=== PATIENT | female | born 1955 | race Caucasian/White ===

== ENCOUNTER 2025-02-27 10:22 | Emergency (ER) | payer MEDICARE, SELFPAY ==
[2025-02-27] VITALS (19 sets, daily range): BP systolic 144–192; BP diastolic 93–123; PULSE 108–124; RESP 14–23; TEMP 36.6–36.9; O2SAT 99–100
--- NOTE | ~2025-02-27 | XR_ITS ---
Examination: XR chest 1V portable Clinical History: ETT placement Comparison: ET tube Technique: Portable AP Findings: ET tube. Cardiomegaly. Left CP angle blunting. No acute bony abnormality. IMPRESSION: 1. ET tube in place. 2. Left basilar atelectasis and/or effusion. Reviewed, dictated and finalized at location R.
--- NOTE | ~2025-02-27 | CT_ITS ---
EXAMINATION: CTA brain carotid DATE: 02/27/2025 11:18 INDICATION: Left arm weakness. Seizure. TECHNIQUE: Computed tomographic angiography (CTA) of the head was performed without and with 100 mL Omnipaque-350 intravenous contrast. CTA of the neck was performed with intravenous contrast. Automated exposure control and iterative reconstruction technique were employed. The dose-length product was 1899.40 mGy- cm. Maximum intensity projection and volume rendered 3D-reconstructions were created by the technologist on a separate workstation. COMPARISON: Head CT 08/22/2014 FINDINGS: HEAD CTA: There are scattered areas of low attenuation in the cerebral white matter, which is within normal limits for the patient's age. There is an old infarct in the right frontal lobe. There is an old infarct in the right parietal lobe. There is no intracranial hemorrhage, acute infarction, or abnormal intracranial mass lesion. The ventricles are normal in size. The mastoid air cells are normal. There is mild mucosal thickening in the paranasal sinuses. The orbits are normal. Partially visualized are endotracheal and orogastric tubes. There is frontal scalp soft tissue swelling. Left vertebral artery is dominant. There is no significant stenosis of basilar artery or the posterior cerebral arteries. There is no significant stenosis of the intracranial internal carotid arteries or anterior or middle cerebral arteries. Anterior communicating artery is normal. The posterior communicating arteries are normal. There is no aneurysm. NECK CTA: The endotracheal tube tip is in expected position. There are no pathologically enlarged lymph nodes. There is no significant stenosis of the vertebral arteries. There is soft tissue attenuation around the right carotid artery, likely hematoma and changes of recent carotid endarterectomy. There is plaque in the proximal left internal carotid artery. There is 0% stenosis of the proximal right internal carotid artery relative to normal distal artery lumen diameter (NASCET criteria). There is 33% stenosis of the proximal left internal carotid artery relative to normal distal artery lumen diameter. There is severe cervical spondylosis. IMPRESSION: 1. 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 2. No aneurysm or significant intracranial arterial stenosis. 3. 0% stenosis of the proximal right internal carotid artery relative to normal distal artery lumen diameter (NASCET criteria). 4. 33% stenosis of the proximal left internal carotid artery relative to normal distal artery lumen diameter. Reviewed, dictated and finalized at location E.
--- NOTE | ~2025-02-27 | XR_ITS ---
Abdominal radiograph(s) INDICATION: NG tube COMPARISON: Abdominal radiograph 12/14/2023 TECHNIQUE: Portable AP abdomen FINDINGS/IMPRESSION: 1. NG tube tip at gastric antrum. 2. No acute abnormality identified. Reviewed, dictated and finalized at location R.
--- NOTE | 2025-02-27 10:22 | ECG_ITS ---
Test Date: 2025-02-27 10:27:58 Measurements Intervals [place] Rate: 119 P: 12 VT: 172 QRS: -26 QRSD: 100 T: -9 QT: 393 QTc: 554 Interpretive Statements SINUS OR ECTOPIC ATRIAL TACHYCARDIA WITH VENTRICULAR PREMATURE COMPLEXES POSSIBLE ANTERIOR MYOCARDIAL INFARCTION , PROBABLY OLD INFERIOR INFARCT, AGE INDETERMINATE BASELINE ARTIFACT- I, II, AVR ABNORMAL ECG No previous ECG available for comparison Electronically Signed On 02-27-2025 14:24:05 CDT by vEer Rodarte D.O.
[2025-02-27] MEDS: levETIRAcetam 1500MG/NACL100ML 1,500 MG/100 ML BAG 1200 MG IVPB ×3 (10:50→11:19)
[2025-02-27 10:54] LABS: Alveolar/Arterial O2 Gradient 264.7 mmHg; Fractional Inspired Oxygen 100 %; HCO3 ABG 17.3 mEq/l (22.0-26.0); Oxygen Content ABG 19.5 %vol (16.0-22.0); Oxygen Saturation ABG 99.8 % (95.0-100.0); PCO2 ABG 27.8 mmHg (35.0-45.0); PO2 ABG 420.5 mmHg (80.0-100.0); PO2 FiO2 Ratio Arterial Blood 4.20 %
[2025-02-27 10:55] LABS: Hematocrit 40.2 % (37.0-47.0); Hemoglobin 13.0 g/dL (12.0-15.0); Immature Granulocyte Percent A 1.1 % (0-0.5); Lymphocytes Absolute Auto 2.59 K/mm3 (0.9-3.2); Mean Corpuscular HGB Conc 32.3 g/dl (32-36); Mean Corpuscular Hemoglobin 28.0 pg (26-34); Mean Corpuscular Volume 86.6 fl (80-100); Nucleated Red Blood Cells Absolute Auto 0.000 K/mm3 (0.0-0.012); Nucleated Red Blood Cells Perc 0.0 % (0.0-0.2); Platelet Count Result 252 k/mm3 (150-375); Red Blood Count 4.64 M/mm3 (4.2-5.4); White Blood Count 11.1 K/mm3 (4.5-10.0)
[2025-02-27 10:56] LABS: Arterial Blood Gas Ventilator rate 20 /MIN; Modified Allen's Test Pass; Site Drawn RIGHT RADIAL
[2025-02-27 10:57] LABS: Arterial Blood Gas Tidal Volume 450 ml
[2025-02-27 11:04] LABS: Alanine Aminotransferase 29 U/L (6-35); Albumin Level 4.0 g/dL (3.5-5.1); Alkaline Phosphatase 122 U/L (38-126); Anion Gap 15 mmol/L (4-12); Aspartate Amino Transferase 40 U/L (14-36); Bilirubin,Total 0.4 mg/dL (0.2-1.3); Blood Urea Nitrogen 15 mg/dL (7-17); Calcium 9.1 mg/dL (8.4-10.2); Carbon Dioxide 17 mmol/L (22-30); Chloride 105 mmol/L (98-107); Estimated Glomerular Filt Rate > 60; Glucose 272 mg/dL (65-110); Magnesium 1.0 mg/dL (1.6-2.3); Potassium 3.4 mmol/L (3.4-5.0); Sodium 137 mmol/L (137-145); Total Protein 7.1 g/dL (6.3-8.2)
[2025-02-27 11:07] LABS: Add Urine Microscopic? YES; Appearance Urine Cloudy (Clear); Glucose Urine UA 2+ mg/dL (Negative); Leukocyte Esterase Ur Negative LEU/UL (Negative); Need Manual Microscopic Reviewed; Nitrate Urine Negative (Negative); Non Pathogenic Casts >20; Specific Grav Ur 1.025 (1.001-1.035)
[2025-02-27] MEDS: MIDAZOLAM HCL (*CRX) 2 MG/2 ML VIAL 4 MG IV PUSH (11:08)
[2025-02-27 11:09] LABS: INR 1.0; Prothrombin Time 13.2 Seconds (11.1-14.7)
[2025-02-27 11:10] LABS: Partial Thromboplastin Time 24.2 Seconds (22.3-36.8)
[2025-02-27 11:12] LABS: Cannabinoid Screen Urine Negative (Negative)
[2025-02-27] MEDS: MIDAZOLAM HCL (*CRX) 2 MG/2 ML VIAL 4 MG (11:20)
[2025-02-27] MEDS: MAGNESIUM SULF 2 GM/WATER 50ML 2 GM/50 ML BAG IVPB (11:21)
[2025-02-27] MEDS: MIDAZOLAM 100MG/NS 100ML(*CRX) 100 MG/100 ML BAG IV CONT (11:25)
--- OUTSIDE RECORDS SUMMARY | 2025-02-27 11:29 | XMS_ITS | Encounter Summary ---
Author Organization [facility] Address [address] [place] [address] Care Team Providers Care Cellar Worker Name Role Phone Aubrie Sellers MD Unavailable [phone] Clare Jeter MD Unavailable [phone] Prem Rojas DO Unavailable [phone] Dannielle Romo Unavailable Prem Chauhan MD Unavailable Yruidia Davidson MD Unavailable Channing Sam MD Unavailable [phone] Juan Pagan Unavailable [phone] Telma Monreal MD Unavailable [phone] Gricel Rodas MD Unavailable [phone] Racheal Bauer MD Unavailable [phone] Conor Bautista MD Primary Care Provider Reason for Visit * Reason Onset Date Comments Medical Question/Miscellaneous 02/26/2025 Encounter Details Date Type Department Care Team (Late st Contact Info) Description 02/26/2025 Telephone [facility] Family Medicine at [place] [address] [facility] [place] [id number] Conor Bautista MD [address] [place] [address] [address] [place] [address] Medical Question/Miscellaneous Social History Tobacco Use Types Packs/Day Years Used Date Smoking Tobacco: Never Passive Smoke Exposure: Never Smokeless Tobacco: Never Alcohol Use Standard Drinks/Week Comments Not Currently 0 (1 standard drink = 0.6 oz pur e alcohol) [facility] Utilities Answer Date Recorded In the past 12 months has e electric, gas, oil, or water company threatened to shut off services in your home? No 07/01/2024 Social Connection and Isolation Panel Answer Date Recorded In a typical week, how many times do you talk on the phone with family, friends, or neighbors? More than three times a week 07/01/2024 How often do you get togethe r with friends or relatives? More than three times a week 07/01/2024 How often do you attend chur ch or holiness services? Never 07/01/2024 Do you belong to any clubs o r organizations such as confucianist groups, unions, fraternal or athletic groups, or school groups? No 07/01/2024 How often do you attend meet ings of the clubs or organizations you belong to? Never 07/01/2024 Are you , , di vorced, , never , or living with a partner? 07/01/2024 Overall Financial Resource Strain (CARDIA) Answe r Date Recorded How hard is it for you to pa y for the very basics like food, housing, medical care, and heating? Not very hard 07/01/2024 PHQ-2 Answer Date Recorded PHQ-2 Total Score (If total score is 3 or more points, staff should administer the PHQ-9) 1 03/10/2024 Hunger Vital Sign Answer Date Recorded Within the past 12 months, y ou worried that your food would run out before you got the money to buy more. Never true 07/01/19 25 Within the past 12 months, t he food you bought just didn't last and you didn't have money to get more. Never true 07/01/2024 PRAPARE - Transportation Answer Date Re corded In the past 12 months, has l ack of transportation kept you from medical appointments or from getting medications? No 09/2024 In the past 12 months, has l ack of transportation kept you from meetings, work, or from getting things needed for daily living? No 07/01/2024 Housing Stability Vital Sign Answer Moris e Recorded In the last 12 months, was t here a time when you were not able to pay the mortgage or rent on time? No 07/01/2024 In the past 12 months, how m any times have you moved where you were living? 0 07/01/2024 At any time in the past 12 m [facility], were you homeless or living in a correction (including now)? No 07/01/2024 AUDIT-C Answer Date Recorded Q1: How often do you have a drink containing alcohol? Never 02/11/2025 Q2: How many drinks containi ng alcohol do you have on a typical day when you are drinking? Patient does not drink Q3: How often do you have si x or more drinks on one occasion? Never 02/11/2025 Personal Safety Answer Date Recorded Have you ever been in or are you currently in a harmful physical or emotional relationship or is someone making you feel afraid or unsafe? Denies 02/18/2025 Comments No Sex and Gender Information Value Date Recorded Sex Assigned at Female 07/31/2018 8:32 AM CLINICAL INSTRUCTOR Legal Sex Female 1:57 AM CLINICAL INSTRUCTOR Gender Identity Female 05/14/2024 7:04 PM CLINICAL INSTRUCTOR Sexual Orientation Straight 07/31/2018 8: 32 AM CLINICAL INSTRUCTOR documented as of this encounter Miscellaneous Notes * Telephone Encounter - Shaye Ireland RN - 02/26/2025 2:49 PM CDT Called and spoke with patient who states she is not happy with [facility] and thinks [facility] will take her next week but the HC nurse is actually coming out to her home this afternoon to helpchange her sensor. I did urge her to discuss at [facility] appt. * Telephone Encounter - Shaye Mott - 02/26/2025 10:57 AM CDT Medical Question/Miscellaneous Caller???s Concern: Patient wants a call back as she has complaints about her Home Health group. Patient said that they were supposed to be there 3 times and they have only came one time. Patient needs her sensor changed and she does not know how. AC sending high priority due to Patient's complaints. Does message need to be routed? Yes-Action Needed documented in this encounter Plan of Treatment Not on file documented as of this encounter Visit Diagnoses Not on filedocumented in this encounter Care Teams Cellar Worker Relationship Specialty Start Date End Date Conor Bautista MD [address] [facility] [id number] [place] [address] PCP - General Family Medicine 11/06/19 Aubire Sellers MD Referring Physician 06/09/18 Clare Jeter MD [address] [place] [address] Consulting Physician Cardiology 06/09/18 Prem Rojas DO [address] [place] [address] Consulting Physician Gastroenterology 06/09/18 Dannielle Romo PA [address] [place] [address] Physician Paint Sprayer Sandblaster Orthopedic Surgery 06/09/18 Prem Chauhan MD [address] [place] [address] Surgeon Orthopedic Surgery 06/09/18 Yuridia Davidson MD [address] [facility] [address] [place] [address] Surgeon Orthopedic Surgery 06/09/18 Channing Sma MD [address] [facility] [address] [place] [address] Surgeon Ophthalmology 06/09/18 Juan Pagan PA [address] [place] [address] Physician Paint Sprayer Sandblaster Physician Paint Sprayer Sandblaster 06/09/18 Telma Monreal MD [address] [place] [address] Referring Physician Dermatology 06/09/18 Gricel Rodas MD [address] [place] [address] Consulting Physician Rheumatology 06/09/18 Racheal Bauer MD [address] [facility] [id number] [place] [address] Referring Physician Obstetrics and Gynecology 06/09/18 documented as of this encounter
--- OUTSIDE RECORDS SUMMARY | 2025-02-27 11:29 | XMS_ITS ---
Author Organization [facility] Address [address] [place] [address] Care Team Providers Care Tip Scourer Name Role Phone Aubrie Sellers MD Unavailable [phone] Clare Jeter MD Unavailable Prem Rojas DO Unavailable [phone] Dannielle Romo Unavailable Prem Chauhan MD Unavailable [phone] Yuridia Davidson MD Unavailable [phone] Channing Sam MD Unavailable [phone] Juan Pagan Unavailable Telma Monreal MD Unavailable [phone] Gricel Rodas MD Unavailable Racheal Bauer MD Unavailable Conor Bautista MD Primary Care Provider [phone] Active Problems Problem Noted Date Diagnosed Date Stenosis of right carotid artery 02/18/2025 Assessment & Plan (02/19/2025 9:28 AM CDT): 02/18/2025: s/p OR for R CEA -continue ASA and Zetia (she has a hx of statin intolerance, having tried 3 separate statin agents with significant symptoms). -SBP goal 110-150 -dc brittany, OU -dc gutierrez, follow up void trial. Incontinent at baseline -ok for OOB -advance diet S/P CABG x 4 02/18/2025 Assessment & Plan (02/19/2025 9:27 AM CDT): CAD s/p 4v CABG (12/2020). -continue ASA and Zetia -resume Coreg and Imdur as able Chronic pain 02/18/2025 Assessment & Plan (02/19/2025 9:26 AM CDT): chronic pain (bilateral hand and BLE) -Home meds: Morphine MSIR 15mg BID and Lyrica 25mg TID -resume home regimen Statin myopathy 09/21/2024 Type 2 diabetes mellitus with hyperglycemia 06/27 Small bowel obstruction 06/30/2024 Ophthalmic migraine 02/27/2024 Malignant neoplasm of urinary bladder 09/06/2023 IPMN (intraductal papillary mucinous neoplasm) 1 Assessment & Plan (03/12/2023 12:50 PM CDT): 7 mm lesion. Incidental finding on MR enterography. The significance of the lesion was discussed with her. She was reassured. Will repeat MRI pancreas in 1 year. Medicare annual wellness visit, subsequent 03/07 Bladder tumor 02/20/2023 Assessment & Plan (02/19/2025 9:30 AM CDT): Follows with [facility]. 02/14/2023 TURBT HgTa 2-3 bladder masses 3 cm in total. C/b incontinence and hematuria at baseline -void trial this morning -cont OP follow up Gastroenteritis 03/09/2021 Assessment & Plan (08/23/2021 4:52 PM CDT): She is referred for evaluation because there was concern that she may have IBD. Apparently, multiple previous colonoscopies and small bowel series did not reveal evidence of Crohn's disease although she is quite concerned because of her family history and recurrent small-bowel obstruction. It appears that she has had recurrent admission to the hospital for small-bowel obstruction possibly due to scar tissue versus Crohn's disease. I will schedule her for colonoscopy with terminal ileum evaluation. Will obtain MR enteropathy especially if terminal ileum cannot be intubated. Meanwhile will check CRP and fecal calprotectin. Generalized anxiety disorder 03/06/2021 Primary osteoarthritis involving multiple joints 03/06/2021 Coronary artery disease of n ative artery of [place] heart with stable angina pectoris 12/29/2020 Assessment & Plan (09/21/2024 3:06 PM CDT): Multivessel disease status post bypass grafting. Catheterization in 08/15 showed patent ROSS to LAD and patent SVG to OM, occluded radial to OM1 and vein to the right. She is not having any significant angina at this time so continue with medical therapy -- continue aspirin, bb, imdur -- try leqvio Assessment & Plan (07/23/2023 11:53 AM PROVIDER RELATIONS MANAGER): Multivessel disease status post bypass grafting. Catheterization in 08/15 showed patent ROSS to LAD and patent SVG to OM, occluded radial to OM1 and vein to the right. She is not having any significant angina at this time so continue with medical therapy - continue aspirin, bb, imdur - seems crestor was stopped at some point in past 6 months but unable to determine why from chart review; pt unsure why and does not recall specific intolerance. Will resume at low dose and monitor for sfx (crestor 5) Assessment & Plan (07/18/2022 3:05 PM PROVIDER RELATIONS MANAGER): Multivessel disease status post bypass grafting. Catheterization in 08/15 showed patent ROSS to LAD and patent SVG to OM, occluded radial to OM1 and vein to the right. She is not having any significant angina at this time so continue with medical therapy - continue aspirin, Zetia, Crestor, bb, imdur Assessment & Plan (03/01/2022 9:30 PM CDT): Multivessel disease status post bypass grafting. Catheterization in 08/15 showed patent ROSS to LAD and patent SVG to OM, occluded radial to OM1 and vein to the right. Recent ED visit likely non cardiac and workup was reassuring. Only infrequent, stable anginal sx responsive to NTG. RCA distal branches ungrafted but vessel contains diffuse complex disease so, despite being a potential PCI target if clinically necessary, would only consider this if symptoms progressed - continue aspirin, Zetia, Crestor, bb, imdur Assessment & Plan (11/28/2021 2:47 PM CDT): Multivessel disease status post bypass grafting. Catheterization a couple months ago showed patent ROSS to LAD and patent SVG to OM, occluded radial to OM1 and vein to the right. She is having only infrequent chest pain that is possibly but not definitely angina and it seems appropriate to continue medical therapy at this time. If she ever does have increasing angina despite medical therapy we can certainly explore PCI to the right coronary. - continue aspirin, Zetia, Crestor, bb, imdur Assessment & Plan (08/23/2021 10:04 AM CDT): Recent very small non-STEMI in the setting of GI illness. Cardiac catheterization showed that the vein grafts to her right PDA and 2nd obtuse marginal have occluded, but both marginals are being filled from the radial artery graft to the 1st marginal. I reassured her that her condition can be treated medically. Will increase isosorbide from 30 mg daily to 60 mg daily, and add sublingual nitroglycerin, the usage of which I reviewed with her. At this point there is no role for coronary intervention or redo CABG, and she is very relieved about this. Continue aspirin 81 mg daily and metoprolol 50 mg b.i.d.. She should follow up with Dr. Gutiérrez, whom she knows from her cardiac catheterization, in three months. Assessment & Plan (05/04/2021 9:06 AM PROVIDER RELATIONS MANAGER): No symptoms of myocardial ischemia following multivessel coronary artery bypass grafting. Continue aspirin 81 mg daily and metoprolol 50 mg b.i.d.. Class 1 obesity due to exces s calories with serious comorbidity and body mass index (BMI) of 31.0 to 31.9 in adult 12/29/2020 Chronic gout of left foot 06/14/2020 History of CVA with residual deficit 11/30/2019 Assessment & Plan (02/19/2025 9:27 AM CDT): Hx of CVA (2008) with residual deficit (right sided weakness) -continue ASA and Zetia. Nephrolithiasis 10/28/2019 Glaucoma suspect of both eyes 07/29/2018 Assessment & Plan (07/29/2018 1:28 PM PROVIDER RELATIONS MANAGER): Glaucoma suspect based on CDR: borderline IOP, CCT normal, visual field changes OS, RNFL today: Combined form of age-related cataract, both eyes 09/21/2015 Assessment & Plan (07/29/2018 1:27 PM PROVIDER RELATIONS MANAGER): Mild cataract OU: ADLs stable; monitor. High risk medication use 09/15/2015 Nonalcoholic fatty liver disease 09/15/2015 Arthralgia of multiple joints 06/17/2015 Mucinous eccrine carcinoma of skin 06/08/2015 History of gout 04/04/2015 Obstructive sleep apnea syndrome 11/17/2014 Overview (09/06/2017): Description: not on CPAP Primary hypertension 07/06/2008 Assessment & Plan (02/18/2025 10:53 AM CDT): Home regimen: Coreg, losartan and Imdur -Resume home meds as able Assessment & Plan (09/21/2024 3:07 PM CDT): Reasonable control -- continue carvedilol 6.25, losartan 50 and Imdur 60 Assessment & Plan (07/23/2023 11:54 AM PROVIDER RELATIONS MANAGER): Reasonable control - continue carvedilol, losartan 50 and Imdur Assessment & Plan (07/18/2022 3:05 PM PROVIDER RELATIONS MANAGER): Adequate control - continue carvedilol, losartan 50 and Imdur Assessment & Plan (03/01/2022 9:31 PM CDT): Controlled today. Continue coreg 6.25, losartan 50, imdur. Reviewed importance of limiting salt intake Assessment & Plan (11/28/2021 2:48 PM CDT): Adequately controlled, continue current medicines. However she had some stomach upset that she attributes to metoprolol so we will try carvedilol 6.25 b.i.d. instead Assessment & Plan (08/23/2021 10:04 AM CDT): Blood pressure is well controlled on her current regimen which was not changed. Assessment & Plan (05/04/2021 9:07 AM PROVIDER RELATIONS MANAGER): Blood pressure is controlled on losartan 50 mg daily and metoprolol 50 mg b.i.d., both of which she should continue. Assessment & Plan (03/03/2021 10:42 PM CDT): Monitor Assessment & Plan (11/11/2020 3:11 PM CDT): Blood pressure is adequately controlled on current regimen. No change was made. Diabetes mellitus, type II, insulin dependent Overview (09/06/2017): Description: dx 1997 Assessment & Plan (02/19/2025 9:27 AM CDT): A1c 9.2% on 02/12/2025 Home regimen: Lantus 25u nightly, NovoLOG 5U TID with meals and Metformin 1000mg BID -hold home oral meds -start dose reduced basal/bolus regimen -carb consistent diet Assessment & Plan (03/03/2021 10:43 PM CDT): SS coverage Current Treatment and Therapy Plans No current plan information found. Past Treatment and Therapy Plans No past plan information found. Lifetime Dose Tracking * Chemical Lifetime Dose Automatic Entry Manual Entr y Fluoro Time 8.19 minutes 0.39 minutes 7.8 minutes Air kerma at the reference point (Ka,r) 1,205.67 mGy 2 .28 mGy 1,203.39 mGy DLP 1,147 mGycm 1,147 mGycm 0 mGycm DAP 95.017 Gy-cm2 0 Gy-cm2 95.017 Gy-cm2 Resolved Problems Problem Noted Date Diagnosed Date Resolved Date Carotid stenosis, right 02/11/2025 09/2 10/2024 Elevated sed rate 09/06/2023 07/14/2024 Hand paresthesia 09/06/2023 12/20/2023 Nausea and vomiting 03/12/2023 09/10/19 Assessment & Plan (03/12/2023 12:49 PM CDT): Mild to moderately severe. Does okay Zofran sublingually. Advised to continue same medication. Bladder tumor 12/31/2022 03/07/2023 Irritable bowel syndrome 12/04/2022 Assessment & Plan (03/12/2023 12:48 PM CDT): Intermittently symptomatic. Advised to continue bupropion. She was advised to continue fiber supplement and try probiotics. Assessment & Plan (12/05/2022 3:41 PM CDT): She complain of persistent abdominal pain radiating to the right lower quadrant. CT scan performed at outside facility suggestive of inflammation around the terminal ileum but her last colonoscopy performed by sd did not reveal any terminal ileum lesion. She was advised to continue fiber supplement and try probiotics. Abnormal finding on GI tract imaging 12/04/2022 12/20/2023 Assessment & Plan (12/05/2022 3:42 PM CDT): CT scan abdomen and pelvis revealed possible terminal ileum inflammation. She was previously scheduled for MR enterography but could not make the appointment because she was concerned about being claustrophobic. I reassured her that she can receive Ativan premedication in order to be able to tolerate the testing. RLQ abdominal pain 06/01/2022 Assessment & Plan (06/02/2022 11:49 AM PROVIDER RELATIONS MANAGER): She had presented to the emergency room with severe right lower quadrant abdominal pain. CT revealed possible terminal ileum inflammation. She was empirically treated with metronidazole and is feeling better. The CT scan images reviewed. Showed nonspecific haziness around the terminal ileum suggestive of terminal ileitis. Recent colonoscopy with terminal ileum intubation was reviewed. The terminal ileum was normal at that time. The patient was concerned about possible Crohn's disease in the past. I will obtain MR enterography to further assess the small bowel. The plan of care was discussed with patient and her . Bloating 04/06/2022 09/05/2022 Assessment & Plan (04/06/2022 5:08 PM PROVIDER RELATIONS MANAGER): Persistent. IBS but need to rule out small intestinal bacterial overgrowth. Counseled about diet especially avoidance of dairy products and some specific fresh green vegetables. Will obtain hydrogen breath test. Epigastric abdominal pain 07/26/2021 Assessment & Plan (04/06/2022 5:12 PM PROVIDER RELATIONS MANAGER): Persistent epigastric pain. EGD revealed small hiatal hernia and antral gastritis. Advised to continue pantoprazole 40 mg daily. Counseled about diet and lifestyle modification. Assessment & Plan (08/23/2021 4:44 PM CDT): Mild to moderately severe. Associated with tenderness. May be due to esophagitis, gastric ulcer, duodenal ulcer. Esophagogastroduodenoscopy is recommended and scheduled. The risks, benefits and alternative to an esophagogastroduodenoscopy were discussed with the patient and the patient verbalized understanding. The risks included perforation, bleeding, infection and anesthetic complications. Hypokalemia 03/06/2021 03/08/2021 SBO (small bowel obstruction) 03/03/2021 03/08/2021 Assessment & Plan (03/04/2021 5:34 AM CDT): Bowel rest, surgery consulted in ER, conservative management for now. No NGT for now. Will order SBFT in AM After admission, pt had episode of N, V and NGT placed. History of gout 06/14/2020 12/20/2023 Whole body pain 05/16/2020 09/05/2022 Small bowel obstruction 10/28/2019 04/06/2022 Assessment & Plan (08/23/2021 4:53 PM CDT): She has had recurrent episodes of small-bowel obstruction warranting hospital admission. She is concerned that she may have Crohn's disease although this has never been proven by x-ray or endoscopy/histopathology. Will obtain colonoscopy with terminal ileum evaluation. Patient is also likely to need an MR enterography. Shingles 10/28/2019 03/16/2024 History of diabetes mellitus 07/29/2018 06/09/2019 Assessment & Plan (07/29/2018 1:29 PM PROVIDER RELATIONS MANAGER): H/o DM: no evidence of diabetic retinopathy, and no macular edema. Discussed about importance of glycemic control, and ocular complications of uncontrolled diabetes. 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 WBC 12.4 Her white count was as high as 29,000 in February 2021. She tells me that she has never been worked up for the problem. May have leukemoid reaction. Will obtain CBC with differential. May need referral to Hematology Service if white count remains elevated. 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
--- OUTSIDE RECORDS SUMMARY | 2025-02-27 11:29 | XMS_ITS | Encounter Summary ---
Author Organization [facility] Address [address] [place] [address] Phone Care Team Providers Care Beam Racker Name Role Phone Rogelio Lee MD Primary Care Provider Aubrie Sellers MD Unavailable [phone] Clare Jeter MD Unavailable Prem Rojas DO Unavailable [phone] Dannielle Romo Unavailable Prem Chauhan MD Unavailable Yuridia Davidson MD Unavailable Channing Sam MD Unavailable Juan Pagan Unavailable Telma Monreal MD Unavailable [phone] Gricel Rodas MD Unavailable Racheal Bauer MD Unavailable [phone] Cruz Rice MD Primary Care Provider + Conor Bautista MD Primary Care Provider Maren Dawson MA Unavailable [phone] Encounter Details Date Type Department Care Team (Latest Contact Info) Description 09/30/2018 Orders Only [facility] Scanning, Provider Social History Tobacco Use Types Packs/Day Years Used Date Smoking Tobacco: Never Smokeless Tobacco: Never Alcohol Use Standard Drinks/Week Comments No 0 (1 standard drink = 0.6 oz pur e alcohol) Comments Unknown Sex and Gender Information Value Date Recorded Sex Assigned at Female 07/31/2018 8:32 AM BRUSH WORKER Legal Sex Female 1:57 AM BRUSH WORKER Gender Identity Female 05/14/2024 7:04 PM BRUSH WORKER Sexual Orientation Straight 07/31/2018 8: 32 AM BRUSH WORKER documented as of this encounter Plan of Treatment Not on file documented as of this encounter Procedures Procedure Name Priority Date/Time Associated Diagnosis Comments SCAN - LABS 09/30/2018 SCAN - RADIOLOGY/IMAGING 09/29/2018 documented in this encounter Results * SCAN - LABS (09/30/2018) us Provider Scanning Final Result * SCAN - RADIOLOGY/IMAGING (09/29/2018) Anatomical Region Laterality Modality Other us Provider Scanning Final Result documented in this encounter Visit Diagnoses Not on filedocumented in this encounter Additional Health Concerns Infection Onset Date Last Indicated Resolved Time COVID: Suspected 05/20/2022 05/20/2022 05/20/2022 7:27 PM BRUSH WORKER COVID: Suspected 06/30/2024 06/30/2024 06/30/2024 6:43 PM BRUSH WORKER documented as of this encounter Care Teams Beam Racker Relationship Specialty Start Date End Date Rogelio Lee MD PCP - General 08/24/16 10/27/19 Cruz Rice MD [address] [place] [address] [address] [address] PCP - General Internal Medicine 10/28/19 11/05/19 Conor Bautista MD [facility] [address] [address] PCP - General Family Medicine 11/06/19 Aubrie Sellers MD Referring Physician 06/09/18 Clare Jeter MD [address] [place], [place] [id number] Consulting Physician Cardiology 06/09/18 Prem Rojas DO [address] [place] [address] Consulting Physician Gastroenterology 06/09/18 Dannielle Romo PA [address] [place] [address] Physician Cigar Binder Orthopedic Surgery 06/09/18 Prem Chauhan MD [address] [place] [address] Surgeon Orthopedic Surgery 06/09/18 Yuridia Davidson MD [address] [place] [address] Surgeon Orthopedic Surgery 06/09/18 Channing Sam MD [address] [place] [address] Surgeon Ophthalmology 06/09/18 Juan Pagan PA [address] [place] [address] Physician Cigar Binder Physician Cigar Binder 06/09/18 Telma Monreal MD [address] [facility] [address] [place] [address] Referring Physician Dermatology 06/09/18 Gricel Rodas MD [address] [place] [address] [address] [place] [address] Consulting Physician Rheumatology 06/09/18 Racheal Bauer MD [address] [id number] [place] [address] Referring Physician Obstetrics and Gynecology 06/09/18 Maren Dawson, HAYLEY [address] [facility] [address] [place] [address] ACO Care Blood Bank Technologist 02/22/25 02/22/25 documented as of this encounter
--- OUTSIDE RECORDS SUMMARY | 2025-02-27 11:30 | XMS_ITS | Clinical Summary ---
Author Organization [facility] Address [address] [place] [address] Care Team Providers Care Bloom Conveyor Operator Name Role Phone Rogelio Lee MD Primary Care Provider Source Comments [facility],non-owned Affiliates and Associated Physician Practices is amultiple site organization consisting of ambulatory clinics and hospital sitesin [place], [place], [place] and [place]. This disclosure is being madepursuant to the Care Everywhere program and may not contain all information available regarding this patient. Last updated 18.[facility] Allergies Active Allergy Reactions Criticality Noted Date Comments Amoxicillin 04/04/2010 Cephalosporins Rash,Other Medium 04/30/2016 Clopidogrel Other Low 10/24/2012 Muscle spasms and sharp pain, Sharp pains in muscles, Muscle spasms and sharp pain, Sharp pains in muscles, Muscle spasms and sharp pain, Sharp pains in muscles Codeine 04/04/2010 Contrast-Iodinated Agents For Ct/Other 04/04/2010 Cymbalta Other Low 04/04/2015 Chest pain, Chest pain, Chest pain Demerol 04/04/2010 Hmg-Coa-R Inhibitors Other High 04/30/2016 mylgia, mylgia, mylgia Hydromorphone Skin Reactions,Rash High 04/19/2014 Lorazepam Other Low 04/30/2016 Sulfa Drugs 04/04/2010 Tramadol Skin Reactions Medium 04/19/2014 Medications * Be aware that medications may not be up to date on this document. Alwaysverify current medications with the patient. aspirin-dipyrid amole CR 12hr (AGGRENOX) 25-200 MG capsule Take 1 capsule by mouth BID. 180 capsule 3 05/08/2016 Active folic acid (FOLVITE) 1 MG tablet 04/30/2016 Active hydroxychloroqu ine (PLAQUENIL) 200 MG tablet Take by mouth. 04/30/2016 Active baclofen (LIORESAL) 10 MG tablet Take 10 mg by mouth BID. 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 Family History Medical History Relation Name Comments CAD (Coronary Artery Disease) Other Heart Disease Other Hypertension Other Relation Name Status Comments Other Social History Tobacco Use Types Packs/Day Years Used Date Smoking Tobacco: Never Smokeless Tobacco: Never Alcohol Use Standard Drinks/Week Comments No 0 (1 standard drink = 0.6 oz pur e alcohol) Comments Unknown Sex and Gender Information Value Date Recorded Sex Assigned at Not on file Legal Sex Female 5:23 PM PLYWOOD LAYUP LINE CORE LAYER Gender Identity Not on file Sexual Orientation Not on file Last Filed Vital Signs Vital Sign Reading Time Taken Comments Blood Pressure 115/67 04/30/2016 1:20 PM PLYWOOD LAYUP LINE CORE LAYER Pulse 79 04/30/2016 1:20 PM PLYWOOD LAYUP LINE CORE LAYER Temperature 36.9 C (98.4 F) 04/30/2016 1:20 PM PLYWOOD LAYUP LINE CORE LAYER Respiratory Rate 17 04/04/2015 12:18 PM PLYWOOD LAYUP LINE CORE LAYER Oxygen Saturation 96% 10/25/2012 8:44 AM CDT Inhaled Oxygen Concentration - - Weight 84.4 kg (186 lb) 04/30/2016 1:20 PM PLYWOOD LAYUP LINE CORE LAYER Height 165.1 cm (5' 5) 04/30/2016 1:20 PM PLYWOOD LAYUP LINE CORE LAYER Body Mass Index 30.95 04/30/2016 1:20 PM PLYWOOD LAYUP LINE CORE LAYER Plan of Treatment Health Maintenance Due Date Last Done Comments BONE DENSITY TESTING 1955 COLOGUARD (AGES 45-75) - COLON CA SCREENING 1954 CT COLONOGRAPHY - COLON CA SCREENING 1954 FIT - COLON CA SCREENING 1954 FLEX SIG - COLON CA SCREENING 1954 HEPATITIS C SCREENING 09/22/1972 DTAP/TDAP/TD VACCINES (1 - Tdap) 1973 PNEUMOCOCCAL VACCINE 50+ (1 of 1 - PCV) 2004 ZOSTER VACCINE (1 of 2) 2004 Respiratory Syncytial Virus (RSV) Vaccine Pt: or over 60 yrs (1 - Risk 60-74 years 1-dose series) 2014 LIPID TESTING 04/19/2019 04/19/2014, 10/24/2012 MAMMOGRAM 08/04/2023 08/03/2021 DEPRESSION SCREENING 05/27/2024 COVID-19 VACCINE ( season) 2025 INFLUENZA VACCINE (#1) 2025 0, 03/17/2018, 03/04/2017, Additional history exists COLON MONITORING 09/13/2031 09/12/2021 COLONOSCOPY - COLON CA SCREENING 09/13/2031 09/12/2021 Colorectal Cancer Screening 09/13/2031 HEPATITIS B VACCINE Aged Out No longe r eligible based on patient's age to complete this topic HIB VACCINE Aged Out No longer eligi ble based on patient's age to complete this topic HPV VACCINE Aged Out No longer eligi ble based on patient's age to complete this topic MENINGOCOCCAL (Group B) VACCINE SHARED DECISION-MAKING Aged Out No longer eligible based on patient's age to complete this topic MENINGOCOCCAL GROUPS A/C/Y/W VACCINE Aged Out No longer eligible based on patient's age to complete this topic Procedures Procedure Name Priority Date/Time Associated Diagnosis Comments LIPID PROFILE Routine 04/19/2014 1:34 PM PLYWOOD LAYUP LINE CORE LAYER from Last 3 Months or Most Recently Relevant to Health Maintenance Results * (ABNORMAL) LIPID PROFILE (04/19/2014 1:34 PM [employer]YWOOD LAYUP LINE CORE LAYER) Cholesterol Total 272(H) <200 mg/dL [facility] HDL 52 >40 mg/dL [facility] Comment: ATP III Classification of HDL Cholesterol: <40 mg/dL: Considered a major risk factor. >60 mg/dL: Considered a negative risk factor. LDL Calculated 146(H) <100 mg/dL [facility] Comment: ATP III Classification of LDL Cholesterol: <100 mg/dL: Optimal 100 - 129 mg/dL: Near Optimal/Above Optimal 130 - 159 mg/dL: Borderline High 160 - 189 mg/dL: High >190 mg/dL: Very High Triglycerides 369(H) <150 mg/dL [facility] Comment: ATP III Classification of Triglycerides: <150 mg/dL: Normal 150 - 199 mg/dL: Borderline High 200 - 400 mg/dL: High >500 mg/dL: Very High Blood specimen (specimen) BLOOD SPECIMEN / Unknown 04/19/2014 1:34 PM PLYWOOD LAYUP LINE CORE LAYER 04/19/2014 2:10 PM [employer]YWOOD LAYUP LINE CORE LAYER Jimbo Contreras MD LAB - CHEMISTRY ORDERABLES Fin al Result [address] [phone] from Last 3 Months or Most Recently Relevant to Health Maintenance Insurance MEDICARE [employer]ET[employer] Care Teams Bloom Conveyor Operator Relationship Specialty Start Date End Date Rogelio Lee MD PCP - General 04/04/15
--- OUTSIDE RECORDS SUMMARY | 2025-02-27 11:30 | XMS_ITS | Clinical Summary ---
Author Organization [facility] Address [address] [place] [address] Care Team Providers Care Foundry Worker Name Role Phone Unavailable Primary Care Provider Unavailabl e Allergies Active Allergy Reactions Criticality Noted Date Comments Amoxicillin Rash 02/11/2022 Cefazolin Rash 02/11/2022 Lorazepam Other/Unknown (See Comments) 02/11/2022 Pt states no tolerance Codeine Rash 02/11/2022 Prednisone & Diphenhydramine Shortness Of Breath 02/11/2022 Duloxetine Hcl Headache 02/11/2022 Meperidine Rash 02/11/2022 Hydromorphone Itching 02/11/2022 Dapagliflozin Other/Unknown (See Comments) 02/11/2022 Pt states severe bowel pain Iodinated Diagnostic Agents Anaphylaxis High 02/11/2022 Oxycodone Nausea And Vomiting 02/11/2022 Clopidogrel Other/Unknown (See Comments) 02/11/2022 Pt states sharp stabbing muscle spasms Sulfa Antibiotics Rash 02/11/2022 Tramadol Itching 02/11/2022 Wound Dressing Adhesive Other/Unknown (S ee Comments) 02/11/2022 Pt states tape, adhesive, and ekg pads rips skin off Medications carvedilol (COREG) 6.25 MG tablet Take by mouth 2 times daily (with meals) Active rosuvastatin (CRESTOR) 5 MG tablet Take 5 mg by mouth daily Active pantoprazole (PROTONIX) 40 MG packet Take 40 mg by mouth daily Active valACYclovir (VALTREX) 1000 mg tablet Take 1,000 mg by mouth 2 times daily Active buPROPion (WELLBUTRIN) 150 MG XL tablet Take 150 mg by mouth every morning Active glyBURIDE-metfor min (GLUCOVANCE) 5-500 MG per tablet Take 1 tablet by mouth daily (with breakfast) Active isosorbide mononitrate (IMDUR) 30 MG CR tablet Take 30 mg by mouth every morning Active nitroGLYCERIN (NITROSTAT) 0.[address] 0.4 mg under the tongue every 5 minutes as needed for Chest pain Active Active Problems Problem Noted Date Diagnosed Date Chest pain, unspecified type 02/11/2022 Social History Tobacco Use Types Packs/Day Years Used Date Smoking Tobacco: Never Smokeless Tobacco: Never Alcohol Use Standard Drinks/Week Comments Never 0 (1 standard drink = 0.6 oz pur e alcohol) Alcohol Use Answer Date Recorded Frequency of Alcohol Consumption Not on file 11/11/2023 Average Number of Drinks Not on file 024 Frequency of Binge Drinking Not on file 10/25 Alcohol Use Status Never 11/11/2023 Average alcohol consumption Not on file 10/25 Comments No Sex and Gender Information Value Date Recorded Sex Assigned at Not on file Legal Sex Female 11:01 AM CDT Gender Identity Not on file Sexual Orientation Not on file Last Filed Vital Signs Vital Sign Reading Time Taken Comments Blood Pressure 164/76 02/12/2022 11:49 AM CDT Pulse 72 02/12/2022 7:43 AM CDT Temperature 36.8 C (98.2 F) 02/12/2022 7:43 AM CDT Respiratory Rate 18 02/12/2022 7:43 AM CDT Oxygen Saturation 96% 02/12/2022 7:43 AM CDT Inhaled Oxygen Concentration - - Weight 80.3 kg (177 lb) 02/11/2022 3:41 PM CDT Height 162.6 cm (5' 4) 02/11/2022 3:41 PM CDT Body Mass Index 30.38 02/11/2022 3:41 PM CDT Plan of Treatment Health Maintenance Due Date Last Done Comments DIABETIC FOOT EXAM 1954 Diabetic Eye Exam 1954 Hepatitis C Screening ages 18 to 79 once 1955 URINARY MICROALBUMIN IN DIABETES 1954 DEPRESSION SCREENING 1966 BREAST CANCER SCREENING 1994 Colon Cancer Screening 09/28/1999 Zoster Vaccine (Recombinant Vaccine) (1 of 2) 2004 DEXA SCAN SCREENING 09/28/2019 Fall Risk Assessment 09/28/2019 YEARLY WELLNESS EXAM 06/09/2020 06/09/2019, 06/09/19 19 Diabetes follow-up every 6 months by HEMOGLOBIN A1C 08/11/2022 02/11/2022 LIPID TESTING 02/11/2023 02/11/2022 Influenza Vaccine 12/25/2024 04/26/2021, , 06/09/2019, Additional history exists COVID-19 Immunization ( - season) 2025 Pneumococcal Vaccine: 50 and over (3 of 3 - PCV20 or PCV21) 10/17/2025 10/17/2020, 05/27/2008 RSV Vaccines (1 - 1-dose 75+ series) 2029 ADULT TETANUS 04/28/2030 04/28/2020, 06/09/2019 HEPATITIS A VACCINES Aged Out No long er eligible based on patient's age to complete this topic HEPATITIS B VACCINES Aged Out No long er eligible based on patient's age to complete this topic HIB VACCINES Aged Out No longer eligi ble based on patient's age to complete this topic HPV VACCINES Aged Out No longer eligi ble based on patient's age to complete this topic IPV VACCINES Aged Out No longer eligi ble based on patient's age to complete this topic MENINGOCOCCAL VACCINE Aged Out No benjamín honorio eligible based on patient's age to complete this topic Meningococcal B Vaccine Aged Out No l onger eligible based on patient's age to complete this topic ROTAVIRUS VACCINES Aged Out No longer eligible based on patient's age to complete this topic Procedures Procedure Name Priority Date/Time Associated Diagnosis Comments LIPID PROFILE Routine 02/11/2022 11:51 AM CDT HEMOGLOBIN A1C Routine 02/11/2022 11:51 AM CDT from Last 3 Months or Most Recently Relevant to Health Maintenance Results * (ABNORMAL) HEMOGLOBIN A1C (02/11/2022 11:51 AM CDT) Hemoglobin A1C 7.6(H) 4.0 - 5.6 % [facility] Estimated Average Glucose 171(H) 68 - 114 MG/DL [facility] 02/11/2022 11:5 1 AM CDT 02/11/2022 11:55 AM CDT Lokesh Shanks DO CHEMISTRY ORDERABLES Final R esult Performing Organization Address City/[facility]/ZIP Co de Phone Number [facility] [address] [place] [address], [facility] [phone] * (ABNORMAL) LIPID PROFILE (02/11/2022 11:51 AM CDT) Cholesterol 178 <200 MG/DL [facility] Triglycerides 332(H) 0 - 149 MG/DL [facility] HDL 56 >40 MG/DL [facility] LDL Cholesterol 56 <130 MG/DL [facility] LDL/HDL Ratio 0.99 [facility] VLDL, Calc 66(H) 5 - 40 MG/DL [facility] LDL, High Risk RELATIVE RISK MALE FEMALE 1/2 AVERAGE 1.00 1.47 AVERAGE 3.55 3.22 2X AVERAGE 6.25 5.03 3X AVERAGE 7.99 6.14 AN AVERAGE RISK RATIO INFERS A 10% LIKELIHOOD OF SIGNIFICANT CAD BY AGE 60. OTHER RISK FACTORS SUCH GLUCOSE INTOLERANCE, SMOKING HISTORY, HYPERTENSION AND OBESITY WILL FURTHER MODIFY THE RELATIVE RISK RATIO. [facility] 02/11/2022 11:5 1 AM CDT 02/11/2022 11:55 AM CDT Lokesh Shanks DO CHEMISTRY ORDERABLES Final R esult Performing Organization Address City/[facility]/ZIP Co de Phone Number [facility] [address] [place] [address], [facility] [phone] from Last 3 Months or Most Recently Relevant to Health Maintenance Insurance MEDICARE GENERIC MEDICARE SUPP MEDICARE GENERIC MEDICARE SUPP MEDICARE GENERIC MEDICARE SUPP Advance Directives * Full Code (Latest Code Status on File) Date Activated Date Inactivated Comments 02/11/2022 4:01 PM 02/12/2022 5:46 PM
--- OUTSIDE RECORDS SUMMARY | 2025-02-27 11:30 | XMS_ITS | Encounter Summary ---
Author Organization [facility] Address [address] [place] [address] Care Team Providers Care Cover Mat Machine Operator Name Role Phone Aubrie Sellers MD Unavailable [phone] Clare Jeter MD Unavailable Prem Rojas DO Unavailable [phone] Dannielle Romo Unavailable Prem Chauhan MD Unavailable Yuridia Davidson MD Unavailable Channing Sma MD Unavailable Juan Pagan Unavailable [phone] Telma Monreal MD Unavailable [phone] Gricel Rodas MD Unavailable Racheal Bauer MD Unavailable [phone] Conor Bautista MD Primary Care Provider Maren Dawson MA Unavailable [phone] Reason for Visit * Reason Onset Date Comments Medical Question/Miscellaneous 02/19/2025 Encounter Details Date Type Department Care Team (Late st Contact Info) Description 02/19/[address] [facility] Family Medicine at [address] [place] [address] Conor Bautista MD [address] [place] [address] [address] [place] [address] Medical Question/Miscellaneous Social History Tobacco Use Types Packs/Day Years Used Date Smoking Tobacco: Never Passive Smoke Exposure: Never Smokeless Tobacco: Never Alcohol Use Standard Drinks/Week Comments Not Currently 0 (1 standard drink = 0.6 oz pur e alcohol) [facility] Utilities Answer Date Recorded In the [...] often do you attend chur ch or congregational services? Never 07/01/2024 Do you belong to any clubs o r organizations such as spiritism groups, unions, fraternal or athletic groups, or [...] any time in the past 12 m onths, were you homeless or living in a fpc (including now)? No 07/01/2024 AUDIT-C Answer Date [...] Sex Assigned at Female 07/31/2018 8:32 AM CONTACT ACID PLANT OPERATOR Legal Sex Female 1:57 AM CONTACT ACID PLANT OPERATOR Gender Identity Female 05/14/2024 7:04 PM CONTACT ACID PLANT OPERATOR Sexual Orientation Straight 07/31/2018 8: 32 AM CONTACT ACID PLANT OPERATOR documented as of this encounter Miscellaneous Notes * Telephone Encounter - Lesa Raphael RN - 02/19/2025 4:29 PM CDT Called and gave verbal orders. Will need EFRAÍN call and appointment scheduled * Telephone Encounter - Nilsa Rodas - 02/19/2025 4:14 PM CDT Medical Question/Miscellaneous Caller???s Concern: Sharifa with [facility] received referral from [facility] for [facility], OT and PT. Sharifa stated that the patient discharged from the hospital today. She would like to know if Dr Bautista will sign and follow orders. Verbal is okay. Sharifa relayed that PT and OT may be a bit delayed, but alf could possibly get out there possibly Saturday or Saturday. Pleaseadvise Does message need to be routed? Yes-Action Needed documented in this encounter Plan of Treatment Not on file documented as of this encounter Visit Diagnoses Not on filedocumented in this encounter Care Teams Cover Mat Machine Operator Relationship Specialty Start Date End Date Conor Bautista MD [address] [facility] [phone] [place] [address] PCP - General Family Medicine 11/06/19 Aubrie Sellers MD Referring Physician 06/09/18 Clare Jeter MD [address] [place] [address] Consulting Physician Cardiology 06/09/18 Prem Rojas DO [address] [place] [address] Consulting Physician Gastroenterology 06/09/18 Dannielle Romo PA [address] [place] [address] Physician Business Project Analyst Orthopedic Surgery 06/09/18 Prem Chauhan MD [address] [place] [address] Surgeon Orthopedic Surgery 06/09/18 Yuridia Davidson MD [address] [place] [address] Surgeon Orthopedic Surgery 06/09/18 Channing Sam MD [address] [place] [address] Surgeon Ophthalmology 06/09/18 Juan Pagan PA [address] [place] [address] Physician Business Project Analyst Physician Business Project Analyst 06/09/18 Telma Monreal MD [address] [place] [address] Referring Physician Dermatology 06/09/18 Gricel Rodas MD [address] [place] [address] [address] [place] [address] Consulting Physician Rheumatology 06/09/18 Racheal Bauer MD [address] [facility] [address] [phone] [place] [address] Referring Physician Obstetrics and Gynecology 06/09/18 Maren Dawson, HAYLEY [address] [facility] [address] [place] [address] ACO Care Metal Leaf Layer 02/22/25 02/22/25 documented as of this encounter
--- OUTSIDE RECORDS SUMMARY | 2025-02-27 11:30 | XMS_ITS | Clinical Summary ---
Author Organization [facility] Address [address], [address] [address] Phone Care Team Providers Care Greens Or Grounds Superintendent Name Role Phone Provider, Unknown Primary Care Provider Unavaila Telma Mayers MD Unavailable [phone] Rogelio Lee MD Unavailable [phone] Allergies Active Allergy Reactions Criticality Noted Date Comments Adhesive Tape Unknown,Other (see Comments) Medium pulls skin off, ekg pads, can have paper tape Amoxicillin Rash,Itching,Unkno wn Medium Lorazepam Other (see Comments) High 02/13/2016 Confusion, emotional Cefazolin Rash Medium 02/13/2016 Cephalosporins Rash,Unknown Medium Duloxetine Hcl Other (see Comments) High 02/07/2016 Headache and Chest Pain Meperidine Rash,Unknown Medium Hydromorphone Itching,Anxiety,Un known Medium Iodinated Contrast Media Anaphylaxis,Unk now n High Other Nausea,Vomiting,Un known Medium Codeine Derivatives (Causes rash also) Clopidogrel Bisulfate Unknown,Other (see Comments) Medium Muscle spasms and sharp pain Sulfa Antibiotics Rash,Unknown Medium Tramadol Hcl Itching,Unknown Medium Medications aspirin-dypyrid amole (AGGRENOX) 25-200 MG CAPSULE SR 12 HR 2 times daily. Active buPROPion SR (WELLBUTRIN SR) 150 MG TABLET SR 12 HR Take 300 mg by mouth every morning. Active Coenzyme Q10 (CO Q-10) 50 MG Capsule 2 times daily. Reported on 10/30/2016 Active losartan (COZAAR) 50 MG Tablet Take 50 mg by mouth every morning. Active Magnesium ([employer] MAGNESIUM) 250 MG Tablet 2 times daily. Active folic acid (FOLVITE) 1 MG Tablet every morning. Active glyBURIDE-metfo rmin (GLUCOVANCE) 5-500 MG Tablet 1 Tab 4 times daily. Active cholecalciferol (HM VITAMIN D) 1000 UNIT Tablet every morning. Active amLODIPine (NORVASC) 5 MG Tablet Take 5 mg by mouth every morning. Active pantoprazole (PROTONIX) 40 MG Tablet Delayed Response every morning. Active Probiotic Product ([employer]) Capsule Take 1 Tab by mouth 2 times daily. Active valACYclovir (VALTREX) 1 GM Tablet 3 times daily as needed. Active colchicine 0.6 MG Tablet Take 0.6 mg by mouth every morning. Active Mesalamine (PENTASA) 500 MG Capsule CR Take 1 Cap by mouth 4 times daily (before meals and nightly). 360 Cap 3 09/03/2019 Active Active Problems Problem Noted Date Diagnosed Date Nonalcoholic fatty liver disease 09/15/2015 Crohn's ileitis 09/15/2015 High risk medication use 09/15/2015 Dyslipidemia 09/15/2015 Idiopathic acute pancreatitis 09/15/2015 Nonalcoholic steatohepatitis Immunizations Immunization Administration Dates Next Due Influenza Vaccine greater than 3 yrs 07/17/2015 Family History Medical History Relation Name Comments Alcohol Abuse Brother Hypertension Brother Cancer Father L inner ear Dementia Father From parkinson Glaucoma Father Gout Father Heart Attack Father High Cholesterol Father Hypertension Father Kidney Disease Father Other-comment Father Left leg defor mation Parkinsonism Father Demetia Prostate Cancer Father Psoriasis Father Heart Disease Maternal Grandfather Stroke Maternal Grandfather Ovarian Cancer Maternal Grandmother Diabetes Mother Heart Attack Mother Heart Disease Mother High Cholesterol Mother Hypertension Mother Other-comment Mother AML Crohn's Disease Other 1 cousins Cancer Other 2 cousin Cancer Other 3 cousin bladder Heart Disease Paternal Grandfather Aneurysm Paternal Grandmother Relation Name Status Comments Brother Father Alive Maternal Grandfather Maternal Grandmother Mother Other 1 Other 2 cousin Alive Other 3 cousin Alive Paternal Grandfather Paternal Grandmother Social History Tobacco Use Types Packs/Day Years Used Date Smoking Tobacco: Never Smokeless Tobacco: Never Tobacco Cessation:Counseling Given: No Alcohol Use Standard Drinks/Week Comments Not Currently 0 (1 standard drink = 0.6 oz pur e alcohol) Rare Comments No Sex and Gender Information Value Date Recorded Sex Assigned at Not on file Legal Sex Female 8:06 PM CDT Gender Identity Not on file Sexual Orientation Not on file Last Filed Vital Signs Vital Sign Reading Time Taken Comments Blood Pressure 122/76 12/01/2019 3:08 PM CDT Pulse 87 12/01/2019 3:08 PM CDT Temperature 36.2 C (97.1 F) 12/01/2019 3:08 PM CDT Respiratory Rate 16 12/01/2019 3:08 PM CDT Oxygen Saturation 99% 12/01/2019 3:08 PM CDT Inhaled Oxygen Concentration - - Weight 79.8 kg (176 lb) 02/12/2020 1:00 PM CDT Height 162.6 cm (5' 4) 02/12/2020 1:00 PM CDT Body Mass Index 30.21 02/12/2020 1:00 PM CDT Plan of Treatment Health Maintenance Due Date Last Done Comments TdaP Immunization 1955 Cologuard 09/28/1999 Immunochemical Fecal Occult Blood 09/28/1999 Pneumococcal Immunization (5 0+ years) (1 of 1 - PCV) 2004 Medicare Initial AWV G0438 11/25/2011 Influenza Immunization (#1) 01/25/202502/25, 03/04/2017, 07/17/2015 SARS-COV-2 Immunization ( - season) 2025 Colonoscopy 02/12/2026 02/13/2016, 03/08/2014 Colorectal Cancer Screening 02/12/2026 Respiratory Syncytial Virus (RSV) Immunization (Adult) (1 - 1-dose 75+ series) 2029 DEXA Bone Density Discontinued 10/10/2015, 10/10/2015 Hepatitis C Virus (HCV) Screening Completed 10/10/2015 Zoster Immunization Completed 11/13/2017, 09/02/2017 Hepatitis B Immunization Aged Out No longer eligible based on patient's age to complete this topic Human Papillomavirus (HPV) Immunization Aged Out No longer eligible based on patient's age to complete this topic Meningococcal Immunization (ACWY) Aged Out No longer eligible based on patient's age to complete this topic Rotavirus Immunization Aged Out No lo nger eligible based on patient's age to complete this topic Procedures Procedure Name Priority Date/Time Associated Diagnosis Comments HEPATITIS PANEL ACUTE (AHP) Routine 10/10/2015 Nonalcoholic steatohepatitis Nonalcoholic fatty liver disease Crohn's ileitis, without complications (<HCC>) Dyslipidemia Idiopathic acute pancreatitis ALISHA BONE DENSITOMETRY AXIAL SKELETON Routine 10/10/2015 Nonalcoholic steatohepatitis Nonalcoholic fatty liver disease Crohn's ileitis, without complications High risk medication use Dyslipidemia Idiopathic acute pancreatitis HM COLONOSCOPY Routine 03/08/2014 from Last 3 Months or Most Recently Relevant to Health Maintenance Results * ALISHA BONE DENSITOMETRY AXIAL SKELETON (10/10/2015) Anatomical Region Laterality Modality BODY N/A Other us Prem Rojas DO IMG DEXA ORDERABLES Final Resul t * HEPATITIS PANEL ACUTE (AHP) (10/10/2015) Blood specimen (specimen) us Prem Rojas DO HEMATOLOGY ORDERABLES Final Res ult * HM COLONOSCOPY (03/08/2014) Jimbo Contreras MD PROCEDURE/MINOR SURGICAL ORDER SYLWIA Final Result from Last 3 Months or Most Recently Relevant to Health Maintenance Insurance [place] [address] Care Teams Greens Or Grounds Superintendent Relationship Specialty Start Date End Date Provider, Unknown UNKNOWN PCP - General 09/16/15 Telma Monreal MD [address] DIV IM DERMATOLOGY, [facility] [address] [place] [address] Dermatology 09/16/15 Rogelio Lee MD [facility] [address] [facility] [address] [place] [address] Internal Medicine 09/16/15
--- OUTSIDE RECORDS SUMMARY | 2025-02-27 11:30 | XMS_ITS | Clinical Summary ---
Author Organization [facility] Address [address] [place] [address] Care Team Providers Care Veneer Jointer Name Role Phone Conor Bautista MD Primary Care Provider [phone] Allergies Active Allergy Reactions Criticality Noted Date Comments Tape Atopic Dermatitis 01/16/2021 Amoxicillin Rash,Itching Low 01/16/2021 Cefazolin Rash Low 01/16/2021 Codeine Rash,Vomiting Low 01/16/2021 Iodine Shortness of Breath,Rash,Swelling High Duloxetine Hcl Headache,Chest pressure 01/17/20 Meperidine Rash Low 01/16/2021 Hydromorphone Itching 01/16/2021 Sulfa Antibiotics Rash Low 01/16/2021 Tramadol Itching 01/16/2021 Medications amLODIPine 5 MG tablet Take 5 mg by mouth daily. Active aspirin EC (ASPIRIN EC) 81 MG tablet Take 81 mg by mouth daily. Active vitamin D3, cholecalciferol, (CHOLECALCIFEROL) 1000 UNIT Tab tablet Take 1,000 Units by mouth daily. Active ezetimibe 10 MG tablet Take 10 mg by mouth daily. Active glyBURIDE-metFORMIN 5-500 MG tablet Take 1 tablet by mouth 2 (two) times a day. Active losartan 50 MG tablet Take 50 mg by mouth daily. Active metoprolol tartrate 50 MG tablet Take 50 mg by mouth 2 (two) times daily. Active ondansetron 4 MG disintegrating tablet Take 4 mg by mouth every 6 (six) hours as needed for Nausea. 08/16/202 1 Active oxyCODONE-acetamino phen 5-325 MG tablet Take 1-2 tablets by mouth every 6 (six) hours as needed for Pain. 1 Active pantoprazole EC 40 MG tablet Take 40 mg by mouth daily. 1 Active valACYclovir 1 g tablet Take 1,000 mg by mouth daily. 1 Active Family History Medical History Relation Comments Heart Disease Father Hyperlipidemia Father Hypertension Father Cancer Mother Diabetes Mother Heart Disease Mother Hyperlipidemia Mother Hypertension Mother Stroke Mother Relation Status Comments Father Mother Social History Tobacco Use Types Packs/Day Years Used Date Smoking Tobacco: Never Alcohol Use Standard Drinks/Week Comments Not Currently 0 (1 standard drink = 0.6 oz pur e alcohol) Comments Unknown Sex and Gender Information Value Date Recorded Sex Assigned at Not on file Legal Sex Female 5:04 PM CDT Gender Identity Not on file Sexual Orientation Not on file Last Filed Vital Signs Vital Sign Reading Time Taken Comments Blood Pressure 132/78 01/16/2021 12:30 PM CDT Pulse 89 01/16/2021 12:30 PM CDT Temperature 37.4 C (99.3 F) 01/16/2021 12:00 PM CDT Respiratory Rate 18 01/16/2021 12:30 PM CDT Oxygen Saturation 94% 01/16/2021 12:30 PM CDT Inhaled Oxygen Concentration - - Weight 80.3 kg (177 lb 0.5 oz) 01/16/2021 4:51 A M CDT Height 162.6 cm (5' 4) 01/16/2021 4:51 AM CDT Body Mass Index 30.39 01/16/2021 4:51 AM CDT Plan of Treatment Health Maintenance Due Date Last Done Comments Colorectal Cancer Screening Colonoscopy (10 Years) 1955 Mammogram Screening 1994 Annual Medicare Wellness Visit 09/28/2019 Dexa Scan (General) 09/28/2019 COVID-19 Vaccine ( - 2023-2 5 season) 2025 Pneumococcal Vaccine: 50+ Years (3 of 3 - PCV20 or PCV21) 10/17/2025 10/17/2020, 05/27/2008 RSV Immunization or 60+ Years (1 - 1-dose 75+ series) 2029 DTaP, Tdap and Td Vaccines ( 3 - Td or Tdap) 04/28/2030 04/28/2020, 06/09/2019 Zoster Vaccines Completed 11/13/2017, 09/02/2017, 05/27/2011 Hepatitis C Completed 11/14/2020, 11/14/2020 Meningococcal B Vaccine Aged Out No l onger eligible based on patient's age to complete this topic Meningococcal Vaccine Aged Out No benjamín honorio eligible based on patient's age to complete this topic RSV Immunizations Under 20 Months Aged Out No longer eligible b ased on patient's age to complete this topic Insurance [employer] MEDICARE [facility] [place] Orders INSURANCE [employer] Care Teams Veneer Jointer Relationship Specialty Start Date End Date Conor Bautista MD PCP - General FAMILY PRACTICE 01/16/21
--- OUTSIDE RECORDS SUMMARY | 2025-02-27 11:30 | XMS_ITS | Encounter Summary ---
Author Organization [facility] Address [address] [place] [address] Care Team Providers Care Storeroom Supervisor Name Role Phone Aubrie Sellers MD Unavailable [phone] Clare Jeter MD Unavailable Prem Rojas DO Unavailable [phone] Dannielle Romo Unavailable Prem Chauhan MD Unavailable Yuridia Davidson MD Unavailable Channing Sam MD Unavailable [phone] Juan Pagan Unavailable Telma Monreal MD Unavailable [phone] Gricel Rodas MD Unavailable [phone] Racheal Bauer MD Unavailable [phone] Conor Bautista MD Primary Care Provider Maren Dawson MA Unavailable [phone] Encounter Details Date Type Department Care Team (Late st Contact Info) Description 02/18/2025 Pre Admission Vascular Surgery Teagan Tyson MD [address] [place] [address] Stenosis of right carotid artery (Primary Dx) Social History Tobacco Use Types Packs/Day Years Used Date Smoking Tobacco: Never Passive Smoke Exposure: Never Smokeless Tobacco: Never Alcohol Use Standard Drinks/Week Comments Not Currently 0 (1 standard drink = 0.6 oz pur e alcohol) [facility] Utilities Answer Date Recorded In the past 12 months has e [employer], gas, oil, or water [employer] threatened to shut off services in your [...] week 07/01/2024 How often do you attend [facility] ch or restoration services? Never 07/01/2024 Do you belong to any clubs o r organizations such as sikhism groups, unions, fraternal or athletic groups, or [...] any time in the past 12 m [facility], were you homeless or living in a long-term (including now)? No 07/01/2024 AUDIT-C Answer Date [...] Sex Assigned at Female 07/31/2018 8:32 AM DIRECTOR OF CATERING SALES Legal Sex Female 1:57 AM DIRECTOR OF CATERING SALES Gender Identity Female 05/14/2024 7:04 PM DIRECTOR OF CATERING SALES Sexual Orientation Straight 07/31/2018 8: 32 AM DIRECTOR OF CATERING SALES documented as of this encounter Plan of Treatment Not on file documented as of this encounter Visit Diagnoses Diagnosis Stenosis of right carotid artery- Primary Occlusion and stenosis of carotid artery without mention of cerebral infarction documented in this encounter Orders Case Request Count Last Ordered Date First Orde red Date CASE REQUEST OPERATING ROOM 1 02/18/2025 documented in this encounter Care Teams Storeroom Supervisor Relationship Specialty Start Date End Date Conor Bautista MD [address] [facility] [address] [phone] [place] [address] PCP - General Family Medicine 11/06/19 Aubrie Sellers MD Referring Physician 06/09/18 Clare Jeter MD [address] [place] [address] Consulting Physician Cardiology 06/09/18 Prem Rojas DO [address] [place] [address] Consulting Physician Gastroenterology 06/09/18 Dannielle Romo PA [address] [place] [address] Physician Sanitizer Orthopedic Surgery 06/09/18 Prem Chauhan MD [address] [place] [address] Surgeon Orthopedic Surgery 06/09/18 Yuridia Davidson MD [address] [place] [address] Surgeon Orthopedic Surgery 06/09/18 Channing Sam MD [address] [place] [address] Surgeon Ophthalmology 06/09/18 Juan Pagan PA [address] [place] [address] Physician Sanitizer Physician Sanitizer 06/09/18 Telma Monreal MD [address] [place] [address] Referring Physician Dermatology 06/09/18 Gricel Rodas MD [address] [facility] [address] [place] [address] Consulting Physician Rheumatology 06/09/18 Racheal Bauer MD [address] [facility] [phone] [place] [address] Referring Physician Obstetrics and Gynecology 06/09/18 Maren Dawson MA [address] [facility] [address] [place] [address] ACO Care Intake Assessor 02/22/25 02/22/25 documented as of this encounter
--- OUTSIDE RECORDS SUMMARY | 2025-02-27 11:30 | XMS_ITS | Encounter Summary ---
Author Organization [facility] Address [address] [place] [address] Care Team Providers Care Cell Feed Department Supervisor Name Role Phone Aubrie Sellers MD Unavailable [phone] Clare Jeter MD Unavailable Prem Rojas DO Unavailable [phone] Dannielle Romo Unavailable Prem Chauhan MD Unavailable Yuridia Davidson MD Unavailable [phone] Channing Sam MD Unavailable [phone] Juan Pagan Unavailable Telma Monreal MD Unavailable [phone] Gricel Rodas MD Unavailable Racheal Bauer MD Unavailable [phone] Conor Bautista MD Primary Care Provider Maren Dawson MA Unavailable [phone] Encounter Details Date Type Department Care Team (Late st Contact Info) Description 02/15/2025 Results Follow-Up [facility] Family Medicine at [place] [id number] [facility] [address] [place] [address] Joyce Sneed PA [address] [place] [address] [address] [place] [address] Comprehensive metabolic panel, Hemoglobin A1c, eGFR Social History Tobacco Use Types Packs/Day Years Used Date Smoking Tobacco: Never Passive Smoke Exposure: Never Smokeless Tobacco: Never Alcohol Use Standard Drinks/Week Comments Not Currently 0 (1 standard drink = 0.6 oz pur e alcohol) [facility] Utilities Answer Date Recorded In the [...] often do you attend chur ch or sikhism services? Never 07/01/2024 Do you belong to any clubs o r organizations such as uatsdin groups, unions, fraternal or athletic groups, or [...] any time in the past 12 m [facility], were you homeless or living in a senior living (including now)? No 07/01/2024 AUDIT-C Answer Date [...] Sex Assigned at Female 07/31/2018 8:32 AM SPORTS SPECIALIST Legal Sex Female 1:57 AM SPORTS SPECIALIST Gender Identity Female 05/14/2024 7:04 PM SPORTS SPECIALIST Sexual Orientation Straight 07/31/2018 8: 32 AM SPORTS SPECIALIST documented as of this encounter Plan of Treatment Not on file documented as of this encounter Visit Diagnoses Not on filedocumented in this encounter Care Teams Cell Feed Department Supervisor Relationship Specialty Start Date End Date Conor Bautista MD [address] [phone] [place] [address] PCP - General Family Medicine 11/06/19 Aubrie Sellers MD Referring Physician 06/09/18 Clare Jeter MD [address] [place] [address] Consulting Physician Cardiology 06/09/18 Prem Rojas DO [address] [place] [address] Consulting Physician Gastroenterology 06/09/18 Dannielle Romo PA [address] [place] [address] Physician Aerial Survey Technician Orthopedic Surgery 06/09/18 Prem Chauhan MD [address] [place] [address] Surgeon Orthopedic Surgery 06/09/18 Yuridia Davidson MD [address] [place] [address] Surgeon Orthopedic Surgery 06/09/18 Channing Sam MD [address] [place] [address] Surgeon Ophthalmology 06/09/18 Juan Pagan PA [address] [place] [address] Physician Aerial Survey Technician Physician Aerial Survey Technician 06/09/18 Telma Monreal MD [address] [place] [address] Referring Physician Dermatology 06/09/18 Gricel Rodas MD [address] [facility] [address] [place] [address] Consulting Physician Rheumatology 06/09/18 Racheal Bauer MD [address] [facility] [phone] [place] [address] Referring Physician Obstetrics and Gynecology 06/09/18 Maren Dawson MA [address] [facility] [address] [place], [place] [id number] ACO Care Rail Operations Controller 02/22/25 02/22/25 documented as of this encounter
--- OUTSIDE RECORDS SUMMARY | 2025-02-27 11:30 | XMS_ITS | Clinical Summary ---
Author Organization [facility] Address [address] [place] [address] Care Team Providers Care Vegetable Thinner Name Role Phone Aubrie Sellers MD Unavailable [phone] Clare Jeter MD Unavailable Prem Rojas DO Unavailable [phone] Dannielle Romo Unavailable Prem Chauhan MD Unavailable Yuridia Davidson MD Unavailable [phone] Channing Sam MD Unavailable Raeann Pagan Unavailable [phone] Telma Monreal MD Unavailable [phone] Gricel Rodas MD Unavailable Racheal Bauer MD Unavailable Conor Bautista MD Primary Care Provider Allergies Active Allergy Reactions Criticality Noted Date Comments Adhesive Tape-Silicones Rash,Other (See comments) Medium Adhesive Tape, EKG and Heart Monitor electrodes Takes top layer of skin off Amoxicillin Itching,Rash Medium 01/16/2021 Exenatide Other (See comments) Low 01/02/2023 pancreatitis Cefazolin Swelling,Rash Medium 01/16/2021 Clopidogrel Muscle pain Medium Sharp stabbing pain and muscle spasms Codeine Rash,Vomiting Medium 01/16/2021 Duloxetine Headache,Chest tightness High Reaction: Headache, Chest Pain, Dapagliflozin Stomach upset Low 08/22/2021 Bloating, pain, couldn't hold urine Hydromorphone Rash,Itching Medium 01/16/2021 Iodinated Contrast Media Shortness of breath,Rash,Angioede ma High Iodine And Iodide Containing Products Rash Medium Lorazepam Mental status changes Low 02/13/2016 Meperidine Rash Medium Oxycodone Vomiting Low 05/20/2022 Evolocumab Other (See comments),Dizziness, Nausea & Vomiting Low 03/16/2024 Insomnia Plttwvn-Dyl-Mfz Reductase Inhibitors Rash Medium Sulfa (Sulfonamide Antibiotics) Rash Medium 01/16/2021 Tramadol Itching,Nausea only Low 01/16/2021 Medications aspirin 81 mg enteric coated tabletIndications :Cerebral Thromboembolism Prevention,preven tion of thrombosis,hx CABG Take 1 tablet (81 mg total) by mouth nightly Active magnesium gluconate 200 mg tabletIndications :hypomagnesemia Take 1.25 tablets (250 mg total) by mouth 2 (two) times a day Active naloxone (NARCAN) 4 mg/actuation spray,non-aerosol Administer 1 spray into affected nostril(s) as needed for opioid reversal or respiratory depression Call 911. Administer a single spray in one nostril. Repeat every 3 minutes as needed if no or minimal response. 1 each 023 Active Additional Information Patient taking differently:1 spray nasal As needed, opioid reversal, respiratory depression, Call 911. Administer a single spray in one nostril. Repeat every 3 minutes as needed if no or minimal response.,Indications: risk mitigation for opioid overdose, Informant: Self, Reported on 02/23/2025 nitroglycerin (NITROSTAT) 0.4 mg SL tablet DISSOLVE ONE TABLET UNDER THE TONGUE EVERY 5 MINUTES NEEDED FOR CHEST PAIN. DO NOT EXCEED A TOTAL OF 3 DOSES IN 15 MINUTES 50 tablet 1 024 Active Additional Information Patient taking differently: 0.4 mg sublingual Every 5 min PRN, chest pain, Indications: acute episode of anginal pain, Informant: Self, Reported on 02/23/2025 pen needle, diabetic 31 gauge x 5/16 needle Use to inject 1-4 times daily as directed. 300 each 4 025 Active lancets miscIndications:T ype 2 diabetes mellitus without complication, without long-term current use of insulin ([facility]) Use to check blood sugar 4 times daily 200 each 5 025 Active promethazine (PHENERGAN) 25 mg tabletIndications :Nausea Take 1 tablet (25 mg total) by mouth every 8 (eight) hours as needed for nausea or vomiting 30 tablet 025 Active Additional Information Patient taking differently:25 mg oral Every 8 hours PRN, nausea, vomiting,Indications: Nausea and Vomiting, Informant: Self, Reported on 02/23/2025 estradioL (ESTRACE) 0.01 % (0.1 mg/gram) vaginal creamIndications: Acute UTI (urinary tract infection) Insert 2 g into the vagina 2 (two) times a week Take 2 days weekly 42.5 g 3 025 Active Additional Information Patient taking differently:2 g vaginal 2 times weekly, Take 2 days weekly,Indications: Atrophy of Vulva, Informant: Self, Reported on 02/23/2025 blood glucose diagnostic (glucose blood) stripIndications: Type 2 diabetes mellitus without complication, without long-term current use of insulin ([facility]) Use one to Check blood sugar 3 times daily 200 each 025 2025 Active carvediloL (COREG) 6.25 mg tablet TAKE 1 TABLET BY MOUTH TWICE DAILY WITH MEALS 180 tablet 1 025 Active Additional Information Patient not taking.Informant: Self, Reported on 02/23/2025 isosorbide mononitrate ER (IMDUR) 60 mg 24 hr tablet Take 1 tablet by mouth once daily 90 tablet 1 025 Active Additional Information Patient not taking.Informant: Self, Reported on 02/23/2025 pregabalin (LYRICA) 25 mg capsule Take 1 capsule (25 mg total) by mouth 3 (three) times a day 90 capsule 3 025 Active Additional Information Patient taking differently:25 mg oral 3 times daily,Indications: Diabetic Peripheral Neuropathy, Informant: Self, Reported on 02/12/[address] (PROTONIX) 40 mg EC tablet Take 1 tablet by mouth once daily 100 tablet 025 Active Additional Information Patient taking differently:40 mg oralNightly, Indications: Treatment of Non-Bleeding Gastric Disorder, Reflux, Informant: Self, Reported on 02/23/2025 losartan (COZAAR) 50 mg tablet Take 1 tablet by mouth once daily 90 tablet 025 Active Additional Information Patient not taking.Informant: Self, Reported on 02/23/2025 ezetimibe (ZETIA) 10 mg tabletIndications :Elevated LDL cholesterol level Take 1 tablet by mouth once daily 90 tablet 025 Active biotin 1 mg capsuleIndication s:Hair, Skin, Nails Take 1 tablet by mouth nightly Active zinc gluconate 50 mg tabletIndications :Zinc Deficiency Take 1 tablet (50 mg total) by mouth nightly Active potassium gluconate 550 mg (90 mg) tabletIndications :hypokalemia prevention Take 1 tablet (550 mg total) by mouth nightly Active psyllium 0.52 gram capsuleIndication s:constipation,GI Health Take 1-3 capsules (0.52-1.56 g total) by mouth daily as needed for constipation (GI Health) W/Vitamin C, D, B12 Active UNABLE TO FINDIndications:s upplement Take 1 each by mouth 2 (two) times a day Med Name: Celery Seed:2000mg Active UNABLE TO FINDIndications:s upplement Take 1 each by mouth nightly Med Name: Dharmesht Whitmore Active metFORMIN XR (GLUCOPHAGE XR) 500 mg 24 hr tabletIndications :Type 2 diabetes mellitus with hyperglycemia, with long-term current use of insulin ([facility]),Type 2 diabetes mellitus without complication, without long-term current use of insulin ([facility]) Take 2 tablets (1,000 mg total) by mouth 2 (two) times a day with meals Can start out with 1 tablet once a day 180 tablet 3 025 Active blood-glucose sensor (FreeStyle Tye 3 Sensor) deviceIndications :Type 2 diabetes mellitus with hyperglycemia, with long-term current use of insulin ([facility]),Type 2 diabetes mellitus without complication, without long-term current use of insulin ([facility]) Change each sensor every 14 days. Will require 2 sensors per month. 5 each Active LANTUS 100 unit/mL (3 mL) pen for injectionIndicati ons:DM 2 Inject 25 Units under the skin nightly 15 mL Active glucagon (Gvoke HypoPen 2-Pack) 0.5 mg/0.1 mL auto-injectorIndi cations:Type 2 diabetes mellitus with hyperglycemia, with long-term current use of insulin ([facility]),Type 2 diabetes mellitus without complication, without long-term current use of insulin ([facility]) Inject 0.5 mg under the skin as needed (in case of emergency for hypoglycemia) For use in case of emergency for severe hypoglycemia 0.2 mL Active insulin aspart (NovoLOG) 100 unit/mL (3 mL) pen for injectionIndicati ons:Type 2 diabetes mellitus with hyperglycemia, with long-term current use of insulin ([facility]),Type 2 diabetes mellitus without complication, without long-term current use of insulin ([facility]) Inject 5 units with meals three times a day 15 mL Active morphine (MSIR) 15 mg tabletIndications :Pain Take 1 tablet (15 mg total) by mouth every 12 (twelve) hours as needed for pain 60 tablet Active dasiglucagon (Zegalogue Autoinjector) 0.6 mg/0.6 mL auto-injectorIndi cations:hypoglyce mio disorder As needed for hypoglyemia 0.6 mL 3 Active allopurinoL (ZYLOPRIM) 100 mg tabletIndications :prevention of acute gout attack Take 1 tablet (100 mg total) by mouth nightly 90 tablet 1 Active diphenhydrAMINE 25 mg capsule Take 1 tablet/capsule (25 mg total) by mouth every 6 (six) hours as needed for itching Active acetaminophen (TYLENOL) 325 mg tabletIndications :Fever,Pain Take 2 tablets (650 mg total) by mouth every 4 (four) hours as needed for pain Active POTASSIUM ORAL Take 1 tablet by mouth daily 2024 Discontinued( Alternate therapy) blood-glucose sensor deviceIndications :Type 2 diabetes mellitus without complication, without long-term current use of insulin ([facility]) Check BS TID 3 each 025 2024 Discontinued( Alternate therapy) blood-glucose meter,continuous miscIndications:T ype 2 diabetes mellitus without complication, without long-term current use of insulin ([facility]) Check BS TID 1 each 025 2024 Discontinued( Alternate therapy) glimepiride (AMARYL) 4 mg tabletIndications :type 2 diabetes mellitus Take 1 tablet (4 mg total) by mouth 2 (two) times a day 180 tablet 3 025 2024 Discontinued losartan (COZAAR) 50 mg tablet Take 1 tablet by mouth once daily 90 tablet 025 2024 Discontinued ezetimibe (ZETIA) 10 mg tabletIndications :Elevated LDL cholesterol level Take 1 tablet (10 mg total) by mouth daily 90 tablet 025 2024 Discontinued allopurinoL (ZYLOPRIM) 100 mg tablet Take 1 tablet by mouth once daily 90 tablet 025 2024 Discontinued( Reorder) LANTUS 100 unit/mL (3 mL) pen for injectionIndicati ons:Type 2 diabetes mellitus without complication, without long-term current use of insulin ([facility]) INJECT 25 UNITS SUBCUTANEOUSLY ONCE DAILY 12 mL 025 2024 Discontinued morphine (MSIR) 15 mg tabletIndications :Acute gout of left foot,Arthralgia of multiple joints Take 1 tablet (15 mg total) by mouth every 12 (twelve) hours as needed for pain 60 tablet 025 2024 Discontinued( Reorder) predniSONE (DELTASONE) 50 mg tablet Take 1 tab 19hrs, 13hrs, 7hrs & [address] Scan. 4 tablet 025 2024 Discontinued clopidogreL (PLAVIX) 75 mg tablet Take 1 tablet (75 mg total) by mouth daily 30 tablet 5 025 2024 Discontinued( Stop Taking at Discharge) predniSONE (DELTASONE) 50 mg tablet Take 1 tab (50 mg) on 02/17 at 6pm, take 2nd dose on 02/18 at 12am, take third dose on 02/18 at 6am, take last dose on 02/18 at 12pm 4 tablet 025 2024 Discontinued( Stop Taking at Discharge) nitrofurantoin monohydrate (MACROBID) 100 mg capsuleIndication s:Urinary Tract/Genitourina ry Infection Take 1 capsule (100 mg total) by mouth 2 (two) times a day for 7 days 14 capsule 025 2024 Hospital, Clinic, or Other Facility Administered Medication Ordered Dose Route Frequency Start Date End Date Status bacillus of calmette and geurin (BCG live) (JUDY) injection 50 mgIndications:Malignan t neoplasm of urinary bladder, unspecified site (HCC) 50 mg vesical Every 7 days 02/03/2025 02/23/2025 Ended Active Problems Problem Noted Date Diagnosed Date [...] Plan (02/19/2025 9:30 AM CDT): Follows with [facility] Urology. 02/14/2023 TURBT HgTa 2-3 bladder [...] artery disease of n ative artery of [place] heart with stable angina pectoris 12/29/2020 Assessment [...] leqvio Assessment & Plan (07/23/2023 11:53 AM COMPUTER GRAPHICS ILLUSTRATOR): Multivessel disease status post bypass grafting. Catheterization [...] 5) Assessment & Plan (07/18/2022 3:05 PM COMPUTER GRAPHICS ILLUSTRATOR): Multivessel disease status post bypass grafting. Catheterization [...] months. Assessment & Plan (05/04/2021 9:06 AM COMPUTER GRAPHICS ILLUSTRATOR): No symptoms of myocardial ischemia following multivessel [...] 07/29/2018 Assessment & Plan (07/29/2018 1:28 PM COMPUTER GRAPHICS ILLUSTRATOR): Glaucoma suspect based on CDR: borderline IOP, CCT normal, visual field changes OS, RNFL today: Combined form of age-related cataract, both eyes 09/21/2015 Assessment & Plan (07/29/2018 1:27 PM COMPUTER GRAPHICS ILLUSTRATOR): Mild cataract OU: ADLs stable; monitor. High [...] 59 Assessment & Plan (07/23/2023 11:54 AM COMPUTER GRAPHICS ILLUSTRATOR): Reasonable control - continue carvedilol, losartan 50 and Imdur Assessment & Plan (07/18/2022 3:05 PM COMPUTER GRAPHICS ILLUSTRATOR): Adequate control - continue carvedilol, losartan 50 [...] changed. Assessment & Plan (05/04/2021 9:07 AM COMPUTER GRAPHICS ILLUSTRATOR): Blood pressure is controlled on losartan 50 [...] Plan (03/03/2021 10:43 PM CDT): SS coverage Resolved Problems Problem Noted Date Diagnosed Date Resolved Date Carotid stenosis, right 02/11/2025 09/2 10/2024 Elevated sed rate 09/06/2023 07/14/2024 Hand paresthesia 09/06/2023 12/20/2023 Nausea and vomiting 03/12/2023 09/10/19 24 Assessment & Plan (03/12/2023 12:49 PM CDT): [...] ileum but her last colonoscopy performed by me did not reveal any terminal ileum lesion. [...] 06/01/2022 Assessment & Plan (06/02/2022 11:49 AM COMPUTER GRAPHICS ILLUSTRATOR): She had presented to the emergency room [...] 09/05/2022 Assessment & Plan (04/06/2022 5:08 PM COMPUTER GRAPHICS ILLUSTRATOR): Persistent. IBS but need to rule out small intestinal bacterial overgrowth. Counseled about diet especially avoidance of dairy products and some specific fresh green vegetables. Will obtain hydrogen breath test. Epigastric abdominal pain 07/26/2021 Assessment & Plan (04/06/2022 5:12 PM COMPUTER GRAPHICS ILLUSTRATOR): Persistent epigastric pain. 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 01/05/2011 11/30/2019 Encounters Date Type Department Care Team Description 02/26/2025 Telephone [facility] Family Medicine at [address] [place] [address] Conor Bautista MD Medical Question/Miscellane ous 02/23/2025 [facility] IP Outreach [address] [address] Maren aDwson MA 02/23/2025 Telephone [facility] Medicine at [address] [place] [address] Conor Bautista MD [facility] Questions 02/22/2025 [facility] IP Outreach [address] [address] Maren Dawson MA 02/19/[address] [facility] at [address] [place] [address] Conor Bautista MD Medical Question/Miscellane ous 02/19/2025 Orders Only [facility] Surgery [address] [place] [address] 8th [place] [address] [place] [address] Madina Smith MD Encounter for surgical aftercare following surgery on the circulatory system (Primary Dx) 02/18/2025 1:35 PM CDT Anesthesia Event [facility] Operating Room [address] [place] [address] Dayne Oscar MD Patel, Aashay Vinaykumar, MD 02/18/2025 1:35 PM CDT - 02/18/2025 6:20 PM CDT Surgery [facility] Operating Room [address] [place] [address] Madina Smith MD Endarterectomy - Carotid 02/18/2025 11:09 AM CDT - 02/19/2025 3:40 PM CDT Hospital Encounter [facility] [address] [place] [address] Madina Smith MD Carotid stenosis, right; Stenosis of right carotid artery Discharge Disposition: Discharge to home, home health skilled care 02/18/2025 Pre Admission Vascular Surgery Teagan Tyson MD Stenosis of right carotid artery (Primary Dx) 02/16/2025 Documentation [facility] Medicine Surgery [address] 1 [place] [address] Madina Smith MD 02/16/2025 Telephone [facility] Medicine Surgery [address] [facility] 8th [place] [address] [place] [address] Madina Smith MD 02/15/2025 Orders Only [facility] ([facility]) - [facility] Medicine Urology [address] [facility] 11th [place] [address] [place] [address] Virginia Montes MD 02/15/2025 Telephone [facility] Surgery [address] [place] [address] Cydney Quinn 02/15/2025 Results Follow-Up [facility] Family Medicine at [address] [place] [address] Joyce Sneed PA Comprehensive metabolic panel, Hemoglobin A1c, eGFR 02/15/2025 Telephone [facility] Endocrinology Metabolism and Lipid [address] [facility] 13th [place] [address] [place] [address] Estela Jones RMA Prior Auth (Gvoke Hypo Pen 2 Pack 0.5ml/0.1ml) 02/12/2025 2:00 PM CDT Office Visit [facility] Endocrinology Metabolism and Lipid [address] [facility] Medicine 13th [place] [address] [place] [address] Carmen Caraballo MD Type 2 diabetes mellitus with hyperglycemia, with long-term current use of insulin ([facility]) (Primary Dx); Type 2 diabetes mellitus without complication, without long-term current use of insulin ([facility]) 02/12/2025 1:35 PM CDT Lab [facility] ([facility]) [address] [place] [address] Elevated LDL cholesterol level; Type 2 diabetes mellitus with hyperglycemia, with long-term current use of insulin ([facility]) 02/12/2025 Telephone [facility] Endocrinology Metabolism and Lipid [address] [facility] 13th [place] [address] [place] [address] My Snyder, pediatric intensive physician Zegalogue vs. Gvoke 02/11/2025 11:59 PM CDT Anesthesia Event [facility] Electrophysiology Lab 1 [place] [address] Enedina Cuevas NP 02/11/2025 1:30 PM CDT Pre-Admission Testing [facility] for Preoperative Assessment and Planning [facility] ([facility]) [address] [place] [address] Preoperative testing (Primary Dx); Bilateral carotid artery stenosis 02/11/2025 Telephone [facility] Medicine Surgery [address] [facility] 8th [place] [address] [place] [address] Madina Smith MD 02/11/2025 Documentation [facility] Medicine Surgery [address] 1 [place] [address] Madina Smith MD 02/10/2025 10:49 AM CDT - 02/10/2025 11:59 PM CDT Hospital Encounter [facility] Radiology 1 [place] [address] Bilateral carotid artery stenosis Discharge Disposition: Discharge to home or self care 02/09/2025 Telephone [facility] Medicine Surgery [address] [facility] 8th [place] [address] [place] [address] Madina Smith MD 02/08/2025 3:15 PM CDT Ancillary Procedure [facility] Medicine Vascular Lab at the [facility] [address] [facility] 8th [place] [address] [place] [address] History of CVA (cerebrovascular accident) 02/08/2025 2:00 PM CDT Office Visit [facility] Medicine Surgery [address] [facility] 8th [place] [address] [place] [address] Madina Smith MD Leg pain, left (Primary Dx); Atherosclerosis of [place] arteries of extremities with intermittent claudication, bilateral legs 02/08/2025 Orders Only [facility] Medicine Surgery [address] [facility] 8th [place] [address] [place] [address] Madina Smith MD Bilateral carotid artery stenosis (Primary Dx) 02/08/2025 Orders Only [facility] Medicine Surgery [address] [facility] 8th [place] [address] [place] [address] Madina Smith MD History of CVA (cerebrovascular accident) (Primary Dx) 02/03/2025 2:30 PM CDT Office Visit [facility] - [facility] Medicine Urology [address] [facility] [address] [place] [address] Malignant neoplasm of urinary bladder, unspecified site (HCC) (Primary Dx) 01/11/2025 Telephone [facility] Gastroenterology at [address] [place] [address] Antonio Hawthorne MA 12/25/2024 Telephone [facility] Medicine Surgery [address] 1 [place] [address] Madina Smith MD 12/22/2024 Documentation [facility] Medicine Surgery [address] 1 [place] [address] Madina Smith MD 12/14/2024 Results Follow-Up [facility] Urology [address] [place] [address] 11th [place] [address] [place] [address] Virginia Montes MD Cytology 12/11/2024 Orders Only [facility] Urology [address] [place] [address] 11th [place] [address] [place] [address] Virginia Montes MD Malignant neoplasm of urinary bladder, unspecified site (HCC) (Primary Dx) 12/10/2024 3:43 PM CDT - 12/10/2024 11:59 PM CDT Hospital Encounter [facility] PATHOLOGY [address] [facility] 3rd [place] [address] Malignant neoplasm of urinary bladder, unspecified site (HCC) Discharge Disposition: Discharge to home or self care 12/10/2024 2:40 PM CDT Office Visit [facility] Urology [address] [place], [place] [address] [place] [address] Virginia Montes MD Malignant neoplasm of urinary bladder, unspecified site (HCC) (Primary Dx) from Last 3 Months Immunizations Immunization Administration Dates Next Due Influenza, Quad, Adjuvantate d, Intramuscular 04/28/2020 Influenza, Quadrivalent, Hig h Dose, Preservative Free, Intrr 04/26/2021 Influenza, Quadrivalent, Spl it, Pediatric, Preservative Free, Intramuscular 03/04/2017 Influenza, Quadrivalent, Spl it, Preservative Free, Intramuscular 04/28/2020,06/09/2019,03/17/2018,03/04,04/18/2015 Influenza, Trivalent, IM (MDV) 07/17/2015 Influenza, Trivalent, Split, Preservative Free, Intradermal 02/20/2016 Influenza, Unspecified 03/15/2024(Deferr ed: Patient Refused),03/07/2023(Deferred: Patient Refused),04/26/2021(Deferred: Patient Refused),03/17/2018 Pneumococcal Conjugate PCV 13 10/17/2020 Pneumococcal Polysaccharide PPV23 05/27/2008 Tdap 04/28/2020,06/09/2019 ZOSTER LIVE 05/27/2011 ZOSTER Recombinant 11/13/2017,09/02/2017 Surgical History Surgery Date Site/Laterality Comments APPENDECTOMY 05/27/1977 - 05/26/1978 SECTION 05/27/1989 - 05/26/1990 CHOLECYSTECTOMY 05/27/2007 - 05/26/2008 KIDNEY STONE SURGERY 05/27/1970 - 05/26/1971 Right RHINOPLASTY 05/27/1979 - 05/26/1980 TONSILLECTOMY 05/27/1959 - 05/26/1960 PATELLA REALIGNMENT 05/27/1994 - 05/26/1995 Right KNEE CARTILAGE SURGERY 05/27/1996 - 05/26/1997 Right x6 procedures CORONARY ARTERY BYPASS GRAFT 12/29/2020 CABG x 4 TOTAL ABDOMINAL HYSTERECTOMY W/ BILATERAL SALPINGOOPHORECTOMY 05/27/2001 - 05/26/2002 Bilateral total COLONOSCOPY 05/27/2016 - 05/26/2017 OTHER SURGICAL HISTORY 05/27/2014 - 05/26/2015 gland removed face-Dr. 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 HLD (hyperlipidemia) CVA (cerebral vascular accident) (HCC) hemiplegia Crohn's disease (HCC) Pancreatitis Kidney stone 2019 Covid-19 05/31/2020 Glaucoma Awareness under anesthesia remot e hx- appendix PONV (postoperative nausea and vomiting) controlled with medication YRN (generalized anxiety disorder) DJD (degenerative joint disease) CAD (coronary artery disease) CA BG MDD (major depressive disorder) HTN (hypertension) Metabolic dysfunction-associ ated steatohepatitis (MASH) DM (diabetes mellitus) DARLEEN (obstructive sleep apnea) Bladder cancer (HCC) Gout SBO (small bowel obstruction) (HCC) DM (diabetes mellitus) GERD (gastroesophageal reflux disease) Sweat gland carcinoma Herpes zoster Heart disease 12/30/2020 Family History Medical History Relation Name Comments Alcohol abuse Brother Huber Hypertension Brother Huber Alcohol abuse Father Josh D. Oberto Sr Arthritis Father Josh Winters Oberto Sr Cancer Father Josh Winters Oberto Sr Early Father Josh Winters Oberto Sr Heart attack Father Josh Winters Oberto Sr Heart disease Father Josh Winters Oberto Sr Hyperlipidemia Father Josh Winters Oberto Sr Hypertension Father Josh Winters Oberto Sr Melanoma Father Josh Winters Oberto Sr Obesity Father Josh Winters Oberto Sr Parkinsonism Father Josh Winters Oberto Sr Vision loss Father Josh Winters Oberto Sr Heart attack Father's Sister Tory Stroke Maternal Grandfather Zuhair Ovarian cancer Maternal Grandmother Acute myelogenous leukemia Mother Marylou I Anibal to Alcohol abuse Mother Marylou I Oberto Arthritis Mother Marylou I Oberto Cancer Mother Marylou I Oberto Diabetes Mother Marylou I Oberto Heart attack Mother Marylou I Oberto Heart disease Mother Marylou I Oberto Hyperlipidemia Mother Marylou I Oberto Hypertension Mother Marylou I Oberto Obesity Mother Marylou I Oberto Other Mother Marylou I Oberto Pacemaker; Stroke Mother Marylou I Oberto Hypertension Mother's Brother Bob Obesity Mother's Brother Bob Arrhythmia Paternal Grandmother Pacemak er; Anesthesia problems Neg Hx Breast cancer Neg Hx Relation Name Status Comments Brother Huber Winters Oberto Sr Alive Father's Sister Tory Maternal Grandfather Zuhair Maternal Grandmother Mother Marylou I Oberto Mother's Brother Bob Paternal Grandmother Alive Son Alive Social History Tobacco Use Types Packs/Day Years Used Date Smoking Tobacco: Never Passive Smoke Exposure: Never Smokeless Tobacco: Never Alcohol Use Standard Drinks/Week Comments Not Currently 0 (1 standard drink = 0.6 oz pur e alcohol) [facility] Utilities Answer Date Recorded In the past 12 months has [employer], oil, or water [employer] threatened to shut off services in your [...] week 07/01/2024 How often do you attend formerly [facility] or taoism services? Never 07/01/2024 Do you belong to any clubs o r organizations such as gnosticism groups, unions, fraternal or athletic groups, or [...] any time in the past 12 m [facility], were you homeless or living in a fci (including now)? No 07/01/2024 AUDIT-C Answer Date [...] Sex Assigned at Female 07/31/2018 8:32 AM COMPUTER GRAPHICS ILLUSTRATOR Legal Sex Female 1:57 AM COMPUTER GRAPHICS ILLUSTRATOR Gender Identity Female 05/14/2024 7:04 PM COMPUTER GRAPHICS ILLUSTRATOR Sexual Orientation Straight 07/31/2018 8: 32 AM COMPUTER GRAPHICS ILLUSTRATOR Obstetrics History Para Term AB IAB SAB Ectopic Multiple Livin g Live Births 1 1 1 Date Outcome GA Total Labor Labor/2nd/3rd Weight Sex Type Anes PTL Sarah A1 A5 Name Clin Term Last Filed Vital Signs Vital Sign Reading Time Taken Comments Blood Pressure 158/60 02/19/2025 1:00 PM CDT Pulse 60 02/19/2025 1:00 PM CDT Temperature 36.4 C (97.5 F) 02/19/2025 11:51 AM CDT Respiratory Rate 16 02/19/2025 11:51 AM CDT Oxygen Saturation 99% 02/19/2025 12:19 PM CDT Inhaled Oxygen Concentration - - Weight 82.1 kg (181 lb) 02/18/2025 1:02 PM CDT Height 162.6 cm (5' 4) 02/18/2025 1:02 PM CDT Body Mass Index 31.07 02/18/2025 1:02 PM CDT Plan of Treatment Health Maintenance Due Date Last Done Comments Foot Exam 03/07/2024 03/07/2023, 08/25, 04/26/2021 Colon Cancer Screening-Colonoscopy 09/12/2024 09/12/2021, 02/13/2016 Influenza Vaccine (#1) 2025 , 04/28/2020, 04/28/2020, Additional history exists Dilated Eye Exam 02/26/2025 02/27/2024, , 10/10/2022, Additional history exists Depression Screening 03/16/2025 03/16/2024, 03/07/2023, 09/19/2022, Additional history exists Well Visit 65+ 03/16/2025 03/16/2024, 02/24, 06/09/2019, Additional history exists Albumin Creatinine Ratio, Urine 05/05/2025 05/05/2024, 02/26/2022, 12/10/2016 Hemoglobin A1C 08/12/2025 02/12/2025, 01/25, 11/06/2024, Additional history exists Pneumococcal vaccine 65+ (3 of 3 - PCV20 or PCV21) 10/17/2025 10/17/2020, 05/27/2008 Breast Cancer Screening-Mammogram 11/02/2025 11/02/2024, 03/05/2023, 08/03/2021, Additional history exists Osteoporosis Screening-Bone Density Scan 11/10/2025 11/11/2023, 08/03/2021, 10/10/2015, Additional history exists Lipid Panel 02/18/2026 02/18/2025, 10/25, 05/05/2024, Additional history exists eGFR 02/18/2026 02/18/2025, 01/25, 02/11/2025, Additional history exists Fall Risk Assessment 02/19/2026 02/19/2025, 03/16/2024, 03/07/2023, Additional history exists DTaP/Tdap/Td Vaccine (3 - Td or Tdap) 04/28/2030 04/28/2020, 06/09/2019 Hepatitis B Screening Completed 10/10/2015 Hepatitis C Screening Completed 10/10/2015, 014 Zoster Vaccine Completed 11/13/2017, 04/01/2018, 05/27/2011 Colon Cancer Screening-CT Colonography Discontinued 09/12/2021, 02/13/2016 Colon Cancer Screening-DNA Stool Discontinued 09/13/19, 02/13/2016 Colon Cancer Screening-FIT Discontinued 09/12/2021, Colon Cancer Screening-Sigmoidoscopy Discontinued 09/12/2021, 02/13/2016 Medical Devices Implanted Type Area Patrol Conductor Device Identifier Shelf Expiration Date Model / Serial / Lot Jasper Patch Vascuguard 0.88cm [id number] - [id number] - [id number] Implanted:Qty: 1 on 02/18/2025 by Madina Smith MD at [facility] Right: Carotid Jasper [id number] 09/28/2026 [id number] / [id number] / [id number] Explanted Type Area Patrol Conductor Device Identifier Shelf Expiration Date Model / Serial / Lot Integra [employer] Julien Shunt Carotid Soft Conical Bulb Sundt [id number] Silicone [id number] - [id number] Explanted:Qty: 1 on 02/18/2025 by Madina Smith MD at [facility] Right: Carotid Integra [employer] Julien [id number] 10/24/2028 [id number] Procedures Procedure Name Priority Date/Time Associated Diagnosis Comments POCT GLUCOSE DEVICE Routine 02/19/2025 1 1:51 AM CDT POCT GLUCOSE DEVICE Routine 02/18/2025 6 :21 PM CDT LIPID PANEL Routine 02/18/2025 6:21 PM CDT EGFR Routine 02/18/2025 6:21 PM CDT DIFFERENTIAL AUTO Routine 02/18/2025 6:2 1 PM CDT CBC WITH AUTO DIFFERENTIAL Routine 02/18/2025 6:21 PM CDT BASIC METABOLIC PANEL Routine 02/18/2025 6:21 PM CDT VASCULAR SURGERY PROCEDURE Routine 02/18/2025 6:03 PM CDT Stenosis of right carotid artery POC BLOOD GAS AND CHEMISTRIES, ARTERIAL Routine 02/18/2025 5:14 PM CDT POCT ACTIVATED CLOTTING TIME, LOW RANGE Routine 02/18/2025 5:07 PM CDT POCT ACTIVATED CLOTTING TIME, LOW RANGE Routine 02/18/2025 4:36 PM CDT POC BLOOD GAS AND CHEMISTRIES, ARTERIAL Routine 02/18/2025 4:20 PM CDT SURGICAL PATHOLOGY Routine 02/18/2025 4: 15 PM CDT Stenosis of right carotid artery POCT ACTIVATED CLOTTING TIME, LOW RANGE Routine 02/18/2025 4:01 PM CDT POCT ACTIVATED CLOTTING TIME, LOW RANGE Routine 02/18/2025 3:27 PM CDT POC BLOOD GAS AND CHEMISTRIES, ARTERIAL Routine 02/18/2025 3:08 PM CDT POCT ACTIVATED CLOTTING TIME, LOW RANGE Routine 02/18/2025 2:57 PM CDT ANESTHESIA ARTERIAL LINE PLACEMENT Routine 02/18/2025 2:43 PM CDT PERIPHERAL LINE Routine 02/18/2025 2:36 PM CDT ANESTHESIA INTUBATION Routine 02/18/2025 2:35 PM CDT POCT GLUCOSE DEVICE Routine 02/18/2025 1 :29 PM CDT B CHECK SAMPLE STAT 02/18/2025 1:26 PM CDT POCT GLUCOSE [id number] Routine 02/12/2025 1: 26 PM CDT Type 2 diabetes mellitus with hyperglycemia, with long-term current use of insulin (HCC) EGFR Routine 02/12/2025 12:13 PM CDT Elevated LDL cholesterol level HEMOGLOBIN A1C Routine 02/12/2025 12:13 PM CDT Elevated LDL cholesterol level Type 2 diabetes mellitus with hyperglycemia, with long-term current use of insulin (HCC) COMPREHENSIVE METABOLIC PANEL Routine 02/12/2025 12:13 PM CDT Elevated LDL cholesterol level URINALYSIS, MICROSCOPIC ONLY Routine 02/11/2025 3:54 PM CDT Preoperative testing URINE CULTURE Routine 02/11/2025 3:54 PM CDT URINALYSIS AND REFLEX TO MICROSCOPIC AND CULTURE Routine 02/11/2025 3:54 PM CDT Preoperative testing EGFR Routine 02/11/2025 3:37 PM CDT Preoperative testing CPAP APTT ALGORITHM Routine 02/11/2025 3 :37 PM CDT Preoperative testing PROTIME-INR Routine 02/11/2025 3:37 PM CDT Preoperative testing Bilateral carotid artery stenosis TYPE AND SCREEN 14 DAY Routine 02/11/2025 3:37 PM CDT Preoperative testing CBC WITHOUT DIFFERENTIAL Routine 02/11/2025 3:37 PM CDT Preoperative testing COMPREHENSIVE METABOLIC PANEL Routine 02/11/2025 3:37 PM CDT Preoperative testing POCT HEMOGLOBIN A1C Routine 02/11/2025 2 :35 PM CDT ECG 12-LEAD Routine 02/11/2025 2:25 PM CDT Preoperative testing CTA HEAD NECK W WO CONTRAST Schedule Routine, Read Routine (OP Routine) 02/10/2025 11:25 AM CDT Bilateral carotid artery stenosis US CAROTIDS DUPLEX BILATERAL Schedule Routine, Read Routine (OP Routine) 02/08/2025 3:48 PM CDT History of CVA (cerebrovascular accident) CYTOLOGY Routine 12/10/2024 3:43 PM CDT Malignant neoplasm of urinary bladder, unspecified site (HCC) SCREENING MAMMOGRAM BILATERAL W GEO Schedule Routine, Read Routine (OP Routine) 11/02/2024 1:10 PM CDT Screening mammogram, encounter for ALBUMIN CREATININE RATIO, URINE Routine 05/05/2024 12:43 PM COMPUTER GRAPHICS ILLUSTRATOR Type 2 diabetes mellitus without complication, without long-term current use of insulin (HCC) DEXA AXIAL SKELETON BONE DENSITY 1 OR MORE SITES Schedule Routine, Read Routine (OP Routine) 11/11/2023 3:39 PM CDT Postmenopausal DIABETIC EYE EXAM Routine 10/10/2022 COLONOSCOPY 09/12/2021 12:02 PM CDT SERUM HEPATITIS PANEL Routine 10/10/2015 2:41 PM CDT from Last 3 Months or Most Recently Relevant to Health Maintenance Results * (ABNORMAL) POCT glucose (02/19/2025 11:51 AM CDT) Pathologist [facility] Glucose, POC 254(H) 70 - 199 mg/dL Comment:Glu2: RN/MD Notified Glucose comment 1 Glu2: RN/MD Notified RYAN LEVIN Blood 02/19/2025 11:5 1 AM CDT 02/19/2025 11:51 AM CDT us Madina Smith MD LAB POCT ORDERABLES - DEV ICE Final Result [facility] Department of [place] [address] * eGFR (02/18/2025 6:21 PM CDT) eGFR 63 >=60 mL/min/1. 73 m2 Comment: Interpretive Data Reference Interval Normal >/= 90 mL/min/1.73m2 Mildly decreased* 60 - 89 mL/min/1.73m2 Mildly to moderately decreased 45 - 59 mL/min/1.73m2 Moderately to severely decreased 30 - 44 mL/min/1.73m2 Severely decreased 15 - 29 mL/min/1.73m2 Kidney Failure < 15 mL/min/1.73m2 *Relative to young adult level Estimated glomerular filtration rate is determined by the 2020 CKD-EPI equation recommended by the National Kidney Foundation (A Unifying Approach to GFR Estimation: Recommendations of the NKF-ASK Task Force on Reassessing the Inclusion of Race in Diagnosing Kidney Disease, JASN 202). The CKD-EPI equation should not be used for patients with unstable renal function and has not been validated in children and those over 70. Current interpretive data was last reviewed 2021. Blood 02/18/2025 6:21 PM CDT 02/18/2025 6:34 PM CDT us Madina Smith MD LAB BLOOD ORDERABLES Kayleen miner Result [facility] Department of [place] [address] * (ABNORMAL) Differential, auto (02/18/2025 6:21 PM CDT) Neutrophil abs 19.57(H) 1.50 - 6.50 K/cumm Imm gran abs 0.44(H) 0.00 - 0.10 K/cumm [facility] Lymphocyte abs 2.26 0.80 - 3.30 K/cumm [facility] Monocyte abs 1.42(H) 0.20 - 0.80 K/cumm [facility] Eosinophil abs 0.00 0.00 - 0.50 K/cumm [facility] Basophil abs 0.04 0.00 - 0.10 K/cumm [facility] Neutrophil pct 82.4 % [facility] Comment: Interpretive Data Percent cell count reference ranges are not reported, since discordance with absolute values may lead to misinterpretation of CBC data. Current Interpretive Data was last revised on 2017. Imm gran pct 1.9 % [facility] Comment: Interpretive Data Percent cell count reference ranges are not reported, since discordance with absolute values may lead to misinterpretation of CBC data. Current Interpretive Data was last revised on 2017. Lymphocyte pct 9.5 % [facility] Comment: Interpretive Data Percent cell count reference ranges are not reported, since discordance with absolute values may lead to misinterpretation of CBC data. Current Interpretive Data was last revised on 2017. Monocyte pct 6.0 % [facility] Comment: Interpretive Data Percent cell count reference ranges are not reported, since discordance with absolute values may lead to misinterpretation of CBC data. Current Interpretive Data was last revised on 2017. Eosinophil pct 0.0 % [facility] Comment: Interpretive Data Percent cell count reference ranges are not reported, since discordance with absolute values may lead to misinterpretation of CBC data. Current Interpretive Data was last revised on 2017. Basophil pct 0.2 % [facility] Comment: Interpretive Data Percent cell count reference ranges are not reported, since discordance with absolute values may lead to misinterpretation of CBC data. Current Interpretive Data was last revised on 2017. Blood 02/18/2025 6:21 PM CDT 02/18/2025 6:34 PM CDT Madina Smith MD LAB BLOOD ORDERABLES Kayleen l Result Performing Organization Address City/[facility]/ZIP Co de Phone Number [facility] Department of Laboratories [place] [address] * POCT glucose (02/18/2025 6:21 PM CDT) Pathologist [facility] Glucose, POC 159 70 - 199 mg/dL Blood 02/18/2025 6:21 PM CDT 02/18/2025 6:21 PM CDT Madina Smith MD LAB POCT ORDERABLES - DEV ICE Final Result [facility] of [place] [address] * (ABNORMAL) CBC with auto differential (02/18/2025 6:21 PM CDT) Pathologist [facility] WBC 23.73(H) 3.80 - 9.90 K/cumm Hgb 13.4 11.9 - 15.5 g/dL [facility] Hct 38.9 35.6 - 45.5 % [facility] Plt 212 150 - 400 K/cumm [facility] MPV 10.5 9.1 - 12.3 fL [facility] RBC 4.71 3.90 - 5.20 M/cumm [facility] MCV 82.6 81.3 - 96.4 fL [facility] MCH 28.5 27.1 - 33.3 pg [facility] MCHC 34.4 32.3 - 35.7 g/dL [facility] RDW CV 13.3 11.1 - 14.9 % [facility] RDW SD 39.8 35.7 - 48.1 fL [facility] NRBC abs 0.00 0.00 - 0.01 K/cumm [facility] Blood 02/18/2025 6:21 PM CDT 02/18/2025 6:34 PM CDT Madina Smith MD LAB BLOOD ORDERABLES Kayleen miner Result [facility] Department of Laboratories [place] [address] * (ABNORMAL) Lipid panel (02/18/2025 6:21 PM CDT) Cholesterol 249(H) 30 - 199 mg/dL Comment: Interpretive Data Ages < or = 19 years Acceptable: <170 mg/dL Borderline high: 170-199 mg/dL High: >or= 200 mg/dL Ages > or = 20 years Desirable: <200 mg/dL Borderline high: 200-239 mg/dL High: >or= 240 mg/dL Literature References: 1. Expert Panel on Integrated Guidelines for Cardiovascular Health and Risk Reduction in Children and Adolescents. Pediatrics 2011;128:S213 2. NCEP Expert Panel. Circulation 2004;110:227 Current Interpretive Data was last revised on 2018. Triglycerides 131 <=149 mg/dL [facility] Comment: Interpretive Data Ages < or = 9 years Acceptable: <75 mg/dL Borderline high: 75-99 mg/dL High: >or= 100 mg/dL Ages 10 to 20 years Acceptable: <90 mg/dL Borderline high: 90-129 mg/dL High: >or= 130 mg/dL Ages > or = 20 years Desirable: <150 mg/dL Borderline high: 150-199 mg/dL High: 200-499 mg/dL Very high: >or= 499 mg/dL Literature References: 1. Expert Panel on Integrated Guidelines for Cardiovascular Health and Risk Reduction in Children and Adolescents. Pediatrics 2011;128:S213 2. NCEP Expert Panel. Circulation 2004;110:227 Current Interpretive Data was last revised on 2018. HDL 65 >=40 mg/dL [facility] Comment: Interpretive Data Ages < or = 19 years Acceptable: >45 mg/dL Borderline low: 40-45 mg/dL Low: <40 mg/dL Ages > or = 20 years Desirable: >or= 60 mg/dL Low: <40 mg/dL Literature References: 1. Expert Panel on Integrated Guidelines for Cardiovascular Health and Risk Reduction in Children and Adolescents. Pediatrics 2011;128:S213 2. NCEP Expert Panel. Circulation 2004;110:227 Current Interpretive Data was last revised on 2018. LDL, calculated 161(H) <=129 mg/dL [facility] Comment: Interpretive Data Ages < or = 19 years Acceptable: <110 mg/dL Borderline high: 110-129 mg/dL High: >or= 130 mg/dL Ages > or = 20 years Optimal: <100 mg/dL Near optimal: 100-129 mg/dL Borderline high: 130-159 mg/dL High: >160 mg/dL Calculated using the [place] LDL-C estimating equation. This equation was implemented on 2024. Prior to this date LDL-C was estimated using the Friedewald equation. Literature References: 1. Expert Panel on Integrated Guidelines for Cardiovascular Health and Risk Reduction in Children and Adolescents. Pediatrics 2011;128:S213 2. NCEP Expert Panel. Circulation 2004;110:227 3. [place] Breaux al. ANIBAL Cardiol. 2020 September 24;5(5):540-548. doi: 10.1001/jamacardio.2020.0013 Current Interpretive Data was last revised on 2024. Non-HDL Cholesterol 184 mg/dL [facility] Comment: Interpretive Data Ages < or = 19 years Acceptable: <120 mg/dL Borderline high: 120-144 mg/dL High: >145 mg/dL Ages > or = 20 years When triglycerides are >200 mg/dL, Non-HDL cholesterol is a secondary target of therapy with treatment goals that are 30 mg/dL greater than the LDL cholesterol target. Literature References: 1. Expert Panel on Integrated Guidelines for Cardiovascular Health and Risk Reduction in Children and Adolescents. Pediatrics 2011;128:S213 2. NCEP Expert Panel. Circulation 2004;110:227 Current Interpretive Data was last revised on 2018. Chol/HDL ratio 4 [facility] Blood 02/18/2025 6:21 PM CDT 02/18/2025 6:34 PM CDT Narrative [facility] - 02/19/2025 9:05 AM CDT REFLEX us Madina Smith MD LAB BLOOD ORDERABLES Kayleen l Result [facility] Department of Laboratories [place] [address] * Basic metabolic panel (02/18/2025 6:21 PM CDT) Sodium 141 135 - 145 mmol/L Potassium, pl 4.4 3.3 - 4.9 mmol/L [facility] Chloride 103 97 - 110 mmol/L [facility] CO2 24 22 - 32 mmol/L [facility] Anion gap 14 2 - 15 mmol/L [facility] BUN 21 6 - 25 mg/dL [facility] Creatinine 0.97 0.60 - 1.10 mg/dL [facility] Glucose 169 70 - 199 mg/dL [facility] Comment: Interpretive Data Fasting glucose >/= 126 mg/dl is diagnostic for diabetes. Fasting is defined as no caloric intake for at least 8 hours. Fasting glucose between 100 mg/dl to 125 mg/dl is diagnostic of prediabetes. In a patient with classic symptoms of hyperglycemia or hyperglycemic crisis, a random glucose >/= 200 mg/dl is diagnostic for diabetes. In the absence of unequivocal hyperglycemia, results should be confirmed by repeat testing. The classification and Diagnosis of Diabetes Diabetes Care 2021; 46: S19-S40. Current interpretive data was last revised 2022. Calcium 9.9 8.5 - 10.3 mg/dL [facility] Blood 02/18/2025 6:21 PM CDT 02/18/2025 6:34 PM CDT Madina Smith MD LAB BLOOD ORDERABLES Kayleen miner Result [facility] Department of Laboratories [place] [address] * ENDARTERECTOMY - CAROTID (02/18/2025 6:03 PM CDT) Anatomical Region Laterality Modality X-Ray Angiograph y Narrative 02/19/2025 5:41 AM CDT Please see OpNote for result. Madina Smith MD CV CARDIAC CATH PROCEDURE S Final Result * (ABNORMAL) POC Blood Gas and Chemistries, Arterial - (02/18/2025 5:14 PM CDT) pH, Art POC 7.36 7.35 - 7.45 pCO2, Art POC 38 35 - 45 mmHg [facility] pO2, Art POC 190(H) 83 - 108 mmHg [facility] Na, POC 141 135 - 145 mmol/L [facility] K POC 3.8 3.3 - 4.9 mmol/L [facility] Comment: Interpretive Data Not all point of care methods assess for hemolysis. Confirm with instrument and retest K+ if not consistent with clinical signs and symptoms. Current Interpretive Data was last revised on 2023. Cl, POC 109 97 - 110 mmol/L [facility] Ionized Ca, POC 5.05 4.50 - 5.10 mg/dL [facility] Glucose, POC 157 70 - 199 mg/dL [facility] Lactate POC 3.3(H) 0.7 - 2.0 mmol/L [facility] SO2 (gloria) arterial 100(H) 90 - 95 % [facility] Base excess, POC -3.6 mmol/L [facility] HCO3, Art POC 22 20 - 30 mmol/L [facility] Hct, POC 38.0 36.3 - 45.3 % [facility] Total Hb, POC 12.5 11.9 - 15.5 g/dL [facility] Blood 02/18/2025 5:14 PM CDT 02/18/2025 5:14 PM CDT Madina Smith MD LAB POCT ORDERABLES - DEV ICE Final Result Performing Organization Address [facility] Co de Phone Number [facility] [place] [address] * (ABNORMAL) POCT Activated clotting time, low range (02/18/2025 5:07 PM CDT) ACT 116(L) 123 - 168 sec POC Device Number [id number] [facility] Blood 02/18/2025 5:07 PM CDT 02/18/2025 5:07 PM CDT Madina Smith MD LAB POCT ORDERABLES - DEV ICE Final Result Performing Organization Address [facility] Co de Phone Number [facility] [place] [address] * (ABNORMAL) POCT Activated clotting time, low range (02/18/2025 4:36 PM CDT) ACT 276(H) 123 - 168 sec POC Device Number [id number] [facility] Blood 02/18/2025 4:36 PM CDT 02/18/2025 4:36 PM CDT Madina Smith MD LAB POCT ORDERABLES - DEV ICE Final Result Performing Organization Address City/[facility] Co de Phone Number [facility] [place] [address] * (ABNORMAL) POC Blood Gas and Chemistries, Arterial - (02/18/2025 4:20 PM CDT) pH, Art POC 7.34(L) 7.35 - 7.45 pCO2, Art POC 36 35 - [address] [facility] pO2, Art POC 171(H) 83 - [address] [facility] Na, POC 141 135 - 145 mmol/L [facility] K POC 3.2(L) 3.3 - 4.9 mmol/L [facility] Comment: Interpretive Data Not all point of care methods assess for hemolysis. Confirm with instrument and retest K+ if not consistent with clinical signs and symptoms. Current Interpretive Data was last revised on 2023. Cl, POC 110 97 - 110 mmol/L [facility] Ionized Ca, POC 5.32(H) 4.50 - 5.10 mg/dL [facility] Glucose, POC 170 70 - 199 mg/dL [facility] Lactate POC 2.8(H) 0.7 - 2.0 mmol/L [facility] SO2 (gloria) arterial 99(H) 90 - 95 % [facility] Base excess, POC -5.7 mmol/L [facility] HCO3, Art POC 20 20 - 30 mmol/L [facility] [facility] Hct, POC 39.0 36.3 - 45.3 % [facility] Total Hb, POC 12.9 11.9 - 15.5 g/dL [facility] Blood 02/18/2025 4:20 PM CDT 02/18/2025 4:20 PM CDT us Madina Smith MD LAB POCT ORDERABLES - DEV ICE Final Result [facility] Department of Laboratories [place] [address] * Surgical pathology (02/18/2025 4:15 PM CDT) Tissue (Artery, plaque Atherosclerotic) 02/18/2025 4:15 PM CDT Narrative PATHOLOGY [facility] - 02/24/2025 10:32 AM CDT EPIC results best viewed via link to PDF [facility] Stephanie Choudh[facility] [place] [address] Note to Patients: This report may contain a detailed description of human tissue sent by a health care provider to the laboratory for pathologic evaluation. The content of this report is essential for diagnosis and may provide important critical findings. This information may be unfamiliar to patients to review without a medical professional present. It is advised that the patient review this report in the presence of a health care provider who can answer questions and explain the details. SURGICAL PATHOLOGY REPORT FINAL Patient Name: GRICEL MELISSA Gender: F : 1955 (Age: 69) Address: [address] [place], [place] [id number] Hospital #: [id number] Taken:02/18/2025 Received:02/18/2025 Reported: 02/24/2025 Patient Type: [facility] Inpatient Service: Surgery Location: [place] [address] Physician(s): Henny Anderson M.D. Brittany Kay Harper, MD Diagnosis: A. Plaque, carotid, endarterectomy: - Calcified atherosclerotic plaque emab/02/24/2025 08:50 By this signature, I attest that the above diagnosis is based upon my personal examination of the slides(and/or other material indicated in the diagnosis). Reilly Thomas M.D. Report Electronically Reviewed and Signed Out By Reilly Thomas M.D. 02/24/2025 10:32:16 Jasmin Acosta M.D. History: The patient is a 69-year-old woman with stenosis of the right carotid artery. Operative procedure: endarterectomy-carotid. Specimen(s) Received: A: Carotid plaque Gross Description: Received in formalin, labeled with the patient s identifiers and carotid plaque is a opened portion of ayala-yellow tubular tissue (2.2 cm in length x 0.6 cm in diameter with a focally thickened area. Sectioning through the thickened area reveals ayala-yellow putative calcifications. Submitted entirely following acid 1 decalcification Labeled A1. Jar 0. slbjh/02/19/2025 14:58 PA(s): EDDIE Cole By this signature, I attest that the above diagnosis is based upon my personal examination of the slides(and/or other material). Addenda/Procedures The performance characteristics of some immunohistochemical stains, fluorescence in-situ hybridization tests and immunophenotyping by flow cytometry cited in this report (if any) were determined by the Surgical Pathology and Flow Cytometry Departments at [facility] as part of an ongoing quality lab assoc program and in compliance with federally mandated regulations drawn from the Clinical Laboratory Improvement Act of 1988 (CLIA '88). Some of these tests rely on the use of analyte specific reagents and are subject to specific labeling requirements by the US Food and Drug Administration. Such diagnostic tests may only be performed in a facility that is certified by the Department of Health and Human Services as a high complexity laboratory under CLIA '88. The FDA has determined that such clearance or approval is not necessary. This test is used for clinical purposes. It should not be regarded as investigational or for research. Nevertheless, federal rules concerning the medical use of analyte specific reagents require that the following disclaimer be attached to the report: This test was developed and its performance characteristics determined by the Surgical Pathology and Flow Cytometry Departments of [facility]. It has not been cleared or approved by the U. S. Food and Drug Administration. IMAGES AND SCANNED DOCUMENTS, IF INCLUDED, ONLY VIEWABLE IN PDF VERSION OF REPORT Madina Smith MD LAB PATHOLOGY ORDERABLES Final Result PATHOLOGY [facility] 3rd Floor [place], [place] [phone] * (ABNORMAL) POCT Activated clotting time, low range (02/18/2025 4:01 PM CDT) ACT 298(H) 123 - 168 sec POC Device Number [id number] [facility] Blood 02/18/2025 4:01 PM CDT 02/18/2025 4:01 PM CDT Madina Smith MD LAB POCT ORDERABLES - DEV ICE Final Result [facility] One [facility] Department of Laboratories [place] [address] * (ABNORMAL) POCT Activated clotting time, low range (02/18/2025 3:27 PM CDT) ACT 281(H) 123 - 168 sec POC Device Number [id number] [facility] Blood 02/18/2025 3:27 PM CDT 02/18/2025 3:27 PM CDT us Madina Smith MD LAB POCT ORDERABLES - DEV ICE Final Result [facility] Department of Laboratories [place] [address] * (ABNORMAL) POC Blood Gas and Chemistries, Arterial - (02/18/2025 3:08 PM CDT) [facility] pH, Art POC 7.35 7.35 - 7.45 pCO2, Art POC 38 35 - 45 mmHg [facility] pO2, Art POC 185(H) 83 - 108 mmHg [facility] Na, POC 135 135 - 145 mmol/L [facility] K POC 3.9 3.3 - 4.9 mmol/L [facility] Comment: Interpretive Data Not all point of care methods assess for hemolysis. Confirm with instrument and retest K+ if not consistent with clinical signs and symptoms. Current Interpretive Data was last revised on 2023. Cl, POC 104 97 - 110 mmol/L [facility] Ionized Ca, POC 4.39(L) 4.50 - 5.10 mg/dL [facility] Glucose, POC 245(H) 70 - 199 mg/dL [facility] Lactate POC 4.0(C) 0.7 - 2.0 mmol/L [facility] SO2 (gloria) arterial 100(H) 90 - 95 % [facility] Base excess, POC -4.2 mmol/L [facility] HCO3, Art POC 22 20 - 30 mmol/L [facility] Hct, POC 42.0 36.3 - 45.3 % [facility] Total Hb, POC 14.0 11.9 - 15.5 g/dL [facility] Blood 02/18/2025 3:08 PM CDT 02/18/2025 3:08 PM CDT Madina Smith MD LAB POCT ORDERABLES - DEV ICE Final Result Performing Organization Address [facility] de Phone Number [facility] [place] [address] * (ABNORMAL) POCT Activated clotting time, low range (02/18/2025 2:57 PM CDT) ACT 314(H) 123 - 168 sec POC Device Number [id number] [facility] Blood 02/18/2025 2:57 PM CDT 02/18/2025 2:57 PM CDT Madina Smith MD LAB POCT ORDERABLES - DEV ICE Final Result Performing Organization Address [facility] [place] [place] [address] * Arterial Line (02/18/2025 2:43 PM CDT) Narrative Wilfrid Hill MD - 02/18/2025 2:43 PM CDT Wilfrid Hill MD 02/18/2025 3:09 PM Arterial Line Patient location: OR End time: 02/18/2025 2:06 PM Indication: continuous blood pressure monitoring and blood sampling needed Ultrasound assisted: yes Staff: Supervising provider: Jj Stanley MD PhD Placed by: Resident: Wilfrid Hill MD Procedure prep: Prep solution: chlorhexadine/alcohol Prep: provider hat/mask, sterile gloves and sterile drape Arterial line: Catheter size: 20 gauge Catheter length: 10 cm Catheter type: wire-guided catheter Seldinger technique: yes Laterality: left Site: brachial artery Line secured: tape and Tegaderm Results: good waveform and good blood return Number of attempts: 2 Assessment: Events: patient tolerated procedure well with no complications Result [facility] Jj Stanley MD PhD ANESTHESIA ORDERABLES Edit ed Result - Final * Peripheral IV Catheter (02/18/2025 2:36 PM CDT) Wilfrid Doran MD - 02/18/2025 2:36 PM CDT Wilfrid Hill MD 02/18/2025 2:53 PM Peripheral IV Catheter Patient location: OR End time: 02/18/2025 2:20 PM Staff: Supervising provider: Jj Stanley MD PhD Preprocedure prep: Prep solution: chlorhexadine PPE: gloves and provider hat/mask PIV line: Laterality: left Site: antecubital Catheter size: 18 g Technique: ultrasound guided Procedure details: good blood return and occlusive dressing applied Number of attempts: 2 Assessment: Events: patient tolerated procedure well with no complications Result [facility] Jj Stanley MD PhD ANESTHESIA ORDERABLES Edit ed Result - Final * Airway (02/18/2025 2:35 PM CDT) Wilfrid Doran MD - 02/18/2025 2:35 PM CDT Wilfrid Hill MD 02/18/2025 2:35 PM Airway Patient location: OR Urgency: elective Date/time: 02/18/2025 1:49 PM Indications for airway management: airway protection and anesthesia Difficult airway: no Staff: Supervising provider: Jj Stanley MD PhD Placed by: Resident: Wilfrid Hill MD Emergent airway documentation: Risks and benefits discussed: yes Consent obtained: yes Consent given by: patient Airway prep: Preoxygenated: yes Patient position: sniffing Mask difficulty assessment: 0 - not attempted Spontaneous ventilation during airway: absent Sedation level during airway: GA Final airway details: Final airway type: endotracheal airway Tube type: ETT ETT size: 7.0 mm Cuffed: yes Technique used for successful ETT placement: video laryngoscopy Devices/Methods used in placement: stylet Insertion site: oral Blade type: Brody Video blade type: Greenberg Blade size: 3 Cormack-Lehane (direct): grade I - full view of glottis Initial cuff pressure: 30 cm H2O Cuff volume: 8 mL Cuff inflated with: air ETT to teeth: 21 cm Placement verified by: auscultation and CO2 detection Airway secured with: silk tape Number of attempts: 1 Planned trial extubation: yes us Jj Stanley MD PhD ANESTHESIA ORDERABLES Kayleen l Result * (ABNORMAL) POCT glucose (02/18/2025 1:29 PM CDT) Glucose, POC 249(H) 70 - 199 mg/dL Blood 02/18/2025 1:29 PM CDT 02/18/2025 1:29 PM CDT Madina Smith MD LAB POCT ORDERABLES - DEV ICE Final Result [facility] Department of Laboratories [place] [address] * Check Sample (02/18/2025 1:26 PM CDT) Pathologist [facility] ABO Rh AB Positive [facility] HCLL OTHER 02/18/2025 1:26 PM CDT 02/18/2025 1:40 PM CDT Madina Smith MD LAB BLOOD ORDERABLES Kayleen l Result Performing Organization Address [facility] Co de Phone Number [facility] Department of [place] [address] [facility] * POCT glucose (02/12/2025 1:26 PM CDT) Glucose Blood, POC 171 Normal Fasting 70 - 100, Random <200 mg/dL Blood 02/12/2025 1:26 PM CDT Carmen Caraballo MD POINT OF CARE TEST ORDERABLES F inal Result * (ABNORMAL) eGFR (02/12/2025 12:13 PM CDT) eGFR 55(L) >=60 mL/min/1. 73 m2 Comment: Interpretive Data Reference Interval Normal >/= 90 mL/min/1.73m2 Mildly decreased* 60 - 89 mL/min/1.73m2 Mildly to moderately decreased 45 - 59 mL/min/1.73m2 Moderately to severely decreased 30 - 44 mL/min/1.73m2 Severely decreased 15 - 29 mL/min/1.73m2 Kidney Failure < 15 mL/min/1.73m2 *Relative to young adult level Estimated glomerular filtration rate is determined by the 2020 CKD-EPI equation recommended by the National Kidney Foundation (A Unifying Approach to GFR Estimation: Recommendations of the NKF-ASK Task Force on Reassessing the Inclusion of Race in Diagnosing Kidney Disease, JASN 2020). The CKD-EPI equation should not be used for patients with unstable renal function and has not been validated in children and those over 70. Current interpretive data was last reviewed 2021. Blood 02/12/2025 12:1 3 PM CDT 02/12/2025 1:26 PM CDT us Conor Bautista MD LAB BLOOD ORDERABLES Final Re sult [facility] Department of Laboratories [place] [address] * (ABNORMAL) Hemoglobin A1c (02/12/2025 12:13 PM CDT) Hgb A1C 9.2(H) 4.0 - 5.6 % Estimated Average Glucose 217 mg/dL [facility] Comment: The ADA recommends reporting an estimated Average Glucose (eAG) with all Hemoglobin A1c results using the equation derived from a study of 507 normal and diabetic adults. Minority populations were underrepresented and children were not included. (Diabetes Care 2020; 43(S1): S66-S76). The eAG is not equivalent to a fasting glucose. Blood 02/12/2025 12:1 3 PM CDT 02/12/2025 1:17 PM CDT us Conor Bautista MD LAB BLOOD ORDERABLES Final Re sult Performing Organization Address [facility] Co de Phone Number [facility] Department of Laboratories [place] [address] * (ABNORMAL) Comprehensive metabolic panel (02/12/2025 12:13 PM CDT) Sodium 142 135 - 145 mmol/L Potassium, pl 3.9 3.3 - 4.9 mmol/L [facility] Chloride 104 97 - 110 mmol/L [facility] CO2 29 22 - 32 mmol/L [facility] Anion gap 9 2 - 15 mmol/L [facility] BUN 26(H) 6 - 25 mg/dL [facility] Creatinine 1.08 0.60 - 1.10 mg/dL [facility] Glucose 99 70 - 199 mg/dL [facility] Comment: Interpretive Data Fasting glucose >/= 126 mg/dl is diagnostic for diabetes. Fasting is defined as no caloric intake for at least 8 hours. Fasting glucose between 100 mg/dl to 125 mg/dl is diagnostic of prediabetes. In a patient with classic symptoms of hyperglycemia or hyperglycemic crisis, a random glucose >/= 200 mg/dl is diagnostic for diabetes. In the absence of unequivocal hyperglycemia, results should be confirmed by repeat testing. The classification and Diagnosis of Diabetes Diabetes Care 202; 46: S19-S40. Current interpretive data was last revised 2022. Calcium 9.8 8.5 - 10.3 mg/dL [facility] Bilirubin, total 0.4 0.1 - 1.2 mg/dL [facility] Protein, pl 7.2 6.5 - 8.5 g/dL [facility] Albumin 4.0 3.5 - 5.0 g/dL [facility] Alk phos 91 40 - 130 Units/L [facility] ALT 12 7 - 45 Units/L [facility] AST 24 10 - 45 Units/L [facility] Blood 02/12/2025 12:1 3 PM CDT 02/12/2025 1:17 PM CDT Conor Bautista MD LAB BLOOD ORDERABLES Final [facility] [place] [address] * (ABNORMAL) Urinalysis reflex to microscopic and culture Urine, clean voided (02/11/2025 3:54 PM CDT) Color, ur Straw Yellow Clarity, ur Clear Clear [facility] Specific gravity, ur 1.022 1.003 - 1.030 [facility] pH, urine 6.0 [facility] Comment: Interpretive Data U rine pH is affected by diet, medications, systemic acid-base disturbances, and renal tubular function. pH may affect urinary stone formation. For example, urine pH below 6.0 may help reduce the tendency for calcium phosphate stones and pH greater than 6.0 may reduce the tendency for uric acid stone formation. Source: [facility] Current Interpretive Data was last revised on 2017 Protein, ur ql Trace Negative [facility] Glucose, ur ql Trace(A) Negative [facility] Ketones, ur Negative Negative [facility] Bilirubin, ur Negative Negative [facility] Blood, ur Negative Negative [facility] Urobilinogen, ur <2.0 <2.0 mg/dL [facility] Nitrite, ur Negative Negative [facility] Leukocyte esterase, ur 1+(A) Negative [facility] UA reflex comment Reflex to microscopic UA will be performed. [facility] Urine, clean voided 02/11/2025 3:54 PM CDT 02/11/2025 4:27 PM CDT us Enedina Cuevas NP LAB MICROBIOLOGY - GENER AL ORDERABLES Final Result [facility] LEVIN [facility]od[facility] Department of Laboratories [place] [address] * (ABNORMAL) Urinalysis, microscopic only (02/11/2025 3:54 PM CDT) WBC, ur 11-20(A) 0 - 5 /HPF RBC, ur 0-2 0 - 2 /HPF [facility] Epithelial cells, squamous, ur 1-5 0 - 5 /HPF [facility] Epithelial cells, renal, ur 1-5(A) 0 - 0 /HPF [facility] Bacteria, ur 3+(A) [facility] Mucous, ur Present(A) [facility] Culture Reflex Comment Reflex to urine culture will be performed. [facility] Urine, clean voided 02/11/2025 3:54 PM CDT 02/11/2025 4:27 PM CDT Enedina Cuevas NP LAB URINE ORDERABLES Fin al Result Performing Organization Address City/[facility]/ZIP Co de Phone Number [facility] Department of Laboratories [place] [address] * (ABNORMAL) Urine culture Urine, clean voided (02/11/2025 3:54 PM CDT) Report Final Report: Greater than or equal to 100,000 colonies/mL of Klebsiella pneumoniae (.) Organism KLEBSIELLA PNEUMONIAE [facility] Urine, clean voided 02/11/2025 3:54 PM CDT 02/11/2025 8:20 PM CDT Narrative [facility] - 02/13/2025 3:05 PM CDT Urine culture reflexed based upon urinalysis results. Testing performed by [facility] Microbiology Laboratory ([phone]) Organism Antibiotic Method Susceptibility Klebsiella pneumoniae Ampicillin INTERPRETATION Resistant Klebsiella pneumoniae Cefazolin INTERPRETATION Susceptible Klebsiella pneumoniae Nitrofurantoin INTERPRETATION Susceptible Klebsiella pneumoniae Gentamicin INTERPRETATION Susceptible Klebsiella pneumoniae Trimethoprim with Sulfamethoxazole INTERPRETATION Susceptible Klebsiella pneumoniae Meropenem INTERPRETATION Susceptible Klebsiella pneumoniae Cefepime INTERPRETATION Susceptible Klebsiella pneumoniae Ciprofloxacin INTERPRETATION Susceptible Klebsiella pneumoniae Ceftazidime INTERPRETATION Susceptible Klebsiella pneumoniae Ceftriaxone INTERPRETATION Susceptible Klebsiella pneumoniae Piperacillin/Tazobactam INTERPRE TATION Susceptible Klebsiella pneumoniae Cephalexin INTERPRETATION Susceptible Klebsiella pneumoniae Cefuroxime-axetil INTERPRETATION Susceptible Klebsiella pneumoniae Cefdinir INTERPRETATION Susceptible Enedina Cuevas NP LAB MICROBIOLOGY - GENER AL ORDERABLES Final Result Performing Organization Address City/[facility]/ZIP Co de Phone Number [facility] Department of Laboratories [place] [address] * TYPE AND SCREEN 14 DAY (02/11/2025 3:37 PM CDT) ABO Rh AB Positive Gary, indirect Negative [facility] Blood 02/11/2025 3:37 PM CDT 02/11/2025 4:36 PM CDT Narrative [facility] - 02/11/2025 5:39 PM CDT Is this test being ordered in advance for a procedure?->Yes Expected date of procedure:->02/18/25 Has the patient been transfused in the past 3 months?->No Has the patient been in the past 3 months?->No Enedina Cuevas NP LAB BLOOD BANK TEST ORDE MIRTHA Final Result [facility] Department of [place] [address] * eGFR (02/11/2025 3:37 PM CDT) eGFR 69 >=60 mL/min/1. 73 m2 Comment: Interpretive Data Reference Interval Normal >/= 90 mL/min/1.73m2 Mildly decreased* 60 - 89 mL/min/1.73m2 Mildly to moderately decreased 45 - 59 mL/min/1.73m2 Moderately to severely decreased 30 - 44 mL/min/1.73m2 Severely decreased 15 - 29 mL/min/1.73m2 Kidney Failure < 15 mL/min/1.73m2 *Relative to young adult level Estimated glomerular filtration rate is determined by the 2020 CKD-EPI equation recommended by the National Kidney Foundation (A Unifying Approach to GFR Estimation: Recommendations of the NKF-ASK Task Force on Reassessing the Inclusion of Race in Diagnosing Kidney Disease, JASN 2020). The CKD-EPI equation should not be used for patients with unstable renal function and has not been validated in children and those over 70. Current interpretive data was last reviewed 2021. Blood 02/11/2025 3:37 PM CDT 02/11/2025 4:43 PM CDT Enedina Cuevas NP LAB BLOOD ORDERABLES Fin al Result Performing Organization Address [facility] de Phone Number [facility] [place] [address] * (ABNORMAL) CPAP aPTT algorithm (02/11/2025 3:37 PM CDT) aPTT 24(L) 26 - 38 sec Comment: Interpretive Data Heparin therapeutic range: 66.0 - 100.0 seconds. Range based on correlation with therapeutic heparin activity range of 0.3 - 0.7 Units/mL. Current interpretive data was last revised on 2023. Blood 02/11/2025 3:37 PM CDT 02/11/2025 3:37 PM CDT Enedina Cuevas NP LAB BLOOD ORDERABLES Fin al Result Performing Organization Address [facility] de Phone Number [facility] [place] [address] * Protime-INR (02/11/2025 3:37 PM CDT) PT 10.8 10.2 - 13.5 sec INR 0.95 0.90 - 1.20 [facility] Comment: Interpretive data Oral anticoagulant therapeutic ranges: Venous thromboembolism prophylaxis or treatment: 2.0-3.0 CARDIOLOGY Standard range: 2.0-3.0 High-intensity range: 2.5-3.5 Refer to indication-specific guidelines for appropriate target ranges for prosthetic heart valve replacement. Current interpretive data was last revised on 2019. Blood 02/11/2025 3:37 PM CDT 02/11/2025 3:37 PM CDT Enedina Cuevas NP LAB BLOOD ORDERABLES Fin al Result Performing Organization Address [facility]/ZIP Co de Phone Number [facility] Department of Laboratories [place] [address] * (ABNORMAL) CBC without differential (02/11/2025 3:37 PM CDT) [facility] WBC 21.35(H) 3.80 - 9.90 K/cumm Hgb 14.0 11.9 - 15.5 g/dL [facility] Hct 42.0 35.6 - 45.5 % [facility] Plt 226 150 - 400 K/cumm [facility] MPV 10.8 9.1 - 12.3 fL [facility] RBC 5.01 3.90 - 5.20 M/cumm [facility] MCV 83.8 81.3 - 96.4 fL [facility] MCH 27.9 27.1 - 33.3 pg [facility] MCHC 33.3 32.3 - 35.7 g/dL [facility] RDW CV 13.3 11.1 - 14.9 % [facility] RDW SD 40.3 35.7 - 48.1 fL [facility] NRBC abs 0.00 0.00 - 0.01 K/cumm [facility] Blood 02/11/2025 3:37 PM CDT 02/11/2025 4:43 PM CDT Enedina Cuevas NP LAB BLOOD ORDERABLES Fin al Result Performing Organization Address City/[facility]/ZIP Co de Phone Number [facility] Department of Laboratories [place] [address] * (ABNORMAL) Comprehensive metabolic panel (02/11/2025 3:37 PM CDT) [facility] Sodium 141 135 - 145 mmol/L Potassium, pl 3.5 3.3 - 4.9 mmol/L [facility] Chloride 102 97 - 110 mmol/L [facility] CO2 30 22 - 32 mmol/L [facility] Anion gap 9 2 - 15 mmol/L [facility] BUN 27(H) 6 - 25 mg/dL [facility] Creatinine 0.90 0.60 - 1.10 mg/dL [facility] Glucose 150 70 - 199 mg/dL [facility] Comment: Interpretive Data Fasting glucose >/= 126 mg/dl is diagnostic for diabetes. Fasting is defined as no caloric intake for at least 8 hours. Fasting glucose between 100 mg/dl to 125 mg/dl is diagnostic of prediabetes. In a patient with classic symptoms of hyperglycemia or hyperglycemic crisis, a random glucose >/= 200 mg/dl is diagnostic for diabetes. In the absence of unequivocal hyperglycemia, results should be confirmed by repeat testing. The classification and Diagnosis of Diabetes Diabetes Care 2021; 46: S19-S40. Current interpretive data was last revised 2022. Calcium 10.3 8.5 - 10.3 mg/dL [facility] Bilirubin, total 0.5 0.1 - 1.2 mg/dL [facility] Protein, pl 8.2 6.5 - 8.5 g/dL [facility] Albumin 4.5 3.5 - 5.0 g/dL [facility] Alk phos 102 40 - 130 Units/L [facility] ALT 11 7 - 45 Units/L [facility] AST 20 10 - 45 Units/L [facility] Blood 02/11/2025 3:37 PM CDT 02/11/2025 4:43 PM CDT Enedina Cuevas NP LAB BLOOD ORDERABLES Fin al Result [facility] Department of Laboratories [place] [address] * (ABNORMAL) POCT hemoglobin A1c (02/11/2025 2:35 PM CDT) Hgb A1C, POC 8.9(H) 4.0 - 5.6 % Est Average Gluc POC 209 mg/dL [facility] Comment: The ADA recommends reporting an estimated Average Glucose (eAG) with all Hemoglobin A1c results using the equation derived from a study of 507 normal and diabetic adults. Minority populations were underrepresented and children were not included. (Diabetes Care 31:0884-2106, 2008). The eAG is not equivalent to a fasting glucose. Blood 02/11/2025 2:35 PM CDT 02/11/2025 2:35 PM CDT us Madina Smith MD POINT OF CARE TEST ORDERA BLES Final Result Performing Organization Address [facility] Co de Phone Number RYAN [facility] Department of Laboratories [place] [address] * ECG 12 lead (02/11/2025 2:25 PM CDT) Pathologist [facility] Ventricular Rate EKG/Min 56 BPM [facility] Atrial Rate [address] [facility] IL-Interval (MSEC) 156 ms [facility] QRS-Interval (MSEC) [address] [facility] QT-Interval (MSEC) [address] [facility] QTc [address] [facility] P [place] [address] [facility] R [place] -[address] [facility] T [place] [address] [facility] Diagnosis Sinus bradycardia Minimal voltage criteria for LVH, may be normal variant ( R in aVL ) Inferior infarct , age undetermined Poor r wave progression associated with abnormal lead placement, obesity, pulmonary disease, anterior infarction. Abnormal ECG When compared with ECG of 29-OCT-2010 04:32, QS present in V3 which could represent lead placement Confirmed by STEVE ALBARRAN M.D ([id number]) on 02/12/2025 10:02:[address] [facility] 02/11/2025 2:25 PM CDT 02/12/2025 10:02 AM CDT us Enedina Cuevas BYPRODUCT ENGINEER ECG ORDERABLES Final Re sult Performing Organization Address [facility]/ZIP Co de Phone Number [facility] Perceptive Pixel [facility] * CTA Head Neck W WO Contrast (02/10/2025 11:25 AM CDT) Anatomical Region Laterality Modality Head and Neck N/A Computed Tomogra phy 02/10/2025 1:12 PM CDT Impressions 02/10/2025 3:08 PM CDT 1. No acute intracranial process. 2. Mixed atherosclerotic plaque of both carotid bifurcations with approximately 85% stenosis on the right and 60% stenosis on the left by NASCET criteria. 3. Multilevel degenerative changes of the cervical spine with severe neural foraminal stenosis at multiple levels and at least moderate spinal canal stenosis at C5-C6. Dictated by: Matthew Martinez MD The radiology attending physician has personally reviewed this study, and had reviewed and/or edited this written report and agrees with it. Electronically signed by: Delilah Mauro M.D. Narrative 02/10/2025 3:08 PM CDT EXAMINATION: 1. Computed tomography angiography (CTA) of the head without and with contrast 2. Computed tomography angiography (CTA) of the neck with contrast HISTORY: Carotid artery stenosis TECHNIQUE: CT of the head was performed with images acquired from skull base to vertex without intravenous contrast. Computed tomographic angiography was obtained from the aortic arch to the vertex following the uneventful administration of intravenous contrast. 3D images of the CTA were generated on a dedicated workstation/dining room server. 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 There is no acute intracranial hemorrhage. Ventricles are of normal size and morphology. No mass effect or midline shift is present. The read-white matter differentiation is normal. The visualized portions of the orbits are normal. The visualized portions of the mastoids are normal. The visualized portions of the paranasal sinuses are normal. Intracranial atherosclerosis. No No fractures are identified. NECK: Scattered subcentimeter lymph nodes are seen in the neck. None are pathologically enlarged. The muscles of the neck are normal. Fascial planes are preserved and the deep spaces of the neck are normal. The visualized airway is widely patent. The base of the skull and the temporal bones are normal. Limited views of the brain including the cerebellum and brainstem are normal. The visualized portions of the orbits are normal. Multilevel degenerative changes of the cervical spine with severe neural foraminal stenosis at multiple levels and moderate spinal canal stenosis at C5-C6. Limited examination of the superior thorax postsurgical changes of median sternotomy and coronary artery bypass grafting, mediastinal lymph node calcifications in keeping with old granulomatous disease. CTA: The visualized aortic arch appears normal with normal configuration of the great vessels. The innominate artery and both subclavian arteries are normal in course and caliber. There is mixed atherosclerotic plaque at the right carotid bifurcation with approximately 85% stenosis by NASCET criteria when assessed on bone kernel. There is mixed atherosclerotic plaque at the left carotid bifurcation with approximately 60% stenosis by NASCET criteria. The visualized course and caliber of the internal carotid arteries in the head are normal. No areas of high-grade atherosclerotic narrowing or filling defects are identified to: There is mild atherosclerosis of the cavernous carotid arteries without significant stenosis.. The [id number] is complete. The anterior and middle cerebral arteries are normal. The vertebral arteries are without dominant with mild atherosclerosis of the left V3 and V4 segments without significant narrowing. The basilar artery is normal. The posterior cerebral arteries are normal. There is no aneurysm or vascular malformation identified. Procedure Note VoDelilah MD - 02/10/2025 EXAMINATION: 1. Computed tomography angiography (CTA) of the head without and with contrast 2. Computed tomography angiography (CTA) of the neck with contrast HISTORY: Carotid artery stenosis TECHNIQUE: CT of the head was performed with images acquired from skull base to vertex without intravenous contrast. Computed tomographic angiography was obtained from the aortic arch to the vertex following the uneventful administration of intravenous contrast. 3D images of the CTA were generated on a dedicated workstation/dining room server. 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 There is no acute intracranial hemorrhage. Ventricles are of normal size and morphology. No mass effect or midline shift is present. The read-white matter differentiation is normal. The visualized portions of the orbits are normal. The visualized portions of the mastoids are normal. The visualized portions of the paranasal sinuses are normal. Intracranial atherosclerosis. No No fractures are identified. NECK: Scattered subcentimeter lymph nodes are seen in the neck. None are pathologically enlarged. The muscles of the neck are normal. Fascial planes are preserved and the deep spaces of the neck are normal. The visualized airway is widely patent. The base of the skull and the temporal bones are normal. Limited views of the brain including the cerebellum and brainstem are normal. The visualized portions of the orbits are normal. Multilevel degenerative changes of the cervical spine with severe neural foraminal stenosis at multiple levels and moderate spinal canal stenosis at C5-C6. Limited examination of the superior thorax postsurgical changes of median sternotomy and coronary artery bypass grafting, mediastinal lymph node calcifications in keeping with old granulomatous disease. CTA: The visualized aortic arch appears normal with normal configuration of the great vessels. The innominate artery and both subclavian arteries are normal in course and caliber. There is mixed atherosclerotic plaque at the right carotid bifurcation with approximately 85% stenosis by NASCET criteria when assessed on bone kernel. There is mixed atherosclerotic plaque at the left carotid bifurcation with approximately 60% stenosis by NASCET criteria. The visualized course and caliber of the internal carotid arteries in the head are normal. No areas of high-grade atherosclerotic narrowing or filling defects are identified to: There is mild atherosclerosis of the cavernous carotid arteries without significant stenosis.. The [id number] is complete. The anterior and middle cerebral arteries are normal. The vertebral arteries are without dominant with mild atherosclerosis of the left V3 and V4 segments without significant narrowing. The basilar artery is normal. The posterior cerebral arteries are normal. There is no aneurysm or vascular malformation identified. IMPRESSION: 1. No acute intracranial process. 2. Mixed atherosclerotic plaque of both carotid bifurcations with approximately 85% stenosis on the right and 60% stenosis on the left by NASCET criteria. 3. Multilevel degenerative changes of the cervical spine with severe neural foraminal stenosis at multiple levels and at least moderate spinal canal stenosis at C5-C6. Dictated by: Matthew Martinez MD The radiology attending physician has personally reviewed this study, and had reviewed and/or edited this written report and agrees with it. Electronically signed by: Delilah Mauro M.D. us Madina Smith MD IMG CT PROCEDURES Final R esult * US Carotids Duplex Bilateral (02/08/2025 3:48 PM CDT) Anatomical Region Laterality Modality Vascular Bilateral Ultrasound 02/08/2025 2:36 PM CDT Narrative 02/09/2025 9:41 AM CDT [facility] - Department of Vascular Surgery, Vascular Laboratory [address] [place] [address] Carotid Duplex Ultrasound Report Patient Name: GRICEL MELISSA : 1955 (69y 4m) Study Date: 02/08/2025 2:36:30 PM Sex: F Tech: Location: [facility] Provider: MADINA SMITH Quality: Adequate Order Provider: MADINA SMITH PROCEDURES: Carotid Report: Carotid duplex examination of the extracranial arteries was performed using 2D, color and spectral Doppler. INDICATIONS: Z86.73 Personal history of transient ischemic attack (TIA), and cerebral infarction without residual deficits. MEASUREMENTS: Right Value Units Left Value Units RT Prox CCA PSV 68 cm/sec LT Prox CCA PSV 125 cm/sec RT Prox CCA EDV 17 cm/sec LT Prox CCA EDV 18 cm/sec RT Distal CCA PSV 38 cm/sec LT Distal CCA PSV 87 cm/sec RT Distal CCA EDV 15 cm/sec LT Distal CCA EDV 20 cm/sec RT Prox ICA PSV 826 cm/sec LT Prox ICA PSV 71 cm/sec RT Prox ICA EDV 371 cm/sec LT Prox ICA EDV 26 cm/sec RT Mid ICA PSV 194 cm/sec LT Mid ICA PSV 97 cm/sec RT Mid ICA EDV 94 cm/sec LT Mid ICA EDV 27 cm/sec RT Distal ICA PSV 36 cm/sec LT Distal ICA PSV 83 cm/sec RT Distal ICA EDV 23 cm/sec LT Distal ICA EDV 29 cm/sec RT ECA Prx PSV 230 cm/sec LT ECA Prx PSV 129 cm/sec RT ICA/CCA 21.62 ratio LT ICA/CCA 1.12 ratio RT VERT PSV 76 cm/sec LT VERT PSV 75 cm/sec FINDINGS: Performing Vegetable Washer: JANIS JeterT. Rt Common Carotid Artery: The plaque in the right CCA appears to be heterogeneous and smooth. Atherosclerotic changes of the right common carotid artery with no hemodynamically significant Doppler findings. Rt Internal Carotid Artery: The plaque in the right internal carotid artery appears to be heterogeneous, calcified and irregular. Significant atherosclerotic changes of the right internal carotid artery with elevated peak systolic velocity and end diastolic velocity, as above. >70% stenosis. Rt External Carotid Artery: Patent right external carotid artery with evidence of atherosclerotic disease present. Rt Vertebral Artery: The right vertebral artery is patent with antegrade flow. Lt Common Carotid Artery: The plaque in the left CCA appears to be heterogeneous and irregular. Atherosclerotic changes of the left common carotid artery with no hemodynamically significant Doppler findings. Lt Internal Carotid Artery: The plaque in the left internal carotid artery appears to be heterogeneous and irregular. Atherosclerotic changes of the left internal carotid artery without hemodynamically significant Doppler findings. <50% stenosis. Lt External Carotid Artery: Patent left external carotid artery with evidence of atherosclerotic disease present. Lt Vertebral Artery: The left vertebral artery is patent with antegrade flow. Provider Notification: Results called on the above date to Madina Smith MD. Time called 15:00. CONCLUSIONS: 1. The right internal carotid artery disease is consistent with a more than 70% stenosis. 2. The left internal carotid artery disease is consistent with a less than 50% stenosis. 3. No evidence of hemodynamically significant stenosis in the common carotid artery bilaterally. 4. Normal, antegrade flow is noted in bilateral vertebral arteries. HISTORY: DM, CAD, HTN, HLD, cancer. PREVIOUS STUDIES: Previous carotid ultrasound on 12/30/20 R= 50-70; L= minimal disease, ant verts bilat - DISCLAIMER: The study images and the final report will be retained in the patient chart by the Vascular Laboratory for the legally required time period. This chart constitutes the legal record of any testing performed. ATTESTATION: I have reviewed and interpreted the pertinent images and measurements of this study. I attest to the conclusions in the final report that is provided above. Electronically Signed By: Jin Bruno MD [facility] [phone] 02/09/2025 8:36:02 AM CDT Procedure Note Jin Bruno MD - 02/09/2025 [facility] - Department of Vascular Surgery,Vascular Laboratory [address] [place] [address] Carotid Duplex Ultrasound Report Patient Name: GRICEL MELISSA : 1955 (69y 4m) Study Date: 02/08/2025 2:36:30 PM Sex: F Tech: Location: [facility] Provider: MADINA SMITH Quality: Adequate Order Provider: MADINA SMITH PROCEDURES: Carotid Report: Carotid duplex examination of the extracranial arterieswas performed using 2D, color and spectral Doppler. INDICATIONS: Z86.73 Personal history of transient ischemic attack (TIA), and cerebralinfarction without residual deficits. MEASUREMENTS: Right Value Units Left Value Units RT Prox CCA PSV 68 cm/sec LT Prox CCA PSV 125 cm/sec RT Prox CCA EDV 17 cm/sec LT Prox CCA EDV 18 cm/sec RT Distal CCA PSV 38 cm/sec LT Distal CCA PSV 87 cm/sec RT Distal CCA EDV 15 cm/sec LT Distal CCA EDV 20 cm/sec RT Prox ICA PSV 826 cm/sec LT Prox ICA PSV 71 cm/sec RT Prox ICA EDV 371 cm/sec LT Prox ICA EDV 26 cm/sec RT Mid ICA PSV 194 cm/sec LT Mid ICA PSV 97 cm/sec RT Mid ICA EDV 94 cm/sec LT Mid ICA EDV 27 cm/sec RT Distal ICA PSV 36 cm/sec LT Distal ICA PSV 83 cm/sec RT Distal ICA EDV 23 cm/sec LT Distal ICA EDV 29 cm/sec RT ECA Prx PSV 230 cm/sec LT ECA Prx PSV 129 cm/sec RT ICA/CCA 21.62 ratio LT ICA/CCA 1.12 ratio RT VERT PSV 76 cm/sec LT VERT PSV 75 cm/sec FINDINGS: Performing Vegetable Washer: Estrella Combs RVT. Rt Common Carotid Artery: The plaque in the right CCA appears to beheterogeneous and smooth. Atherosclerotic changes of the right common carotid artery with no hemodynamically significant Doppler findings. Rt Internal Carotid Artery: The plaque in the right internal carotidartery appears to be heterogeneous, calcified and irregular. Significant atheroscleroticchanges of the right internal carotid artery with elevated peak systolic velocity and enddiastolic velocity, as above. >70% stenosis. Rt External Carotid Artery: Patent right external carotid artery withevidence of atherosclerotic disease present. Rt Vertebral Artery: The right vertebral artery is patent with antegradeflow. Lt Common Carotid Artery: The plaque in the left CCA appears to beheterogeneous and irregular. Atherosclerotic changes of the left common carotid artery withno hemodynamically significant Doppler findings. Lt Internal Carotid Artery: The plaque in the left internal carotid arteryappears to be heterogeneous and irregular. Atherosclerotic changes of the left internalcarotid artery without hemodynamically significant Doppler findings. <50% stenosis. Lt External Carotid Artery: Patent left external carotid artery withevidence of atherosclerotic disease present. Lt Vertebral Artery: The left vertebral artery is patent with antegradeflow. Provider Notification: Results called on the above date to MD Laney. Time called 15:00. CONCLUSIONS: 1. The right internal carotid artery disease is consistent with a morethan 70% stenosis. 2. The left internal carotid artery disease is consistent with a less than50% stenosis. 3. No evidence of hemodynamically significant stenosis in the commoncarotid artery bilaterally. 4. Normal, antegrade flow is noted in bilateral vertebral arteries. HISTORY: DM, CAD, HTN, HLD, cancer. PREVIOUS STUDIES: Previous carotid ultrasound on 12/30/20 R= 50-70; L= minimal disease, antverts bilat - DISCLAIMER: The study images and the final report will be retained in the patientchart by the Vascular Laboratory for the legally required time period. This chartconstitutes the legal record of any testing performed. ATTESTATION: I have reviewed and interpreted the pertinent images and measurements ofthis study. I attest to the conclusions in the final report that is provided above. Electronically Signed By: Jin Bruno MD [facility] [phone] 02/09/2025 8:36:02 AM CDT us Madina Smith MD [facility] US PROCEDURES Final R esult * Cytology (12/10/2024 3:43 PM CDT) Fluid (Urine, Voided (Cytology)) 12/10/2024 3:43 PM CDT 12/10/2024 6:47 PM CDT Narrative PATHOLOGY [facility] - 12/14/2024 2:31 PM CDT EPIC results best viewed via link to PDF [facility] [place] [address] Note to Patients: This report may contain a detailed description of human tissue sent by a health care provider to the laboratory for pathologic evaluation. The content of this report is essential for diagnosis and may provide important critical findings. This information may be unfamiliar to patients to review without a medical professional present. It is advised that the patient review this report in the presence of a health care provider who can answer questions and explain the details. CYTOPATHOLOGY REPORT FINAL Patient Name: GRICEL MELISSA Gender: F : 1955 (Age: 69) Address: [address] [place] [id number] Hospital #: [id number] Taken:12/10/2024 Received:12/10/2024 Reported: 12/14/2024 Patient Type: [facility] SPECIMEN Service: [employer] Location: Physician(s): Virginia Montes M.D. FINAL DIAGNOSIS A. Urine, voided: - Negative for high-grade urothelial carcinoma lopez/12/14/2024 10:44 By this signature, I attest that the above diagnosis is based upon my personal examination of the slides(and/or other material indicated in the diagnosis). Александр Saavedra DO Report Electronically Reviewed and Signed Out By Александр Saavedra DO 12/14/2024 14:31:43 Laly Caraballo MS, CT (ASCP) Gross Description A. Urine, voided: 85 ml pink fluid in CytoRich Red vial - 1 Pap stained Cytospin. (vo) Clinical Diagnosis and History The patient is a 69 year old female with bladder cancer. REPORT IMAGES AND SCANNED DOCUMENTS, IF INCLUDED, ONLY VIEWABLE IN PDF VERSION OF REPORT The performance characteristics of some immunohistochemical stains, in-situ hybridization and fluorescence in-situ hybridization tests and immunophenotyping by flow cytometry cited in this report (if any) were determined by the Surgical Pathology and Flow Cytometry Departments at [facility] as part of an ongoing quality lab assoc program and in compliance with federally mandated regulations drawn from the Clinical Laboratory Improvement Act of 1988 (CLIA '88). Some of these tests rely on the use of analyte specific reagents and are subject to specific labeling requirements by the US Food and Drug Administration. Such diagnostic tests may only be performed in a facility that is certified by the Department of Health and Human Services as a high complexity laboratory under CLIA '88. The FDA has determined that such clearance or approval is not necessary. This test is used for clinical purposes. It should not be regarded as investigational or for research. Nevertheless, federal rules concerning the medical use of analyte specific reagents require that the following disclaimer be attached to the report: This test was developed and its performance characteristics determined by the Surgical Pathology and Flow Cytometry Departments of [facility]. It has not been cleared or approved by the U. S. Food and Drug Administration. Virginia Montes MD LAB CYTOLOGY ORDERABLES Final Re sult PATHOLOGY [facility] 3rd Floor [place], [place] [phone] * Screening Mammogram Bilateral W Geo (11/02/2024 1:10 PM CDT) Anatomical Region Laterality Modality Breast Bilateral Mammography Impressions 11/02/2024 5:08 PM CDT Bilateral No evidence of malignancy in either breast. OVERALL BI-RADS FINAL ASSESSMENT: 1 - Negative RECOMMENDATION: Recommend bilateral annual screening mammography. Narrative 11/02/2024 5:08 PM CDT EXAMINATION: Screening Mammogram Bilateral W Geo: 11/02/2024 COMPARISON: Relevant prior studies available at the time of interpretation were reviewed. TECHNIQUE: Mammography was performed with 2D and digital breast tomosynthesis (DBT) images. CAD was utilized. BREAST PARENCHYMAL COMPOSITION: There are scattered areas of fibroglandular density. FINDINGS: Bilateral There is no suspicious mass, calcification, or architectural distortion in either breast. Self Screening Mammogram IMG MAMMO PROCEDURES Fi nal Result * Albumin Creatinine Ratio, Urine (05/05/2024 12:43 PM COMPUTER GRAPHICS ILLUSTRATOR) Albumin Ur 122.5 mg/L Comment: Interpretive Data No reference range established. Current interpretive data was last revised 2018. Creatinine Ur 453.1 mg/dL [facility] Comment: Interpretive Data No reference range established. Current interpretive data was last revised 2018. Albumin Creatinine Ratio, Ur 27 1 - 29 mg/g [facility] Urine 05/05/2024 12:4 3 PM COMPUTER GRAPHICS ILLUSTRATOR 05/06/2024 9:19 AM COMPUTER GRAPHICS ILLUSTRATOR Conor Bautista MD LAB URINE ORDERABLES Final Re sult Performing Organization Address City/[facility]/ZIP Co de Phone Number [facility] [address] [address] Department of Laboratories [place] [address] * Dexa Axial Skeleton Bone Density 1 or 2 Site (11/11/2023 3:39 PM CDT) Anatomical Region Laterality Modality Body N/A Mammography 11/11/2023 9:46 PM CDT Narrative 11/11/2023 9:47 PM CDT EXAM DESCRIPTION: DEXA AXIAL SKELETON BONE DENSITY 1 OR MORE SITES REASON FOR STUDY: 68 y/o year old F with given history of: 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 LEFT HIP: Total BMD is 0.927 g/cm2 T-score is -0.1 This is decreased in comparison to prior exam which is statistically significant. Femoral neck BMD is 0.782 g/cm2 T-score is -0.6 FRAX: FRAX not reported due to T-scores of hip, femoral neck and/or spine being at or above -1.0 (Normal). IMPRESSION: Normal bone mass. REFERENCE: Bone mineral density: T-Score: Normal (T-score above or = -1.0) Low bone mass (T-score between -1.0 and -2.5) replaces the previously used term osteopenia Osteoporosis (T-score = or below -2.5) Z-Score: Within the expected range for age (Z-score above -2.0) Below the expected range for age (Z-score is -2.0 or below) Please see below follow up recommendations. Medical evaluation for secondary causes of low bone mineral density may be appropriate. FRAX is a World Health Organization validated fracture risk assessment tool that calculates a person's 10 year probability of a major osteoporosis related fracture and hip fracture. According to the National Osteoporosis Foundation guidelines, postmenopausal women and men age 50 or older with low bone mass and a 10 year probability of a major osteoporosis related fracture = or greater than 20% or a 10 year probability of a hip fracture = or greater than 3% should be considered for pharmacological treatment for the prevention of osteoporosis. For further information, including treatment recommendations, please refer to the 2019 ISCD Official Positions (http://www.iscd.org) and the NOF's Clinician's Guide to Prevention and Treatment of Osteoporosis (http://www.nof.org/professionals/clinical-guidelines) THIS IS AN ELECTRONICALLY VERIFIED FINAL REPORT 11/11/2023 9:47 PM - Electronically signed by Lars Maria M.D. MF: DORA Report ID: [id number] Reading Location: [place] [address] Procedure Note Lars Maria MD - 11/11/2023 EXAM DESCRIPTION: DEXA AXIAL SKELETON BONE DENSITY 1 OR MORE SITES REASON FOR STUDY: 68 y/o year old F with given history of:osteoporosis screen Patrol Conductor/Model: InteKrin A (S/N [id number]) CLINICAL INFORMATION: Current height: 64 inches Maximum height: 65 inches Weight: 173 pounds Risk factors: Postmenopausal, parental hip fracture, cancer COMPARISON: 08/03/2021 FINDINGS: AP LUMBAR SPINE L1-L4: Total BMD is 1.067 g/cm2 T-score is 0.2 This is decrease in comparison to prior exam which is not statistically significant. LEFT HIP: Total BMD is 0.927 g/cm2 T-score is -0.1 This is decreased in comparison to prior exam which is statistically significant. Femoral neck BMD is 0.782 g/cm2 T-score is -0.6 FRAX: FRAX not reported due to T-scores of hip, femoral neck and/or spine beingat or above -1.0 (Normal). IMPRESSION: Normal bone mass. REFERENCE: Bone mineral density: T-Score: Normal (T-score above or = -1.0) Low bone mass (T-score between -1.0 and -2.5) replaces thepreviously used term osteopenia Osteoporosis (T-score = or below -2.5) Z-Score: Within the expected range for age (Z-score above -2.0) Below the expected range for age (Z-score is -2.0 or below) Please see below follow up recommendations. [facility] causes of low bone mineral density may be appropriate. FRAX is a World Health Organization validated fracture risk assessmenttool that calculates a person's 10 year probability of a major osteoporosisrelated fracture and hip fracture. According to the National OsteoporosisFoundation guidelines, postmenopausal women and men age 50 or older with low bonemass and a 10 year probability of a major osteoporosis related fracture = or greater than 20% or a 10 year probability of a hip fracture = or greaterthan 3% should be considered for pharmacological treatment for the preventionof osteoporosis. For further information, including treatment recommendations, please referto the 2019 ISCD Official Positions (http://www.iscd.org) and the NOF's Clinician's Guide to Prevention and Treatment of Osteoporosis (http://www.nof.org/professionals/clinical-guidelines) THIS IS AN ELECTRONICALLY VERIFIED FINAL REPORT 11/11/2023 9:47 PM - Electronically signed by Lars Maria M.D. MF: DORA Report ID: [id number] Reading Location: [place] [address] Conor Bautista MD IMG DXA PROCEDURES Final Resu lt * Diabetic Eye Exam (10/10/2022) 10/10/2022 Historical Provider HEALTH MAINTENANCE Final Result * COLONOSCOPY (09/12/2021 12:02 PM CDT) Anatomical Region Laterality Modality Other Narrative Procedure Note Chula Downs MD - 09/12/2021 12:02 PM CDT [facility] Endoscopy [facility] Patient Name: Gricel eMlissa Procedure Date: 09/12/2021 12:02 PM Date of : 1955 Admit Type: Outpatient Age: 65 Gender: Female Note Status: Finalized Attending MD: hCula Downs M.D. Procedure Date: 09/12/2021 Procedure: Colonoscopy Indications: Abdominal pain, Suspected Crohn's disease Providers: Chula Downs M.D., Omar Ryan CRNA (Anesthesia Staff), Domingo Zelaya RN, Fannie Garza RN Referring MD: Conor Bautista M.D. Medicines: Monitored Anesthesia Care Complications: No immediate complications. Estimated Blood Loss: Estimated blood loss was minimal. Procedure: Pre-Anesthesia Assessment: - Prior to the procedure, a History and Physicalwas performed, and patient medications and allergieswere reviewed. The patient is competent. The risks and benefits of the procedure and the sedation optionsand risks were discussed with the patient. Allquestions were answered and informed consent was obtained. Patient identification and proposed procedure were verified by the physician, the nurse and the metal sprayer in the procedure room. Mental Status Examination: alert and oriented. AirwayExamination: normal oropharyngeal airway and neck mobility. Respiratory Examination: clear to auscultation. CV Examination: normal. Prophylactic Antibiotics: The patient does not require prophylactic antibiotics. Prior Anticoagulants: The patient has taken no anticoagulant or antiplatelet agents. ASA Grade Assessment: IV - A patient with severe systemic disease that is a constant threat to life. After reviewing the risks and benefits, the patient was deemed in satisfactory condition to undergo the procedure. The anesthesia plan was to use monitored anesthesia care (MAC). Immediately prior to administration of medications, the patient was re-assessed for adequacy to receive sedatives. The heart rate, respiratory rate, oxygen saturations, blood pressure, adequacy of pulmonary ventilation,and response to care were monitored throughout the procedure. The physical status of the patient was re-assessed after the procedure. - The risks and benefits of the procedure and the sedation options and risks were discussed with the patient. All questions were answered and informed consent was obtained. After I obtained informed consent, the scope was passed under direct vision. Throughout theprocedure, the patient's blood pressure, pulse, and oxygen saturations were monitored continuously. The scopewas passed under direct vision. The Colonoscope was introduced through the anus and advanced to the the terminal ileum. The colonoscopy was performedwithout difficulty. The patient tolerated the procedurewell. The quality of the bowel preparation was adequate.The bowel preparation used was bisacodyl tablets viasplit dose instruction. Findings: The terminal ileum appeared normal. Two sessile polyps were found in the ascending colon. The polyps were1 to 2 mm in size. These polyps were removed with a cold biopsyforceps. Resection and retrieval were complete. Estimated blood loss wasminimal. Normal mucosa was found in the entire colon. Biopsies for histologywere taken with a cold forceps from the descending colon for evaluation of microscopic colitis. Estimated blood loss was minimal. The retroflexed view of the distal rectum and anal verge was normaland showed no anal or rectal abnormalities. Impression: - The examined portion of the ileum was normal. - Two 1 to 2 mm polyps in the ascending colon,removed with a cold biopsy forceps. Resected andretrieved. - Normal mucosa in the entire examined colon.Biopsied. - The distal rectum and anal verge are normal on retroflexion view. - Ileocolonic Crohn's disease was not seen.Biopsied. Recommendation: - High fiber diet. - Continue present medications. - Repeat colonoscopy in 5-10 years for surveillance based on pathology results. Procedure Code(s): --- Professional --- 44346, Colonoscopy, flexible; with biopsy, singleor multiple Diagnosis Code(s): --- Professional --- D12.2, Benign neoplasm of ascending colon R10.9, Unspecified abdominal pain CPT copyright 2020 [employer]. All rights reserved. The codes documented in this report are preliminary and upon physician coder reviewmay be revised to meet current compliance requirements. Electronically signed by Chula Downs M.D. Chula Downs M.D. 09/12/2021 12:51:50 PM Number of Addenda: 0 Note Initiated On: 09/12/2021 12:02 PM us Chula Downs MD ENDOSCOPY PROCEDURES Fi nal Result * Serum Hepatitis panel (10/10/2015 2:41 PM CDT) HBV surface ag Negative NEG HISTO RICAL RESULTS HCV ab Negative NEG HISTORICAL RESULTS Comment: Interpretive Data If confirmation is required, call Laboratory Customer Service to request sample to be sent to [facility] for Hepatitis C Virus (HCV) RNA Detection and Quantitation by Real-Time Reverse Bisque Brusher-PCR (RT-PCR). Current interpretive data was last revised on 2011 HBV core ab, IgM Negative NEG HIS TORICAL RESULTS Comment: Interpretive Data If test is reported as Equivocal, new sample should be drawn for testing. Current interpretive data was last revised on 2008. HAV ab, IgM Negative NEG HISTORIC AL RESULTS Comment: Interpretive Data If test is reported as Equivocal, new sample should be drawn in two weeks for testing. Current interpretive data was last revised on 2008. Serum 10/10/2015 2:41 PM CDT us Rogelio Lee MD LAB BLOOD ORDERABLES F inal Result HISTORICAL RESULTS from Last 3 Months or Most Recently Relevant to Health Maintenance Insurance MEDICARE [facility] M[facility] AD[facility]TRA [facility] ADVANTRA [facility] H[facility]/POS [facility] PowerMessage INSURANCE [employer] MEDICARE 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 * Full Code (Latest Code Status on File) Date Activated Date Inactivated Comments 02/18/2025 7:51 PM 02/19/2025 7:59 PM * Full Code Date Activated Date Inactivated Comments 06/30/2024 10:04 PM 07/06/2024 8:12 PM * Full Code Date Activated Date Inactivated Comments 03/03/2021 10:46 PM 03/08/2021 8:10 PM * Full Code Date Activated Date Inactivated Comments 12/29/2020 1:57 PM 01/05/2021 9:32 PM Care Teams Vegetable Thinner Relationship Specialty Start Date End Date Conor Bautista MD [address] [phone] [place] [address] PCP - General Family Medicine 11/06/19 Aubrie Sellers MD Referring Physician 06/09/18 Clare Jeter MD [address] [place], [place] [id number] Consulting Physician Cardiology 06/09/18 Prem Rojas DO [address] [place], [place] [id number] Consulting Physician Gastroenterology 06/09/18 Dannielle Romo PA [address] [place], [place] [phone] Physician Train Starter Orthopedic Surgery 06/09/18 Prem Chauhan MD [address] [place] [address] Surgeon Orthopedic Surgery 06/09/18 Yuridia Davidson MD [address] [place], [place] [phone] Surgeon Orthopedic Surgery 06/09/18 Channing Sam MD [address] [place] [address] Surgeon Ophthalmology 06/09/18 Raeann Pagan PA [address] [facility] [address] [place] [address] Physician Train Starter Physician Train Starter 06/09/18 Telma Monreal MD [address] [facility] [address] [place] [address] Referring Physician Dermatology 06/09/18 Gricel Rodas MD [address] [facility] [address] [place] [address] Consulting Physician Rheumatology 06/09/18 Racheal Bauer MD [address] [facility] [phone] [place] [address] Referring Physician Obstetrics and Gynecology 06/09/18
--- NOTE | 2025-02-27 11:43 | PC.NURSE ---
Patient recently had carotid surgery performed and has a 13cm surgical incision on the right side of her cheek/neck. unsure of where and exact date of when surgery was performed.
--- NOTE | 2025-02-27 11:50 | ED_ITS ---
HPI - Altered Mental Status General Chief Complaint: Altered Mental Status Stated Complaint: seizure, unresponsive Time Seen by Provider: 02/27/25 10:25 Source: EMS Mode of arrival: EMS Limitations: altered mental status History of Present Illness HPI narrative: This is a 69F with a recent carotid surgery of unknown type thought to be done at [facility] in late January, brought in by EMS from with stroke like symptoms followed by seizures. EMS reports they were called 7 4 left arm weakness with concern for stroke. On arrival, they noted the patient had left-sided arm drift. During loading to the ambulance, the patient had 2 seizures. Both described as generalized tonic-clonic. The patient did not return to baseline mentation in between. She was given 10 of IM Versed, 200 mg of ketamine and was intubated. Review of Systems 2 Review of Systems: ROS unobtainable: Yes unobtainable due to endotracheal tube and unobtainable due to mental status PMFSH Past Medical History Medical History Medical history unknown Surgical History Surgical History Status post carotid surgery Exam 2 Narrative: GENERAL: Well-developed, well-nourished, intubated and sedated HEAD: Normocephalic, atraumatic. EYES: PERRLA and EOMI. 3 mm and reactive bilaterally NECK: Supple. There is a 20 cm surgical laceration of the right neck consistent with vascular surgery. There is no known noted ecchymosis pulsatile mass or expanding hematoma CHEST: Translated upper airway sounds with bagging. No respiratory distress. No wheezes rales or rhonchi HEART: Tachycardic with regular rhythm. No murmur heard. Normal peripheral pulses. ABDOMEN: Soft, nondistended, normal active bowel sounds. EXTREMITIES:No edema. SKIN: Warm, dry, no rash. NEURO: Sedated Course Course Emergency Course: 11:50 - CBC demonstrates elevated white blood cell count of 11.1 but is otherwise unremarkable. Chemistries demonstrate glucose 272, magnesium of 1 and AST of 40 but is otherwise unremarkable. Urinalysis demonstrates glucose, trace ketones and 3-5 RBCs but is otherwise not concerning for UTI. Drug screen positive for opiates and benzodiazepines (the latter may be due to Versed given). Alcohol level negative. CT angiogram of the head and neck negative for intracranial hemorrhage, arterial stenosis, aneurysm or mass. 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 Angiogram of the carotids showed 0% stenosis on the right and 33% stenosis on the left. Chest x- ray shows ET tube in appropriate position without other acute changes. KUB demonstrates NG tube in appropriate position. 12:15 - BP remained elevated to 180/120s despite Labetalol IV. Nicardipene drip started. I discussed the patient with [facility] DRY END OPERATOR Tamela who accepts the patient on behalf of Dr. Acosta. Vital Signs Vital signs: Vital Signs Pulse Rate 124 H 02/27/25 10:23 Respiratory Rate 23 H 02/27/25 10:23 Blood Pressure 144/98 H 02/27/25 10:23 Pulse Oximetry 100 02/27/25 10:23 Oxygen Delivery Mechanical Ventilation 02/27/25 10:23 Fraction of Inspired Oxygen 100 02/27/25 10:23 Temperature 98.3 F 02/27/25 11:42 Pulse Rate 111 H 02/27/25 12:20 Respiratory Rate 14 02/27/25 11:55 Blood Pressure 149/99 H 02/27/25 12:20 Pulse Oximetry 100 02/27/25 11:42 Oxygen Delivery Mechanical Ventilation 02/27/25 11:30 Fraction of Inspired Oxygen 50 02/27/25 11:30 MDM - Altered Mental Status MDM Narrative Medical decision making narrative: Plan: Sedation, antiepileptics, imaging, fingerstick glucose, labs, neurology consultation, reassess Differential Diagnosis Differential diagnosis: Likely altered mental status, hypoglycemia, hyponatremia and other (Intracranial hemorrhage, status epilepticus, intracranial mass, metabolic abnormality, drug/alcohol intoxication, stroke, reassess) Lab Data 02/27/25 10:39 02/27/25 10:42 Labs: Lab Results 02/27/25 02/27/25 02/27/25 Range/Units 10:30 10:39 10:42 WBC 11.1 H (4.5-10.0) K/mm3 RBC 4.64 (4.2-5.4) M/mm3 Hgb 13.0 (12.0-15.0) g/dL Hct 40.2 (37.0-47.0) % MCV 86.6 (80-100) fl MCH 28.0 (26-34) pg MCHC 32.3 (32-36) g/dl RDW 13.4 (11.5-14.5) % Plt Count 252 (150-375) k/mm3 MPV 10.3 (7.4-10.4) fl Immature Gran % (Auto) 1.1 H (0-0.5) % Neut % (Auto) 67.3 (45.5-73.1) % Lymph % (Auto) 23.4 (18.3-44.2) % [place] % (Auto) 6.2 (2.6-8.5) % Eos % (Auto) 1.4 (0-4.4) % Baso % (Auto) 0.6 (0.2-1.2) % Lymph # (Auto) 2.59 (0.9-3.2) K/mm3 [place] # (Auto) 0.7 H (0.1-0.6) K/mm3 Eos # (Auto) 0.2 (0-0.3) K/mm3 Baso # (Auto) 0.1 (0.0-0.1) K/mm3 Abs Immat Gran (auto) 0.12 H (0.00-0.031) K/mm3 Absolute Neuts (auto) 7.5 H (1.3-6.7) K/mm3 Absolute Nucleated RBC 0.000 (0.0-0.012) K/mm3 Nucleated RBC % 0.0 (0.0-0.2) % PT 13.2 (11.1-14.7) Seconds INR 1.0 APTT 24.2 (22.3-36.8) Seconds Minute Volume Vent Mode Tidal Volume ml PEEP cmH2O Peak Inspir Pressure Pressure Support Sodium 137 (137-145) mmol/L Potassium 3.4 (3.4-5.0) mmol/L Chloride 105 (98-107) mmol/L Carbon Dioxide 17 L (22-30) mmol/L Anion Gap 15 H (4-12) mmol/L BUN 15 (7-17) mg/dL Creatinine 0.86 (0.7-1.0) mg/dL Estim Creat Clear Calc Not Reportable Estimated GFR > 60 (59 - ) Glucose 272 H (65-110) mg/dL POC Capillary Glucose 269 H (65-105) mg/dl Calcium 9.1 (8.4-10.2) mg/dL Magnesium 1.0 L (1.6-2.3) mg/dL Total Bilirubin 0.4 (0.2-1.3) mg/dL AST 40 H (14-36) U/L ALT 29 (6-35) U/L Alkaline Phosphatase 122 (38-126) U/L Total Protein 7.1 (6.3-8.2) g/dL Albumin 4.0 (3.5-5.1) g/dL Urine Color Yellow (Yellow) Urine Appearance Cloudy H (Clear) Urine pH 5.5 (5.0-9.0) Ur Specific [place] 1.025 (1.001-1.035) Urine Protein 4+ H (Negative) mg/dL Urine Glucose (UA) 2+ H (Negative) mg/dL Urine Ketones Trace H (Negative) mg/dL Ur Blood (Man) 2+ H (Negative) Urine Nitrate Negative (Negative) Urine Bilirubin Negative (Negative) Urine Urobilinogen 0.2 (<2.0) mg/dL Add Ur Microanalysis Reviewed Leukocyte Esterase Rfl Negative (Negative) EILEEN/UL Urine RBC 3-5 H (0-2) /hpf Urine WBC 0-5 (0-3) /hpf Ur Squamous Epith Cells Few (Few) /hpf Urine Bacteria None seen /hpf Urine Casts >20 Hyaline Casts Present (None) /lpf Urine Opiates Screen Positive A (Negative) Urine Methadone Screen Negative (Negative) Ur Barbiturates Screen Negative (Negative) Ur Phencyclidine Scrn Negative (Negative) Ur Amphetamine Screen Negative (Negative) U Benzodiazepines Scrn Positive A (Negative) Urine Cocaine Screen Negative (Negative) U Cannabinoids Screen Negative (Negative) Ethyl Alcohol < 10 (<10) mg/dL 02/27/25 02/27/25 Range/Units 10:43 10:48 WBC (4.5-10.0) K/mm3 RBC (4.2-5.4) M/mm3 Hgb (12.0-15.0) g/dL Hct (37.0-47.0) % MCV (80-100) fl MCH (26-34) pg MCHC (32-36) g/dl RDW (11.5-14.5) % Plt Count (150-375) k/mm3 MPV (7.4-10.4) fl Immature Gran % (Auto) (0-0.5) % Neut % (Auto) (45.5-73.1) % Lymph % (Auto) (18.3-44.2) % [place] % (Auto) (2.6-8.5) % Eos % (Auto) (0-4.4) % Baso % (Auto) (0.2-1.2) % Lymph # (Auto) (0.9-3.2) K/mm3 [place] # (Auto) (0.1-0.6) K/mm3 Eos # (Auto) (0-0.3) K/mm3 Baso # (Auto) (0.0-0.1) K/mm3 Abs Immat Gran (auto) (0.00-0.031) K/mm3 Absolute Neuts (auto) (1.3-6.7) K/mm3 Absolute Nucleated RBC (0.0-0.012) K/mm3 Nucleated RBC % (0.0-0.2) % PT (11.1-14.7) Seconds INR APTT (22.3-36.8) Seconds Minute Volume Not Reportable Vent Mode Cmv Tidal Volume 450 ml PEEP 5 cmH2O Peak Inspir Pressure Not Reportable Pressure Support Not Reportable Sodium (137-145) mmol/L Potassium (3.4-5.0) mmol/L Chloride (98-107) mmol/L Carbon Dioxide (22-30) mmol/L Anion Gap (4-12) mmol/L BUN (7-17) mg/dL Creatinine (0.7-1.0) mg/dL Estim Creat Clear Calc Estimated GFR (59 - ) Glucose (65-110) mg/dL POC Capillary Glucose (65-105) mg/dl Calcium (8.4-10.2) mg/dL Magnesium Cancelled (1.6-2.3) mg/dL Total Bilirubin (0.2-1.3) mg/dL AST (14-36) U/L ALT (6-35) U/L Alkaline Phosphatase (38-126) U/L Total Protein (6.3-8.2) g/dL Albumin (3.5-5.1) g/dL Urine Color (Yellow) Urine Appearance (Clear) Urine pH (5.0-9.0) Ur Specific [place] (1.001-1.035) Urine Protein (Negative) mg/dL Urine Glucose (UA) (Negative) mg/dL Urine Ketones (Negative) mg/dL Ur Blood (Man) (Negative) Urine Nitrate (Negative) Urine Bilirubin (Negative) Urine Urobilinogen (<2.0) mg/dL Add Ur Microanalysis Leukocyte Esterase Rfl (Negative) EILEEN/UL Urine RBC (0-2) /hpf Urine WBC (0-3) /hpf Ur Squamous Epith Cells (Few) /hpf Urine Bacteria /hpf Urine Casts Hyaline Casts (None) /lpf Urine Opiates Screen (Negative) Urine Methadone Screen (Negative) Ur Barbiturates Screen (Negative) Ur Phencyclidine Scrn (Negative) Ur Amphetamine Screen (Negative) U Benzodiazepines Scrn (Negative) Urine Cocaine Screen (Negative) U Cannabinoids Screen (Negative) Ethyl Alcohol (<10) mg/dL ABG Data ABG results: 02/27/25 10:48 Puncture Site Right radial ABG pH 7.411 ABG pCO2 27.8 L ABG pO2 420.5 H ABG PO2/FiO2 Ratio 4.20 ABG HCO3 17.3 L ABG O2 Saturation 99.8 ABG O2 Content 19.5 ABG Base Excess -5.9 A-a Gradient 264.7 Oxyhemoglobin 99.3 Total Hemoglobin 13.2 O2 Delivery Device Ventilator O2 Liters/Min Not Reportable Vent Rate 20 FiO2 100 ECG Data EKG #1: Attestation: I personally reviewed and interpreted this ECG as follows: ECG completion date: 02/27/25 ECG completion time: 10:27 Prior ECG tracings: not available for review Interpretation: Sinus tachycardia with frequent PVCs, rate 119, left axis deviation, no ST segment elevations or T-wave inversions concerning for ischemia, normal intervals with QTC of 464. Critical Care Time Critical Care Time Critical Care Time: Yes Total Critical Care Time: 45 Discharge Plan Discharge Clinical Impression: Seizure, Left arm weakness, Hypomagnesemia Altered mental status Qualifiers: Altered mental status type: unspecified Qualified Code(s): R41.82 - Altered mental status, unspecified Hypertension Qualifiers: Hypertension type: unspecified Qualified Code(s): I10 - Essential (primary) hypertension Patient Disposition: Acute Care Hospital Condition: Critical Patient Language: Turkmen Follow-up/Referrals: UNKNOWN,DOCTOR [Primary Care Provider] Time of Disposition: 12:15
--- NOTE | 2025-02-27 12:37 | PC.NURSE ---
Spoke with Tiffanie from [facility] transfer center for triage update. She states patient will be getting a bed today. patient accepted to [facility] under Dr Acosta.
--- NOTE | 2025-02-27 13:08 | PC.NURSE ---
patient going to room [address]4815-0 in [place] [facility]. Report given to ELPIDIO Rashid. [facility] ETA for transport is [id number]
--- NOTE | 2025-02-27 13:12 | PC.NURSE ---
Attempted to call Patient's with no answer and no voicemail to leave a message
== END 2025-02-27 14:22 | disposition short-term general hospital (02) ==
PROVIDERS: Emergency Provider Preventive Medicine Aerospace Medicine
DX: R53.1 Weakness (principal); R56.9 Unspecified convulsions; E83.42 Hypomagnesemia; I10 Essential (primary) hypertension; R41.82 Altered mental status, unspecified; Z98.890 Other specified postprocedural states; I65.22 Occlusion and stenosis of left carotid artery; R94.31 Abnormal electrocardiogram [ECG] [EKG]; I49.3 Ventricular premature depolarization
CPT/HCPCS: 36415; 36600; 51702; 70496; 70498; 71045; 80053; 80307; 81001; 82077; 82805; 82948; 83735; 85018; 85025; 85610; 85730; 93005; 94002; 96365; 96366; 96367; 96368; 96375; 99285; J1953; J2250; J2404; J3475; Q9967

== ENCOUNTER 2025-04-23 14:13 | Outpatient (CLI) | payer MEDICARE, SELFPAY ==
--- OUTSIDE RECORDS SUMMARY | 2025-04-23 14:18 | XMS_ITS | Encounter Summary ---
Author Organization [facility] Address [address] [place] [address] Care Team Providers Care Metal Forger'S Assistant Name Role Phone Aubrie Sellers MD Unavailable [phone] Clare Jeter MD Unavailable [phone] Prem Rojas DO Unavailable [phone] Dannielle Romo Unavailable Prem Chauhan MD Unavailable Yuridia Davidson MD Unavailable Channing Sam MD Unavailable Juan Pagan Unavailable Telma Monreal MD Unavailable [phone] Gricel Rodas MD Unavailable Racheal Bauer MD Unavailable Conor Bautista MD Primary Care Provider [phone] Reason for Visit * Reason Onset Date Comments Medical Records Request 04/13/2025 Encounter Details Date Type Department Care Team (Deuce st Contact Info) Description 04/13/2025 Telephone [facility] Family Medicine at [address] [place] [address] Conor Bautista MD [address] [place] [address] [address] [place] [address] Medical Records Request Social History Tobacco Use Types Packs/Day Years Used Date Smoking Tobacco: Never Passive Smoke Exposure: Never Smokeless Tobacco: Never Alcohol Use Standard Drinks/Week Comments Not Currently 0 (1 standard drink = 0.6 oz pur e alcohol) Social Connection and Isolation Panel Answer Date Recorded In a typical week, how many times do you talk on the phone with family, friends, or neighbors? More than three times a week 07/01/2024 How often do you get togethe r with friends or relatives? More than three times a week 07/01/2024 How often do you attend chur ch or uatsdin services? Never 07/01/2024 Do you belong to any clubs o r organizations such as jainism groups, unions, fraternal or athletic groups, or [...] PHQ-2 Answer Date Recorded PHQ-2 Total Score 0 03/01/2025 PRAPARE - Transportation Answer Date Re corded [...] any time in the past 12 m [facility], were you homeless or living in a long term (including now)? No 07/01/2024 Social Connection and Isolation Panel Answer Date Recorded In a typical week, how many times do you talk on the phone with family, friends, or neighbors? More than three times a week 03/17/2025 How often do you get togethe r with friends or relatives? More than three times a week 03/17/2025 How often do you attend chur ch or uatsdin services? Never 03/17/2025 Do you belong to any clubs o r organizations such as jainism groups, unions, fraternal or athletic groups, or school groups? No 03/17/2025 How often do you attend meet ings of the clubs or organizations you belong to? Never 03/17/2025 Are you , , di vorced, , never , or living with a partner? 03/17/2025 AUDIT-C Answer Date Recorded Q1: How often do you have a drink containing alcohol? Never 04/12/2025 Q2: How many drinks containi ng alcohol do you have on a typical day when you are drinking? Patient does not drink Frequency of Binge Drinking Not on file 03/27 Overall Financial Resource Strain (CARDIA) Answe r Date Recorded How hard is it for you to pa y for the very basics like food, housing, medical care, and heating? Not hard at all 03/17/2025 Hunger Vital Sign Answer Date Recorded Within the past 12 months, y ou worried that your food would run out before you got the money to buy more. Never true 03/17/20 25 Within the past 12 months, t he food you bought just didn't last and you didn't have money to get more. Never true 03/17/2025 PRAPARE - Transportation Answer Date Re corded In the past 12 months, has l ack of transportation kept you from medical appointments or from getting medications? No 02/25 In the past 12 months, has l ack of transportation kept you from meetings, work, or from getting things needed for daily living? No 03/17/2025 Housing Stability Vital Sign Answer Moris e Recorded In the last 12 months, was t here a time when you were not able to pay the mortgage or rent on time? No 03/17/2025 In the past 12 months, how m any times have you moved where you were living? 0 03/17/2025 At any time in the past 12 m [facility], were you homeless or living in a long term (including now)? No 03/17/2025 [facility] Utilities Answer Date Recorded In the past 12 months has th e [employer], gas, oil, or water company threatened to shut off services in your home? No 03/17/2025 Personal Safety Answer Date Recorded Have you ever been in or are you currently in a harmful physical or emotional relationship or is someone making you feel afraid or unsafe? Patient unable to answer 03/14/2025 Comments No Sex and Gender Information Value Date Recorded Sex Assigned at Female 07/31/2018 8:32 AM POUNCER Legal Sex Female 1:57 AM POUNCER Gender Identity Female 05/14/2024 7:04 PM POUNCER Sexual Orientation Straight 07/31/2018 8: 32 AM POUNCER documented as of this encounter Miscellaneous Notes * Telephone Encounter - Karla Hart - 04/13/2025 10:43 AM CST Printed and fax 04/13/25 CER * Telephone Encounter - Nubia Sheets - 04/13/2025 10:34 AM CST Medical Records Request Request Type: Records Request Practice Will Complete What records are being requested: Office visit notes and summary from 04/12/2025. Who will the records be sent to (if being sent to another doctor, list the doctor's name and specialty)? Patient Date Needed: ROSARIO Delivery Method: Fax Fax number to use for return of records: [phone] (personal fax) Additional Comments/Concerns: Patient could not get summary and notes from [place]. Please fax overto her. Does the message need to be routed? Yes-Action Needed CER documented in this encounter Plan of Treatment Not on file documented as of this encounter Visit Diagnoses Not on filedocumented in this encounter Care Teams Metal Forger'S Assistant Relationship Specialty Start Date End Date Conor Bautista MD [address] [address] PCP - General Family Medicine 04/12/25 Aubrie Sellers MD Referring Physician 06/09/18 Clare Jeter MD [address] [place] [address] Consulting Physician Cardiology 06/09/18 Prem Rojas DO [address] [place], [place] [id number] Consulting Physician Gastroenterology 06/09/18 Dannielle Romo PA [address] [place] [address] Physician Buttonholer Orthopedic Surgery 06/09/18 Prem Chauhan MD [address] [place] [address] Surgeon Orthopedic Surgery 06/09/18 Yuridia Davidson MD [address] [place] [address] Surgeon Orthopedic Surgery 06/09/18 Channing Sam MD [address] [facility] [address] [place] [address] Surgeon Ophthalmology 06/09/18 Juan Pagan PA [address] [facility] [address] [place] [address] Physician Buttonholer Physician Buttonholer 06/09/18 Telma Monreal MD [address] [facility] [address] [place] [address] Referring Physician Dermatology 06/09/18 Gricel Rodas MD [address] [place] [address] [facility] [address] [place] [address] Consulting Physician Rheumatology 06/09/18 Racheal Bauer MD [address] [id number] [place] [address] Referring Physician Obstetrics and Gynecology 06/09/18 documented as of this encounter
--- OUTSIDE RECORDS SUMMARY | 2025-04-23 14:18 | XMS_ITS | Encounter Summary ---
Author Organization [facility] Address [address] [place] [address] Care Team Providers Care Gauge And Instrument Inspector Name Role Phone Aubrie Sellers MD Unavailable [phone] Clare Jeter MD Unavailable Prem Rojas DO Unavailable [phone] Dannielle Romo Unavailable Prem Chauhan MD Unavailable Yuridia Davidson MD Unavailable Channing Sam MD Unavailable [phone] Juan Pagan Unavailable Telma Monreal MD Unavailable [phone] Gricel Rodas MD Unavailable [phone] Racheal Bauer MD Unavailable [phone] Conor Bautista MD Primary Care Provider Encounter Details Date Type Department Care Team (Late st Contact Info) Description 04/13/2025 Results Follow-Up [facility] Family Medicine at [address] [place] [address] Conor Bautista MD [address] [place] [address] [address] [place] [address] Calprotectin, fecal Social History Tobacco Use Types Packs/Day Years [...] often do you attend chur ch or nondenominational services? Never 07/01/2024 Do you belong to any clubs o r organizations such as cheondoism groups, unions, fraternal or athletic groups, or [...] time in the past 12 m [facility], were you homeless or living in a [place] health care facility (including now)? No 07/01/2024 Social Connection and Isolation Panel Answer Date Recorded In a typical week, how many times do you talk on the phone with family, friends, or neighbors? More than three times a week 03/17/2025 How often do you get togethe r with friends or relatives? More than three times a week 03/17/2025 How often do you attend chur ch or nondenominational services? Never 03/17/2025 Do you belong to any clubs o r organizations such as cheondoism groups, unions, fraternal or athletic groups, or [...] time in the past 12 m [facility], were you homeless or living in a [place] health care facility (including now)? No 03/17/2025 [facility] Utilities Answer Date Recorded In the past 12 months has th e electric, gas, oil, or water company [...] Sex Assigned at Female 07/31/2018 8:32 AM VARNISHING UNIT OPERATOR Legal Sex Female 1:57 AM VARNISHING UNIT OPERATOR Gender Identity Female 05/14/2024 7:04 PM VARNISHING UNIT OPERATOR Sexual Orientation Straight 07/31/2018 8: 32 AM VARNISHING UNIT OPERATOR documented as of this encounter Plan of Treatment Not on file documented as of this encounter Visit Diagnoses Not on filedocumented in this encounter Care Teams Gauge And Instrument Inspector Relationship Specialty Start Date End Date Conor Bautista MD [address] [address] PCP - General Family Medicine 04/12/25 Aubrie Sellers MD Referring Physician 06/09/18 Clare Jeter MD [address] [facility] [address] [place] [address] Consulting Physician Cardiology 06/09/18 Prem Rojas DO [address] [place] [address] Consulting Physician Gastroenterology 06/09/18 Dannielle Romo PA [address] [place] [address] Physician Staff Midwife Orthopedic Surgery 06/09/18 Prem Chauhan MD [address] [place] [address] Surgeon Orthopedic Surgery 06/09/18 Yuridia Davidsno MD [address] [place] [address] Surgeon Orthopedic Surgery 06/09/18 Channing Sam MD [address] [place] [address] Surgeon Ophthalmology 06/09/18 Juan Pagan PA [address] [place] [address] Physician Staff Midwife Physician Staff Midwife 06/09/18 Telma Monreal MD [address] [place] [address] Referring Physician Dermatology 06/09/18 Gricel Rodas MD [address] [place] [address] [address] [place] [address] Consulting Physician Rheumatology 06/09/18 Racheal Bauer MD [address] [id number] [place] [address] Referring Physician Obstetrics and Gynecology 06/09/18 documented as of this encounter
--- OUTSIDE RECORDS SUMMARY | 2025-04-23 14:18 | XMS_ITS | Encounter Summary ---
Author Organization [facility] Address [address] [place] [address] Care Team Providers Care Nursing Director Name Role Phone Aubrie Sellers MD Unavailable [phone] Clare Jeter MD Unavailable [phone] Prem Rojas DO Unavailable [phone] Dannielle Romo Unavailable Prem Chauhan MD Unavailable Yuridia Davidson MD Unavailable Channing Sam MD Unavailable Juan Pagan Unavailable [phone] Telma Monreal MD Unavailable [phone] Gricel Rodas MD Unavailable Racheal Bauer MD Unavailable [phone] Conor Bautista MD Primary Care Provider [phone] Conor Bautista MD Primary Care Provider [phone] Encounter Details Date Type Department Care Team (Latest Contact Info) Description 04/08/2025 Results Follow-Up [facility] Family Medicine at [address] [place] [address] Conor Bautista MD [address] [place] [address] [address] [place] [address] Stool culture Stool Rectum, Cryptosporidium and Giardia antigen assay Stool Social History Tobacco Use Types Packs/Day Years [...] often do you attend chur ch or bahai services? Never 07/01/2024 Do you belong to any clubs o r organizations such as bahai groups, unions, fraternal or athletic groups, or [...] any time in the past 12 m [facility], were you homeless or living in a long-term (including now)? No 07/01/2024 Social Connection and Isolation Panel Answer Date Recorded In a typical week, how many times do you talk on the phone with family, friends, or neighbors? More than three times a week 03/17/2025 How often do you get togethe r with friends or relatives? More than three times a week 03/17/2025 How often do you attend chur ch or bahai services? Never 03/17/2025 Do you belong to any clubs o r organizations such as bahai groups, unions, fraternal or athletic groups, or [...] any time in the past 12 m [facility], were you homeless or living in a long-term (including now)? No 03/17/2025 [facility] Utilities Answer Date Recorded In the past [...] Sex Assigned at Female 07/31/2018 8:32 AM STAINED GLASS GLAZIER HELPER Legal Sex Female 1:57 AM STAINED GLASS GLAZIER HELPER Gender Identity Female 05/14/2024 7:04 PM STAINED GLASS GLAZIER HELPER Sexual Orientation Straight 07/31/2018 8: 32 AM STAINED GLASS GLAZIER HELPER documented as of this encounter Plan of Treatment Not on file documented as of this encounter Visit Diagnoses Not on filedocumented in this encounter Care Teams Nursing Director Relationship Specialty Start Date End Date Conor Bautista MD [address] [facility] [address] [id number] [place] [address] PCP - General Family Medicine 11/06/19 04/11/25 Conor Bautista MD [address] [facility] [place] [address] PCP - General Family Medicine 04/12/25 Aubrie Sellers MD Referring Physician 06/09/18 Clare Jeter MD [address] [place] [address] Consulting Physician Cardiology 06/09/18 Prem Rojas DO [address] [place] [address] Consulting Physician Gastroenterology 06/09/18 Dannielle Romo PA [address] [place] [address] Physician Oil And Gas Principal Orthopedic Surgery 06/09/18 Prem Chauhan MD [address] [place] [address] Surgeon Orthopedic Surgery 06/09/18 Yuridia Davidson MD [address] [place] [address] Surgeon Orthopedic Surgery 06/09/18 Channing Sam MD [address] [place] [address] Surgeon Ophthalmology 06/09/18 Juan Pagan PA [address] [place] [address] Physician Oil And Gas Principal Physician Oil And Gas Principal 06/09/18 Telma Monreal MD [address] [place] [address] Referring Physician Dermatology 06/09/18 Gricel Rodas MD [address] [facility] [address] [place] [address] Consulting Physician Rheumatology 06/09/18 Racheal Bauer MD [address] [facility] [id number] [place] [address] Referring Physician Obstetrics and Gynecology 06/09/18 documented as of this encounter
--- OUTSIDE RECORDS SUMMARY | 2025-04-23 14:18 | XMS_ITS ---
Author Organization [facility] Address [address] [place] [address] Care Team Providers Care Appeals Coordinator Name Role Phone Aubrie Sellers MD Unavailable Clare Jeter MD Unavailable Prem Rojas DO Unavailable [phone] Dannielle Romo Unavailable Prem Chauhan MD Unavailable [phone] Yuridia Davidson MD Unavailable [phone] Channing Sam MD Unavailable [phone] Juan Pagan Unavailable [phone] Telma Monreal MD Unavailable [phone] Gricel Rodas MD Unavailable Racheal Bauer MD Unavailable Conor Bautista MD Primary Care Provider Active Problems Problem Noted Date Diagnosed Date Elevated transaminase level 03/26/2025 Hyperlipidemia 03/26/2025 Assessment & Plan (03/26/2025 4:07 PM CDT): Continue Zetia 10 mg daily Constipation 03/23/2025 Seizure 02/27/2025 Assessment & Plan (04/06/2025 8:08 AM SHAKE PACKER): Currently stable. Continue Keppra 1000 mg p.o. b.i.d. Assessment & Plan (03/26/2025 4:09 PM CDT): Continue Keppra 1000 mg p.o. b.i.d. Stenosis of right carotid artery 02/18/2025 Assessment & Plan (02/19/2025 9:28 AM CDT): 02/18/2025: s/p OR for R CEA -continue ASA and Zetia (she has a hx of statin intolerance, having tried 3 separate statin agents with significant symptoms). -SBP goal 110-150 -GOLDIE sheriff -nidia gutierrez, follow up void trial. Incontinent at [...] Type 2 diabetes mellitus with hyperglycemia 06/27 Assessment & Plan (03/26/2025 4:08 PM CDT): Monitor point of care glucose, follow up labs ordered. Continue insulin glargine 25 units daily at bedtime and insulin aspart 5 units t.i.d. a.c.. Continue metformin 1000 mg p.o. b.i.d. Ophthalmic migraine 02/27/2024 Malignant neoplasm of urinary [...] Plan (02/19/2025 9:30 AM CDT): Follows with [facility]. 02/14/2023 TURBT HgTa 2-3 bladder masses 3 cm in total. C/b incontinence and hematuria at baseline -void trial this morning -cont OP follow up Hypertensive heart disease without heart failure 07/23/2021 Presence of aortocoronary bypass graft 2 Generalized anxiety disorder 03/06/2021 Primary osteoarthritis involving multiple joints 03/06/2021 Coronary artery disease of n ative artery of [place] heart with stable angina pectoris 12/29/2020 Assessment & Plan (03/26/2025 4:07 PM CDT): This is a chronic problem that is currently stable. Continue aspirin 81 mg daily, carvedilol 6.25 mg b.i.d., Zetia 10 mg daily, and follow up labs are ordered. Assessment & Plan (09/21/2024 3:06 PM CDT): [...] leqvio Assessment & Plan (07/23/2023 11:53 AM SHAKE PACKER): Multivessel disease status post bypass grafting. Catheterization [...] 5) Assessment & Plan (07/18/2022 3:05 PM SHAKE PACKER): Multivessel disease status post bypass grafting. Catheterization [...] months. Assessment & Plan (05/04/2021 9:06 AM SHAKE PACKER): No symptoms of myocardial ischemia following multivessel coronary artery bypass grafting. Continue aspirin 81 mg daily and metoprolol 50 mg b.i.d.. Chronic gout of left foot 06/14/2020 History of CVA (cerebrovascular accident) 2019 Assessment & Plan (04/06/2025 8:07 AM SHAKE PACKER): Currently stable, continue aspirin 81 mg daily, Zetia 10 mg daily, Assessment & Plan (03/26/2025 4:09 PM CDT): Continue restorative PT and OT. Assessment & Plan (02/19/2025 9:27 AM CDT): Hx of CVA (2008) with residual deficit (right sided weakness) -continue ASA and Zetia. Glaucoma suspect of both eyes 07/29/2018 Assessment & Plan (07/29/2018 1:28 PM SHAKE PACKER): Glaucoma suspect based on CDR: borderline IOP, CCT normal, visual field changes OS, RNFL today: Combined form of age-related cataract, both eyes 09/21/2015 Assessment & Plan (07/29/2018 1:27 PM SHAKE PACKER): Mild cataract OU: ADLs stable; monitor. High risk medication use 09/15/2015 Nonalcoholic fatty liver disease 09/15/2015 Assessment & Plan (03/26/2025 4:08 PM CDT): With a recent transaminitis. A follow up comprehensive metabolic profile is ordered for Saturday. 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 Assessment & Plan (05/04/2021 9:07 AM SHAKE PACKER): Blood pressure is controlled on losartan 50 mg daily and metoprolol 50 mg b.i.d., both of which she should continue. Assessment & Plan (03/03/2021 10:42 PM CDT): Monitor Assessment & Plan (11/11/2020 3:11 PM CDT): Blood pressure is adequately controlled on current regimen. No change was made. Current Treatment and Therapy Plans No current [...] Problem Noted Date Diagnosed Date Resolved Date CVA (cerebral vascular accident) 03/26/2025 04/02/2025 Pancreatitis 03/26/2025 04/02/2025 Altered mental status, unspe cified altered mental status type 03/15/2025 04/02/2025 Carotid stenosis, right 02/11/2025 09/10/2024 Small bowel obstruction 06/30/2024 11/0 11/2024 Elevated sed rate 09/06/2023 07/14/2024 Hand paresthesia [...] 06/01/2022 Assessment & Plan (06/02/2022 11:49 AM SHAKE PACKER): She had presented to the emergency room [...] 09/05/2022 Assessment & Plan (04/06/2022 5:08 PM SHAKE PACKER): Persistent. IBS but need to rule out small intestinal bacterial overgrowth. Counseled about diet especially avoidance of dairy products and some specific fresh green vegetables. Will obtain hydrogen breath test. Epigastric abdominal pain 07/26/2021 Assessment & Plan (04/06/2022 5:12 PM SHAKE PACKER): Persistent epigastric pain. EGD revealed small hiatal [...] included perforation, bleeding, infection and anesthetic complications. Gastroenteritis 03/09/2021 04/02/2025 Assessment & Plan (08/23/2021 4:52 PM CDT): [...] Meanwhile will check CRP and fecal calprotectin. Hypokalemia 03/06/2021 03/08/2021 SBO (small bowel obstruction) 03/03/2021 03/08/2021 Assessment & Plan (03/04/2021 5:34 AM CDT): Bowel rest, surgery consulted in ER, conservative management for now. No NGT for now. Will order SBFT in AM After admission, pt had episode of N, V and NGT placed. Class 1 obesity due to exces s calories with serious comorbidity and body mass index (BMI) of 31.0 to 31.9 in adult 12/29/2020 04/02/2025 History of gout 06/14/2020 12/20/2023 Whole body pain 05/16/2020 09/05/2022 Nephrolithiasis 10/28/2019 04/02/2025 Small bowel obstruction 10/28/201908/25 Assessment & Plan (08/23/2021 4:53 PM CDT): [...] 06/09/2019 Assessment & Plan (07/29/2018 1:29 PM SHAKE PACKER): H/o DM: no evidence of diabetic retinopathy, [...] 04/30/2016 12/11/2019 Idiopathic acute pancreatitis 09/15/2015 05/16/2020 History of gout 04/04/2015 04/02/2025 Autoimmune disease 01/17/2015 4 Crohn's disease without comp lication ([facility]) 11/17/2014 03/09/2021 Anxiety disorder 01/05/2011 06/14/2021 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
--- OUTSIDE RECORDS SUMMARY | 2025-04-23 14:18 | XMS_ITS | Encounter Summary ---
Author Organization [facility] Address [address] [place] [address] Phone Care Team Providers Care Motor Coach Chauffeur Name Role Phone Rogelio Lee MD Primary Care Provider Aubrie Sellers MD Unavailable [phone] Clare Jeter MD Unavailable [phone] Prem Rojas DO Unavailable [phone] Dannielle Romo Unavailable Prem Chauhan MD Unavailable Yuridia Davidson MD Unavailable Channing Sam MD Unavailable Juan Pagan Unavailable Telma Monreal MD Unavailable [phone] Gricel Rodas MD Unavailable [phone] Racheal Bauer MD Unavailable [phone] Cruz Rice MD Primary Care Provider + Conor Bautista MD Primary Care Provider [phone] Maren DawsonFritz HARDY Unavailable [phone] Jolene Ramsey HAYLEY Unavailable [phone] BraulioJolene english HAYLEY Unavailable [phone] Conor Bautista MD Primary Care Provider [phone] Encounter Details Date Type Department Care Team [...] Sex Assigned at Female 07/31/2018 8:32 AM COAGULATING OPERATOR Legal Sex Female 1:57 AM COAGULATING OPERATOR Gender Identity Female 05/14/2024 7:04 PM COAGULATING OPERATOR Sexual Orientation Straight 07/31/2018 8: 32 AM COAGULATING OPERATOR documented as of this encounter Plan [...] COVID: Suspected 05/20/2022 05/20/2022 05/20/2022 7:27 PM COAGULATING OPERATOR COVID: Suspected 06/30/2024 06/30/2024 06/30/2024 6:43 PM COAGULATING OPERATOR COVID: Suspected 03/14/2025 03/14/2025 03/15/2025 12:06 AM CDT LTAC Screening Comment:03/23/25- c. Auris and CP-FAN MAIL EDITOR screening swabs negative on 03/18/25/n.moll 03/15/2025 03/15/2025 03/23/2025 9:00 AM C DT documented as of this encounter Care Teams Motor Coach Chauffeur Relationship Specialty Start Date End Date Rogelio Lee MD PCP - General 08/24/16 10/27/19 Cruz Rice MD [address] [place] [address] DR Manny JASON [address] [place] [id number] PCP - General Internal Medicine 10/28/19 11/05/19 Conor Bautista MD [address] [place] [address] DR Manny JASON [address] [place] [id number] PCP - General Family Medicine 11/06/19 04/11/25 Conor Bautista MD [address] [place] [address] DR JASON [address] [place] [id number] PCP - General Family Medicine 04/12/25 Aubrie Sellers MD Referring Physician 06/09/18 Clare Jeter MD [address] [facility] [address] [place] [address] Consulting Physician Cardiology 06/09/18 Prem Rojas DO [address] [place] [address] Consulting Physician Gastroenterology 06/09/18 Dannielle Romo PA [address] [place] [address] Physician Jtac Orthopedic Surgery 06/09/18 Prem Chauhan MD [address] [place] [address] Surgeon Orthopedic Surgery 06/09/18 Yuridia Davidson MD [address] [place] [address] Surgeon Orthopedic Surgery 06/09/18 Channing Sam MD [address] [place] [address] Surgeon Ophthalmology 06/09/18 Juan Pagan PA [address] [place] [address] Physician Jtac Physician Jtac 06/09/18 Telma Monreal MD [address] [place] [address] Referring Physician Dermatology 06/09/18 Gricel Rodas MD [address] [place] [address] [address] [place] [address] Consulting Physician Rheumatology 06/09/18 Racheal Bauer MD [id number] [place] [address] Referring Physician Obstetrics and Gynecology 06/09/18 SamirMaren romero MA [address] [place] [address] ACO Care Vmware Systems Administrator 02/22/25 02/22/25 Jolene Ramsey MA [address] [facility] [address] [place] [address] ACO Care Vmware Systems Administrator 03/10/25 03/17/25 Jolene Ramsey MA [address] [facility] [address] [place] [address] ACO Care Vmware Systems Administrator 03/10/25 03/17/25 documented as of this encounter
--- OUTSIDE RECORDS SUMMARY | 2025-04-23 14:19 | XMS_ITS | Clinical Summary ---
Author Organization [facility] Address [address] [place] [address] Care Team Providers Care Business Office Assistant Name Role Phone Conor Bautista MD Primary Care Provider [phone] Allergies Active Allergy Reactions Criticality Noted Date [...] Dexa Scan (General) 09/28/2019 COVID-19 Vaccine ( season) 2025 Influenza Adult (#1) 2025 06/09/2019, 03/17/2018, 03/04/2017, Additional history exists Pneumococcal Vaccine: 50+ Years (3 of 3 - PCV20 or PCV21) 10/17/2025 10/17/2020, 05/27/2008 RSV Immunization or 60+ Years (1 - 1-dose 75+ series) 2029 DTaP, Tdap and Td Vaccines (3 - Td or Tdap) 04/28/2030 04/28/2020, 06/09/2019 Zoster Vaccines Completed 11/13/2017, 04/0 01/2018, 05/27/2011 Hepatitis C Completed 11/14/2020 Hepatitis A Vaccines Aged Out No long er eligible based on patient's age to complete this topic Meningococcal B Vaccine Aged Out No l onger eligible based on patient's age to complete this topic Meningococcal Vaccine Aged Out No benjamín honorio eligible based on patient's age to complete this topic RSV Immunizations Under 20 Months Aged Out No longer eligible based on patient's age to complete this topic Insurance AETNA MEDICARE [facility] [employer] Care Teams Business Office Assistant Relationship Specialty Start Date End Date Conor Bautista MD PCP - General FAMILY PRACTICE 01/16/21
--- OUTSIDE RECORDS SUMMARY | 2025-04-23 14:19 | XMS_ITS | Encounter Summary ---
Author Organization [facility] Address [address] [place] [address] Care Team Providers Care Office Assistant Receptionist Name Role Phone Aubrie Sellers MD Unavailable [phone] Clare Jeter MD Unavailable Prem Rojas DO Unavailable [phone] Dannielle Romo Unavailable Prem Chauhan MD Unavailable Yuridia Davidson MD Unavailable Channing Sam MD Unavailable Juan Pagan Unavailable Telma Monreal MD Unavailable [phone] Gricel Rodas MD Unavailable [phone] Racheal Bauer MD Unavailable [phone] Conor Bautista MD Primary Care Provider [phone] SamirMaren henry Maru HARDY Unavailable [phone] Jolene Ramsey HAYLEY Unavailable [phone] Jolene Ramsey HAYLEY Unavailable [phone] Conor Bautista MD Primary Care Provider [phone] Encounter Details Date Type Department Care Team (Late st Contact Info) Description 02/18/2025 Pre Admission Vascular Surgery Teagan Tyson MD [address] [place] [address] Stenosis of right carotid artery (Primary Dx) Social History Tobacco Use Types Packs/Day Years Used Date Smoking Tobacco: Never Passive Smoke Exposure: Never Smokeless Tobacco: Never Alcohol Use Standard Drinks/Week Comments Not Currently 0 (1 standard drink = 0.6 oz pur e alcohol) [facility] Utilities Answer Date Recorded In the past 12 months has [employer], gas, oil, or water [employer] threatened to shut off services in your [...] often do you attend chur ch or oriental orthodox services? Never 07/01/2024 Do you belong to any clubs o r organizations such as yazidi groups, unions, fraternal or athletic groups, or [...] time in the past 12 m [facility], were you homeless or living in a care home (including now)? No 07/01/2024 AUDIT-C Answer Date [...] Sex Assigned at Female 07/31/2018 8:32 AM HYDROGEOLOGY PROFESSOR Legal Sex Female 1:57 AM HYDROGEOLOGY PROFESSOR Gender Identity Female 05/14/2024 7:04 PM HYDROGEOLOGY PROFESSOR Sexual Orientation Straight 07/31/2018 8: 32 AM HYDROGEOLOGY PROFESSOR documented as of this encounter Functional Status * Question Answer Date of Assessment Author MAP (mmHg) 92 02/19/2025 1:00 PM CDT Jacinto stuart, Anaid Viramontes RN * [place] Question Answer Date of Assessment Author Have you ever felt the need to Cut down on your drinking? SEN 02/18/2025 10:00 PM CDT Ricardo Patton RN * Difference in Last Two Mao Scores Answer Date of Assessment Author -2 02/19/2025 8:00 AM CDT Anaid Whelan RN * Question Answer Date of Assessment Author BP Location Left arm 02/19/2025 12:19 PM CDT Lars Jackson, PT BP Method Automatic 02/19/2025 12:19 PM CDT Lars Jackson, PT * Quintana Fall Risk Question Answer Date of Assessment Author History of Falling 0 02/19/2025 8:00 AM VIVIANT Anaid Whelan RN Secondary Diagnosis 15 02/19/2025 8:00 AM Anaid Olguin RN Ambulatory Aids 0 02/19/2025 8:00 AM VIVIANT Anaid Cesar RN Intravenous Therapy/Heparin/Saline Lock 20 02/19/2025 8:00 AM VIVIANT Anaid Whelan RN Gait/Transferring 0 02/19/2025 8:00 AM VIVIANT Anaid Whelan RN Mental Status 0 02/19/2025 8:00 AM VIVIANT Anaid Garcia RN Quintana Fall Risk Score (Score >= 45 places fall precaution order) 35 02/19/2025 8:00 AM Anaid Mckeon RN Prior Fall Event (Autopopulated from EMR) None found 02/19/2025 8:00 AM VIVIANT Hayley Whelan RN * Mao Scale Question Answer Date of Assessment Author Sensory Perceptions 4 02/19/2025 8:00 AM Anaid Olguin RN Moisture 4 02/19/2025 8:00 AM Anaid Villar RN Activity 3 02/19/2025 8:00 AM CDT Anaid Grijalva RN Mobility 3 02/19/2025 8:00 AM Anaid Villar RN Nutrition 3 02/19/2025 8:00 AM Anaid Villar RN Friction and Shear 3 02/19/2025 8:00 AM Anaid Mckeon RN Mao Scale Score 20 02/19/2025 8:00 AM Anaid Mckeon RN * Question Answer Date of Assessment Author Arterial Line MAP (mmHg) 99 02/19/2025 6:00 AM Ricardo Humphries RN Arterial Line BP 146/69 02/19/2025 6:00 AM Ricardo Garza RN * Fall Risk Interventions Question Answer Date of Assessment Author All Low Fall Interventions Applied Yes 02/19/2025 8:00 AM Anaid Mckeon RN All Moderate Fall Interventions Applied Yes 02/19/2025 8:00 AM Claudia Mckeon RN All High Fall Risk Interventions Applied No 02/19/2025 8:00 AM Claudia Mckeon RN All High Risk Interventions EXCEPT: Chair alarm;Bed alarm 02/19/2025 8:00 AM Anaid Mckeon RN Additional Interventions Applied Over-bed table on non-exit side 02/19/2025 8:00 AM Anaid Mckeon RN Reason For Exception(s) pt does not atte mpt to get outo of bed without staff present 02/19/2025 8:00 AM Anaid Mckeon RN * B.M.A.T. - Bedside Mobility Assessment Tool for Nurses Question Answer Date of Assessment Author Is patient able to participate in the BMAT? Yes 02/19/2025 8:00 AM Anaid Mckeon RN Reason patient is unable to participate in BMAT Bed rest orders 02/18/2025 7:45 PM Ricardo Humphries RN BMAT Level Level 3 - Yellow 02/19/2025 8:00 AM Anaid Mckeon RN Level 3 Equipment Use assistive device such as cane/walker 02/19/2025 8:00 AM Anaid Mckeon RN * Question Answer Date of Assessment Author 1. Has the patient self-reported, presented with clinical signs of, or have a documented history of any of the following within the past 30 days? No 02/18/2025 11:00 PM Ricardo Humphries RN * Question Answer Date of Assessment Author Is the patient being treated today because it is known or suspected that they prepared, started, or tried to end their life? No 02/18/2025 11:00 PM Ricardo Humphries RN * Question Answer Date of Assessment Author 1. In the past month, have you wished you were or that you could go to sleep and not wake up? No 02/18/2025 11:00 PM Ricardo Humphries RN 2. In the past month, have you actually had any thoughts of killing yourself? No 02/18/2025 11:00 PM Ricardo Humphries RN 6. Have you ever done anything, started to do anything, or prepared to do anything to end your life? No 02/18/2025 11:00 PM Ricardo Humphries RN * Suicide Risk Level Answer Date of Assessment Author No risk level 02/18/2025 11:00 PM Madyson Humphries RN * Self-Injurious Risk Level Answer Date of Assessment Author No risk level 02/18/2025 11:00 PM Madyson Humphries RN * Pressure Injury Prevention Question Answer Date of Assessment Author Pressure Ulcer Prevention Interventions Keep skin clean and dry (Sensory Perception/Moisture); Use pillows/wedge for positioning (Activity/Mobility);U se draw sheet when pulling patient up in bed (Friction & Shear);Change pads/diapers as soon as soiling is noted (Moisture);Fasten diapers only when out of bed (Moisture) 02/19/2025 8:00 AM VIVIANT Anaid Whelan RN 2 Nurse Skin Assessment Destiny Guevara RN 02/18 7:45 PM VIVIANT Ricardo Patton RN * Transdermal Patch Assessment on Admission Answer Date of Assessment Author Not Present 02/18/2025 11:00 PM CDT Madyson Patton, ELPIDIO * Integumentary Question Answer Date of Assessment Author Skin Color Appropriate for ethnicity 02/18/2025 7:30 PM VIVIANT Louisa Ferreira RN Skin Condition/Temp Warm;Dry 02/18/2025 7 :30 PM CDT Louisa Ferreira RN Skin Integrity Surgical incision 02/19/2025 8:0 0 AM VIVIANT Anaid Whelan RN Skin Turgor Non-tenting 02/18/2025 7:30 PM CDT Louisa Ferreira RN Integumentary Additional Assessments Yes-Mao 02/19/2025 8:00 AM VIVIANT Anaid Whelan RN Integumentary (WDL) X 02/19/2025 8 :00 AM VIVIANT Anaid Whelan RN Skin Location See LDAs 02/19/2025 8:00 AM VIVIANT Anaid Whelan RN * Mao Scale Question Answer Date of Assessment Author Mao Scale Used Mao 02/18/2025 7:30 PM CDT Louisa Ferreira RN * Question Answer Date of Assessment Author BP Location Left arm 02/19/2025 12:19 PM CDT Lars Jackson, PT BP Method Automatic 02/19/2025 12:19 PM CDT Lars Jackson, PT * Question Answer Date of Assessment Author Percent Meal Eaten (%) 75 02/19/2025 8:00 AM Anaid Mckeon RN Feeding Level of Assistance Able to feed self 02/19/2025 8:00 AM Anaid Mckeon RN Appetite Fair 02/19/2025 8:00 AM Anaid Villar RN Percent Snack Eaten (%) 75 02/19/2025 8:00 A M Anaid Mckeon RN Diet Supplement Name/Percent Consumed % 0 02/19/2025 8:00 AM Jesus Mckeon RN * Fall Risk Interventions Question Answer Date of Assessment Author All Low Fall Interventions Applied Yes 02/19/2025 8:00 AM Anaid Mckeon RN All Moderate Fall Interventions Applied Yes 02/19/2025 8:00 AM Claudia Mckeon RN All High Fall Risk Interventions Applied No 02/19/2025 8:00 AM Claudia Mckeon RN All High Risk Interventions EXCEPT: Chair alarm;Bed alarm 02/19/2025 8:00 AM Anaid Mckeon RN Additional Interventions Applied Over-bed table on non-exit side 02/19/2025 8:00 AM Anaid Mckeon RN Reason For Exception(s) pt does not atte mpt to get outo of bed without staff present 02/19/2025 8:00 AM Anaid Mckeon RN * ADL Screening Question Answer Date of Assessment Author Patient's Vision Adequate to Safely Complete Daily Activities Yes 02/18/2025 11:00 PM Ricardo Humphries RN Patient's Judgement Adequate to Safely Complete Daily Activities Yes 02/18/2025 11:00 PM Ricardo Humphries RN Patient's Memory Adequate to Safely Complete Daily Activities Yes 02/18/2025 11:00 PM Ricardo Humphries RN Patient Able to Express Needs/Desires Yes 02/18/2025 11:00 PM Ricardo Humphries RN Dressing Independent 02/18/2025 11:00 PM Ricardo Humphries RN Grooming Independent 02/18/2025 11:00 PM Ricardo Humphries RN Feeding Independent 02/18/2025 11:00 PM Ricardo Humphries RN Bathing Independent 02/18/2025 11:00 PM Ricardo Humphries RN Toileting Independent 02/18/2025 11:00 PM Ricardo Humphries RN In/Out Bed Needs assistance 02/18/2025 11:0 0 PM Ricardo Humphries RN Walks in Home Needs assistance 02/18/2025 11:0 0 PM Ricardo Humphries RN Weakness of Legs Both 02/18/2025 11:0 0 PM Ricardo Humphries RN Weakness of Arms/Hands None 11:00 PM Ricardo Humphries RN Hearing - Right Ear Functional 02/18/2025 1 1:00 PM Ricardo Humphries RN Hearing - Left Ear Functional 02/18/2025 11 :00 PM Ricardo Humphries RN Dominant hand? Right 02/18/2025 11:00 PM Ricardo Humphries RN Decline in ADLs in last 2 weeks? No 02/18/2025 11:00 PM Ricardo Humphries RN * Therapy Consults Question Answer Date of Assessment Author PT Evaluation Needed 1 02/18/2025 11:00 PM Ricardo Humphries RN OT Evaluation Needed 1 02/18/2025 11:00 PM Ricardo Humphries RN WELDING MACHINE ASSEMBLER Evaluation Needed 2 02/18/2025 11:00 PM Ricardo Humphries RN * Assistive Devices Question Answer Date of Assessment Author Assistive Devices/DME Eyeglasses;Cane 02/18/2025 11:00 PM CDT Ricardo Patton, ELPIDIO * Hygiene Question Answer Date of Assessment Author Hygiene Level of Assistance Minimal assist 02/19/2025 1:49 PM CDT Hayley Gautam Toileting: Assistance with Bedside commode 02/19/2025 1:49 PM CDT Hayley Gautam Reason not bathed/showered Bath already completed at home or other setting 02/18/2025 7:45 PM VIVIANT Ricardo Patton, ELPIDIO Perineal Care Navel to Knees CHG 02/19/2025 1: 49 PM CDT Hayley Gautam Bath Bathed/showered with chlorhexidine (CHG) 02/19/2025 1:49 PM CDT Hayley Gautam documented as of this encounter Mental Status * Question Answer Entry Date Author Level of Consciousness Awake;Alert 02/19/2025 8:00 AM CDT Anaid Whelan RN Neuro (WDL) X 02/19/2025 8:00 AM CDT Anaid Grijalva RN * Question Answer Entry Date Author Orientation Oriented X4 (person, place, time, situation) 02/19/2025 11:47 AM CDT Lars Rucker, PT * Short Blessed Test Question Answer Entry Date Author What year is it now? 0 02/19/2025 9:42 AM CDT Veronique Sharp OT What month is it now? 0 02/19/2025 9:42 AM CDT Veronique Sharp OT Without looking at the clock, tell me what time it is 0 02/19/2025 9:42 AM CDT Veronique Sharp OT Count aloud backwards from 20-1 0 02/19/2025 9:42 AM CDT Veronique Sharp OT Say the months of the year backwards in reverse order 0 02/19/2025 9:42 AM CDT Veronique Sharp OT Repeat the name and address I asked you to remember 0 02/19/2025 9:42 AM CDT Veronique Sharp OT Repeat this name and address after me Ricardo Avila [address] [place] [address] 02/19/2025 9:42 AM CDT Veronique Sharp OT Short Blessed Total Score 0 02/19/2025 9:42 AM CDT Veronique Sharp OT Short Blessed Comments WNL 9:42 AM CDT Veronique Sharp OT documented in this encounter Plan of Treatment Not on file documented as of this encounter Visit Diagnoses Diagnosis Stenosis of right carotid artery- Primary Occlusion and stenosis of carotid artery without mention of cerebral infarction documented in this encounter Orders Case Request Count Last Ordered Date First Orde red Date CASE REQUEST OPERATING ROOM 1 02/18/2025 documented in this encounter Additional Health Concerns Infection Onset Date Last Indicated Resolved Time COVID: Suspected 03/14/2025 03/14/2025 03/15/2025 12:06 AM CDT [facility] Screening Comment:03/23/25- c. 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 screening swabs negative on 03/18/25/n.moll 03/15/2025 03/15/2025 03/23/2025 9:00 AM C DT documented as of this encounter Care Teams Office Assistant Receptionist Relationship Specialty Start Date End Date Conor Bautista MD [address] [facility] [phone] [place] [address] PCP - General Family Medicine 11/06/19 04/11/25 Conor Bautista MD [address] [address] PCP - General Family Medicine 04/12/25 Aubrie Sellers MD Referring Physician 06/09/18 Clare Jeter MD [address] [facility] [address] [place] [address] Consulting Physician Cardiology 06/09/18 Prem Rojas DO [address] [place] [address] Consulting Physician Gastroenterology 06/09/18 Dannielle Romo PA [address] [place] [address] Physician Detailer Furniture Orthopedic Surgery 06/09/18 Prem Chauhan MD [address] [place] [address] Surgeon Orthopedic Surgery 06/09/18 Yuridia Davidson MD [address] [place] [address] Surgeon Orthopedic Surgery 06/09/18 Channing Sam MD [address] [place] [address] Surgeon Ophthalmology 06/09/18 Juan Pagan PA [address] [place] [address] Physician Detailer Furniture Physician Detailer Furniture 06/09/18 Telma Monreal MD [address] [place] [address] Referring Physician Dermatology 06/09/18 Gricel Rodas MD [address] [place] [address] [address] [place] [address] Consulting Physician Rheumatology 06/09/18 Racheal Bauer MD [address] [facility] [id number] [place] [address] Referring Physician Obstetrics and Gynecology 06/09/18 Maren Dawson MA [address] [place] [address] ACO Care Beading Sawyer 02/22/25 02/22/25 Jolene Ramsey MA [address] [facility] [address] [place] [address] ACO Care Beading Sawyer 03/10/25 03/17/25 Jolene Ramsey MA [address] [facility] [address] [address] [place] [address] ACO Care Beading Sawyer 03/10/25 03/17/25 documented as of this encounter
--- OUTSIDE RECORDS SUMMARY | 2025-04-23 14:19 | XMS_ITS | Clinical Summary ---
Author Organization [facility] Address [address] [place] [id number] Care Team Providers Care Supervisor Sample Preparation Name Role Phone Unavailable Primary Care Provider [...] Hemoglobin A1C 7.6(H) 4.0 - 5.6 % [facility] Estimated Average Glucose 171(H) 68 - 114 MG/DL [facility] 02/11/2022 11:5 1 AM CDT 02/11/2022 11:55 AM CDT Lokesh Shanks DO CHEMISTRY ORDERABLES Final R esult Performing Organization Address City/[facility]/ZIP Co de Phone Number [facility] [address] [place] [address], [facility] [phone] * (ABNORMAL) LIPID PROFILE (02/11/2022 11:51 AM CDT) Cholesterol 178 <200 MG/DL [facility] Triglycerides 332(H) 0 - 149 MG/DL [facility] HDL 56 >40 MG/DL [facility] LDL Cholesterol 56 <130 MG/DL [facility] LDL/HDL Ratio 0.99 [facility] VLDL, Calc 66(H) 5 - 40 MG/DL [facility] LDL, High Risk RELATIVE RISK MALE FEMALE 1/2 AVERAGE 1.00 1.47 AVERAGE 3.55 3.22 2X AVERAGE 6.25 5.03 3X AVERAGE 7.99 6.14 AN AVERAGE RISK RATIO INFERS A 10% LIKELIHOOD OF SIGNIFICANT CAD BY AGE 60. OTHER RISK FACTORS SUCH GLUCOSE INTOLERANCE, SMOKING HISTORY, HYPERTENSION AND OBESITY WILL FURTHER MODIFY THE RELATIVE RISK RATIO. [facility] 02/11/2022 11:5 1 AM CDT 02/11/2022 11:55 AM CDT Lokesh Shanks DO CHEMISTRY ORDERABLES Final R esult Performing Organization Address City/[facility]/ZIP Co de Phone Number [facility] [address] [place] [address], [facility] [phone] from Last 3 Months or Most Recently Relevant to Health Maintenance Insurance MEDICARE GENERIC MEDICARE SUPP MEDICARE GENERIC MEDICARE SUPP MEDICARE GENERIC MEDICARE SUPP Advance Directives * Full Code (Latest Code Status on File) Date Activated Date Inactivated Comments 02/11/2022 4:01 PM 02/12/2022 5:46 PM
--- OUTSIDE RECORDS SUMMARY | 2025-04-23 14:19 | XMS_ITS | Clinical Summary ---
Author Organization [facility] Address [address] [place] [address] Care Team Providers Care Jump Iron Machine Presser Name Role Phone Aubrie Sellers MD Unavailable [phone] Clare Jeter MD Unavailable [phone] Prem Rojas DO Unavailable [phone] Dannielle Romo Unavailable Prem Chauhan MD Unavailable Yuridia Davidson MD Unavailable Channing Sam MD Unavailable Raeann Pagan Unavailable [phone] Telma Monreal MD Unavailable [phone] Gricel Rodas MD Unavailable Rachela Bauer MD Unavailable [phone] Conor Bautista MD Primary Care Provider Allergies [...] comments),Dizziness, Nausea & Vomiting Low 03/16/2024 Insomnia Usofint-Otv-Vmw Reductase Inhibitors Rash Medium Sulfa (Sulfonamide Antibiotics) Rash Medium 01/16/2021 Tramadol Itching,Nausea only Low 01/16/2021 Medications aspirin 81 mg enteric coated tabletIndications: Cerebral Thromboembolism Prevention,prevent ion of thrombosis,hx CABG Take 1 tablet (81 mg total) by mouth nightly Active magnesium gluconate 200 mg tabletIndications: hypomagnesemia Take 1.25 tablets (250 mg total) by mouth 2 (two) times a day Active naloxone (NARCAN) 4 mg/actuation spray,non-aerosol Administer 1 spray into affected nostril(s) as needed for opioid reversal or respiratory depression Call 911. Administer a single spray in one nostril. Repeat every 3 minutes as needed if no or minimal response. 1 each 023 Active nitroglycerin (NITROSTAT) 0.4 mg SL tablet DISSOLVE ONE TABLET UNDER THE TONGUE EVERY 5 MINUTES NEEDED FOR CHEST PAIN. DO NOT EXCEED A TOTAL OF 3 DOSES IN 15 MINUTES 50 tablet 1 024 Active pen needle, diabetic 31 gauge x 5/16 needle Use to inject 1-4 times daily as directed. 300 each 4 025 Active lancets miscIndications:Ty pe 2 diabetes mellitus without complication, without long-term current use of insulin ([facility]) Use to check blood sugar 4 times daily 200 each 5 025 Active promethazine (PHENERGAN) 25 mg tabletIndications: Nausea Take 1 tablet (25 mg total) by mouth every 8 (eight) hours as needed for nausea or vomiting 30 tablet Active blood glucose diagnostic (glucose blood) stripIndications:T ype 2 diabetes mellitus without complication, without long-term current use of insulin ([facility]) Use one to Check blood sugar 3 times daily 200 each 025 2025 Active losartan (COZAAR) 50 mg tablet Take 1 tablet by mouth once daily 90 tablet Active ezetimibe (ZETIA) 10 mg tabletIndications: Elevated LDL cholesterol level Take 1 tablet by mouth once daily 90 tablet 025 Active zinc gluconate 50 mg tabletIndications: Zinc Deficiency Take 1 tablet (50 mg total) by mouth nightly Active potassium gluconate 550 mg (90 mg) tabletIndications: hypokalemia prevention Take 1 tablet (550 mg total) by mouth nightly Active metFORMIN XR (GLUCOPHAGE XR) 500 mg 24 hr tabletIndications: Type 2 diabetes mellitus with hyperglycemia, with long-term current use of insulin ([facility]),Type 2 diabetes mellitus without complication, without long-term current use of insulin ([facility]) Take 2 tablets (1,000 mg total) by mouth 2 (two) times a day with meals Can start out with 1 tablet once a day 180 tablet 3 Active blood-glucose sensor (FreeStyle Tye 3 Sensor) deviceIndications: Type 2 diabetes mellitus with hyperglycemia, with long-term current use of insulin ([facility]),Type 2 diabetes mellitus without complication, without long-term current use of insulin ([facility]) Change each sensor every 14 days. Will require 2 sensors per month. 5 each Active LANTUS 100 unit/mL (3 mL) pen for injectionIndicatio ns:DM 2 Inject 25 Units under the skin nightly 15 mL Active allopurinoL (ZYLOPRIM) 100 mg tabletIndications: prevention of acute gout attack Take 1 tablet (100 mg total) by mouth nightly 90 tablet 1 Active diphenhydrAMINE 25 mg capsule Take 1 tablet/capsule (25 mg total) by mouth every 6 (six) hours as needed for itching Active acetaminophen (TYLENOL) 325 mg tabletIndications: Fever,Pain Take 2 tablets (650 mg total) by mouth every 4 (four) hours as needed for pain Active morphine (MSIR) 15 mg tabletIndications: Pain Take 1 tablet (15 mg total) by mouth every 12 (twelve) hours as needed for pain 60 tablet 2024 Active pregabalin (LYRICA) 25 mg capsule Take 1 capsule (25 mg total) by mouth 3 (three) times a day 90 capsule 2024 Active carvediloL (COREG) 6.25 mg tablet Take 1 tablet (6.25 mg total) by mouth 2 (two) times a day with meals 180 tablet Active levETIRAcetam (KEPPRA) 1,000 mg tablet Take 1 tablet (1,000 mg total) by mouth 2 (two) times a day 60 [address] (PROTONIX) 40 mg EC tablet Take 1 tablet by mouth once daily 100 tablet Active ALPRAZolam (XANAX) 1 mg tablet Take 1 hour prior to MRI 1 tablet Active estradioL (ESTRACE) 0.01 % (0.1 mg/gram) vaginal creamIndications:A cute UTI (urinary tract infection) Insert 2 g into the vagina 2 (two) times a week Take 2 days weekly 42.5 g 3 2024 Discontinued carvediloL (COREG) 6.25 mg tablet TAKE 1 TABLET BY MOUTH TWICE DAILY WITH MEALS 180 tablet 1 025 2024 Discontinued(R eorder) pantoprazole DR (PROTONIX) 40 mg EC tablet Take 1 tablet by mouth once daily 100 tablet 2024 Discontinued biotin 1 mg capsuleIndications :Hair, Skin, Nails Take 1 tablet by mouth nightly 2024 Discontinued(S top Taking at Discharge) psyllium 0.52 gram capsuleIndications :constipation,[facility] Take 1-3 capsules (0.52-1.56 g total) by mouth daily as needed for constipation ([facility]) W/Vitamin C, D, B12 2024 Discontinued UNABLE TO FINDIndications:alejandre pplement Take 1 each by mouth 2 (two) times a day Med Name: Celery Seed:2000mg 2024 Discontinued(S top Taking at Discharge) UNABLE TO FINDIndications:alejandre pplement Take 1 each by mouth nightly Med Name: Rhina Whitmore 2024 Discontinued(S top Taking at Discharge) glucagon (Gvoke HypoPen 2-Pack) 0.5 mg/0.1 mL auto-injectorIndic ations:Type 2 diabetes mellitus with hyperglycemia, with long-term current use of insulin ([facility]),Type 2 diabetes mellitus without complication, without long-term current use of insulin ([facility]) Inject 0.5 mg under the skin as needed (in case of emergency for hypoglycemia) For use in case of emergency for severe hypoglycemia 0.2 mL 2 2024 Discontinued(P atient Reported) insulin aspart (NovoLOG) 100 unit/mL (3 mL) pen for injectionIndicatio ns:Type 2 diabetes mellitus with hyperglycemia, with long-term current use of insulin ([facility]),Type 2 diabetes mellitus without complication, without long-term current use of insulin ([facility]) Inject 5 units with meals three times a day 15 mL 2024 Discontinued dasiglucagon (Zegalogue Autoinjector) 0.6 mg/0.6 mL auto-injectorIndic ations:hypoglycemi c disorder As needed for hypoglyemia 0.6 mL 3 025 2024 Discontinued isosorbide mononitrate ER (IMDUR) 60 mg 24 hr tablet Take 1 tablet (60 mg total) by mouth daily 90 tablet 1 2024 Discontinued(S top Taking at Discharge) pregabalin (LYRICA) 25 mg capsule Take 1 capsule (25 mg total) by mouth 3 (three) times a day 025 2024 Discontinued(R eorder) levETIRAcetam (KEPPRA) 1,000 mg tablet Take 1 tablet (1,000 mg total) by mouth 2 (two) times a day 60 tablet 11 025 2024 Discontinued(R eorder) ciprofloxacin (CIPRO) 500 mg tabletIndications: Skin/Soft Tissue Infection Take 1 tablet (500 mg total) by mouth 2 (two) times a day for 1 dose 1 tablet 2024 Discontinued(S top Taking at Discharge) miconazole 2 % powder Apply topically 2 (two) times a day 70 g 2024 Discontinued morphine (MSIR) 15 mg tabletIndications: Pain Take 1 tablet (15 mg total) by mouth every 12 (twelve) hours as needed for pain 10 tablet 2024 Discontinued(R eorder) Active Problems Problem Noted Date Diagnosed Date Elevated transaminase level 03/26/2025 Hyperlipidemia 03/26/2025 Assessment & Plan (03/26/2025 4:07 PM CDT): Continue Zetia 10 mg daily Constipation 03/23/2025 Seizure 02/27/2025 Assessment & Plan (04/06/2025 8:08 AM [employer] SCHOOL PSYCHOLOGIST): Currently stable. Continue Keppra 1000 mg p.o. [...] with significant symptoms). -SBP goal 110-150 -dc brittany OU -nidia gutierrez, follow up void trial. Incontinent [...] Plan (02/19/2025 9:30 AM CDT): Follows with [facility] Urology. 02/14/2023 TURBT HgTa 2-3 bladder masses 3 cm in total. 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 Catheterization [...] 5) Assessment & Plan (07/18/2022 3:05 PM PRELIMINARY SCHOOL PSYCHOLOGIST): Multivessel disease status post bypass grafting. Catheterization [...] months. Assessment & Plan (05/04/2021 9:06 AM PRELIMINARY SCHOOL PSYCHOLOGIST): No symptoms of myocardial ischemia following multivessel coronary artery bypass grafting. Continue aspirin 81 mg daily and metoprolol 50 mg b.i.d.. Chronic gout of left foot 06/14/2020 History of CVA (cerebrovascular accident) 2019 Assessment & Plan (04/06/2025 8:07 AM PRELIMINARY SCHOOL PSYCHOLOGIST): Currently stable, continue aspirin 81 mg daily, Zetia 10 mg daily, Assessment & Plan (03/26/2025 4:09 PM CDT): Continue restorative PT and OT. Assessment & Plan (02/19/2025 9:27 AM CDT): Hx of CVA (2008) with residual deficit (right sided weakness) -continue ASA and Zetia. Glaucoma suspect of both eyes 07/29/2018 Assessment & Plan (07/29/2018 1:28 PM PRE[employer]INARY SCHOOL PSYCHOLOGIST): Glaucoma suspect based on CDR: borderline IOP, CCT normal, visual field changes OS, RNFL today: Combined form of age-related cataract, both eyes 09/21/2015 Assessment & Plan (07/29/2018 1:27 PM PRELIMINARY SCHOOL PSYCHOLOGIST): Mild cataract OU: ADLs stable; monitor. High [...] 59 Assessment & Plan (07/23/2023 11:54 AM PRELIMINARY SCHOOL PSYCHOLOGIST): Reasonable control - continue carvedilol, losartan 50 and Imdur Assessment & Plan (07/18/2022 3:05 PM PRELIMINARY SCHOOL PSYCHOLOGIST): Adequate control - continue carvedilol, losartan 50 [...] changed. Assessment & Plan (05/04/2021 9:07 AM PRELIMINARY SCHOOL PSYCHOLOGIST): Blood pressure is controlled on losartan 50 mg daily and metoprolol 50 mg b.i.d., both of which she should continue. Assessment & Plan (03/03/2021 10:42 PM CDT): Monitor Assessment & Plan (11/11/2020 3:11 PM CDT): Blood pressure is adequately controlled on current regimen. No change was made. Resolved Problems Problem Noted Date Diagnosed Date Resolved Date CVA (cerebral vascular accident) 03/26/2025 04/02/2025 Pancreatitis 03/26/2025 04/02/2025 Altered mental status, unspe cified altered mental status type 03/15/2025 04/02/2025 Carotid stenosis, right 02/11/2025 09/2 10/2024 Small bowel obstruction 06/30/2024 11/0 11/2024 Elevated sed rate 09/06/2023 07/14/2024 Hand paresthesia 09/06/2023 12/20/2023 Nausea and vomiting 03/12/2023 09/10/19 24 Assessment & Plan (03/12/2023 12:49 PM CDT): Mild to moderately severe. Does krystyna Knapp sublingually. Advised to continue same medication. Bladder [...] 06/01/2022 Assessment & Plan (06/02/2022 11:49 AM PRE[employer]INARY SCHOOL PSYCHOLOGIST): She had presented to the emergency room [...] 09/05/2022 Assessment & Plan (04/06/2022 5:08 PM PRELIMINARY SCHOOL PSYCHOLOGIST): Persistent. IBS but need to rule out small intestinal bacterial overgrowth. Counseled about diet especially avoidance of dairy products and some specific fresh green vegetables. Will obtain hydrogen breath test. Epigastric abdominal pain 07/26/2021 Assessment & Plan (04/06/2022 5:12 PM PRELIMINARY SCHOOL PSYCHOLOGIST): Persistent epigastric pain. 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 01/05/2011 11/30/2019 Diabetes mellitus, type II, insulin dependent 07/06/19 09 04/02/2025 Overview (09/06/2017): Description: dx 1997 Assessment & Plan (02/19/2025 9:27 AM CDT): A1c 9.2% on 02/12/2025 Home regimen: Lantus 25u nightly, NovoLOG 5U TID with meals and Metformin 1000mg BID -hold home oral meds -start dose reduced basal/bolus regimen -carb consistent diet Assessment & Plan (03/03/2021 10:43 PM CDT): SS coverage Encounters Date Type Department Care Team Description 04/20/2025 3:30 PM [employer] SCHOOL PSYCHOLOGIST Office Visit [facility] Medicine Ophthalmology [address] [facility] 2[address], [address] [place] [address] Jaun Qureshi, JACQUELINE Glaucoma suspect of both eyes (Primary Dx); Type 2 diabetes mellitus with hyperglycemia, with long-term current use of insulin (HCC); Combined form of age-related cataract, both eyes 04/20/2025 3:00 PM [employer] SCHOOL PSYCHOLOGIST Imaging Exam [facility] Medicine Ophthalmology [address] [facility] [address], [address] [place] [address] Glaucoma suspect of both eyes 04/20/2025 Telephone [facility] Family Medicine at [address] [place] [address] Conor Bautista MD Medical Question/Miscellaneo us 04/19/2025 Orders Only [facility] Medicine Surgery [facility] [facility] 8th [place] [address] [place] [address] Madina Smith MD Stenosis of right carotid artery (Primary Dx); History of CVA (cerebrovascular accident) 04/19/2025 Orders Only [facility] Surgery [address] [facility] 8th [place] [address] [place] [address] Madina Smith MD Stenosis of right carotid artery (Primary Dx); History of CVA (cerebrovascular accident) 04/17/2025 Documentation [facility] Surgery [address] [facility] Floor 1 [place] [address] Madina Smith MD 04/16/2025 Telephone [facility] Family Medicine at [address] [place] [address] Conor Bautista MD Recommendation Request; Medical Question/Miscellaneo us 04/14/2025 Telephone [facility] Surgery [address] [facility] Floor 1 [place] [address] Madina Smith MD 04/14/2025 Telephone [facility] Medicine at [address] [place] [address] Conor Bautista MD Medical Question/Miscellaneo us 04/13/2025 Results Follow-Up [facility] Family Medicine at [address] [place] [address] Conor Bautista MD Calprotectin, fecal 04/13/2025 Telephone [facility] at [address] [place] [address] Conor Bautista MD Additional Services Or Orders 04/13/2025 Telephone [facility] at [address] [place] [address] Conor Bautista MD Medical Records Request 04/12/2025 1:30 PM [employer] SCHOOL PSYCHOLOGIST Office Visit [facility] Family Medicine at [address] [place] [address] Conor Bautista MD Acute CVA (cerebrovascular accident) (HCC) (Primary Dx); S/P carotid endarterectomy; History of UTI; Elevated LFTs; Liver lesion; Seizure (HCC); 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; Primary hypertension; Type 2 diabetes mellitus with hyperglycemia, with long-term current use of insulin (HCC); History of Klebsiella pneumonia; Physical debility; Bladder tumor 04/08/2025 11:46 AM PRE[employer]INARY SCHOOL PSYCHOLOGIST - 04/08/2025 11:59 PM PRELIMINARY SCHOOL PSYCHOLOGIST Hospital Encounter [facility] Lab [address] [place] [address] Diarrhea, unspecified type Discharge Disposition: Discharge to home or self care 04/08/2025 Results Follow-Up [facility] Medical [facility] Family Medicine at [address] [address] Conor Bautista MD Stool culture Stool Rectum, Cryptosporidium and Giardia antigen assay Stool 04/07/2025 9:50 AM PRE[employer]INARY SCHOOL PSYCHOLOGIST Lab [facility] Lab [address] [place] [address] Diarrhea, unspecified type 04/07/2025 Telephone [facility] Family Medicine at [address] [address] Conor Bautista MD Medical Records Request 04/07/2025 Telephone [facility] Family Medicine at [address] [address] Conor Bautista MD Medical Question/Miscellaneo us 04/05/2025 Telephone [facility] Family Medicine at [address] [address] Conor Bautista MD EFRAÍN Questions 04/02/2025 Telephone [facility] Post Acute Care [address] [facility] [address] [place] [address] Sydney Sanchez MA SNF Outreach 04/02/2025 NH/SNF Visit [facility] Medical [facility] Post Acute Care [facility] [address] [place] [address] Elisabeth Robertson NP History of CVA (cerebrovascular accident) (Primary Dx); Seizure (HCC); Type 2 diabetes mellitus with hyperglycemia, with long-term current use of insulin (HCC) 03/31/2025 NH/SNF Visit [facility] Post Acute Care [address] [address] Keyshawn Rodas MD History of CVA (cerebrovascular accident) (Primary Dx); Seizure (HCC) 03/29/2025 Telephone [facility] Family Medicine at [place] [address] [facility] [address] [place] [phone] Conor Bautista MD Medical Question/Miscellaneo us 03/29/2025 Orders Only [facility] [address] [place] [phone] Keyshawn Rodas MD 03/26/2025 Orders Only [facility] Surgery [address] [facility] 8th [place] [address] [place] [address] Madina Smith MD Encounter for surgical aftercare following surgery on the circulatory system (Primary Dx) 03/26/2025 NH/SNF Visit [facility] Medical [facility] Acute Care [address] [address] Keyshawn Rodas MD History of CVA with residual deficit (Primary Dx); Acute gout of left foot; Arthralgia of multiple joints; 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; Hyperlipidemia, unspecified hyperlipidemia type; S/P CABG x 4; Type 2 diabetes mellitus with hyperglycemia, with long-term current use of insulin (HCC); Nonalcoholic fatty liver disease; Generalized anxiety disorder; Seizure (HCC); Obstructive sleep apnea syndrome 03/18/2025 EFRAÍN IP Outreach [facility] Accountable Care Organization [address] [place] [address] Jolene Ramsey MA 03/14/2025 10:37 PM CDT - 03/25/2025 1:19 PM CDT Hospital Encounter [facility] 5 Med Surg [address] [place] [address] Josh Zamarripa Jr., MD Robertson, MD Alicia Gonzalez Nilupa Sewwandi, MD Pham, Kevin, DO Altered mental status, unspecified altered mental status type (Primary Dx); Cerebrovascular accident (CVA), unspecified mechanism (HCC); Urinary tract infection in female; History of seizures; Acute gout of left foot; Arthralgia of multiple joints; Liver nodule; Constipation, unspecified constipation type Discharge Disposition: Discharge to [facility] 03/14/2025 Orders Only [facility] [phone] Unknown, Notinfile 03/13/2025 Orders Only [facility] [phone] Unknown, Notinfile 03/12/2025 Telephone [facility] Family Medicine at [address] [place] [address] Conor Bautista MD EFRAÍN Questions 03/11/2025 Telephone [facility] Family Medicine at [address] [place] [address] Conor Bautista MD Medication Request 03/10/2025 EFRAÍN IP Outreach [facility] Accountable Care Organization [address] [place] [address] Jolene Ramsey MA 03/09/2025 Telephone [facility] Medicine at [address] [place] [address] Conor Bautista MD 03/04/2025 Telephone [facility] Medicine Surgery [address] [facility] 8th [place] [address] [place] [address] Madina Smith MD 02/27/2025 2:55 PM CDT - 03/09/2025 2:00 PM CDT Hospital Encounter [facility] [address] [place] [address] Lilliana Acosta MD Valtcheva, Manouela Vesselinova, MD PhD Samir Dockery MD PhD Diagnosis unknown (Primary Dx); Acute gout of left foot; Arthralgia of multiple joints; Seizure (HCC); History of CVA with residual deficit Discharge Disposition: Discharge to home, home health skilled care 02/26/2025 Telephone [facility] Medicine at [address] [place] [address] Conor Bautista MD Medical Question/Miscellaneo us 02/23/2025 EFRAÍN IP Outreach [address] [address] Maren Dawson MA 02/23/2025 Telephone [facility] at [address] [place] [address] Conor Bautista MD EFRAÍN Questions 02/22/2025 EFRAÍN IP Outreach [address] [address] Maren Dawson MA 02/19/2025 Telephone [facility] at [address] [place] [address] Conor Bautista MD Medical Question/Miscellaneo us 02/19/2025 Orders Only [facility] Medicine Surgery [address] [facility] 8th [place] [address] [place] [address] Madina Smith MD Encounter for surgical aftercare following surgery on the circulatory system (Primary Dx) 02/18/2025 1:35 PM CDT Anesthesia Event [facility] Operating Room [address] [place] [phone] Dayne Oscar MD Patel, Aashay Vinaykumar, MD 02/18/2025 1:35 PM CDT - 02/18/2025 6:20 PM CDT Surgery [facility] Operating Room [address] [place] [address] Madina Smith MD Endarterectomy - Carotid 02/18/2025 11:09 AM CDT - 02/19/2025 3:40 PM CDT Hospital Encounter [facility] [address] [place] [address] Madina Smith MD Carotid stenosis, right; Stenosis of right carotid artery Discharge Disposition: Discharge to home, home health skilled care 02/18/2025 Pre Admission Vascular Surgery Teagan Tyson MD Stenosis of right carotid artery (Primary Dx) 02/16/2025 [facility]ation [facility] [address] [facility] Floor [address] [place] [address] Madina Smith MD 02/16/2025 Telephone [facility] Medicine Surgery [address] [facility] 8th [place] [address] [place] [address] Madina Smith MD 02/15/2025 Orders Only [facility] - [facility] Medicine Urology [address] [facility] 11th [place] [address] [place] [address] Virginia Montes MD 02/15/2025 Telephone [facility] Medicine Surgery [address] [place] [address] Cydney Quinn 02/15/2025 Results Follow-Up [facility] Family Medicine at [address] [place] [address] Joyce Sneed PA Comprehensive metabolic panel, Hemoglobin A1c, eGFR 02/15/2025 Telephone [facility] Medicine Endocrinology Metabolism and Lipid [address] [facility] 13th [place] [address] [place] [address] Estela Jones RMA Prior Auth (Gvoke Hypo Pen 2 Pack 0.5ml/0.1ml) 02/12/2025 2:00 PM CDT Office Visit [facility] Medicine Endocrinology Metabolism and Lipid [address] [facility] 13th [place] [address] [place] [address] Carmen Caraballo MD Type 2 diabetes mellitus with hyperglycemia, with long-term current use of insulin ([facility]) (Primary Dx); Type 2 diabetes mellitus without complication, without long-term current use of insulin ([facility]) 02/12/2025 1:35 PM CDT Lab [facility] [facility] ([facility]) [address] [place] [address] Elevated LDL cholesterol level; Type 2 diabetes mellitus with hyperglycemia, with long-term current use of insulin ([facility]) 02/12/2025 Telephone [facility] Medicine Endocrinology Metabolism and Lipid [address] [facility] 13th [place] [address] [place] [address] My Snyder, clinical documentation developer [employer] 02/11/2025 11:59 PM CDT Anesthesia Event [facility] Electrophysiology Lab [address] [place] [address] Enedina Cuevas NP 02/11/2025 1:30 PM CDT Pre-Admission Testing [facility] for Preoperative Assessment and Planning [place] [facility] ([facility]) [address] [place] [id number] Preoperative testing (Primary Dx); Bilateral carotid artery stenosis 02/11/2025 Telephone [facility] Medicine Surgery [address] [facility] 8th [place] [address] [place] [address] Madina Smith MD 02/11/2025 Documentation [facility] Surgery [address] [facility] Floor 1 [place] [address] Madina Smith MD 02/10/2025 10:49 AM CDT - 02/10/2025 11:59 PM CDT Hospital Encounter [facility] Radiology 1 [place] [address] Bilateral carotid artery stenosis Discharge Disposition: Discharge to home or self care 02/09/2025 Telephone [facility] Medicine Surgery [facility] Medicine 8th [place] [address] [place] [address] Madina Smith MD 02/08/2025 3:15 PM CDT Ancillary Procedure [facility] Medicine Vascular Lab at the [address] 8th [place] [address] [place] [address] History of CVA (cerebrovascular accident) 02/08/2025 2:00 PM CDT Office Visit [facility] Medicine Surgery [address] [place] [address] 8th [place] [address] [place] [address] Madina Smith MD Leg pain, left (Primary Dx); Atherosclerosis of [place] arteries of extremities with intermittent claudication, bilateral legs 02/08/2025 Orders Only [facility] Surgery [address] [place] [address] [place] [address] [place] [address] Madina Smith MD Bilateral carotid artery stenosis (Primary Dx) 02/08/2025 Orders Only [facility] Surgery [address] [place] [address] 8th [place] [address] [place] [address] Madina Smith MD History of CVA (cerebrovascular accident) (Primary Dx) 02/03/2025 2:30 PM CDT Office Visit [facility] Medicine Urology [address] [facility] [address] Building [address] [place] [phone] Malignant neoplasm of urinary bladder, unspecified site [...] Split, Preservative Free, Intradermal 02/20/2016 Influenza, Unspecified 04/12/2025(Deferr ed: Patient Refused),03/15/2024(Deferred: Patient Refused),03/07/2023(Deferred: Patient Refused),04/26/2021(Deferred: Patient Refused),03/17/2018,03/04/2017 PPD TEST 03/27/2025 Pneumococcal Conjugate PCV 13 10/17/2020 Pneumococcal Polysaccharide [...] hemiplegia Crohn's disease (HCC) Pancreatitis Kidney stone 2020 Covid-19 05/31/2020 Glaucoma Awareness under anesthesia remot e hx- appendix PONV (postoperative nausea and vomiting) controlled with medication YRN (generalized anxiety disorder) DJD (degenerative joint disease) CAD (coronary artery disease) CA BG MDD (major depressive disorder) HTN (hypertension) Metabolic dysfunction-associ ated steatohepatitis (MASH) DARLEEN (obstructive sleep apnea) Bladder cancer (HCC) Gout SBO (small bowel obstruction) (HCC) GERD (gastroesophageal reflux disease) Sweat gland carcinoma Herpes zoster DM2 (diabetes mellitus, type 2) Carotid artery stenosis PAD (peripheral artery disease) Adenomatous colon polyp Family History Medical History Relation Name Comments Alcohol abuse Brother Huber Hypertension Brother Huber Alcohol abuse Father Josh Winters Oberto Sr Arthritis Father Josh Winters Oberto [...] week 07/01/2024 How often do you attend [facility] or amish services? Never 07/01/2024 Do you belong to any clubs o r organizations such as sabianist groups, unions, fraternal or athletic groups, or [...] any time in the past 12 m [facility], were you homeless or living in [...] often do you attend chur ch or amish services? Never 03/17/2025 Do you belong to any clubs o r organizations such as sabianist groups, unions, fraternal or athletic groups, or [...] any time in the past 12 m [facility], were you homeless or living in a long term (including now)? No 03/17/[address] [facility] Utilities Answer Date Recorded In the [...] Sex Assigned at Female 07/31/2018 8:32 AM [employer] Legal Sex Female 1:57 AM [employer] PS[employer]CHOLOGIST Gender Identity Female 05/14/2024 7:04 PM [employer] PSYCHOLOGIST Sexual Orientation Straight 07/31/2018 8: 32 AM [employer] PSYCHOLOGIST Obstetrics History Para Term AB IAB SAB Ectopic Multiple Livin g Live Births 1 1 1 Date Outcome GA Total Labor Labor/2nd/3rd Weight Sex Type Anes PTL Sarah A1 A5 Name Clin Term Last Filed Vital Signs Vital Sign Reading Time Taken Comments Blood Pressure 120/78 04/12/2025 1:25 PM [employer] PSYCHOLOGIST Pulse 72 04/12/2025 1:25 PM [employer] PSYCHOLOGIST Temperature 36.2 C (97.2 F) 04/12/2025 1:25 PM [employer] S[employer] PSYCHOLOGIST Respiratory Rate 18 04/12/2025 1:25 PM [employer] PSYCHOLOGIST Oxygen Saturation 97% 04/12/2025 1:25 PM [employer] PSYCHOLOGIST Inhaled Oxygen Concentration - - Weight 73 kg (161 lb) 03/25/2025 4:15 AM CDT Height 162.6 cm (5' 4) 04/12/2025 1:25 PM [employer] PSYCHOLOGIST Body Mass Index 27.64 03/15/2025 4:21 AM CDT Plan of Treatment Health Maintenance Due Date Last Done Comments Foot Exam 03/07/2024 03/07/2023, 08/25, 04/26/2021 Colon Cancer Screening-Colonoscopy 09/12/2024 09/12/2021, 02/13/2016 Influenza Vaccine (#1) 2025 , 04/28/2020, 04/28/2020, Additional history exists Well Visit 65+ 03/16/2025 [...] 11/10/2025 11/11/2023, 08/03/2021, 10/10/2015, Additional history exists Depression Screening 02/27/2026 02/27/2025, 03/16/2024, 03/07/2023, Additional history exists Lipid Panel 03/15/2026 03/15/2025, 01/26, 11/06/2024, Additional history exists Fall Risk Assessment 03/25/2026 03/25/2025, 03/16/2024, 03/07/2023, Additional history exists eGFR 03/29/2026 03/29/2025, 02/25, 03/23/2025, Additional history exists Dilated Eye Exam 04/20/2026 04/20/2025, 07/2023, 10/10/2022, Additional history exists DTaP/Tdap/Td Vaccine (3 - Td or Tdap) 04/28/2030 04/28/2020, 06/09/2019 Zoster Vaccine Completed 11/13/2017, 01/2018, 05/27/2011 Colon Cancer Screening-CT Colonography Discontinued 09/12/2021, 02/13/2016 Colon Cancer Screening-DNA Stool Discontinued 09/13/19, 02/13/2016 Colon Cancer Screening-FIT Discontinued 09/12/2021, Colon Cancer Screening-Sigmoidoscopy Discontinued 09/12/2021, 02/13/2016 Hepatitis B Screening Completed 03/18/2025 Hepatitis C Screening Completed 03/18/2025 , 10/10/2015, 07/21/2013 Medical Devices Implanted Type Area Public Records Officer Device Identifier Shelf Expiration Date Model / Serial / Lot [employer] Patch Vascuguard 0.88cm [id number] - [id number] - [id number] Implanted:Qty: 1 on 02/18/2025 by Madina Smith MD at [facility] Right: Carotid [employer] [id number] 09/28/2026 [id number] / [id number] / [id number] Explanted Type Area Public Records Officer Device Identifier Shelf Expiration Date Model / Serial / Lot Integra [employer] Julien Shunt Carotid Soft Conical Bulb Sundt [id number] Silicone [id number] - [id number] Explanted:Qty: 1 on 02/18/2025 by Madina Smith MD at [facility] Right: Carotid Integra [facility] [facility] [id number] 10/24/2028 [id number] Procedures Procedure Name Priority Date/Time Associated Diagnosis Comments HARRY VISUAL FIELD - OU - BOTH EYES Routine 04/20/2025 3:36 PM [employer] PSYCHOLOGIST Glaucoma suspect of both eyes OCT, OPTIC NERVE - OU - BOTH EYES Routine 04/20/2025 3:18 PM [employer] SCHOOL PSYCHOLOGIST Glaucoma suspect of both eyes CALPROTECTIN, FECAL Routine 04/08/2025 10:30 AM [employer] SCHOOL PSYCHOLOGIST Diarrhea, unspecified type CRYPTOSPORIDIUM AND GIARDIA ANTIGEN ASSAY Routine 04/07/2025 8:30 AM PRE[employer] SCHOOL PSYCHOLOGIST STOOL CULTURE Routine 04/07/2025 8:30 AM [employer] SCHOOL PSYCHOLOGIST Diarrhea, unspecified type OVA AND PARASITE EXAM GEN LAB Routine 04/07/2025 8:30 AM PRE[employer] SCHOOL PSYCHOLOGIST Diarrhea, unspecified type EGFR Routine 03/29/2025 3:51 AM PRE[employer] SCHOOL PSYCHOLOGIST COMPREHENSIVE METABOLIC PANEL Routine 03/29/2025 3:51 AM PRE[employer] SCHOOL PSYCHOLOGIST CBC WITHOUT DIFFERENTIAL Routine 03/29/2025 3:51 AM PRE[employer] SCHOOL PSYCHOLOGIST POCT GLUCOSE DEVICE Routine 03/25/2025 11:43 AM CDT POCT GLUCOSE DEVICE Routine 03/25/2025 4 :13 AM CDT POCT GLUCOSE DEVICE Routine 03/25/2025 12:33 AM CDT POCT GLUCOSE DEVICE Routine 03/24/2025 8 :11 PM CDT MRI ABDOMEN LIVER W WO CONTRAST IP Routine 03/24/2025 7:49 PM CDT POCT GLUCOSE DEVICE Routine 03/24/2025 5 :15 PM CDT POCT GLUCOSE DEVICE Routine 03/24/2025 10:50 AM CDT TN CRITICAL CARE ILL/INJURED PATIENT INIT 30-74 MIN Routine 03/24/2025 8:25 AM CDT EGFR Routine 03/24/2025 4:35 AM CDT CBC WITHOUT DIFFERENTIAL Routine 03/24/2025 4:35 AM CDT BASIC METABOLIC PANEL Routine 03/24/2025 4:35 AM CDT POCT GLUCOSE DEVICE Routine 03/23/2025 9 :27 PM CDT POCT GLUCOSE DEVICE Routine 03/23/2025 6 :53 PM CDT POCT GLUCOSE DEVICE Routine 03/23/2025 2 :51 PM CDT POCT GLUCOSE DEVICE Routine 03/23/2025 9 :25 AM CDT EGFR Routine 03/23/2025 6:40 AM CDT CBC WITHOUT DIFFERENTIAL Routine 03/23/2025 6:40 AM CDT BASIC METABOLIC PANEL Routine 03/23/2025 6:40 AM CDT POCT GLUCOSE DEVICE Routine 03/22/2025 7 :57 PM CDT POCT GLUCOSE DEVICE Routine 03/22/2025 5 :32 PM CDT POCT GLUCOSE DEVICE Routine 03/22/2025 12:21 PM CDT EGFR Routine 03/22/2025 10:48 AM CDT BASIC METABOLIC PANEL Routine 03/22/2025 10:48 AM CDT CBC WITHOUT DIFFERENTIAL Routine 03/22/2025 10:48 AM CDT POCT GLUCOSE DEVICE Routine 03/22/2025 8 :17 AM CDT POCT GLUCOSE DEVICE Routine 03/21/2025 8 :48 PM CDT POCT GLUCOSE DEVICE Routine 03/21/2025 5 :56 PM CDT POCT GLUCOSE DEVICE Routine 03/21/2025 11:47 AM CDT POCT GLUCOSE DEVICE Routine 03/21/2025 8 :17 AM CDT EGFR Routine 03/21/2025 4:42 AM CDT DIFFERENTIAL AUTO Routine 03/21/2025 4:4 2 AM CDT COMPREHENSIVE METABOLIC PANEL Routine 03/21/2025 4:42 AM CDT CBC WITH AUTO DIFFERENTIAL Routine 03/21/2025 4:42 AM CDT POCT GLUCOSE DEVICE Routine 03/20/2025 8 :46 PM CDT POCT GLUCOSE DEVICE Routine 03/20/2025 12:04 PM CDT POCT GLUCOSE DEVICE Routine 03/20/2025 4 :17 AM CDT POCT GLUCOSE DEVICE Routine 03/20/2025 12:24 AM CDT POCT GLUCOSE DEVICE Routine 03/19/2025 8 :51 PM CDT EGFR Routine 03/19/2025 5:39 AM CDT DIFFERENTIAL AUTO Routine 03/19/2025 5:3 9 AM CDT COMPREHENSIVE METABOLIC PANEL Routine 03/19/2025 5:39 AM CDT CBC WITH AUTO DIFFERENTIAL Routine 03/19/2025 5:39 AM CDT POCT GLUCOSE DEVICE Routine 03/19/2025 3 :31 AM CDT POCT GLUCOSE DEVICE Routine 03/18/2025 11:32 PM CDT POCT GLUCOSE DEVICE Routine 03/18/2025 9 :51 PM CDT POCT GLUCOSE DEVICE Routine 03/18/2025 5 :06 PM CDT INFECTION PREVENTION NAN AURIS PCR, SURVEILLANCE Routine 03/18/2025 1:53 PM CDT CP-CRE CULTURE, SURVEILLANCE Routine 03/18/2025 1:53 PM CDT POCT GLUCOSE DEVICE Routine 03/18/2025 12:12 PM CDT POCT GLUCOSE DEVICE Routine 03/18/2025 9 :19 AM CDT EGFR Routine 03/18/2025 8:16 AM CDT DIFFERENTIAL AUTO Routine 03/18/2025 8:1 6 AM CDT COMPREHENSIVE METABOLIC PANEL Routine 03/18/2025 8:16 AM CDT CBC WITH AUTO DIFFERENTIAL Routine 03/18/2025 8:16 AM CDT HEPATITIS PANEL, ACUTE Routine 8:16 AM CDT POCT GLUCOSE DEVICE Routine 03/18/2025 4 :34 AM CDT POCT GLUCOSE DEVICE Routine 03/18/2025 12:13 AM CDT POCT GLUCOSE DEVICE Routine 03/17/2025 8 :42 PM CDT POCT GLUCOSE DEVICE Routine 03/17/2025 8 :07 PM CDT POCT GLUCOSE DEVICE Routine 03/17/2025 5 :57 PM CDT ECG 12-LEAD Routine 03/17/2025 4:11 PM CDT POCT GLUCOSE DEVICE Routine 03/17/2025 12:59 PM CDT BLOOD CULTURE STAT 03/17/2025 11:33 AM CDT POCT GLUCOSE DEVICE Routine 03/17/2025 9 :43 AM CDT BLOOD CULTURE STAT 03/17/2025 8:31 AM CDT POCT GLUCOSE DEVICE Routine 03/17/2025 4 :36 AM CDT EGFR Routine 03/17/2025 4:20 AM CDT DIFFERENTIAL AUTO Routine 03/17/2025 4:2 0 AM CDT COMPREHENSIVE METABOLIC PANEL Routine 03/17/2025 4:20 AM CDT CBC WITH AUTO DIFFERENTIAL Routine 03/17/2025 4:20 AM CDT POCT GLUCOSE DEVICE Routine 03/17/2025 12:02 AM CDT POCT GLUCOSE DEVICE Routine 03/16/2025 8 :39 PM CDT POCT GLUCOSE DEVICE Routine 03/16/2025 5 :10 PM CDT POCT GLUCOSE DEVICE Routine 03/16/2025 12:00 PM CDT POCT GLUCOSE DEVICE Routine 03/16/2025 8 :11 AM CDT EGFR Routine 03/16/2025 4:33 AM CDT BLOOD SMEAR REVIEW Routine 03/16/2025 4: 33 AM CDT DIFFERENTIAL AUTO Routine 03/16/2025 4:3 3 AM CDT COMPREHENSIVE METABOLIC PANEL Routine 03/16/2025 4:33 AM CDT CBC WITH AUTO DIFFERENTIAL Routine 03/16/2025 4:33 AM CDT POCT GLUCOSE DEVICE Routine 03/16/2025 4 :13 AM CDT POCT GLUCOSE DEVICE Routine 03/16/2025 12:26 AM CDT POCT GLUCOSE DEVICE Routine 03/15/2025 8 :32 PM CDT POCT GLUCOSE DEVICE Routine 03/15/2025 5 :41 PM CDT MRI BRAIN WO CONTRAST IP Routine 03/15/2025 5:25 PM CDT US CAROTID DUPLEX UNILATERAL RIGHT IP Routine 03/15/2025 4:48 PM CDT TRANSTHORACIC ECHO (TTE) COMPLETE W DOPPLER/CF W CONTRAST Routine 03/15/2025 3:15 PM CDT POCT GLUCOSE DEVICE Routine 03/15/2025 12:06 PM CDT BLOOD CULTURE STAT 03/15/2025 10:48 AM CDT CRP (ACUTE PHASE) Routine 03/15/2025 9:3 2 AM CDT ERYTHROCYTE SEDIMENTATION RATE Routine 03/15/2025 9:32 AM CDT BLOOD CULTURE STAT 03/15/2025 9:32 AM CDT POCT GLUCOSE DEVICE Routine 03/15/2025 9 :[address] ABDOMEN PELVIS WO CONTRAST ED Urgent/IP Urgent 03/15/2025 9:[address] CHEST WO CONTRAST ED Urgent/IP Urgent 03/15/2025 9:08 AM CDT XR CHEST PA LATERAL 2 VIEWS IP Routine 03/15/2025 8:48 AM CDT EGFR Routine 03/15/2025 5:32 AM CDT THYROID FUNCTION CASCADE Routine 03/15/2025 5:32 AM CDT CBC WITHOUT DIFFERENTIAL Routine 03/15/2025 5:32 AM CDT LIPID PANEL Routine 03/15/2025 5:32 AM CDT BASIC METABOLIC PANEL Routine 03/15/2025 5:32 AM CDT TROPONIN T HIGH-SENSITIVITY 6-HOUR Timed 03/15/2025 5:32 AM CDT POCT GLUCOSE DEVICE Routine 03/15/2025 5 :23 AM CDT LEVETIRACETAM LEVEL STAT 03/15/2025 3 :09 AM CDT TROPONIN T HIGH-SENSITIVITY 4-HR Timed 03/15/2025 3:09 AM CDT URINALYSIS, MICROSCOPIC ONLY STAT 03/14/2025 11:46 PM CDT URINE CULTURE STAT 03/14/2025 11:46 PM CDT URINALYSIS AND REFLEX TO MICROSCOPIC AND CULTURE STAT 03/14/2025 11:46 PM CDT INFLUENZA A/B, RSV, AND COVID-19 PCR STAT 03/14/2025 11:21 PM CDT MANUAL DIFFERENTIAL STAT 03/14/2025 11:07 PM CDT EGFR STAT 03/14/2025 11:07 PM CDT SEPSIS LACTATE WITH REFLEX STAT 03/14/2025 11:07 PM CDT TROPONIN T HIGH-SENSITIVITY SERIES (BASELINE, 2HR, 4HR, 6HR) STAT 03/14/2025 11:07 PM CDT APTT STAT 03/14/2025 11:07 PM CDT PROTIME-INR STAT 03/14/2025 11:07 PM CDT COMPREHENSIVE METABOLIC PANEL STAT 03/14/2025 11:07 PM CDT CBC WITH AUTO DIFFERENTIAL STAT 03/14/2025 11:07 PM CDT BLOOD CULTURE STAT 03/14/2025 11:07 PM CDT BLOOD CULTURE STAT 03/14/2025 11:07 PM CDT ECG 12-LEAD STAT 03/14/2025 10:[address] STROKE PROTOCOL WO CONTRAST Critical/Life-T hreatening 03/14/2025 10:36 PM CDT POCT GLUCOSE DEVICE Routine 03/14/2025 10:32 PM CDT CBC WITHOUT DIFFERENTIAL Routine 03/14/2025 5:20 AM CDT HEPATIC FUNCTION PANEL Routine 5:20 AM CDT EGFR Routine 03/13/2025 4:45 AM CDT COMPREHENSIVE METABOLIC PANEL Routine 03/13/2025 4:45 AM CDT DIFFERENTIAL AUTO Routine 03/13/2025 4:4 5 AM CDT CBC WITH AUTO DIFFERENTIAL Routine 03/13/2025 4:45 AM CDT EGFR Timed 03/09/2025 6:00 AM CDT BASIC METABOLIC PANEL Timed 03/09/2025 6:00 AM CDT BLOOD SMEAR REVIEW Timed 03/09/2025 5: 37 AM CDT CBC WITHOUT DIFFERENTIAL Timed 03/09/2025 5:37 AM CDT POCT GLUCOSE DEVICE Routine 03/08/2025 10:42 PM CDT POCT GLUCOSE DEVICE Routine 03/08/2025 7 :50 PM CDT POCT GLUCOSE DEVICE Routine 03/08/2025 4 :38 PM CDT POCT GLUCOSE DEVICE Routine 03/08/2025 11:43 AM CDT POCT GLUCOSE DEVICE Routine 03/08/2025 8 :28 AM CDT CBC WITHOUT DIFFERENTIAL Timed 03/07/2025 8:36 PM CDT BASIC METABOLIC PANEL Routine 03/07/2025 8:30 PM CDT EGFR Routine 03/07/2025 8:30 PM CDT MAGNESIUM Routine 03/07/2025 8:30 PM CDT POCT GLUCOSE DEVICE Routine 03/07/2025 8 :29 PM CDT TROPONIN I HIGH-SENSITIVITY 2-HOUR Timed 03/07/2025 6:23 PM CDT POCT GLUCOSE DEVICE Routine 03/07/2025 4 :48 PM CDT EGFR Timed 03/07/2025 4:17 PM CDT TROPONIN I HIGH-SENSITIVITY SERIES (BASELINE, 2HR, 4HR, 6HR) STAT 03/07/2025 4:17 PM CDT CBC WITHOUT DIFFERENTIAL Timed 03/07/2025 4:17 PM CDT BASIC METABOLIC PANEL Timed 03/07/2025 4:17 PM CDT POCT GLUCOSE DEVICE Routine 03/07/2025 12:05 PM CDT POCT GLUCOSE DEVICE Routine 03/07/2025 7 :52 AM CDT EGFR Timed 03/06/2025 10:23 PM CDT CBC WITHOUT DIFFERENTIAL Timed 03/06/2025 10:23 PM CDT BASIC METABOLIC PANEL Timed 03/06/2025 10:23 PM CDT EGFR Timed 03/06/2025 10:12 PM CDT PHOSPHORUS Timed 03/06/2025 10:12 PM CDT MAGNESIUM Timed 03/06/2025 10:12 PM CDT COMPREHENSIVE METABOLIC PANEL Timed 03/06/2025 10:12 PM CDT POCT GLUCOSE DEVICE Routine 03/06/2025 7 :54 PM CDT POCT GLUCOSE DEVICE Routine 03/06/2025 3 :47 PM CDT POCT GLUCOSE DEVICE Routine 03/06/2025 11:35 AM CDT POCT GLUCOSE DEVICE Routine 03/06/2025 8 :20 AM CDT POCT GLUCOSE DEVICE Routine 03/06/2025 7 :50 AM CDT EGFR Routine 03/06/2025 6:01 AM CDT BASIC METABOLIC PANEL Routine 03/06/2025 6:01 AM CDT CBC WITHOUT DIFFERENTIAL Routine 03/06/2025 6:01 AM CDT POCT GLUCOSE DEVICE Routine 03/05/2025 7 :33 PM CDT POCT GLUCOSE DEVICE Routine 03/05/2025 4 :56 PM CDT POCT GLUCOSE DEVICE Routine 03/05/2025 11:49 AM CDT TROPONIN I HIGH-SENSITIVITY STAT 03/05/2025 7:48 AM CDT POCT GLUCOSE DEVICE Routine 03/05/2025 7 :47 AM CDT EGFR Routine 03/05/2025 4:42 AM CDT BASIC METABOLIC PANEL Routine 03/05/2025 4:42 AM CDT CBC WITHOUT DIFFERENTIAL Routine 03/05/2025 4:42 AM CDT POCT GLUCOSE DEVICE Routine 03/04/2025 7 :54 PM CDT POCT GLUCOSE DEVICE Routine 03/04/2025 4 :38 PM CDT ECG 12-LEAD Routine 03/04/2025 3:25 PM CDT TROPONIN I HIGH-SENSITIVITY STAT 03/04/2025 2:46 PM CDT POCT GLUCOSE DEVICE Routine 03/04/2025 10:55 AM CDT POCT GLUCOSE DEVICE Routine 03/04/2025 7 :21 AM CDT EGFR Routine 03/04/2025 6:43 AM CDT BASIC METABOLIC PANEL Routine 03/04/2025 6:43 AM CDT CBC WITHOUT DIFFERENTIAL Routine 03/04/2025 6:43 AM CDT XR ABDOMEN AP 1 VIEW ED Urgent/IP Urgent 03/04/2025 5:40 AM CDT POCT GLUCOSE DEVICE Routine 03/03/2025 8 :01 PM CDT POCT GLUCOSE DEVICE Routine 03/03/2025 4 :43 PM CDT POCT GLUCOSE DEVICE Routine 03/03/2025 11:12 AM CDT EGFR Routine 03/03/2025 7:52 AM CDT CBC WITHOUT DIFFERENTIAL Routine 03/03/2025 7:52 AM CDT BASIC METABOLIC PANEL Routine 03/03/2025 7:52 AM CDT POCT GLUCOSE DEVICE Routine 03/03/2025 7 :32 AM CDT POCT GLUCOSE DEVICE Routine 03/02/2025 8 :00 PM CDT POCT GLUCOSE DEVICE Routine 03/02/2025 4 :11 PM CDT POCT GLUCOSE DEVICE Routine 03/02/2025 11:45 AM CDT POCT GLUCOSE DEVICE Routine 03/02/2025 8 :28 AM CDT MRI BRAIN W WO CONTRAST ED Urgent/IP Urgent 03/01/2025 11:31 PM CDT POCT GLUCOSE DEVICE Routine 03/01/2025 8 :40 PM CDT EGFR Routine 03/01/2025 8:24 PM CDT BASIC METABOLIC PANEL Routine 03/01/2025 8:24 PM CDT CBC WITHOUT DIFFERENTIAL Routine 03/01/2025 8:24 PM CDT POCT GLUCOSE DEVICE Routine 03/01/2025 6 :48 PM CDT POCT GLUCOSE DEVICE Routine 03/01/2025 11:38 AM CDT POCT GLUCOSE DEVICE Routine 03/01/2025 7 :42 AM CDT ECG 12-LEAD STAT 03/01/2025 3:50 AM CDT POCT GLUCOSE DEVICE Routine 03/01/2025 3 :37 AM CDT EGFR Routine 02/28/2025 8:51 PM CDT BASIC METABOLIC PANEL Routine 02/28/2025 8:51 PM CDT CBC WITHOUT DIFFERENTIAL Routine 02/28/2025 8:51 PM CDT POCT GLUCOSE DEVICE Routine 02/28/2025 8 :35 PM CDT POCT GLUCOSE DEVICE Routine 02/28/2025 6 :12 PM CDT STOP CONTINUOUS EEG Routine 02/28/2025 4 :34 PM CDT POCT GLUCOSE DEVICE Routine 02/28/2025 11:57 AM CDT TROPONIN I HIGH-SENSITIVITY Timed 02/28/2025 9:22 AM CDT POCT GLUCOSE DEVICE Routine 02/28/2025 7 :56 AM CDT EXTUBATION Routine 02/28/2025 4:49 AM CDT POCT GLUCOSE DEVICE Routine 02/28/2025 3 :50 AM CDT TROPONIN I HIGH-SENSITIVITY Timed 02/28/2025 3:38 AM CDT POCT GLUCOSE DEVICE Routine 02/28/2025 12:04 AM CDT BLOOD GAS, ARTERIAL Routine 02/27/2025 10:00 PM CDT EGFR Timed 02/27/2025 9:35 PM CDT PHOSPHORUS Routine 02/27/2025 9:35 PM CDT MAGNESIUM Routine 02/27/2025 9:35 PM CDT TROPONIN I HIGH-SENSITIVITY 6-HOUR Timed 02/27/2025 9:35 PM CDT COMPREHENSIVE METABOLIC PANEL Timed 02/27/2025 9:35 PM CDT CBC WITHOUT DIFFERENTIAL Routine 02/27/2025 9:35 PM CDT XR CHEST 1 VIEW IP Routine 02/27/2025 8:28 PM CDT POCT GLUCOSE DEVICE Routine 02/27/2025 8 :[address] HEAD WO CONTRAST IP Routine 02/27/2025 8 :18 PM CDT TROPONIN I HIGH-SENSITIVITY 4-HOUR Timed 02/27/2025 7:23 PM CDT URINALYSIS, MICROSCOPIC ONLY STAT 02/27/2025 6:37 PM CDT URINALYSIS AND REFLEX TO MICROSCOPIC AND CULTURE STAT 02/27/2025 6:37 PM CDT CRITICAL RESULT CALLBACK CARDIO CHEM Timed 02/27/2025 5:33 PM CDT CRITICAL RESULT CALLBACK CARDIO CHEM Timed 02/27/2025 5:33 PM CDT CRITICAL RESULT CALLBACK CARDIO CHEM Timed 02/27/2025 5:33 PM CDT TROPONIN I HIGH-SENSITIVITY 2-HOUR Timed 02/27/2025 5:33 PM CDT CONTINUOUS VIDEO EEG Routine 02/27/2025 4:50 PM CDT XR ABDOMEN AP 1 VIEW ED Urgent/IP Urgent 02/27/2025 4:04 PM CDT XR CHEST 1 VIEW ED Urgent/IP Urgent 02/27/2025 4:[address] OUTSIDE CONSULT Routine 02/27/2025 3:47 PM CDT Diagnosis unknown ECG 12-LEAD STAT 02/27/2025 3:40 PM CDT EGFR STAT 02/27/2025 3:23 PM CDT BETA-HYDROXYBUTYRATE STAT 02/27/2025 3:23 PM CDT LACTATE STAT 02/27/2025 3:23 PM CDT CREATINE KINASE (CK), TOTAL STAT 02/27/2025 3:23 PM CDT TROPONIN I HIGH-SENSITIVITY SERIES (BASELINE, 2HR, 4HR, 6HR) STAT 02/27/2025 3:23 PM CDT BLOOD GAS, ARTERIAL STAT 02/27/2025 3 :23 PM CDT PROTIME-INR STAT 02/27/2025 3:23 PM CDT APTT STAT 02/27/2025 3:23 PM CDT TYPE AND SCREEN STAT 02/27/2025 3:23 PM CDT CBC WITHOUT DIFFERENTIAL STAT 02/27/2025 3:23 PM CDT PHOSPHORUS STAT 02/27/2025 3:23 PM CDT MAGNESIUM STAT 02/27/2025 3:23 PM CDT COMPREHENSIVE METABOLIC PANEL STAT 02/27/2025 3:23 PM CDT POCT GLUCOSE DEVICE Routine 02/27/2025 3 :15 PM CDT POCT GLUCOSE DEVICE Routine 02/19/2025 11:51 AM CDT POCT GLUCOSE DEVICE Routine 02/18/2025 [...] STAT 02/18/2025 1:26 PM CDT POCT GLUCOSE 92469 Routine 02/12/2025 1: 26 PM CDT Type [...] stenosis TYPE AND SCREEN 14 DAY Routine 3:37 PM CDT Preoperative testing CBC WITHOUT [...] PM CDT History of CVA (cerebrovascular accident) SCREENING MAMMOGRAM BILATERAL W GEO Schedule Routine, Read Routine (OP Routine) 11/02/2024 1:10 PM CDT Screening mammogram, encounter for ALBUMIN CREATININE RATIO, URINE Routine 05/05/2024 12:43 PM [employer] Type 2 diabetes mellitus without complication, without long-term current use of insulin (HCC) DEXA AXIAL SKELETON BONE DENSITY 1 OR MORE SITES Schedule Routine, Read Routine (OP Routine) 11/11/2023 3:39 PM CDT Postmenopausal DIABETIC EYE EXAM Routine 10/10/2022 COLONOSCOPY 09/12/2021 12:02 PM CDT from Last 3 Months or Most Recently Relevant to Health Maintenance Results * Harry Visual Field - OU - Both Eyes (04/20/2025 3:36 PM [employer]) Pattern Deviation OS 2.57 CONTINUUM Pattern Deviation OD 2.13 CONTINUUM Mean Deviation OS -2.16 CONTINUUM Mean Deviation OD -5.17 CONTINUUM Anatomical Region Laterality Modality Head Other Narrative 04/20/2025 3:36 PM [employer] Right Eye Fixation was good. Cooperation was good. Reliability was good. Progression has been stable. Foveal threshold was reduced. Findings include central scotoma. Mean Deviation was -5.17. Pattern Deviation was 2.13. Left Eye Fixation was good. Cooperation was good. Reliability was good. Progression has been stable. Foveal threshold was normal. Findings include enlarged blind spot. Mean Deviation was -2.16. Pattern Deviation was 2.57. us Jaun Qureshi OD OPHTH VISUAL FIELD Final Res ult * OCT, Optic Nerve - OU - Both Eyes (04/20/2025 3:18 PM PRELIMINARY SCHOOL PSYCHOLOGIST) RNFL OS 74 micrometers CONTINUUM RNFL OD 73 micrometers CONTINUUM Anatomical Region Laterality Modality [facility] e Tomography Narrative 04/20/2025 3:18 PM PRELIMINARY SCHOOL PSYCHOLOGIST Right Eye Reliability was good. Temporal progression was stable. Temporal thickness was normal. Superior progression was stable. Superior thickness was normal. Nasal progression was stable. Nasal thickness was normal. Inferior progression was stable. Inferior thickness was showing abnormal thinning. Average RNFL thickness 73 micrometers. Left Eye Reliability was good. Temporal progression was stable. Temporal thickness was normal. Superior progression was worsened. Superior thickness was normal. Nasal progression was stable. Nasal thickness was normal. Inferior progression was worsened. Inferior thickness was showing abnormal thinning. Average RNFL thickness 74 micrometers. Notes Both eyes (OU) mild thinning inf us Jaun Qureshi OD OPHTH TOMOGRAPHY Final Resul t * Calprotectin, fecal (04/08/2025 10:30 AM PRELIMINARY SCHOOL PSYCHOLOGIST) Pathologist [facility] Calprotectin, fecal <50.0 <50.0 (Normal) mcg/g [facility] Comment: Test Performed by: [facility] [address] [place] [address] Batch Weigher: Anthony Pires Ph.D.; CLIA# [id number] Testing performed by: [facility], [address] [place] [address]., [address] Stool 04/08/2025 10:3 0 AM PRELIMINARY SCHOOL PSYCHOLOGIST 04/08/2025 3:30 PM PRELIMINARY SCHOOL PSYCHOLOGIST us Conor Bautista MD LAB BODY FLUIDS AND STOOLS OR DERABLES Final Result JESUS MANUELNER [address] [facility] Department [place] [address] [facility] Lab * Ova and parasite exam Stool (04/07/2025 8:30 AM PRELIMINARY SCHOOL PSYCHOLOGIST) Pathologist [facility] Ova & Parasite exam See Footnote [facility] ref Lab Comment: SOURCE: STOOL, STLP OVA AND PARASITE, MICROSCOPY, F FINAL No parasites seen. Leukocytes present. Cryptosporidium, Cyclospora, and microsporidia are not readily detected by this method. Single negative specimen does not rule out parasitic infection. Test Performed by: [facility] [place], [facility] [address] [place] [address] Batch Weigher: Anthony Pires Ph.D.; CLIA# [id number] Stool 04/07/2025 8:30 AM PRELIMINARY SCHOOL PSYCHOLOGIST 04/07/2025 9:57 AM PRELIMINARY SCHOOL PSYCHOLOGIST Narrative RYAN - 04/13/2025 1:55 PM PRELIMINARY SCHOOL PSYCHOLOGIST Is the patient immunosuppressed?->Yes Has the patient had recent travel outside the [place]?->No received in lab; 04/08/2025 10:25:36 PRELIMINARY SCHOOL PSYCHOLOGIST [id number] received in lab; 04/09/2025 14:11:16 PRELIMINARY SCHOOL PSYCHOLOGIST [id number] Conor Bautista MD LAB MICROBIOLOGY - GENERAL OR DERABLES Final Result Performing Organization Address [facility] de Phone Number JESUS [place]IM[place] [id number] [facility] [place] [address] [facility] ref Lab * Cryptosporidium and Giardia antigen assay Stool (04/07/2025 8:30 AM PRELIMINARY SCHOOL PSYCHOLOGIST) Pathologist [facility] Giardia Ag Negative Negative Comment:Testing performed by : [facility], [address] [place] [address]., [id number] Cryptosporidium Ag Negative Negative RYAN Comment: Interpretive data: Testing performed by the [facility] using an immunoassay that detects Cryptosporidium and Giardia antigens in stool specimens. If comprehensive examination for ova and parasites is required, please request Ova and Parasite Examination. Testing performed by: [facility], [address] [place] [address]., [id number] Stool 04/07/2025 8:30 AM PRELIMINARY SCHOOL PSYCHOLOGIST 04/07/2025 4:44 PM PRELIMINARY SCHOOL PSYCHOLOGIST Conor Bautista MD LAB MICROBIOLOGY - GENERAL OR DERABLES Final Result Performing Organization Address [facility] de Phone Number [facility] [address] [facility] [place] [address] * Stool culture Stool Rectum (04/07/2025 8:30 AM PRELIMINARY SCHOOL PSYCHOLOGIST) Direct Specimen Exam Shiga Toxin Testing: Antigen detection assay for Shiga-toxin NEGATIVE for Shiga Toxin 1 and Shiga Toxin 2. Comment:Testing performed by : [facility], [address] [place] [address]., [id number] Report Final Report: No growth of enteric bacterial pathogens RYAN BOWLING Comment:Testing performed by : [facility], [address] [facility], [place]., [address] Stool (Rectum) 04/07/2025 8: 30 AM PRELIMINARY SCHOOL PSYCHOLOGIST 04/07/2025 2:03 PM PRELIMINARY SCHOOL PSYCHOLOGIST Narrative RYAN BOWLING - 04/11/2025 10:08 AM PRELIMINARY SCHOOL PSYCHOLOGIST Testing performed by [facility] Laboratory ([phone]). Routine stool cultures include procedures to detect Salmonella, Shigella, Edwardsiella, Aeromonas, Pleisiomonas, Campylobacter, Yersinia, E. coli O157, and Shiga-like toxins. Vibrio is cultured only upon special request. If Vibrio is suspected, please call the laboratory at [phone]. Interpretive data was last updated October 01, 2016. us Conor Bautista MD LAB MICROBIOLOGY - GENERAL OR DERABLES Final Result RYAN [address] Department [place] [address] * (ABNORMAL) eGFR (03/29/2025 3:51 AM PRELIMINARY SCHOOL PSYCHOLOGIST) eGFR 57(L) >=60 mL/min/1. 73 m2 RYAN BOWLING Comment: Interpretive Data Reference Interval Normal >/= [...] Current interpretive data was last reviewed 2021. [facility], [address] [place] [address]., [address] Blood 03/29/2025 3:51 AM PRELIMINARY SCHOOL PSYCHOLOGIST 03/29/2025 5:07 AM PRELIMINARY SCHOOL PSYCHOLOGIST us Keyshawn Rodas MD LAB BLOOD ORDERABLES Final R esult [facility] [address] [facility] Department [place] [address] * (ABNORMAL) CBC without differential (03/29/2025 3:51 AM PRELIMINARY SCHOOL PSYCHOLOGIST) WBC 10.68(H) 3.80 - 9.90 K/cumm CERNER Comment:[address], [address] Hgb 10.9(L) 11.9 - 15.5 g/dL CERNER MH Comment:[address], [address] Hct 34.4(L) 35.6 - 45.5 % CERNER MH Comment:[address], [address] Plt 277 150 - 400 K/cumm CERNER MH Comment:[address], [address] MPV 10.8 9.1 - 12.3 fL CERNER MH Comment:[address], [address] RBC 3.89(L) 3.90 - 5.20 M/cumm CERNER MH Comment:[address], [address] MCV 88.4 81.3 - 96.4 fL CERNER MH Comment:[address] [address] MCH 28.0 27.1 - 33.3 pg CERNER MH Comment:[address], [address] MCHC 31.7(L) 32.3 - 35.7 g/dL CERNER MH Comment:[address], [address] RDW CV 13.9 11.1 - 14.9 % CERNER MH Comment:[address], [address] RDW SD 44.6 35.7 - 48.1 fL RYAN Comment:[address] [address] NRBC abs 0.00 0.00 - 0.01 K/cumm RYAN BOWLING Comment:[address] [address] Blood 03/29/2025 3:51 AM PRELIMINARY SCHOOL PSYCHOLOGIST 03/29/2025 5:07 AM PRELIMINARY SCHOOL PSYCHOLOGIST us Keyshawn Rodas MD LAB BLOOD ORDERABLES Final R esult RYAN [address] Department [place] [address] * (ABNORMAL) Comprehensive metabolic panel (03/29/2025 3:51 AM PRELIMINARY SCHOOL PSYCHOLOGIST) Sodium 139 135 - 145 mmol/L RYAN Comment:[address] [address] Potassium, pl 4.3 3.3 - 4.9 mmol/L RYAN Comment: Hemolyzed; Potassium value may be falsely elevated by as much as 1.0 mmol/L. Suggest redraw and reanalysis. [facility], [address] [place] [address]., [address] Chloride 101 97 - 110 mmol/L RYAN Comment:[address] [address] CO2 25 22 - 32 mmol/L RYAN Comment:[address] [address] Anion gap 13 2 - 15 mmol/L RYAN Comment:[address] [address] BUN 31(H) 6 - 25 mg/dL RYAN Comment:[address] [address] Creatinine 1.05 0.60 - 1.10 mg/dL RYAN Comment:[address] [address] Glucose 140 70 - 199 mg/dL RYAN Comment: Interpretive Data Fasting glucose >/= 126 [...] Current interpretive data was last revised 2022. [facility], [address] [place]., [address] Calcium 9.7 8.5 - 10.3 mg/dL [facility] Comment:[address] [address] Bilirubin, total 0.3 0.1 - 1.2 mg/dL [facility] Comment:[address] [address] Protein, pl 6.7 6.5 - 8.5 g/dL [facility] Comment:[address] [address] Albumin 3.5 3.5 - 5.0 g/dL [facility] Comment:[address] [address] Alk phos 139(H) 40 - 130 Units/L RYAN Comment:[address] [address] ALT 8 7 - 45 Units/L [facility] Comment:[address] [address] AST 23 10 - 45 Units/L [facility] Comment:[address] [address] Blood 03/29/2025 3:51 AM PRELIMINARY SCHOOL PSYCHOLOGIST 03/29/2025 5:07 AM PRELIMINARY SCHOOL PSYCHOLOGIST us Keyshawn Rodas MD LAB BLOOD ORDERABLES Final R esult RYAN [address] Department [place] [address] * (ABNORMAL) POCT glucose (03/25/2025 11:43 AM CDT) Glucose, POC 311(H) 70 - 199 mg/dL Comment:Testing performed by : [facility], [address] [place] [address]., [address] Glucose comment 1 RN/MD Notified RYAN Comment:Testing performed by : [facility], [address] [place] [address]., [address] Blood 03/25/2025 11:4 3 AM CDT 03/25/2025 11:43 AM CDT Jordana Bland MD LAB POCT ORDERABLES - DEVICE Final Result Performing Organization Address City/[facility] Co de Phone Number RYAN [address] [place] [employer] [place] [address] * POCT glucose (03/25/2025 4:13 AM CDT) Glucose, POC 154 70 - 199 mg/dL Comment:Testing performed by : [address], [address] Blood 03/25/2025 4:13 AM CDT 03/25/2025 4:13 AM CDT Jordana Bland MD LAB POCT ORDERABLES - DEVICE Final Result Performing Organization Address [facility] Co de Phone Number JESUS MANUEL[address] [place] [address] * (ABNORMAL) POCT glucose (03/25/2025 12:33 AM CDT) Glucose, POC 220(H) 70 - 199 mg/dL Comment:Testing performed by : [address] [address] Blood 03/25/2025 12:3 3 AM CDT 03/25/2025 12:33 AM CDT Jordana Bland MD LAB POCT ORDERABLES - DEVICE Final Result Performing Organization Address [facility] Co de Phone Number RYAN [facility] [place] [address] * (ABNORMAL) POCT glucose (03/24/2025 8:11 PM CDT) Glucose, POC 223(H) 70 - 199 mg/dL Comment:Testing performed by : [facility], [address] [place] [address]., [address] Blood 03/24/2025 8:11 PM CDT 03/24/2025 8:11 PM CDT us Jordana Bland MD LAB POCT ORDERABLES - DEVICE Final Result Performing Organization Address [facility] Co de Phone Number RYAN [facility] [place] [address] * MRI Abdomen Liver W WO Contrast (03/24/2025 7:49 PM CDT) Anatomical Region Laterality Modality Body N/A Magnetic Resonan ce 03/24/2025 8:36 PM CDT Impressions 03/24/2025 8:36 PM CDT Largely nondiagnostic exam secondary to patient motion and metal artifact. The liver lesion perceived on recent CT is not clearly identified or properly evaluated on this study. Electronically signed by: Jimbo Vásquez M.D. Narrative 03/24/2025 8:36 PM CDT MEDICAL RECORDS NUMBER: [id number] PROCEDURE: MRI ABDOMEN LIVER W WO CONTRAST DATE: 03/24/2025 6:30 PM CLINICAL INDICATION: Neoplasm: liver or bile duct CONTRAST: Gadolinium, 20 cc COMPARISON: CT 03/15/2025 FINDINGS: The study is hampered by patient motion along with metal artifact from sternotomy wires. No liver lesions are clearly identified. The area of concern in the anterior aspect of the left lobe is partially obscured by metal artifact. Motion artifact also hampers evaluation. Visualized portions of the stomach, spleen, adrenal glands and kidneys appear unremarkable. The pancreas appears largely atrophic. No biliary ductal dilatation is seen. Lung bases appear clear as visualized. Procedure Note Jimbo Vásquez MD - 03/24/2025 MEDICAL RECORDS NUMBER: [id number] PROCEDURE: MRI ABDOMEN LIVER W WO CONTRAST DATE: 03/24/2025 6:30 PM CLINICAL INDICATION: Neoplasm: liver or bile duct CONTRAST: Gadolinium, 20 cc COMPARISON: CT 03/15/2025 FINDINGS: The study is hampered by patient motion along with metal artifact from sternotomy wires. No liver lesions are clearly identified. The area of concern in the anterior aspect of the left lobe is partially obscured by metal artifact. Motion artifact also hampers evaluation. Visualized portions of the stomach, spleen, adrenal glands and kidneys appear unremarkable. The pancreas appears largely atrophic. No biliary ductal dilatation is seen. Lung bases appear clear as visualized. IMPRESSION: Largely nondiagnostic exam secondary to patient motion and metal artifact. The liver lesion perceived on recent CT is not clearly identified or properly evaluated on this study. Electronically signed by: Jimbo Vásquez M.D. Jordana Bland MD IMG MRI P ROCEDURES Final Result * (ABNORMAL) POCT glucose (03/24/2025 5:15 PM CDT) Glucose, POC 308(H) 70 - 199 mg/dL Comment:Testing performed by : [address] [address] Blood 03/24/2025 5:15 PM CDT 03/24/2025 5:15 PM CDT Jordana Bland MD LAB POCT ORDERABLES - DEVICE Final Result RYAN [address] [facility] Department [place] [address] * POCT glucose (03/24/2025 10:50 AM CDT) Glucose, POC 146 70 - 199 mg/dL Comment:Testing performed by : [address] [address] Glucose comment 1 RN/MD Notified RYAN DASH Comment:Testing performed by : [facility], [address] [place] [address], [place]., [address] Blood 03/24/2025 10:5 0 AM CDT 03/24/2025 10:50 AM CDT Jordana Bland MD LAB POCT ORDERABLES - DEVICE Final Result RYAN [address] [facility] Department [place] [address] * [place] CRITICAL CARE ILL/INJURED PATIENT INIT 30-74 MIN (03/24/2025 8:25 AM CDT) Narrative Josh Zamarripa Jr., MD - 03/24/2025 8:25 AM CDT Josh Zamarripa Jr., MD 03/24/2025 8:27 AM Critical Care Performed by: Josh Zamarripa Jr., MD Authorized by: Josh Zamarripa Jr., MD Critical care provider statement: As reflected in the history, physical exam, orders, notes, and/or MDM, I was personally present while the patient was critically ill and provided critical care services for 60 minutes, excluding time involved in separately billable procedures. Critical care was necessary to treat or prevent imminent or life-threatening deterioration of the following condition(s): acute cerebrovascular accident (CVA), encephalopathy and severe neurologic condition severe genitourinary infection Critical care was time spent by me providing the following: continuous telemetry, continuous pulse oximetry, interpretation of bedside monitors, imaging, and arterial/venous lab draws, serial bedside patient exams and serial laboratory checks frequent neurologic exams Considered acute CVAv subacute cva v medical cause for ams and neuro findings Discussed w neuro consultants at stroke center I provided emergent necessary critical care medicine services to this patient. I ordered and reviewed test results and/or imaging studies. I spent time discussing the management of this critically ill patient with consultants and the medical staff. I spent time discussing the management and therapeutic options for this critically ill patient with the patient themselves or with the appropriate designated surrogate decision-maker. I spent time documenting in the medical record. I admitted this patient to a continuous cardiac monitored bed. us Josh Zamarripa Jr., MD IN CLINIC/BEDSIDE ORDER SYLWIA Final Result * eGFR (03/24/2025 4:35 AM CDT) eGFR 61 >=60 mL/min/1. 73 m2 Comment: Interpretive Data [...] Current interpretive data was last reviewed 2021. Testing performed by: [address] [address] Blood 03/24/2025 4:35 AM CDT 03/24/2025 5:29 AM CDT us Jimbo Fajardo DO LAB BLOOD ORDERABLES Final Resul t [facility] [address] [facility] Department [place] [address] * (ABNORMAL) CBC without differential (03/24/2025 4:35 AM CDT) WBC 12.87(H) 3.80 - 9.90 K/cumm Comment:Testing performed by : [address] [address] Hgb 11.7(L) 11.9 - 15.5 g/dL RYAN Comment:Testing performed by : [address] [place] [address] Hct 36.0 35.6 - 45.5 % RYAN Comment:Testing performed by : [address], [address] Plt 328 150 - 400 K/cumm RYAN Comment:Testing performed by : [address], [address] MPV 10.0 9.1 - 12.3 fL RYAN Comment:Testing performed by : [address], [address] RBC 4.20 3.90 - 5.20 M/cumm RYAN Comment:Testing performed by : [address], [address] MCV 85.7 81.3 - 96.4 fL RYAN Comment:Testing performed by : [address], [address] MCH 27.9 27.1 - 33.3 pg RYAN Comment:Testing performed by : [address], [address] MCHC 32.5 32.3 - 35.7 g/dL RYAN Comment:Testing performed by : [address], [address] RDW CV 14.0 11.1 - 14.9 % RYAN Comment:Testing performed by : [address], [address] RDW SD 43.2 35.7 - 48.1 fL RYAN Comment:Testing performed by : [address], [address] NRBC abs 0.00 0.00 - 0.01 K/cumm RYAN Comment:Testing performed by : [address], [address] Blood 03/24/2025 4:35 AM CDT 03/24/2025 5:30 AM CDT us Jimbo Fajardo DO LAB BLOOD ORDERABLES Final Resul t RYAN [address] [facility] Department [place] [address] * (ABNORMAL) Basic metabolic panel (03/24/2025 4:35 AM CDT) Sodium 136 135 - 145 mmol/L Comment:Testing performed by : [address] [address] Potassium, pl 4.4 3.3 - 4.9 mmol/L RYAN Comment:Testing performed by : [address], [place]., [address] Chloride 99 97 - 110 mmol/L RYAN Comment:Testing performed by : [address] [address] CO2 26 22 - 32 mmol/L RYAN Comment:Testing performed by : [address], [place]., [address] Anion gap 11 2 - 15 mmol/L RYAN Comment:Testing performed by : [address] [address] BUN 36(H) 6 - 25 mg/dL RYAN Comment:Testing performed by : [address], [place]., [address] Creatinine 0.99 0.60 - 1.10 mg/dL RYAN Comment:Testing performed by : [address] [address] Glucose 171 70 - 199 mg/dL RYAN Comment: Interpretive Data Fasting glucose >/= 126 [...] Current interpretive data was last revised 2022. Testing performed by: [address], [place]., [address] Calcium 10.1 8.5 - 10.3 mg/dL RYAN Comment:Testing performed by : [address] [address] Blood 03/24/2025 4:35 AM CDT 03/24/2025 5:29 AM CDT Jimbo Fajardo DO LAB BLOOD ORDERABLES Final Resul t RYAN [address] [employer] [place] [address] * (ABNORMAL) POCT glucose (03/23/2025 9:27 PM CDT) Glucose, POC 233(H) 70 - 199 mg/dL Comment:Testing performed by : [address] [address] Blood 03/23/2025 9:27 PM CDT 03/23/2025 9:27 PM CDT Jordana Bland MD LAB POCT ORDERABLES - DEVICE Final Result Performing Organization Address City/[facility]/ZIP Co de Phone Number JESUS MANUEL[address] [address] * POCT glucose (03/23/2025 6:53 PM CDT) Glucose, POC 155 70 - 199 mg/dL Comment:Testing performed by : [address] [address] Blood 03/23/2025 6:53 PM CDT 03/23/2025 6:53 PM CDT Jordana Bland MD LAB POCT ORDERABLES - DEVICE Final Result RYAN [address] [place] [address] * POCT glucose (03/23/2025 2:51 PM CDT) [facility] Glucose, POC 197 70 - 199 mg/dL Comment:Testing performed by : [facility], [address] [place] [address]., [address] Glucose comment 1 RN/MD Notified RYAN Comment:Testing performed by : [address] [address] Blood 03/23/2025 2:51 PM CDT 03/23/2025 2:51 PM CDT us Jordana Bland MD LAB POCT ORDERABLES - DEVICE Final Result Performing Organization Address City/[facility] Co de Phone Number JESUS MANUELJEANNA [address] [place] [address] * POCT glucose (03/23/2025 9:25 AM CDT) [facility] Glucose, POC 148 70 - 199 mg/dL Comment:Testing performed by : [facility], [address] [place] [address]., [address] Glucose comment 1 RN/ Notified RYAN Comment:Testing performed by : [facility], [address] [place] [address]., [address] Blood 03/23/2025 9:25 AM CDT 03/23/2025 9:25 AM CDT us Jordana Bland MD LAB POCT ORDERABLES - DEVICE Final Result JESUS MANUEL[address] [place] [employer] [place] [address] * (ABNORMAL) eGFR (03/23/2025 6:40 AM CDT) [facility] eGFR 54(L) >=60 mL/min/1. 73 m2 Comment: Interpretive Data [...] Current interpretive data was last reviewed 2021. Testing performed by: [address] [address] Blood 03/23/2025 6:40 AM CDT 03/23/2025 6:57 AM CDT Jimbo Fajardo DO LAB BLOOD ORDERABLES Final Resul t RYAN [address] [facility] [place] [address] * (ABNORMAL) CBC without differential (03/23/2025 6:40 AM CDT) WBC 10.64(H) 3.80 - 9.90 K/cumm Comment:Testing performed by : [address] [address] Hgb 10.9(L) 11.9 - 15.5 g/dL RYAN BOWLING Comment:Testing performed by : [address] [address] Hct 33.2(L) 35.6 - 45.5 % RYAN BOWLING Comment:Testing performed by : [address] [address] Plt 285 150 - 400 K/cumm RYAN BOWLING Comment:Testing performed by : [address] [address] MPV 9.8 9.1 - 12.3 fL RYAN BOWLING Comment:Testing performed by : [address] [place] [address] RBC 3.86(L) 3.90 - 5.20 M/cumm RYAN BOWLING Comment:Testing performed by : [address] [address] MCV 86.0 81.3 - 96.4 fL RYAN BOWLING Comment:Testing performed by : [address] [address] MCH 28.2 27.1 - 33.3 pg RYAN BOWLING Comment:Testing performed by : [address] [address] MCHC 32.8 32.3 - 35.7 g/dL RYAN BOWLING Comment:Testing performed by : [address], [address] RDW CV 14.2 11.1 - 14.9 % RYAN BOWLING Comment:Testing performed by : [address], [address] RDW SD 43.9 35.7 - 48.1 fL RYAN Comment:Testing performed by : [address], [address] NRBC abs 0.00 0.00 - 0.01 K/cumm RYAN Comment:Testing performed by : [address] [address] Blood 03/23/2025 6:40 AM CDT 03/23/2025 6:58 AM CDT Jimbo Fajardo DO LAB BLOOD ORDERABLES Final Resul t RYAN [address] [facility] [place] [address] * (ABNORMAL) Basic metabolic panel (03/23/2025 6:40 AM CDT) Sodium 138 135 - 145 mmol/L Comment:Testing performed by : [address], [address] Potassium, pl 4.4 3.3 - 4.9 mmol/L RYAN BOWLING Comment:Testing performed by : [address] [address] Chloride 102 97 - 110 mmol/L RYAN Comment:Testing performed by : [address] [address] CO2 23 22 - 32 mmol/L RYAN Comment:Testing performed by : [address] [address] Anion gap 13 2 - 15 mmol/L RYAN Comment:Testing performed by : [address] [address] BUN 42(H) 6 - 25 mg/dL RYAN Comment:Testing performed by : [address] [address] Creatinine 1.10 0.60 - 1.10 mg/dL RYAN Comment:Testing performed by : [address] [address] Glucose 144 70 - 199 mg/dL RYAN Comment: Interpretive Data Fasting glucose >/= 126 [...] Current interpretive data was last revised 2022. Testing performed by: [address] [address] Calcium 9.2 8.5 - 10.3 mg/dL RYAN Comment:Testing performed by : [address] [address] Blood 03/23/2025 6:40 AM CDT 03/23/2025 6:57 AM CDT us Jimbo Fajardo DO LAB BLOOD ORDERABLES Final Resul t RYAN [address] [facility] Department [place] [address] * (ABNORMAL) POCT glucose (03/22/2025 7:57 PM CDT) Glucose, POC 206(H) 70 - 199 mg/dL Comment:Testing performed by : [facility], [address] [place] [address]., [address] Glucose comment 1 RN/MD Notified RYAN Comment:Testing performed by : [address] [address] Blood 03/22/2025 7:57 PM CDT 03/22/2025 7:57 PM CDT Jimbo Fajardo DO LAB POCT ORDERABLES - DEVICE Fin al Result Performing Organization Address [facility] Co de Phone Number [address] [place] [address] * POCT glucose (03/22/2025 5:32 PM CDT) Glucose, POC 180 70 - 199 mg/dL Comment:Testing performed by : [address] [address] Glucose comment 1 RN/MD Notified RYAN Comment:Testing performed by : [address] [address] Blood 03/22/2025 5:32 PM CDT 03/22/2025 5:32 PM CDT Jimbo Fajardo DO LAB POCT ORDERABLES - DEVICE Fin al Result Performing Organization Address City/[facility]/ZIP Co de Phone Number [address] [place] [address] * (ABNORMAL) POCT glucose (03/22/2025 12:21 PM CDT) Glucose, POC 272(H) 70 - 199 mg/dL Comment:Testing performed by : [address] [address] Glucose comment 1 RN/MD Notified RYAN Comment:Testing performed by : [facility], [address] [place] [address]., [address] Blood 03/22/2025 12:2 1 PM CDT 03/22/2025 12:21 PM CDT Jimbo Tana BARAHONA LAB POCT ORDERABLES - DEVICE Fin al Result Performing Organization Address [facility] de Phone Number RYAN [address] [facility] [place] [address] * (ABNORMAL) eGFR (03/22/2025 10:48 AM CDT) eGFR 53(L) >=60 mL/min/1. 73 m2 Comment: Interpretive Data [...] Current interpretive data was last reviewed 2021. Testing performed by: [facility], [address] [place] [address]., [address] Blood 03/22/2025 10:4 8 AM CDT 03/22/2025 11:08 AM CDT Jimbo Fajardo DO LAB BLOOD ORDERABLES Final Resul t Performing Organization Address [facility] Co de Phone Number RYAN [address] [facility] [place] [address] * (ABNORMAL) CBC without differential (03/22/2025 10:48 AM CDT) [facility] WBC 9.32 3.80 - 9.90 K/cumm Comment:Testing performed by : [address] [address] Hgb 11.6(L) 11.9 - 15.5 g/dL RYAN Comment:Testing performed by : [address], [address] Hct 34.3(L) 35.6 - 45.5 % RYAN Comment:Testing performed by : [address], [address] Plt 290 150 - 400 K/cumm RYAN Comment:Testing performed by : [address], [address] MPV 10.0 9.1 - 12.3 fL RYAN Comment:Testing performed by : [address], [address] RBC 4.10 3.90 - 5.20 M/cumm RYAN Comment:Testing performed by : [address], [address] MCV 83.7 81.3 - 96.4 fL RYAN Comment:Testing performed by : [address], [address] MCH 28.3 27.1 - 33.3 pg RYAN Comment:Testing performed by : [address], [address] MCHC 33.8 32.3 - 35.7 g/dL RYAN Comment:Testing performed by : [address], [address] RDW CV 13.9 11.1 - 14.9 % RYAN Comment:Testing performed by : [address], [address] RDW SD 42.9 35.7 - 48.1 fL RYAN Comment:Testing performed by : [address], [address] NRBC abs 0.00 0.00 - 0.01 K/cumm RYAN Comment:Testing performed by : [address] [address] Blood 03/22/2025 10:4 8 AM CDT 03/22/2025 11:08 AM CDT us Nick Robbins MD LAB BLOOD ORDERABLES Final R esult RYAN [address] [facility] [place] [address] * (ABNORMAL) Basic metabolic panel (03/22/2025 10:48 AM CDT) Sodium 137 135 - 145 mmol/L Comment:Testing performed by : [address] [address] Potassium, pl 4.6 3.3 - 4.9 mmol/L RYAN Comment:Testing performed by : [address] [address] Chloride 98 97 - 110 mmol/L RYAN Comment:Testing performed by : [address] [address] CO2 28 22 - 32 mmol/L RYAN Comment:Testing performed by : [address] [address] Anion gap 11 2 - 15 mmol/L RYAN Comment:Testing performed by : [address] [address] BUN 48(H) 6 - 25 mg/dL RYAN Comment:Testing performed by : [address] [address] Creatinine 1.12(H) 0.60 - 1.10 mg/dL RYAN Comment:Testing performed by : [address] [address] Glucose 256(H) 70 - 199 mg/dL RYAN Comment: Interpretive Data Fasting glucose >/= 126 [...] Current interpretive data was last revised 2022. Testing performed by: [facility], [address] [place] [address]., [address] Calcium 9.9 8.5 - 10.3 mg/dL RYAN [place] Comment:Testing performed by : [address] [address] Blood 03/22/2025 10:4 8 AM CDT 03/22/2025 11:08 AM CDT Jimbo Fajardo DO LAB BLOOD ORDERABLES Final Resul t Performing Organization Address [facility] Co de Phone Number RYAN [address] [place] [address] * POCT glucose (03/22/2025 8:17 AM CDT) Glucose, POC 173 70 - 199 mg/dL Comment:Testing performed by : [address] [address] Glucose comment 1 RN/MD Notified RYAN Comment:Testing performed by : [address] [address] Blood 03/22/2025 8:17 AM CDT 03/22/2025 8:17 AM CDT Jimbo Fajardo DO LAB POCT ORDERABLES - DEVICE Fin al Result Performing Organization Address City/[facility] Co de Phone Number JESUS MANUEL[address] [place] [address] * (ABNORMAL) POCT glucose (03/21/2025 8:48 PM CDT) Glucose, POC 236(H) 70 - 199 mg/dL Comment:Testing performed by : [address] [place]., [address] Blood 03/21/2025 8:48 PM CDT 03/21/2025 8:48 PM CDT us Choi Fajardo DO LAB POCT ORDERABLES - DEVICE Fin al Result Performing Organization Address [facility] de Phone Number JESUS MANUELJEANNA [address] [address] * POCT glucose (03/21/2025 5:56 PM CDT) Glucose, POC 197 70 - 199 mg/dL Comment:Testing performed by : [address] [address] Glucose comment 1 RN/MD Notified RYAN Comment:Testing performed by : [address] [address] Blood 03/21/2025 5:56 PM CDT 03/21/2025 5:56 PM CDT us Choi Fajardo DO LAB POCT ORDERABLES - DEVICE Fin al Result Performing Organization Address [facility] de Phone Number [address] [address] * (ABNORMAL) POCT glucose (03/21/2025 11:47 AM CDT) Glucose, POC 316(H) 70 - 199 mg/dL Comment:Testing performed by : [address] [address] Glucose comment 1 Will Repeat Test RYAN [place] Comment:Testing performed by : [address] [address] Blood 03/21/2025 11:4 7 AM CDT 03/21/2025 11:47 AM CDT us Jimbo Fajardo DO LAB POCT ORDERABLES - DEVICE Fin al Result Performing Organization Address [facility] Co de Phone Number RYAN [address] [place] [address] * POCT glucose (03/21/2025 8:17 AM CDT) Glucose, POC 158 70 - 199 mg/dL Comment:Testing performed by : [address] [address] Blood 03/21/2025 8:17 AM CDT 03/21/2025 8:17 AM CDT us Jimbo Fajardo DO LAB POCT ORDERABLES - DEVICE Fin al Result RYAN [address] [facility] [place] [address] * eGFR (03/21/2025 4:42 AM CDT) eGFR 63 >=60 mL/min/1. 73 m2 [...] Current interpretive data was last reviewed 2021. Testing performed by: [facility], [address] [place] [address]., [address] Blood 03/21/2025 4:42 AM CDT 03/21/2025 5:23 AM CDT us Jordana Bland MD LAB BLOOD ORDERABLES Final Result [facility] [address] [facility] Department [place] [address] * (ABNORMAL) Differential, auto (03/21/2025 4:42 AM CDT) Neutrophil abs 7.06(H) 1.50 - 6.50 K/cumm Comment:Testing performed by : [address] [address] Imm gran abs 0.56(H) 0.00 - 0.10 K/cumm RYAN Comment:Testing performed by : [address] [address] Lymphocyte abs 3.80(H) 0.80 - 3.30 K/cumm RYAN Comment:Testing performed by : [address] [address] Monocyte abs 1.32(H) 0.20 - 0.80 K/cumm RYAN Comment:Testing performed by : [address] [address] Eosinophil abs 0.32 0.00 - 0.50 K/cumm RYAN Comment:Testing performed by : [address] [address] Basophil abs 0.08 0.00 - 0.10 K/cumm RYAN Comment:Testing performed by : [address] [address] Neutrophil pct 53.8 % RYAN Comment: Interpretive Data Percent cell count reference ranges are not reported, since discordance with absolute values may lead to misinterpretation of CBC data. Current Interpretive Data was last revised on 2017. Testing performed by: [address] [address] Imm gran pct 4.3 % RYAN Comment: Interpretive Data Percent cell count reference ranges are not reported, since discordance with absolute values may lead to misinterpretation of CBC data. Current Interpretive Data was last revised on 2017. Testing performed by: [address] [place] [address] Lymphocyte pct 28.9 % [facility] Comment: Interpretive Data Percent cell count reference ranges are not reported, since discordance with absolute values may lead to misinterpretation of CBC data. Current Interpretive Data was last revised on 2017. Testing performed by: [address] [address] Monocyte pct 10.0 % [facility] Comment: Interpretive Data Percent cell count reference ranges are not reported, since discordance with absolute values may lead to misinterpretation of CBC data. Current Interpretive Data was last revised on 2017. Testing performed by: [address] [address] Eosinophil pct 2.4 % [facility] Comment: Interpretive Data Percent cell count reference ranges are not reported, since discordance with absolute values may lead to misinterpretation of CBC data. Current Interpretive Data was last revised on 2017. Testing performed by: [address] [address] Basophil pct 0.6 % [facility] Comment: Interpretive Data Percent cell count reference ranges are not reported, since discordance with absolute values may lead to misinterpretation of CBC data. Current Interpretive Data was last revised on 2017. Testing performed by: [address] [address] Blood 03/21/2025 4:42 AM CDT 03/21/2025 5:23 AM CDT us Jordana Bland MD LAB BLOOD ORDERABLES Final Result RYAN [address] [facility] [place] [address] * (ABNORMAL) CBC with auto differential (03/21/2025 4:42 AM CDT) [facility] WBC 13.14(H) 3.80 - 9.90 K/cumm Comment:Testing performed by : [address] [address] Hgb 10.7(L) 11.9 - 15.5 g/dL RYAN Comment:Testing performed by : [address], [address] Hct 32.2(L) 35.6 - 45.5 % RYAN Comment:Testing performed by : [address] [address] Plt 227 150 - 400 K/cumm RYAN Comment:Testing performed by : [address] [address] MPV 10.2 9.1 - 12.3 fL RYAN Comment:Testing performed by : [address], [address] RBC 3.81(L) 3.90 - 5.20 M/cumm RYAN Comment:Testing performed by : [address], [address] MCV 84.5 81.3 - 96.4 fL RYAN Comment:Testing performed by : [address] [address] MCH 28.1 27.1 - 33.3 pg RYAN Comment:Testing performed by : [address], [address] MCHC 33.2 32.3 - 35.7 g/dL RYAN Comment:Testing performed by : [address], [address] RDW CV 13.9 11.1 - 14.9 % RYAN Comment:Testing performed by : [address], [address] RDW SD 43.2 35.7 - 48.1 fL RYAN Comment:Testing performed by : [address], [address] NRBC abs 0.00 0.00 - 0.01 K/cumm RYAN Comment:Testing performed by : [address] [address] Blood 03/21/2025 4:42 AM CDT 03/21/2025 5:23 AM CDT us Jordana Bland MD LAB BLOOD ORDERABLES Final Result RYAN 28[address] [facility] Department [place] [address] * (ABNORMAL) Comprehensive metabolic panel (03/21/2025 4:42 AM CDT) Sodium 135 135 - 145 mmol/L Comment:Testing performed by : [address] [address] Potassium, pl 4.4 3.3 - 4.9 mmol/L RYAN Comment:Testing performed by : [address] [address] Chloride 97 97 - 110 mmol/L RYAN Comment:Testing performed by : [address] [address] CO2 26 22 - 32 mmol/L RYAN Comment:Testing performed by : [address] [address] Anion gap 12 2 - 15 mmol/L RYAN Comment:Testing performed by : [address] [address] BUN 40(H) 6 - 25 mg/dL RYAN Comment:Testing performed by : [address] [address] Creatinine 0.97 0.60 - 1.10 mg/dL RYAN Comment:Testing performed by : [address] [address] Glucose 197 70 - 199 mg/dL RYAN Comment: Interpretive Data Fasting glucose >/= 126 [...] Current interpretive data was last revised 2022. Testing performed by: [facility], [address] [place] [address]., [address] Calcium 9.6 8.5 - 10.3 mg/dL RYAN Comment:Testing performed by : [address] [address] Bilirubin, total 0.3 0.1 - 1.2 mg/dL RYAN Comment:Testing performed by : [address] [address] Protein, pl 6.1(L) 6.5 - 8.5 g/dL RYAN Comment:Testing performed by : [address] [address] Albumin 3.2(L) 3.5 - 5.0 g/dL RYAN Comment:Testing performed by : [address] [address] Alk phos 229(H) 40 - 130 Units/L RYAN Comment:Testing performed by : [address] [address] ALT 24 7 - 45 Units/L RYAN Comment:Testing performed by : [address] [address] AST 18 10 - 45 Units/L RYAN Comment:Testing performed by : [address] [address] Blood 03/21/2025 4:42 AM CDT 03/21/2025 5:23 AM CDT us Jordana Bland MD LAB BLOOD ORDERABLES Final Result RYAN 8[address] [facility] Department [place] [address] * (ABNORMAL) POCT glucose (03/20/2025 8:46 PM CDT) [facility] Glucose, POC 349(H) 70 - 199 mg/dL Comment:Testing performed by : [address] [address] Glucose comment 1 RN/MD Notified [facility] Comment:Testing performed by : [facility], [address] [place] [address]., [address] Blood 03/20/2025 8:46 PM CDT 03/20/2025 8:46 PM CDT us Jimbo Fajardo DO LAB POCT ORDERABLES - DEVICE Fin al Result Performing Organization Address City/[facility]/ZIP Co de Phone Number JESUS MANUEL[address] [place] [address] * POCT glucose (03/20/2025 12:04 PM CDT) Glucose, POC 139 70 - 199 mg/dL Comment:Testing performed by : [address] [address] Blood 03/20/2025 12:0 4 PM CDT 03/20/2025 12:04 PM CDT us Jimbo Fajardo DO LAB POCT ORDERABLES - DEVICE Fin al Result Performing Organization Address [facility] Co de Phone Number [address] [address] * POCT glucose (03/20/2025 4:17 AM CDT) Glucose, POC 175 70 - 199 mg/dL Comment:Testing performed by : [address] [address] Blood 03/20/2025 4:17 AM CDT 03/20/2025 4:17 AM CDT us Choi Fajardo DO LAB POCT ORDERABLES - DEVICE Fin al Result Performing Organization Address City/[facility] Co de Phone Number [address] [address] * (ABNORMAL) POCT glucose (03/20/2025 12:24 AM CDT) Glucose, POC 247(H) 70 - 199 mg/dL Comment:Testing performed by : [address] [address] Blood 03/20/2025 12:2 4 AM CDT 03/20/2025 12:24 AM CDT [employer] DO LAB POCT ORDERABLES - DEVICE Fin al Result Performing Organization Address [facility] Co de Phone Number JESUS MANUEL[address] [place] [address] * (ABNORMAL) POCT glucose (03/19/2025 8:51 PM CDT) [facility] Glucose, POC 320(H) 70 - 199 mg/dL Comment:Testing performed by : [address] [address] Blood 03/19/2025 8:51 PM CDT 03/19/2025 8:51 PM CDT [employer] DO LAB POCT ORDERABLES - DEVICE Fin al Result Performing Organization Address [facility] de Phone Number [address] [address] * eGFR (03/19/2025 5:39 AM CDT) [facility] eGFR >90 >=60 mL/min/1. 73 m2 Comment: Interpretive Data [...] Current interpretive data was last reviewed 2021. Testing performed by: [address] [address] Blood 03/19/2025 5:39 AM CDT 03/19/2025 6:49 AM CDT us Jordana Bland MD LAB BLOOD ORDERABLES Final Result RYAN 45[address] [facility] [place] [address] * (ABNORMAL) Differential, auto (03/19/2025 5:39 AM CDT) Neutrophil abs 3.11 1.50 - 6.50 K/cumm Comment:Testing performed by : [address] [address] Imm gran abs 0.07 0.00 - 0.10 K/cumm RYAN Comment:Testing performed by : [address] [address] Lymphocyte abs 2.22 0.80 - 3.30 K/cumm RYAN Comment:Testing performed by : [address] [address] Monocyte abs 1.16(H) 0.20 - 0.80 K/cumm RYAN Comment:Testing performed by : [address] [address] Eosinophil abs 0.21 0.00 - 0.50 K/cumm RYAN Comment:Testing performed by : [address] [address] Basophil abs 0.06 0.00 - 0.10 K/cumm RYAN Comment:Testing performed by : [address] [address] Neutrophil pct 45.5 % RYAN Comment: Interpretive Data Percent cell count reference ranges are not reported, since discordance with absolute values may lead to misinterpretation of CBC data. Current Interpretive Data was last revised on 2017. Testing performed by: [address] [address] Imm gran pct 1.0 % [facility] Comment: Interpretive Data Percent cell count reference ranges are not reported, since discordance with absolute values may lead to misinterpretation of CBC data. Current Interpretive Data was last revised on 2017. Testing performed by: [address] [address] Lymphocyte pct 32.5 % [facility] Comment: Interpretive Data Percent cell count reference ranges are not reported, since discordance with absolute values may lead to misinterpretation of CBC data. Current Interpretive Data was last revised on 2017. Testing performed by: [address] [address] Monocyte pct 17.0 % [facility] Comment: Interpretive Data Percent cell count reference ranges are not reported, since discordance with absolute values may lead to misinterpretation of CBC data. Current Interpretive Data was last revised on 2017. Testing performed by: [address] [address] Eosinophil pct 3.1 % [facility] Comment: Interpretive Data Percent cell count reference ranges are not reported, since discordance with absolute values may lead to misinterpretation of CBC data. Current Interpretive Data was last revised on 2017. Testing performed by: [address] [address] Basophil pct 0.9 % [facility] Comment: Interpretive Data Percent cell count reference ranges are not reported, since discordance with absolute values may lead to misinterpretation of CBC data. Current Interpretive Data was last revised on 2017. Testing performed by: [address] [address] Blood 03/19/2025 5:39 AM CDT 03/19/2025 6:51 AM CDT Jordana Bland MD LAB BLOOD ORDERABLES Final Result [facility] [address] [facility] [place] [address] * CBC with auto differential (03/19/2025 5:39 AM CDT) WBC 6.83 3.80 - 9.90 K/cumm Comment:Testing performed by : [address] [address] Hgb 12.0 11.9 - 15.5 g/dL RYAN Comment:Testing performed by : [address], [address] Hct 36.1 35.6 - 45.5 % RYAN Comment:Testing performed by : [address] [address] Plt 159 150 - 400 K/cumm RYAN Comment:Testing performed by : [address] [address] MPV 10.5 9.1 - 12.3 fL RYAN Comment:Testing performed by : [address], [address] RBC 4.28 3.90 - 5.20 M/cumm RYAN Comment:Testing performed by : [address] [address] MCV 84.3 81.3 - 96.4 fL RYAN Comment:Testing performed by : [address] [address] MCH 28.0 27.1 - 33.3 pg RYAN Comment:Testing performed by : [address] [address] MCHC 33.2 32.3 - 35.7 g/dL RYAN Comment:Testing performed by : [address] [address] RDW CV 14.0 11.1 - 14.9 % RYAN Comment:Testing performed by : [address], [address] RDW SD 43.5 35.7 - 48.1 fL RYAN [place] Comment:Testing performed by : [address] [address] NRBC abs 0.00 0.00 - 0.01 K/cumm RYAN Comment:Testing performed by : [address] [address] Blood 03/19/2025 5:39 AM CDT 03/19/2025 6:51 AM CDT Jordana Bland MD LAB BLOOD ORDERABLES Final Result RYAN 45[address] [facility] [place] [address] * (ABNORMAL) Comprehensive metabolic panel (03/19/2025 5:39 AM CDT) Sodium 137 135 - 145 mmol/L Comment:Testing performed by : [address] [address] Potassium, pl 4.2 3.3 - 4.9 mmol/L RYAN Comment:Testing performed by : [address] [address] Chloride 100 97 - 110 mmol/L RYAN Comment:Testing performed by : [address] [address] CO2 22 22 - 32 mmol/L RYAN Comment:Testing performed by : [address] [address] Anion gap 15 2 - 15 mmol/L RYAN Comment:Testing performed by : [address] [address] BUN 27(H) 6 - 25 mg/dL RYAN Comment:Testing performed by : [address] [address] Creatinine 0.70 0.60 - 1.10 mg/dL RYAN Comment:Testing performed by : [address] [address] Glucose 151 70 - 199 mg/dL RYAN Comment: Interpretive Data Fasting glucose >/= 126 [...] Current interpretive data was last revised 2022. Testing performed by: [address] [address] Calcium 9.7 8.5 - 10.3 mg/dL RYAN Comment:Testing performed by : [address] [address] Bilirubin, total 0.4 0.1 - 1.2 mg/dL [facility] Comment:Testing performed by : [address] [address] Protein, pl 6.4(L) 6.5 - 8.5 g/dL [facility] Comment:Testing performed by : [address] [address] Albumin 3.0(L) 3.5 - 5.0 g/dL [facility] Comment:Testing performed by : [address] [address] Alk phos 332(H) 40 - 130 Units/L [facility] Comment:Testing performed by : [address] [address] ALT 46(H) 7 - 45 Units/L [facility] Comment:Testing performed by : [address] [address] AST 45 10 - 45 Units/L [facility] Comment:Testing performed by : [address] [address] Blood 03/19/2025 5:39 AM CDT 03/19/2025 6:49 AM CDT Jordana Bland MD LAB BLOOD ORDERABLES Final Result Performing Organization Address [facility] Co de Phone Number RYAN [address] [address] * POCT glucose (03/19/2025 3:31 AM CDT) Glucose, POC 144 70 - 199 mg/dL Comment:Testing performed by : [address] [address] Blood 03/19/2025 3:31 AM CDT 03/19/2025 3:31 AM CDT us Jimbo Fajardo DO LAB POCT ORDERABLES - DEVICE Fin al Result Performing Organization Address [facility] Co de Phone Number RYAN [address] [place] [address] * (ABNORMAL) POCT glucose (03/18/2025 11:32 PM CDT) Glucose, POC 202(H) 70 - 199 mg/dL Comment:Testing performed by : [address] [address] Blood 03/18/2025 11:3 2 PM CDT 03/18/2025 11:32 PM CDT us Jimbo MORRIS POCT ORDERABLES - DEVICE Fin al Result Performing Organization Address [facility] Co de Phone Number JESUS MANUEL[address] [address] * (ABNORMAL) POCT glucose (03/18/2025 9:51 PM CDT) Glucose, POC 228(H) 70 - 199 mg/dL Comment:Testing performed by : [address] [address] Blood 03/18/2025 9:51 PM CDT 03/18/2025 9:51 PM CDT us Jimbo Fajardo DO LAB POCT ORDERABLES - DEVICE Fin al Result Performing Organization Address [facility] de Phone Number RYAN [facility] [place] [address] * (ABNORMAL) POCT glucose (03/18/2025 5:06 PM CDT) Pathologist [facility] Glucose, POC 271(H) 70 - 199 mg/dL Comment:Testing performed by : [facility], [address] [place] [address]., [address] Glucose comment 1 RN/MD Notified RYAN Comment:Testing performed by : [facility], [address] [place] [address]., [address] Blood 03/18/2025 5:06 PM CDT 03/18/2025 5:06 PM CDT Jimbo Fajardo DO LAB POCT ORDERABLES - DEVICE Fin al Result Performing Organization Address [facility] de Phone Number JESUS MANUEL[address] [place] [address] * Infection Prevention Nan auris PCR, surveillance Axilla/Groin (03/18/2025 1:53 PM CDT) [facility] Nan auris DNA Not Detected Not Detected [facility] Comment: Interpretive Data Testing performed by [facility] Molecular Infectious Disease Laboratory using the Jack macho 6800 Nan auris assay. This assay detects DNA from Nan auris using Real-Time PCR. This assay is laboratory developed and is not cleared by the [facility] Food and Drug Administration. The performance characteristics have been verified by the [facility] Molecular Infectious Disease Laboratory. Testing performed by: [facility], [address] [place]., [address] Axilla/Groin 03/18/2025 1:53 PM CDT 03/18/2025 6:16 PM CDT Nick Robbins MD LAB MICROBIOLOGY - GENERAL O RDERABLES Final Result Performing Organization Address City/[facility]/ZIP Co de Phone Number RYAN [address] [facility] [place] [address] [facility] * CP-CRE culture, surveillance Rectal swab Anal (03/18/2025 1:53 PM CDT) Pathologist [facility] Report Final Report: Negative Comment:Testing performed by : [facility], [address] [place]., [address] Rectal swab (Anal) 03/18/2025 1:53 PM CDT 03/18/2025 5:36 PM CDT Narrative RYAN - 03/20/2025 12:20 PM CDT Interpretive Data The screening agar used for the detection of carbapenemase-producing Enterobacterales (CP-CRE) has not been approved by the Food and Drug Administration. The performance characteristics of this medium have been evaluated and verified by the [facility] Microbiology Laboratory. This media demonstrates highest sensitivity for KPC and NDM-1 producing isolates. This screening assay is exclusively intended for infection control and surveillance, not for patient diagnosis or treatment purposes. Current interpretive data was last revised on 2023. us Nick Robbins MD LAB MICROBIOLOGY - GENERAL O RDERABLES Final Result Performing Organization Address [facility] Co de Phone Number RYAN [address] [facility] Department [place] [address] * (ABNORMAL) POCT glucose (03/18/2025 12:12 PM CDT) Glucose, POC 262(H) 70 - 199 mg/dL Comment:Testing performed by : [facility], [address] [place] [address]., [id number] Glucose comment 1 RN/MD Notified [facility] Comment:Testing performed by : [facility], [address] [place] [address]., [id number] Blood 03/18/2025 12:1 2 PM CDT 03/18/2025 12:12 PM CDT us Jimbo Fajardo DO LAB POCT ORDERABLES - DEVICE Fin al Result Performing Organization Address City/[facility] Co de Phone Number JESUS MANUEL[address] [place] [address] * POCT glucose (03/18/2025 9:19 AM CDT) Glucose, POC 130 70 - 199 mg/dL Comment:Testing performed by : [facility], [address] [place] [address]., [address] Blood 03/18/2025 9:19 AM CDT 03/18/2025 9:19 AM CDT Jimbo Fajardo DO LAB POCT ORDERABLES - DEVICE Fin al Result Performing Organization Address [facility] Co de Phone Number JESUS MANUEL[address] [address] * eGFR (03/18/2025 8:16 AM CDT) Pathologist [facility] eGFR 69 >=60 mL/min/1. 73 m2 Comment: [...] Current interpretive data was last reviewed 2021. Testing performed by: [facility], [address] [place] [address]., [id number] Blood 03/18/2025 8:16 AM CDT 03/18/2025 8:19 AM CDT us Jordana Bland MD LAB BLOOD ORDERABLES Final Result RYAN [address] [facility] [place] [address] * (ABNORMAL) Differential, auto (03/18/2025 8:16 AM CDT) Neutrophil abs 3.20 1.50 - 6.50 K/cumm Comment:Testing performed by : [address] [address] Imm gran abs 0.03 0.00 - 0.10 K/cumm RYAN Comment:Testing performed by : [address] [address] Lymphocyte abs 1.52 0.80 - 3.30 K/cumm RYAN Comment:Testing performed by : [address] [address] Monocyte abs 0.83(H) 0.20 - 0.80 K/cumm RYAN Comment:Testing performed by : [address] [address] Eosinophil abs 0.13 0.00 - 0.50 K/cumm RYAN Comment:Testing performed by : [address] [address] Basophil abs 0.03 0.00 - 0.10 K/cumm RYAN Comment:Testing performed by : [address] [address] Neutrophil pct 55.7 % RYAN Comment: Interpretive Data Percent cell count reference ranges are not reported, since discordance with absolute values may lead to misinterpretation of CBC data. Current Interpretive Data was last revised on 2017. Testing performed by: [address] [address] Imm gran pct 0.5 % RYAN Comment: Interpretive Data Percent cell count reference ranges are not reported, since discordance with absolute values may lead to misinterpretation of CBC data. Current Interpretive Data was last revised on 2017. Testing performed by: [address] [address] Lymphocyte pct 26.5 % [facility] Comment: Interpretive Data Percent cell count reference ranges are not reported, since discordance with absolute values may lead to misinterpretation of CBC data. Current Interpretive Data was last revised on 2017. Testing performed by: [address] [address] Monocyte pct 14.5 % [facility] Comment: Interpretive Data Percent cell count reference ranges are not reported, since discordance with absolute values may lead to misinterpretation of CBC data. Current Interpretive Data was last revised on 2017. Testing performed by: [address] [address] Eosinophil pct 2.3 % [facility] Comment: Interpretive Data Percent cell count reference ranges are not reported, since discordance with absolute values may lead to misinterpretation of CBC data. Current Interpretive Data was last revised on 2017. Testing performed by: [address] [address] Basophil pct 0.5 % [facility] Comment: Interpretive Data Percent cell count reference ranges are not reported, since discordance with absolute values may lead to misinterpretation of CBC data. Current Interpretive Data was last revised on 2017. Testing performed by: [address] [address] Blood 03/18/2025 8:16 AM CDT 03/18/2025 8:19 AM CDT us Jordana Bland MD LAB BLOOD ORDERABLES Final Result [facility] [address] [facility] Department [place] [address] * (ABNORMAL) CBC with auto differential (03/18/2025 8:16 AM CDT) WBC 5.74 3.80 - 9.90 K/cumm Comment:Testing performed by : [address] [address] Hgb 11.6(L) 11.9 - 15.5 g/dL RYAN Comment:Testing performed by : [address] [address] Hct 34.2(L) 35.6 - 45.5 % RYAN Comment:Testing performed by : [address] [address] Plt 144(L) 150 - 400 K/cumm RYAN Comment:Testing performed by : [address] [address] MPV 10.5 9.1 - 12.3 fL RYAN Comment:Testing performed by : [address], [address] RBC 4.05 3.90 - 5.20 M/cumm RYAN Comment:Testing performed by : [address], [address] MCV 84.4 81.3 - 96.4 fL RYAN Comment:Testing performed by : [address], [address] MCH 28.6 27.1 - 33.3 pg RYAN Comment:Testing performed by : [address], [address] MCHC 33.9 32.3 - 35.7 g/dL RYAN Comment:Testing performed by : [address], [address] RDW CV 14.2 11.1 - 14.9 % RYAN Comment:Testing performed by : [address], [address] RDW SD 43.8 35.7 - 48.1 fL RYAN Comment:Testing performed by : [address], [address] NRBC abs 0.00 0.00 - 0.01 K/cumm RYAN Comment:Testing performed by : [address] [address] Blood 03/18/2025 8:16 AM CDT 03/18/2025 8:19 AM CDT Jordana Bland MD LAB BLOOD ORDERABLES Final Result Performing Organization Address City/[facility] Co de Phone Number RYAN [address] [facility] Department [place] [address] * Hepatitis panel, acute Blood (03/18/2025 8:16 AM CDT) Hep A IgM Nonreactive Nonreactive Comment: Interpretive Data: If Hep A IgM Ab is reported as Equivocal, a new sample should be drawn in two weeks for testing. Current interpretive data was last revised on 19. Hep B core IgM Nonreactive Nonreactive [facility] Comment: Interpretive Data If HepB Core IgM Ab is reported as Equivocal, a new sample should be drawn in two weeks for testing. Current interpretive data was last revised on 19. Hep C Ab Nonreactive Nonreactive [facility] Comment: Antibodies to HCV not detected. Does NOT exclude the possibility of recent exposure to HCV. Current interpretive data was last revised on 22 Interpretive Data Nonreactive: Antibodies to HCV not detected. Does NOT exclude the possibility of recent exposure to HCV. Equivocal: Equivocal for HCV antibodies. Supplemental molecular testing will be automatically performed to determine infection status in accordance with current CDC screening recommendations. Reactive: Positive for HCV antibodies. This may represent current or past HCV infection. Supplemental molecular testing will be automatically performed to determine current infection status in accordance with current CDC screening recommendations. Interpretive data was last revised on 2019. HepBsAg Nonreactive Nonreactive [facility] Blood 03/18/2025 8:16 AM CDT 03/18/2025 10:24 AM CDT Jimbo Fajardo DO LAB MICROBIOLOGY - GENERAL ORDER SYLWIA Final Result Performing Organization Address City/[facility]/ZIP Co de Phone Number RYAN [address] [facility] [place] [address] * (ABNORMAL) Comprehensive metabolic panel (03/18/2025 8:16 AM CDT) Sodium 136 135 - 145 mmol/L Comment:Testing performed by : [address], [place]., [address] Potassium, pl 4.4 3.3 - 4.9 mmol/L [facility] Comment:Testing performed by : [address], [place]., [address] Chloride 100 97 - 110 mmol/L [facility] Comment:Testing performed by : [address], [place]., [address] CO2 23 22 - 32 mmol/L [facility] Comment:Testing performed by : [address], [place]., [address] Anion gap 13 2 - 15 mmol/L [facility] Comment:Testing performed by : [address] [address] BUN 28(H) 6 - 25 mg/dL [facility] Comment:Testing performed by : [address], [place]., [address] Creatinine 0.90 0.60 - 1.10 mg/dL [facility] Comment:Testing performed by : [address], [place]., [address] Glucose 136 70 - 199 mg/dL [facility] Comment: Interpretive Data Fasting glucose >/= 126 [...] Current interpretive data was last revised 2022. Testing performed by: [address] [address] Calcium 9.2 8.5 - 10.3 mg/dL RYAN Comment:Testing performed by : [address] [address] Bilirubin, total 0.4 0.1 - 1.2 mg/dL RYAN Comment:Testing performed by : [address] [address] Protein, pl 6.3(L) 6.5 - 8.5 g/dL RYAN [place] Comment:Testing performed by : [address] [address] Albumin 3.2(L) 3.5 - 5.0 g/dL RYAN [place] Comment:Testing performed by : [address] [address] Alk phos 374(H) 40 - 130 Units/L RYAN Comment:Testing performed by : [address] [address] ALT 67(H) 7 - 45 Units/L RYAN Comment:Testing performed by : [address] [address] AST 120(H) 10 - 45 Units/L RYAN Comment:Testing performed by : [address] [address] Blood 03/18/2025 8:16 AM CDT 03/18/2025 8:19 AM CDT us Jordana Bland MD LAB BLOOD ORDERABLES Final Result Performing Organization Address City/[facility]/ZIP Co de Phone Number [address] [place] [address] * POCT glucose (03/18/2025 4:34 AM CDT) [facility] Signature Glucose, POC 173 70 - 199 mg/dL Comment:Testing performed by : [address] [address] Blood 03/18/2025 4:34 AM CDT 03/18/2025 4:34 AM CDT us Jimbo Fajarod DO LAB POCT ORDERABLES - DEVICE Fin al Result Performing Organization Address City/[facility] Co de Phone Number [address] [place] [address] * (ABNORMAL) POCT glucose (03/18/2025 12:13 AM CDT) Glucose, POC 224(H) 70 - 199 mg/dL Comment:Testing performed by : [address] [address] Blood 03/18/2025 12:1 3 AM CDT 03/18/2025 12:13 AM CDT Jimbo Fajardo DO LAB POCT ORDERABLES - DEVICE Fin al Result Performing Organization Address [facility] Co de Phone Number [address] [place] [address] * (ABNORMAL) POCT glucose (03/17/2025 8:42 PM CDT) Glucose, POC 340(H) 70 - 199 mg/dL Comment:Testing performed by : [address] [address] Blood 03/17/2025 8:42 PM CDT 03/17/2025 8:42 PM CDT Jimbo Fajardo [employer] LAB POCT ORDERABLES - DEVICE Fin al Result Performing Organization Address [facility] de Phone Number [address] [place] [address] * (ABNORMAL) POCT glucose (03/17/2025 8:07 PM CDT) Glucose, POC 306(H) 70 - 199 mg/dL Comment:Testing performed by : [address] [address] Blood 03/17/2025 8:07 PM CDT 03/17/2025 8:07 PM CDT Jimbo Fajardo DO LAB POCT ORDERABLES - DEVICE Fin al Result Performing Organization Address [facility] Co de Phone Number JESUS MANUEL[address] [place] [address] * (ABNORMAL) POCT glucose (03/17/2025 5:57 PM CDT) [facility] Glucose, POC 224(H) 70 - 199 mg/dL Comment:Testing performed by : [facility], [address] [place] [address]., [address] Glucose comment 1 RN/MD Notified RYAN Comment:Testing performed by : [address] [address] Blood 03/17/2025 5:57 PM CDT 03/17/2025 5:57 PM CDT Jimbo Fajardo DO LAB POCT ORDERABLES - DEVICE Fin al Result RYAN [address] [facility] [place] [address] * ECG 12 lead (03/17/2025 4:11 PM CDT) [facility] Ventricular Rate EKG/Min 78 BPM [facility] Atrial Rate 78 BPM [facility] TN-Interval (MSEC) 160 ms [facility] QRS-Interval (MSEC) 84 ms [facility] QT-Interval (MSEC) 358 ms [facility] QTc 408 ms [facility] P Chester 35 degrees [facility] R Chester -21 degrees [facility] T Chester 1 degrees [facility] Diagnosis Normal sinus rhythm Minimal voltage criteria for LVH, may be normal variant 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 ([id number]) on 03/18/2025 8:03:28 AM [facility] 03/17/2025 4:11 PM CDT 03/18/2025 8:03 AM CDT us Jimbo Fajardo DO ECG ORDERABLES Final Result [facility] * POCT glucose (03/17/2025 12:59 PM CDT) Glucose, POC 185 70 - 199 mg/dL Comment:Testing performed by : [facility], [address] [place] [address]., [address] Glucose comment 1 RN/MD Notified RYAN Comment:Testing performed by : [facility], [address] [place] [address]., [address] Blood 03/17/2025 12:5 9 PM CDT 03/17/2025 12:59 PM CDT us Jimbo Fajardo DO LAB POCT ORDERABLES - DEVICE Fin al Result RYAN [address] [facility] [place] [address] * Blood culture Blood (03/17/2025 11:33 AM CDT) Report Final Report: No growth Comment:Testing performed by : [facility], [address] [place] [address] Blood 03/17/2025 11:3 3 AM CDT 03/17/2025 1:11 PM CDT Narrative JESUS MANUELJEANNA - 03/21/2025 4:00 PM CDT Collection->Peripheral 1. Blood cultures are incubated for 4 days on a continuously monitored blood culture system. The first report of a negative culture is issued within 24 hours of receipt of the specimen in the laboratory. 2. Positive culture results are reported as soon as they are detected. 3. The most important factor for detection of microbes in the setting of bloodstream infection is the volume of blood submitted for culture. Failure to collect an optimal blood volume can result in false negative blood cultures. 4. For pediatric patients, the recommended blood volume to collect follows a weight based strategy. See the electronic test catalog for collection instructions. 5. For positive blood cultures, a rapid molecular test may be performed for organism identification using the macho e[employer]lex blood culture identification panel for gram positive (BCID-GP) and gram negative (BCID-GN) organisms. This nucleic acid amplification test detects microbial DNA in positive blood culture broth. This assay has been cleared by the [place] Food and Drug Administration and its performance characteristics have been verified by the [facility] Microbiology Laboratory. For questions about this culture, contact the Microbiology Laboratory at [phone]. Interpretive data was last revised on 24. Nick Robbins MD LAB MICROBIOLOGY - GENERAL O RDERABLES Final Result Performing Organization Address City/[facility] Co de Phone Number [address] [address] * POCT glucose (03/17/2025 9:43 AM CDT) Glucose, POC 135 70 - 199 mg/dL Comment:Testing performed by : [facility], [address] [place] [address]., [address] Blood 03/17/2025 9:43 AM CDT 03/17/2025 9:43 AM CDT Jimbo Fajardo DO LAB POCT ORDERABLES - DEVICE Fin al Result Performing Organization Address [facility] de Phone Number [address] [id number] * Blood culture Blood (03/17/2025 8:31 AM CDT) Report Final Report: No growth Comment:Testing performed by : [facility], [address] [place]., [address] Blood 03/17/2025 8:31 AM CDT 03/17/2025 12:28 PM CDT Narrative [facility] - 03/21/2025 4:00 PM CDT Collection->Peripheral 1. Blood cultures are incubated for 4 days on a continuously monitored blood culture system. The first report of a negative culture is issued within 24 hours of receipt of the specimen in the laboratory. 2. Positive culture results are reported as soon as they are detected. 3. The most important factor for detection of microbes in the setting of bloodstream infection is the volume of blood submitted for culture. Failure to collect an optimal blood volume can result in false negative blood cultures. 4. For pediatric patients, the recommended blood volume to collect follows a weight based strategy. See the electronic test catalog for collection instructions. 5. For positive blood cultures, a rapid molecular test may be performed for organism identification using the mach[employer] ePlex blood culture identification panel for gram positive (BCID-GP) and gram negative (BCID-GN) organisms. This nucleic acid amplification test detects microbial DNA in positive blood culture broth. This assay has been cleared by the [place] Food and Drug Administration and its performance characteristics have been verified by the [facility] Microbiology Laboratory. For questions about this culture, contact the Microbiology Laboratory at [phone]. Interpretive data was last revised on 24. Nick Robbins MD LAB MICROBIOLOGY - GENERAL O RDERABLES Final Result Performing Organization Address City/[facility] Co de Phone Number RYAN [address] [place] [address] * POCT glucose (03/17/2025 4:36 AM CDT) [facility] Glucose, POC 142 70 - 199 mg/dL Comment:Testing performed by : [address] [address] Glucose comment 1 RN/MD Notified [facility] Comment:Testing performed by : [address] [address] Blood 03/17/2025 4:36 AM CDT 03/17/2025 4:36 AM CDT Jimbo Fajardo DO LAB POCT ORDERABLES - DEVICE Fin al Result Performing Organization Address City/[facility]/ZIP Co de Phone Number JESUS MANUEL[address] [place] [address] * (ABNORMAL) eGFR (03/17/2025 4:20 AM CDT) [facility] eGFR 52(L) >=60 mL/min/1. 73 m2 Comment: Interpretive Data [...] Current interpretive data was last reviewed 2021. Testing performed by: [address] [address] Blood 03/17/2025 4:20 AM CDT 03/17/2025 4:57 AM CDT us Jordana Bland MD LAB BLOOD ORDERABLES Final Result RYAN [address] [facility] Department of Laboratories [place], [place] [id number] * (ABNORMAL) Differential, auto (03/17/2025 4:20 AM CDT) Neutrophil abs 11.55(H) 1.50 - 6.50 K/cumm Comment:Testing performed by : [address] [address] Imm gran abs 0.09 0.00 - 0.10 K/cumm RYAN [place] Comment:Testing performed by : [address] [address] Lymphocyte abs 0.94 0.80 - 3.30 K/cumm RYAN [place] Comment:Testing performed by : [address] [address] Monocyte abs 0.72 0.20 - 0.80 K/cumm RYAN [place] Comment:Testing performed by : [address] [address] Eosinophil abs 0.04 0.00 - 0.50 K/cumm RYAN Comment:Testing performed by : [address] [address] Basophil abs 0.02 0.00 - 0.10 K/cumm RYAN Comment:Testing performed by : [address] [address] Neutrophil pct 86.5 % [facility] Comment: Interpretive Data Percent cell count reference ranges are not reported, since discordance with absolute values may lead to misinterpretation of CBC data. Current Interpretive Data was last revised on 2017. Testing performed by: [address] [address] Imm gran pct 0.7 % [facility] Comment: Interpretive Data Percent cell count reference ranges are not reported, since discordance with absolute values may lead to misinterpretation of CBC data. Current Interpretive Data was last revised on 2017. Testing performed by: [address] [address] Lymphocyte pct 7.0 % [facility] Comment: Interpretive Data Percent cell count reference ranges are not reported, since discordance with absolute values may lead to misinterpretation of CBC data. Current Interpretive Data was last revised on 2017. Testing performed by: [address] [address] Monocyte pct 5.4 % [facility] Comment: Interpretive Data Percent cell count reference ranges are not reported, since discordance with absolute values may lead to misinterpretation of CBC data. Current Interpretive Data was last revised on 2017. Testing performed by: [address] [address] Eosinophil pct 0.3 % [facility] Comment: Interpretive Data Percent cell count reference ranges are not reported, since discordance with absolute values may lead to misinterpretation of CBC data. Current Interpretive Data was last revised on 2017. Testing performed by: [address] [address] Basophil pct 0.1 % [facility] Comment: Interpretive Data Percent cell count reference ranges are not reported, since discordance with absolute values may lead to misinterpretation of CBC data. Current Interpretive Data was last revised on 2017. Testing performed by: [address] [address] Blood 03/17/2025 4:20 AM CDT 03/17/2025 5:02 AM CDT Jordana Bland MD LAB BLOOD ORDERABLES Final Result RYAN [address] [facility] [place] [address] * (ABNORMAL) CBC with auto differential (03/17/2025 4:20 AM CDT) WBC 13.36(H) 3.80 - 9.90 K/cumm Comment:Testing performed by : [address] [address] Hgb 12.3 11.9 - 15.5 g/dL RYAN Comment:Testing performed by : [address] [address] Hct 36.7 35.6 - 45.5 % RYAN Comment:Testing performed by : [address] [address] Plt 133(L) 150 - 400 K/cumm RYAN Comment:Testing performed by : [address] [address] MPV 11.3 9.1 - 12.3 fL RYAN Comment:Testing performed by : [address] [address] RBC 4.29 3.90 - 5.20 M/cumm RYAN [place] Comment:Testing performed by : [address] [address] MCV 85.5 81.3 - 96.4 fL RYAN Comment:Testing performed by : [address] [address] MCH 28.7 27.1 - 33.3 pg RYAN [place]OWLING Comment:Testing performed by : [address] [address] MCHC 33.5 32.3 - 35.7 g/dL RYAN [place] Comment:Testing performed by : [address] [address] RDW CV 14.6 11.1 - 14.9 % RYAN [place] Comment:Testing performed by : [address] [address] RDW SD 45.4 35.7 - 48.1 fL RYAN [place] Comment:Testing performed by : [address] [address] NRBC abs 0.00 0.00 - 0.01 K/cumm RYAN [place]OWLING Comment:Testing performed by : [address] [address] Blood 03/17/2025 4:20 AM CDT 03/17/2025 5:02 AM CDT Jordana Bland MD LAB BLOOD ORDERABLES Final Result RYAN BOWLING [facility] Department [place] [address] * (ABNORMAL) Comprehensive metabolic panel (03/17/2025 4:20 AM CDT) Sodium 137 135 - 145 mmol/L Comment:Testing performed by : [address] [address] Potassium, pl 4.6 3.3 - 4.9 mmol/L RYAN [place]OWLING Comment:Testing performed by : [address] [address] Chloride 101 97 - 110 mmol/L RYAN [place] Comment:Testing performed by : [address] [address] CO2 24 22 - 32 mmol/L RYAN [place] Comment:Testing performed by : [address] [address] Anion gap 12 2 - 15 mmol/L RYAN Comment:Testing performed by : [address] [address] BUN 35(H) 6 - 25 mg/dL RYAN Comment:Testing performed by : [address] [address] Creatinine 1.13(H) 0.60 - 1.10 mg/dL RYAN Comment:Testing performed by : [address] [address] Glucose 159 70 - 199 mg/dL [facility] Comment: Interpretive Data Fasting glucose >/= 126 [...] Current interpretive data was last revised 2022. Testing performed by: [address] [address] Calcium 9.4 8.5 - 10.3 mg/dL [facility] Comment:Testing performed by : [address] [address] Bilirubin, total 0.7 0.1 - 1.2 mg/dL [facility]:Testing performed by : [address] [address] Protein, pl 6.5 6.5 - 8.5 g/dL [facility] Comment:Testing performed by : [address] [address] Albumin 3.1(L) 3.5 - 5.0 g/dL RYAN Comment:Testing performed by : [address] [address] Alk phos 277(H) 40 - 130 Units/L RYAN Comment:Testing performed by : [address] [address] ALT 44 7 - 45 Units/L RYAN Comment:Testing performed by : [address] [address] AST 130(H) 10 - 45 Units/L RYAN [place] Comment:Testing performed by : [address] [address] Blood 03/17/2025 4:20 AM CDT 03/17/2025 4:57 AM CDT Jordana Bland MD LAB BLOOD ORDERABLES Final Result Performing Organization Address [facility] Co de Phone Number [address] [employer] [place] [address] * (ABNORMAL) POCT glucose (03/17/2025 12:02 AM CDT) Glucose, POC 266(H) 70 - 199 mg/dL Comment:Testing performed by : [address], [address] Glucose comment 1 RN/MD Notified RYAN Comment:Testing performed by : [address], [address] Blood 03/17/2025 12:0 2 AM CDT 03/17/2025 12:02 AM CDT Jimbo Fajardo DO LAB POCT ORDERABLES - DEVICE Fin al Result Performing Organization Address City/[facility] Co de Phone Number [address] [place] [address] * (ABNORMAL) POCT glucose (03/16/2025 8:39 PM CDT) Glucose, POC 260(H) 70 - 199 mg/dL Comment:Testing performed by : [address] [address] Glucose comment 1 RN/MD Notified RYAN Comment:Testing performed by : [address], [address] Blood 03/16/2025 8:39 PM CDT 03/16/2025 8:39 PM CDT Jimbo Fajardo DO LAB POCT ORDERABLES - DEVICE Fin al Result Performing Organization Address [facility] Co de Phone Number JESUS MANUEL[address] [address] * POCT glucose (03/16/2025 5:10 PM CDT) Glucose, POC 178 70 - 199 mg/dL Comment:Testing performed by : [address] [address] Blood 03/16/2025 5:10 PM CDT 03/16/2025 5:10 PM CDT Jimbo Fajardo DO LAB POCT ORDERABLES - DEVICE Fin al Result Performing Organization Address [facility] de Phone Number [address] [address] * (ABNORMAL) POCT glucose (03/16/2025 12:00 PM CDT) Glucose, POC 205(H) 70 - 199 mg/dL Comment:Testing performed by : [address] [address] Blood 03/16/2025 12:0 0 PM CDT 03/16/2025 12:00 PM CDT Jimbo Fajardo DO LAB POCT ORDERABLES - DEVICE Fin al Result Performing Organization Address [facility] de Phone Number [address] [address] * POCT glucose (03/16/2025 8:11 AM CDT) Glucose, POC 159 70 - 199 mg/dL Comment:Testing performed by : [address] [address] Blood 03/16/2025 8:11 AM CDT 03/16/2025 8:11 AM CDT Jimbo Fajardo DO LAB POCT ORDERABLES - DEVICE Fin al Result Performing Organization Address City/[facility]/ZIP Co de Phone Number JESUS MANUEL[address] [address] * Blood smear review (03/16/2025 4:33 AM CDT) RBC morphology Consistent with RBC Indicies Comment:Testing performed by : [facility], [address] [place] [address]., [address] Platelet estimate Adequate RYAN Comment:Testing performed by : [facility], [address] [place] [address]., [address] Blood 03/16/2025 4:33 AM CDT 03/16/2025 5:08 AM CDT Jordana Bland MD LAB BLOOD ORDERABLES Final Result Performing Organization Address [facility] Co de Phone Number [address] [address] * (ABNORMAL) eGFR (03/16/2025 4:33 AM CDT) eGFR 38(L) >=60 mL/min/1. 73 m2 Comment: Interpretive Data [...] Current interpretive data was last reviewed 2021. Testing performed by: [address] [address] Blood 03/16/2025 4:33 AM CDT 03/16/2025 5:08 AM CDT Jordana Bland MD LAB BLOOD ORDERABLES Final Result RYAN [address] [facility] Department [place] [address] * (ABNORMAL) Differential, auto (03/16/2025 4:33 AM CDT) Neutrophil abs 20.79(H) 1.50 - 6.50 K/cumm Comment:Testing performed by : [address] [address] Imm gran abs 0.74(H) 0.00 - 0.10 K/cumm RYAN Comment:Testing performed by : [address] [address] Lymphocyte abs 1.44 0.80 - 3.30 K/cumm RYAN Comment:Testing performed by : [address] [address] Monocyte abs 0.97(H) 0.20 - 0.80 K/cumm RYAN Comment:Testing performed by : [address] [address] Eosinophil abs 0.01 0.00 - 0.50 K/cumm RYAN Comment:Testing performed by : [address] [address] Basophil abs 0.07 0.00 - 0.10 K/cumm RYAN Comment:Testing performed by : [address] [address] Neutrophil pct 86.6 % RYAN Comment: Interpretive Data Percent cell count reference ranges are not reported, since discordance with absolute values may lead to misinterpretation of CBC data. Current Interpretive Data was last revised on 2017. Testing performed by: [address] [address] Imm gran pct 3.1 % [facility] Comment: Interpretive Data Percent cell count reference ranges are not reported, since discordance with absolute values may lead to misinterpretation of CBC data. Current Interpretive Data was last revised on 2017. Testing performed by: [address] [address] Lymphocyte pct 6.0 % [facility] Comment: Interpretive Data Percent cell count reference ranges are not reported, since discordance with absolute values may lead to misinterpretation of CBC data. Current Interpretive Data was last revised on 2017. Testing performed by: [address] [address] Monocyte pct 4.0 % [facility] Comment: Interpretive Data Percent cell count reference ranges are not reported, since discordance with absolute values may lead to misinterpretation of CBC data. Current Interpretive Data was last revised on 2017. Testing performed by: [address] [address] Eosinophil pct 0.0 % [facility] Comment: Interpretive Data Percent cell count reference ranges are not reported, since discordance with absolute values may lead to misinterpretation of CBC data. Current Interpretive Data was last revised on 2017. Testing performed by: [address] [address] Basophil pct 0.3 % [facility] Comment: Interpretive Data Percent cell count reference ranges are not reported, since discordance with absolute values may lead to misinterpretation of CBC data. Current Interpretive Data was last revised on 2017. Testing performed by: [address] [address] Blood 03/16/2025 4:33 AM CDT 03/16/2025 5:08 AM CDT Jordana Bland MD LAB BLOOD ORDERABLES Final Result [facility] [address] [facility] Department [place] [address] * (ABNORMAL) CBC with auto differential (03/16/2025 4:33 AM CDT) [facility] Signature WBC 24.02(H) 3.80 - 9.90 K/cumm Comment:Testing performed by : [address] [address] Hgb 12.7 11.9 - 15.5 g/dL RYAN Comment:Testing performed by : [address], [address] Hct 37.8 35.6 - 45.5 % RYAN Comment:Testing performed by : [address] [address] Plt 130(L) 150 - 400 K/cumm RYAN Comment:Testing performed by : [address], [address] MPV 11.1 9.1 - 12.3 fL RYAN Comment:Testing performed by : [address], [address] RBC 4.37 3.90 - 5.20 M/cumm RYAN Comment:Testing performed by : [address] [address] MCV 86.5 81.3 - 96.4 fL RYAN Comment:Testing performed by : [address], [address] MCH 29.1 27.1 - 33.3 pg RYAN Comment:Testing performed by : [address] [address] MCHC 33.6 32.3 - 35.7 g/dL RYAN Comment:Testing performed by : [address] [address] RDW CV 14.6 11.1 - 14.9 % RYAN Comment:Testing performed by : [address], [address] RDW SD 46.6 35.7 - 48.1 fL RYAN [place]OWLING Comment:Testing performed by : [address] [address] NRBC abs 0.00 0.00 - 0.01 K/cumm RYAN [place]OWLING Comment:Testing performed by : [address] [address] Blood 03/16/2025 4:33 AM CDT 03/16/2025 5:08 AM CDT Jordana Bland MD LAB BLOOD ORDERABLES Final Result RYAN [address] [facility] Department [place] [address] * (ABNORMAL) Comprehensive metabolic panel (03/16/2025 4:33 AM CDT) Sodium 137 135 - 145 mmol/L Comment:Testing performed by : [address] [address] Potassium, pl 4.4 3.3 - 4.9 mmol/L RYAN Comment:Testing performed by : [address] [address] Chloride 101 97 - 110 mmol/L RYAN Comment:Testing performed by : [address] [address] CO2 23 22 - 32 mmol/L RYAN [place]OWL[place] Comment:Testing performed by : [address] [address] Anion gap 13 2 - 15 mmol/L RYAN Comment:Testing performed by : [address] [address] BUN 34(H) 6 - 25 mg/dL RYAN [place] Comment:Testing performed by : [address] [address] Creatinine 1.49(H) 0.60 - 1.10 mg/dL RYAN [place] Comment:Testing performed by : [address] [address] Glucose 162 70 - 199 mg/dL RYAN [place] Comment: Interpretive Data Fasting glucose >/= 126 [...] Current interpretive data was last revised 2022. Testing performed by: [address] [address] Calcium 9.2 8.5 - 10.3 mg/dL RYAN Comment:Testing performed by : [address] [address] Bilirubin, total 0.7 0.1 - 1.2 mg/dL RYAN Comment:Testing performed by : [address] [address] Protein, pl 6.4(L) 6.5 - 8.5 g/dL RYAN Comment:Testing performed by : [address] [address] Albumin 3.2(L) 3.5 - 5.0 g/dL RYAN Comment:Testing performed by : [address] [address] Alk phos 163(H) 40 - 130 Units/L RYAN Comment:Testing performed by : [address] [address] ALT 23 7 - 45 Units/L RYAN Comment:Testing performed by : [address] [address] AST 50(H) 10 - 45 Units/L [facility] Comment:Testing performed by : [address] [address] Blood 03/16/2025 4:33 AM CDT 03/16/2025 5:08 AM CDT us Nilupa Sewwandi Gasmichela Mudiyanselage MD LAB BLOOD ORDERABLES Final Result Performing Organization Address [facility] Co de Phone Number RYAN [address] [address] * POCT glucose (03/16/2025 4:13 AM CDT) Glucose, POC 145 70 - 199 mg/dL Comment:Testing performed by : [address] [address] Glucose comment 1 RN/MD Notified RYAN Comment:Testing performed by : [facility], [address] [place] [address]., [address] Blood 03/16/2025 4:13 AM CDT 03/16/2025 4:13 AM CDT us Jordana Bland MD LAB POCT ORDERABLES - DEVICE Final Result Performing Organization Address [facility] de Phone Number [address] [address] * POCT glucose (03/16/2025 12:26 AM CDT) Glucose, POC 160 70 - 199 mg/dL Comment:Testing performed by : [address] [address] Glucose comment 1 RN/MD Notified RYAN Comment:Testing performed by : [address] [address] Blood 03/16/2025 12:2 6 AM CDT 03/16/2025 12:26 AM CDT us Jordana Bland MD LAB POCT ORDERABLES - DEVICE Final Result Performing Organization Address [facility] Co de Phone Number RYAN [address] [address] * POCT glucose (03/15/2025 8:32 PM CDT) Glucose, POC 199 70 - 199 mg/dL Comment:Testing performed by : [facility], [address] [place] [address]., [address] Glucose comment 1 RN/MD Notified RYAN Comment:Testing performed by : [facility], [address] [place] [address]., [address] Blood 03/15/2025 8:32 PM CDT 03/15/2025 8:32 PM CDT Jordana Bland MD LAB POCT ORDERABLES - DEVICE Final Result Performing Organization Address [facility] Co de Phone Number RYAN [address] [place] [address] * POCT glucose (03/15/2025 5:41 PM CDT) Glucose, POC 191 70 - 199 mg/dL Comment:Testing performed by : [facility], [address] [place] [address]., [address] Glucose comment 1 RN/MD Notified RYAN Comment:Testing performed by : [address] [address] Blood 03/15/2025 5:41 PM CDT 03/15/2025 5:41 PM CDT Jordana Bland MD LAB POCT ORDERABLES - DEVICE Final Result Performing Organization Address City/[facility]/ZIP Co de Phone Number RYAN [facility] [place] [employer] [place] [address] * MRI Brain WO Contrast (03/15/2025 5:25 PM CDT) Anatomical Region Laterality Modality Head and Neck N/A Magnetic Resonan ce 03/15/2025 7:54 PM CDT Narrative 03/15/2025 8:10 PM CDT EXAM DESCRIPTION: MRI BRAIN WO CONTRAST REASON FOR STUDY: Headache, neuro deficit, Mental status change, unknown cause presents to the ED for generalized weakness and fevers. Pt was just discharged from [place] for two days and was sent to rehab and when evaluated by the nurse in the facility who was concerned that the patient was feeling unwell with concerns of worsening weakness. TECHNIQUE: Multiplanar imaging includes non-contrasted T1, T2, FLAIR, and diffusion with ADC map sequences. Additional sequence(s) sensitive to blood products. Images stored on PACS. COMPARISON: Head CT from 03/14/2025. MRI brain from 03/01/2025. FINDINGS: CEREBRUM: There are numerous areas of acute infarction throughout the right frontal lobe, right parietal lobe, right temporal lobe and right occipital lobe in the distribution of right middle cerebral artery territory distribution. There is no finding on blood sensitive gradient sequences to indicate hemosiderin or other blood breakdown product. There is only mild localized mass effect. There is no left-sided cortical infarct. WHITE MATTER: There is vasogenic edema within subcortical white matter associated with the cortical infarcts. Diffuse scattered foci of T2 hyperintensity are evident elsewhere within periventricular and subcortical white matter in keeping with likely microvascular change. POSTERIOR FOSSA: Brainstem and cerebellum appear unremarkable. DIFFUSION IMAGING: Multifocal areas of diffusion restriction EXTRAAXIAL SPACES: No hemorrhage. No mass. BRAIN VOLUME: Within normal limits for age. PITUITARY: Unremarkable. VASCULATURE: No flow disturbance identified. ORBITS: No masses. Globes normal. PARANASAL SINUSES AND MASTOIDS: Well-aerated with no fluid levels. No mucosa thickening. OTHER: No other significant finding. IMPRESSION: 1. 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 No associated hemorrhage or mass effect. 2. Mild microvascular change of periventricular white matter. 3. Findings were discussed with patient's nurse, ELPIDIO Dominguez, at the time of dictation. THIS IS AN ELECTRONICALLY VERIFIED FINAL REPORT 03/15/2025 8:10 PM - Electronically signed by Batool Rodriguez M.D. LC: JASMIN Report ID: [id number] Reading Location: [id number] Procedure Note Maria A Rodriguez MD - 10/20/2025 EXAM DESCRIPTION: MRI BRAIN WO CONTRAST REASON FOR STUDY: Headache, neuro deficit, Mental status change, unknown cause presents to the ED for generalized weakness and fevers. Pt [facility] and was sent to rehab and when evaluated by thenurse in the facility who was concerned that the patient was feeling unwell with concerns of worsening weakness. TECHNIQUE: Multiplanar imaging includes non-contrasted T1, T2, FLAIR, and diffusion with ADC map sequences. Additional sequence(s) sensitive toblood products. Images stored on PACS. COMPARISON: Head CT from 03/14/2025. MRI brain from 03/01/2025. FINDINGS: CEREBRUM: There are numerous areas of acute infarctionthroughout the right frontal lobe, right parietal lobe, right temporal lobe and right occipital lobe in the distribution of right middle cerebral arteryterritory distribution. There is no finding on blood sensitive gradient sequencesto indicate hemosiderin or other blood breakdown product. There is only mild localized mass effect. There is no left-sided cortical infarct. WHITE MATTER: There is vasogenic edema within subcortical white matter associated with the cortical infarcts. Diffuse scattered foci of T2 hyperintensity are evident elsewhere within periventricular andsubcortical white matter in keeping with likely microvascular change. POSTERIOR FOSSA: Brainstem and cerebellum appear unremarkable. DIFFUSION IMAGING: Multifocal areas of diffusion restriction EXTRAAXIAL SPACES: No hemorrhage. No mass. BRAIN VOLUME: Within normal limits for age. PITUITARY: Unremarkable. VASCULATURE: No flow disturbance identified. ORBITS: No masses. Globes normal. PARANASAL SINUSES AND MASTOIDS: Well-aerated with no fluid levels. Nomucosa thickening. OTHER: No other significant finding. IMPRESSION: 1. 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 No associated hemorrhage or masseffect. 2. Mild microvascular change of periventricular white matter. 3. Findings were discussed with patient's nurse, ELPIDIO Dominguez, at the timeof dictation. THIS IS AN ELECTRONICALLY VERIFIED FINAL REPORT 03/15/2025 8:10 PM - Electronically signed by Batool Rodriguez M.D. LC: JASMIN Report ID: [id number] Reading Location: [id number] Shae Robertson MD IMG MRI PROCEDU RES Final Result * US Carotid Duplex Unilateral Right (03/15/2025 4:48 PM CDT) Anatomical Region Laterality Modality Vascular Right Ultrasound 03/15/2025 3:34 PM CDT Narrative 03/16/2025 8:21 AM CDT Carotid Duplex Ultrasound Report Patient Name: GRICEL MELISSA A : 1955 (69y 5m) Study Date: 03/15/2025 3:34:10 PM Sex: F Senior Engineering Tech: MARIELLA Galvez Location: [id number] Ref Provider: JORDANA WOODRUFF Quality: Adequate Order Provider: JORDANA WOODRUFF PROCEDURES: Carotid Report: Carotid duplex examination of the extracranial arteries was performed using 2D, color and spectral Doppler. Blood Pressure: Right: 121/55 mmHg. Left: 115/61 mmHg. INDICATIONS: Bruit (Right). HISTORY: HTN and DM. COMPARISONS: The previous exam was completed on 02-08-2025. Right ICA had a stenosis of >70% and the left ICA had a stenosis of <50%. MEASUREMENTS: Right Value RT Prox CCA PSV 78 cm/sec RT Prox CCA EDV 14 cm/sec RT Distal CCA PSV 108 cm/sec RT Distal CCA EDV 12 cm/sec RT Prox ICA PSV 33 cm/sec RT Prox ICA EDV 9 cm/sec RT Mid ICA PSV 64 cm/sec RT Mid ICA EDV 16 cm/sec RT Distal ICA PSV 112 cm/sec RT Distal ICA EDV 28 cm/sec RT ECA Prx PSV 156 cm/sec Rt Vert PSV 60 cm/sec FINDINGS: Rt Common Carotid Artery: The plaque in the right CCA appears to be heterogeneous and smooth. Rt Internal Carotid Artery: Duplex imaging of the right internal carotid artery is within normal limits without evidence of atherosclerotic disease. Rt External Carotid Artery: Patent right external carotid artery with evidence of atherosclerotic disease present. Rt Vertebral Artery: The right vertebral artery is patent with antegrade flow. CONCLUSIONS: 1. Normal right internal carotid artery, no evidence of significant plaque. 2. Normal, antegrade flow is noted in the right vertebral artery. ATTESTATION: I have reviewed and interpreted the pertinent images and measurements of this study. I attest to the conclusions in the final report that is provided above. Electronically Signed By: Madina Martinez MD 03/16/2025 7:44:22 AM CDT Procedure Note Madina Martinez MD - 03/16/2025 Carotid Duplex Ultrasound Report Patient Name: GRICEL MELISSA A : 1955 (69y 5m) Study Date: 03/15/2025 3:34:10 PM Sex: F Senior Engineering Tech: MARIELLA Galvez Location: [id number] Ref Provider: JORDANA WOODRUFF Quality: Adequate Order Provider: JORDANA WOODRUFF PROCEDURES: Carotid Report: Carotid duplex examination of the extracranial arterieswas performed using 2D, color and spectral Doppler. Blood Pressure: Right: 121/55 mmHg. Left: 115/61 mmHg. INDICATIONS: Bruit (Right). HISTORY: HTN and DM. COMPARISONS: The previous exam was completed on 02-08-2025. Right ICA had a stenosis of>70% and the left ICA had a stenosis of <50%. MEASUREMENTS: Right Value RT Prox CCA PSV 78 cm/sec RT Prox CCA EDV 14 cm/sec RT Distal CCA PSV 108 cm/sec RT Distal CCA EDV 12 cm/sec RT Prox ICA PSV 33 cm/sec RT Prox ICA EDV 9 cm/sec RT Mid ICA PSV 64 cm/sec RT Mid ICA EDV 16 cm/sec RT Distal ICA PSV 112 cm/sec RT Distal ICA EDV 28 cm/sec RT ECA Prx PSV 156 cm/sec Rt Vert PSV 60 cm/sec FINDINGS: Rt Common Carotid Artery: The plaque in the right CCA appears to beheterogeneous and smooth. Rt Internal Carotid Artery: Duplex imaging of the right internal carotidartery is within normal limits without evidence of atherosclerotic disease. Rt External Carotid Artery: Patent right external carotid artery withevidence of atherosclerotic disease present. Rt Vertebral Artery: The right vertebral artery is patent with antegradeflow. CONCLUSIONS: 1. Normal right internal carotid artery, no evidence of significantplaque. 2. Normal, antegrade flow is noted in the right vertebral artery. ATTESTATION: I have reviewed and interpreted the pertinent images and measurements ofthis study. I attest to the conclusions in the final report that is provided above. Electronically Signed By: Madina Martinez MD 03/16/2025 7:44:22 AM CDT us Jordana Bland MD IMG US TN OCEDURES Final Result * TRANSTHORACIC ECHO (TTE) COMPLETE W DOPPLER/CF W CONTRAST (03/15/2025 3:15 PM CDT) EF Mod BP 78 % CONS SCIMAGE Anatomical Region Laterality Modality Ultrasound 03/15/2025 2:14 PM CDT Narrative 03/15/2025 8:03 PM CDT Transthoracic Echocardiographic Report Patient Name: GRICEL MELISSA A : 1955 (69y 5m) Sex: F Study Date: 03/15/2025 02:14:25 PM Ht(Inch): 64 Wt(Lb): 175 BSA: 1.85 Senior Engineering Tech: Mariya Salmeron RDCS Location: [id number] Order Provider: SHAE ROBERTSON Heart Rate: 81 BMI: 30.04 BP: 97 / 48 Ref Provider: SHAE ROBERTSON PROCEDURES: Echocardiographic Report: ([id number]) Transthoracic complete echo with contrast, 2D, spectral and tissue Doppler, color flow Doppler, M-mode. Additional Procedures: Agitated saline bubble study. Contrast: A contrast injection of Definity was performed to improve assessment of LV function. Definity Lot Number: [id number]. INDICATIONS: Stroke Follow Up. FINDINGS: Left Ventricle: Normal left ventricular cavity size. Mild concentric left ventricular hypertrophy. Normal left ventricular systolic function. The Ejection Fraction (Jimenez's) is measured at 78 %. Diastolic Function E to A reversal Suggestive of abnormal relaxation during early diastole, E to E' ratio is 8-15 which is in the indeterminate zone and left ventricular diastolic parameters are consistent with Grade I diastolic dysfunction (normal LA pressure). No Thrombus noted in Left Ventricle. Regional Wall Motion: There is hypokinesis in the apical septum and mid septum. There is dyskinesis in the apex. Right Ventricle: Right ventricular dilatation. Moderate right ventricular hypokinesis. Left Atrium: Mildly dilated left atrium. Right Atrium: The right atrium is normal in size. Atrial Septum: The interatrial septum is normal in appearance. Agitated saline bubble study is negative for intracardiac shunt. Mitral Valve: Valve normal in structure and function. Aortic Valve: Valve normal in structure and function. The mean transaortic gradient is 3 mmHg. Tricuspid Valve: Valve normal in structure and function. Pulmonic Valve: Pulmonic Valve not well visualized due to poor echo windows. Pericardium: No pericardial effusion. Aorta: Normal aortic root. IVC: IVC Not well visualized due to poor echo windows. CONCLUSIONS: 1. Normal left ventricular systolic function. The Ejection Fraction (Jimenez's) is measured at 78 %. 2. Negative bubble study. 3. Moderately dilated and hypokinetic right ventricle. - MEASUREMENTS: 2D/MM Value Range Doppler Value LVIDd 2D 4.00 cm [ 3.50 - 5.70 ] AV Peak Vazquez 1.29 m/s LVIDs 2D 2.90 cm [ 3.10 - 4.60 ] AV Peak PG 6.66 mmHg IVSd 2D 0.60 cm [ 0.60 - 1.20 ] AV Mean PG 3.00 mmHg LVPWd 2D 0.90 cm [ 0.60 - 1.10 ] AV VTI 20.90 cm LV Thickness Ratio 0.67 LVOT Peak Vazquez 0.93 m/s LV Mass 2D 87.82 g LVOT Peak PG 3.46 mmHg LV Mass Index 2D 47.52 g/m2 LVOT Diam 2.00 cm RWT 0.45 HAYDE Vmax 2.26 cm2 EDV Mod BP 51.70 ml [ 46.00 - 106.00 ] MV E Peak Vazquez 0.55 m/s LV EDV Index 27.98 ml/m2 MV A Peak Vazquez 0.67 m/s ESV Mod BP 11.40 ml [ 14.00 - 42.00 ] MV E/A 0.80 ratio EF Mod BP 78 % [ 54 - 74 ] MV Decel Time 238.00 msec LA Dimension 2D 3.70 cm [ 1.90 - 4.00 ] Med E` Vazquez 0.06 m/s LA Length 2C 4.82 cm Lat E` Vazquez 0.08 m/s LA Length 4C 4.61 cm Average E/E` 785.71 LA Volume BP 45.00 ml RV S` 0.09 m/s LA Volume Index 24.35 ml/m2 [ 16.00 - 34.00 ] PV Peak Vazquez 0.78 m/s RVDd 2D 3.40 cm [ 2.00 - 3.00 ] PV Peak PG 2.43 mmHg TAPSE 1.43 cm [ 1.71 - 5.00 ] AoR Diam 2D 2.80 cm [ 2.00 - 3.70 ] Ao Root Index 1.52 cm/m2 [ 1.00 - 2.00 ] - ATTESTATION: I have reviewed and interpreted the pertinent images and measurements of this study. I attest to the conclusions in the final report that is provided above. DISCLAIMER: The study images and the final report will be retained in the patient chart by the [facility] for the legally required time period. This chart constitutes the legal record of any testing performed. Electronically Signed By: Sultan Valdo BLOOM 03/15/2025 8:02:50 PM CDT Procedure Note Sultan Mackenzie Lyle MD - 03/15/2025 Transthoracic Echocardiographic Report Patient Name: GRICEL MELISSA A : 1955 (69y 5m) Sex: F Study Date: 03/15/2025 02:14:25 PM Ht(Inch): 64 Wt(Lb): 175 BSA: 1.85 Senior Engineering Tech: Mariya Salmeron RDCS Location: [place] [address] Order Provider: SHAE ROBERTSON Heart Rate: 81 BMI: 30.04 BP: 97 / 48 Ref Provider:AILYN,KAHMALIA-GETACHEW PROCEDURES: Echocardiographic Report: ([id number]) Transthoracic complete echo withcontrast, 2D, spectral and tissue Doppler, color flow Doppler, M-mode. Additional Procedures: Agitated saline bubble study. Contrast: A contrast injection of Definity was performed to improveassessment of LV function. Definity Lot Number: [id number]. INDICATIONS: Stroke Follow Up. FINDINGS: Left Ventricle: Normal left ventricular cavity size. Mild concentric leftventricular hypertrophy. Normal left ventricular systolic function. The EjectionFraction (Jimenez's) is measured at 78 %. Diastolic Function E to A reversal Suggestive ofabnormal relaxation during early diastole, E to E' ratio is 8-15 which is in the indeterminatezone and left ventricular diastolic parameters are consistent with Grade I diastolicdysfunction (normal LA pressure). No Thrombus noted in Left Ventricle. Regional Wall Motion: There is hypokinesis in the apical septum and midseptum. There is dyskinesis in the apex. Right Ventricle: Right ventricular dilatation. Moderate right ventricularhypokinesis. Left Atrium: Mildly dilated left atrium. Right Atrium: The right atrium is normal in size. Atrial Septum: The interatrial septum is normal in appearance. Agitatedsaline bubble study is negative for intracardiac shunt. Mitral Valve: Valve normal in structure and function. Aortic Valve: Valve normal in structure and function. The mean transaorticgradient is 3 mmHg. Tricuspid Valve: Valve normal in structure and function. Pulmonic Valve: Pulmonic Valve not well visualized due to poor echowindows. Pericardium: No pericardial effusion. Aorta: Normal aortic root. IVC: IVC Not well visualized due to poor echo windows. CONCLUSIONS: 1. Normal left ventricular systolic function. The Ejection Fraction(Jimenze's) is measured at 78 %. 2. Negative bubble study. 3. Moderately dilated and hypokinetic right ventricle. - MEASUREMENTS: 2D/MM Value Range DopplerValue LVIDd 2D 4.00 cm [ 3.50 - 5.70 ] AV Peak Vel1.29 m/s LVIDs 2D 2.90 cm [ 3.10 - 4.60 ] AV Peak PG6.66 mmHg IVSd 2D 0.60 cm [ 0.60 - 1.20 ] AV Mean PG3.00 mmHg LVPWd 2D 0.90 cm [ 0.60 - 1.10 ] AV VTI20.90 cm LV Thickness Ratio 0.67 LVOT Peak Vel0.93 m/s LV Mass 2D 87.82 g LVOT Peak PG3.46 mmHg LV Mass Index 2D 47.52 g/m2 LVOT Diam2.00 cm RWT 0.45 HAYDE Vmax2.26 cm2 EDV Mod BP 51.70 ml [ 46.00 - 106.00 ] MV E Peak Vel0.55 m/s LV EDV Index 27.98 ml/m2 MV A Peak Vel0.67 m/s ESV Mod BP 11.40 ml [ 14.00 - 42.00 ] MV E/A0.80 ratio EF Mod BP 78 % [ 54 - 74 ] MV Decel Tiop662.00 msec LA Dimension 2D 3.70 cm [ 1.90 - 4.00 ] Med E` Vel0.06 m/s LA Length 2C 4.82 cm Lat E` Vel0.08 m/s LA Length 4C 4.61 cm Average E/E`785.71 LA Volume BP 45.00 ml RV S`0.09 m/s LA Volume Index 24.35 ml/m2 [ 16.00 - 34.00 ] PV Peak Vel0.78 m/s RVDd 2D 3.40 cm [ 2.00 - 3.00 ] PV Peak PG2.43 mmHg TAPSE 1.43 cm [ 1.71 - 5.00 ] AoR Diam 2D 2.80 cm [ 2.00 - 3.70 ] Ao Root Index 1.52 cm/m2 [ 1.00 - 2.00 ] - ATTESTATION: I have reviewed and interpreted the pertinent images and measurements ofthis study. I attest to the conclusions in the final report that is provided above. DISCLAIMER: The study images and the final report will be retained in the patientchart by the [facility] Laboratory for the legally required time period. This chart constitutesthe legal record of any testing performed. Electronically Signed By: Sultan Valdo BLOOM 03/15/2025 8:02:50 PM CDT us Shae Robertson MD CV ECHO PROCEDU RES Final Result * (ABNORMAL) POCT glucose (03/15/2025 12:06 PM CDT) Pathologist [facility] Glucose, POC 234(H) 70 - 199 mg/dL Comment:Testing performed by : [facility], [address] [place] [address]., [id number] Glucose comment 1 RN/MD Notified RYAN BOWLING Comment:Testing performed by : [facility], [address] [place] [address]., [id number] Blood 03/15/2025 12:0 6 PM CDT 03/15/2025 12:06 PM CDT us Jordana Bland MD LAB POCT ORDERABLES - DEVICE Final Result RYAN [address] [facility] Department [place] [address] * (ABNORMAL) Blood culture Blood (03/15/2025 10:48 AM CDT) [facility] Direct Specimen Exam Stain: Gram Negative Bacilli Time to culture positivity (anaerobic media): 21.7 hours Comment:Testing performed by : [facility], [address] [facility] [place]., [address] Report Final Report: Klebsiella pneumoniae For susceptibility results, refer to accession number [id number] on the Blood culture from 03/14/25 (.) RYAN BOWLING Comment:Testing performed by : [facility], [address] [place]., [address] Organism KLEBSIELLA PNEUMONIAE RYAN BOWLING Blood 03/15/2025 10:4 8 AM CDT 03/15/2025 1:46 PM CDT Narrative RYAN - 03/20/2025 7:39 AM CDT From a different site than #1. Collection->Peripheral 1. Blood cultures are incubated for 4 days on a continuously monitored blood culture system. The first report of a negative culture is issued within 24 hours of receipt of the specimen in the laboratory. 2. Positive culture results are reported as soon as they are detected. 3. The most important factor for detection of microbes in the setting of bloodstream infection is the volume of blood submitted for culture. Failure to collect an optimal blood volume can result in false negative blood cultures. 4. For pediatric patients, the recommended blood volume to collect follows a weight based strategy. See the electronic test catalog for collection instructions. 5. For positive blood cultures, a rapid molecular test may be performed for organism identification using the macho ePlex blood culture identification panel for gram positive (BCID-GP) and gram negative (BCID-GN) organisms. This nucleic acid amplification test detects microbial DNA in positive blood culture broth. This assay has been cleared by the [place] Food and Drug Administration and its performance characteristics have been verified by the [facility] Microbiology Laboratory. For questions about this culture, contact the Microbiology Laboratory at [phone]. Interpretive data was last revised on 24. Jordana richard MD LAB MICROBIOLOGY - GENERAL ORDERABLES Final Result RYAN [address] [facility] Department [place] [address] * (ABNORMAL) Blood culture Blood (03/15/2025 9:32 AM CDT) Direct Specimen Exam Stain: Gram Negative Bacilli Time to culture positivity (anaerobic media): 19.8 hours Time to culture positivity (aerobic media): 53.0 hours Comment:Testing performed by : [facility], [address] [facility], [place]., [address] Report Final Report: Klebsiella pneumoniae For susceptibility results, refer to accession number [id number] on the blood culture from 03/14/2025 (.) RYAN BOWLING Comment:Testing performed by : [facility], [address] [facility], [place]., [address] Organism KLEBSIELLA PNEUMONIAE RYAN BOWLING Blood 03/15/2025 9:32 AM CDT 03/15/2025 11:33 AM CDT Narrative JESUS MANUELJEANNA - 03/19/2025 1:31 PM CDT Collection->Peripheral 1. Blood cultures are incubated for 4 days on a continuously monitored blood culture system. The first report of a negative culture is issued within 24 hours of receipt of the specimen in the laboratory. 2. Positive culture results are reported as soon as they are detected. 3. The most important factor for detection of microbes in the setting of bloodstream infection is the volume of blood submitted for culture. Failure to collect an optimal blood volume can result in false negative blood cultures. 4. For pediatric patients, the recommended blood volume to collect follows a weight based strategy. See the electronic test catalog for collection instructions. 5. For positive blood cultures, a rapid molecular test may be performed for organism identification using the macho ePlex blood culture identification panel for gram positive (BCID-GP) and gram negative (BCID-GN) organisms. This nucleic acid amplification test detects microbial DNA in positive blood culture broth. This assay has been cleared by the [place] Food and Drug Administration and its performance characteristics have been verified by the [facility] Microbiology Laboratory. For questions about this culture, contact the Microbiology Laboratory at [phone]. Interpretive data was last revised on 24. Jordana richard MD LAB MICROBIOLOGY - GENERAL ORDERABLES Final Result RYAN [address] [facility] Department [place] [address] * (ABNORMAL) Erythrocyte sedimentation rate (03/15/2025 9:32 AM CDT) [facility] Erythrocyte sedimentation rate 71(H) 1 - 30 mm/hr Comment:Testing performed by : [facility], [address] [place] [address]., [id number] Blood 03/15/2025 9:32 AM CDT 03/15/2025 9:39 AM CDT Jordana Bland MD LAB BLOOD ORDERABLES Final Result RYAN [address] Department [place] [address] * (ABNORMAL) CRP (acute phase) (03/15/2025 9:32 AM CDT) Pathologist [facility] CRP 286.0(H) <=10.0 mg/L Comment:Testing performed by : [address] [address] Blood 03/15/2025 9:32 AM CDT 03/15/2025 9:39 AM CDT Jordana Bland MD LAB BLOOD ORDERABLES Final Result Performing Organization Address [facility] Co de Phone Number JESUS MANUEL[address] [place] [address] * (ABNORMAL) POCT glucose (03/15/2025 9:19 AM CDT) [facility] Glucose, POC 253(H) 70 - 199 mg/dL Comment:Testing performed by : [address] [address] Glucose comment 1 RN/MD Notified RYAN Comment:Testing performed by : [address] [address] Blood 03/15/2025 9:19 AM CDT 03/15/2025 9:19 AM CDT Jordana Bland MD LAB POCT ORDERABLES - DEVICE Final Result Performing Organization Address City/[facility] Co de Phone Number JESUS MANUEL[address] [place] [address] * CT Chest WO Contrast (03/15/2025 9:08 AM CDT) Anatomical Region Laterality Modality Body N/A Computed Tomogra phy 03/15/2025 10:2 2 AM CDT Narrative 03/15/2025 10:31 AM CDT EXAM DESCRIPTION: CT CHEST WO CONTRAST REASON FOR STUDY: Respiratory illness, nondiagnostic xray, Sepsis of unknown source Sepsis, fever, generalized all over pain TECHNIQUE: CT scan of the chest performed without intravenous contrast using helical scanning technique. Reconstructed coronal and sagittal MPR images reviewed. All images stored on PACS. Automated exposure control was used as a dose optimization technique for this examination. COMPARISON: 03/15/2025 FINDINGS: The sensitivity for detection of solid visceral lesions is diminished without the use of intravenous contrast. LUNGS: No dense consolidations. Bibasilar band like densities may indicate atelectasis with subtle developing pneumonitis not excluded. PLEURA: No effusion. No pneumothorax. MEDIASTINUM/PADMAJA: Granulomatous calcification subcarinal and right hilar region. Small hiatal hernia. HEART: Heart size is enlarged. Minimal pericardial effusion. Sternotomy changes. CORONARY ARTERY CALCIFICATION: Present VASCULATURE: No thoracic aortic aneurysm. AXILLA: No adenopathy. CHEST WALL: No masses. No subcutaneous air. HARDWARE/LINES/TUBES: None. UPPER ABDOMEN: Please see CT abdomen report same day MUSCULOSKELETAL: No significant abnormality. OTHER: No other significant abnormality. IMPRESSION: Bibasilar band like densities may indicate atelectasis with subtle developing pneumonitis not excluded. THIS IS AN ELECTRONICALLY VERIFIED FINAL REPORT 03/15/2025 10:31 AM - Electronically signed by Josh Mcmullen M.D. RB: AMBROSIO Report ID: [id number] Reading Location: [id number] Procedure Note Josh Mcmullen MD - 03/15/2025 EXAM DESCRIPTION: CT CHEST WO CONTRAST REASON FOR STUDY: Respiratory illness, nondiagnostic xray, Sepsis ofunknown source Sepsis, fever, generalized all over pain TECHNIQUE: CT scan of the chest performed without intravenous contrastusing helical scanning technique. Reconstructed coronal and sagittal MPR images reviewed. All images stored on PACS. Automated exposure control was usedas a dose optimization technique for this examination. COMPARISON: 03/15/2025 FINDINGS: The sensitivity for detection of solid visceral lesions is diminished without the use of intravenous contrast. LUNGS: No dense consolidations. Bibasilar band like densities may indicate atelectasis with subtledeveloping pneumonitis not excluded. PLEURA: No effusion. No pneumothorax. MEDIASTINUM/PADMAJA: Granulomatous calcification subcarinal and right hilar region. Small hiatal hernia. HEART: Heart size is enlarged. Minimal pericardial effusion. Sternotomy changes. CORONARY ARTERY CALCIFICATION: Present VASCULATURE: No thoracic aortic aneurysm. AXILLA: No adenopathy. CHEST WALL: No masses. No subcutaneous air. HARDWARE/LINES/TUBES: None. UPPER ABDOMEN: Please see CT abdomen report same day MUSCULOSKELETAL: No significant abnormality. OTHER: No other significant abnormality. IMPRESSION: Bibasilar band like densities may indicate atelectasis withsubtle developing pneumonitis not excluded. THIS IS AN ELECTRONICALLY VERIFIED FINAL REPORT 03/15/2025 10:31 AM - Electronically signed by Josh Mcmullen M.D. RB: AMBROSIO Report ID: [id number] Reading Location: [place] [address] Nilupa Britt Bland MD IMG CT TN OCEDURES Final Result * CT Abdomen Pelvis WO Contrast (03/15/2025 9:08 AM CDT) Anatomical Region Laterality Modality Body N/A Computed Tomogra phy 03/15/2025 10:1 3 AM CDT Narrative 03/15/2025 10:22 AM CDT EXAM DESCRIPTION: CT ABDOMEN PELVIS WO CONTRAST REASON FOR STUDY: Sepsis Sepsis, fever, generalized all over pain TECHNIQUE: CT scan of the abdomen and pelvis performed without intravenous and without oral contrast using helical scanning technique. Reconstructed coronal and sagittal MPR images reviewed. All images stored on PACS. Automated exposure control was used as a dose optimization technique for this examination. COMPARISON: 07/20/2024 CT abdomen pelvis FINDINGS: The sensitivity for detection of visceral lesions is diminished without the use of intravenous contrast. LOWER CHEST: Please see CT chest report same day LIVER: Normal size. Multiple punctate calcification suggesting prior granulomatous exposure. Segment left lobe demonstrates a 2.4 cm subcapsular hypo dense focus not clearly demonstrated previously. Currently on image 35 of series 2. Exact nature and significance uncertain. Previous heterogeneous hypodensity along the right lobe is not well visualized on the current exam. GALLBLADDER: Surgically absent with clips in place. BILE DUCTS: No intrahepatic or extrahepatic ductal dilatation. SPLEEN: Normal size. No focal lesions. PANCREAS: No identified cystic or solid masses. No significant calcifications. No adjacent inflammation or peripancreatic fluid collections. Pancreatic duct not dilated. ADRENALS: Normal. KIDNEYS/URINARY TRACT: The right kidney demonstrates marked surrounding induration without marked hydronephrosis. New from previous. No calcifications are demonstrated. Please correlate to exclude pyelonephritis or other infiltrative change. Left kidney demonstrates no stone hydronephrosis or perinephric stranding. Urinary bladder is unremarkable. GI: No dilated bowel loops. No obvious wall thickening. Appendix is not visualized. No significant diverticular disease. PERITONEUM: No ascites or free air. RETROPERITONEUM: No mass or adenopathy. REPRODUCTIVE: No significant abnormality. VASCULATURE: No abdominal aortic aneurysm. MUSCULOSKELETAL: No significant abnormality. OTHER: No other abnormality. IMPRESSION: 1. Marked induration surrounding the right kidney without hydronephrosis or stone. Please correlate to exclude pyelonephritis or other infiltrative change. 2. 2.4 cm hypodensity left lobe of liver is new from previous. Exact nature and significance uncertain. Consider MR imaging to better characterize. 3. Previous heterogeneous hypodensity right lobe of liver is not well visualized on the current exam. THIS IS AN ELECTRONICALLY VERIFIED FINAL REPORT 03/15/2025 10:22 AM - Electronically signed by Josh Mcmullen M.D. RB: AMBROSIO Report ID: [id number] Reading Location: [id number] Procedure Note Josh Mcmullen MD - 03/15/2025 EXAM DESCRIPTION: CT ABDOMEN PELVIS WO CONTRAST REASON FOR STUDY: Sepsis Sepsis, fever, generalized all over pain TECHNIQUE: CT scan of the abdomen and pelvis performed without intravenousand without oral contrast using helical scanning technique. Reconstructed coronal and sagittal MPR images reviewed. All images stored on PACS.Automated exposure control was used as a dose optimization technique for this examination. COMPARISON: 07/20/2024 CT abdomen pelvis FINDINGS: The sensitivity for detection of visceral lesions is diminished without the use of intravenous contrast. LOWER CHEST: Please see CT chest report same day LIVER: Normal size. Multiple punctate calcification suggesting prior granulomatous exposure. Segment left lobe demonstrates a 2.4 cm subcapsular hypo dense focus not clearly demonstrated previously. Currently on image 35 of series 2.Exact nature and significance uncertain. Previous heterogeneous hypodensity along the right lobe is not wellvisualized on the current exam. GALLBLADDER: Surgically absent with clips in place. BILE DUCTS: No intrahepatic or extrahepatic ductal dilatation. SPLEEN: Normal size. No focal lesions. PANCREAS: No identified cystic or solid masses. No significant calcifications. No adjacent inflammation or peripancreatic fluidcollections. Pancreatic duct not dilated. ADRENALS: Normal. KIDNEYS/URINARY TRACT: The right kidney demonstrates marked surrounding induration without marked hydronephrosis. New from previous. No calcifications are demonstrated. Please correlate to exclude pyelonephritis or other infiltrative change. Left kidney demonstrates no stone hydronephrosis or perinephric stranding. Urinary bladder is unremarkable. GI: No dilated bowel loops. No obvious wall thickening. Appendix is not visualized. No significant diverticular disease. PERITONEUM: No ascites or free air. RETROPERITONEUM: No mass or adenopathy. REPRODUCTIVE: No significant abnormality. VASCULATURE: No abdominal aortic aneurysm. MUSCULOSKELETAL: No significant abnormality. OTHER: No other abnormality. IMPRESSION: 1. Marked induration surrounding the right kidney without hydronephrosisor stone. Please correlate to exclude pyelonephritis or other infiltrativechange. 2. 2.4 cm hypodensity left lobe of liver is new from previous. Exactnature and significance uncertain. Consider MR imaging to better characterize. 3. Previous heterogeneous hypodensity right lobe of liver is not well visualized on the current exam. THIS IS AN ELECTRONICALLY VERIFIED FINAL REPORT 03/15/2025 10:22 AM - Electronically signed by Josh Mcmullen M.D. RB: AMBROSIO Report ID: [id number] Reading Location: [id number] Jordana Bland MD IMG CT TN OCEDURES Final Result * XR Chest PA Lateral 2 Views (03/15/2025 8:48 AM CDT) Anatomical Region Laterality Modality Body, Chest N/A Computed Radiogr aphy 03/15/2025 9:28 AM CDT Narrative 03/15/2025 9:29 AM CDT EXAM DESCRIPTION: XR CHEST PA LATERAL 2 VIEWS REASON FOR STUDY: Shortness of breath Admit 03/14 with ams, fever, and vomiting TECHNIQUE: Two views COMPARISON: 02/27/2025 FINDINGS: Central vascularity are nonenlarged. Heart size is normal. Aortic arch well-defined on the left. ET tube and NG tube have been removed in the interval. Subtle perihilar interstitial densities with subtle confluence appearance in the right suprahilar region may indicate residual peribronchial inflammatory changes with early changes of atelectasis or infiltrative not excluded. No large effusion or pneumothorax. IMPRESSION: 1. Subtle peribronchial inflammatory changes with early atelectasis or infiltrate not excluded. 2. Interval removal ET tube and NG tube. THIS IS AN ELECTRONICALLY VERIFIED FINAL REPORT 03/15/2025 9:29 AM - Electronically signed by Josh Mcmullen M.D. RB: AMBROSIO Report ID: [id number] Reading Location: [id number] Procedure Note Josh Mcmullen MD - 03/15/2025 EXAM DESCRIPTION: XR CHEST PA LATERAL 2 VIEWS REASON FOR STUDY: Shortness of breath Admit 03/14 with ams, fever, and vomiting TECHNIQUE: Two views COMPARISON: 02/27/2025 FINDINGS: Central vascularity are nonenlarged. Heart size is normal. Aortic arch well-defined on the left. ET tube and NG tube have been removed in the interval. Subtle perihilar interstitial densities with subtle confluence appearancein the right suprahilar region may indicate residual peribronchialinflammatory changes with early changes of atelectasis or infiltrative not excluded. No large effusion or pneumothorax. IMPRESSION: 1. Subtle peribronchial inflammatory changes with early atelectasis or infiltrate not excluded. 2. Interval removal ET tube and NG tube. THIS IS AN ELECTRONICALLY VERIFIED FINAL REPORT 03/15/2025 9:29 AM - Electronically signed by Josh Mcmullen M.D. RB: RB Report ID: [id number] Reading Location: [place] [address] us Shae Robertson MD IMG XR PROCEDUR ES Final Result * (ABNORMAL) Troponin T high-sensitivity 6-hour (03/15/2025 5:32 AM CDT) Trop T hs 27(H) <=14 ng/L Comment: Interpretive Data For further hscTnT resources including the diagnostic algorithm and an aid in interpretation, copy and paste this link: https://nrl.testcatalog.org/show/hsTrop Current Interpretive Data last revised 2020. Testing performed by: [facility], [address] [place] [address]., [address] Trop T hs delta -1 ng/L RYAN BOWLING Comment:Testing performed by : [facility], [address] [place] [address]., [address] Trop T hs interp Insignificant RYAN [place] Comment:Testing performed by : [address] [address] Blood 03/15/2025 5:32 AM CDT 03/15/2025 5:57 AM CDT Josh Zamarripa Jr., MD LAB BLOOD ORDERABLES Fi nal Result RYAN [address]345 [facility] [place] [address] * (ABNORMAL) eGFR (03/15/2025 5:32 AM CDT) eGFR 53(L) >=60 mL/min/1. 73 m2 Comment: Interpretive Data [...] Current interpretive data was last reviewed 2021. Testing performed by: [address] [address] Blood 03/15/2025 5:32 AM CDT 03/15/2025 5:57 AM CDT Shae Robertson MD LAB BLOOD ORDER SYLWIA Final Result Performing Organization Address City/[facility] Co de Phone Number [place] [id number] [facility] [place] [address] * Thyroid Function [place] (03/15/2025 5:32 AM CDT) TSH 0.45 0.30 - 4.20 mcIUnit/mL Comment:Testing performed by : [address] [address] Blood 03/15/2025 5:32 AM CDT 03/15/2025 5:57 AM CDT Shae Robertson MD LAB BLOOD ORDER SYLWIA Final Result Performing Organization Address City/[facility]/ZIP Co de Phone Number JESUS MANUEL[address] [employer] [place] [employer] [place] [address] * (ABNORMAL) CBC without differential (03/15/2025 5:32 AM CDT) [facility] Signature WBC 26.64(H) 3.80 - 9.90 K/cumm Comment:Testing performed by : [address], [address] Hgb 12.7 11.9 - 15.5 g/dL RYAN Comment:Testing performed by : [address], [address] Hct 37.4 35.6 - 45.5 % RYAN Comment:Testing performed by : [address], [address] Plt 168 150 - 400 K/cumm RYAN Comment:Testing performed by : [address], [address] MPV 10.7 9.1 - 12.3 fL RYAN Comment:Testing performed by : [address], [address] RBC 4.42 3.90 - 5.20 M/cumm RYAN Comment:Testing performed by : [address], [address] MCV 84.6 81.3 - 96.4 fL RYAN Comment:Testing performed by : [address], [address] MCH 28.7 27.1 - 33.3 pg RYAN Comment:Testing performed by : [address], [address] MCHC 34.0 32.3 - 35.7 g/dL RYAN Comment:Testing performed by : [address], [address] RDW CV 14.3 11.1 - 14.9 % RYAN Comment:Testing performed by : [address], [address] RDW SD 44.0 35.7 - 48.1 fL RYAN Comment:Testing performed by : [address], [address] NRBC abs 0.00 0.00 - 0.01 K/cumm RYAN Comment:Testing performed by : [address] [address] Blood 03/15/2025 5:32 AM CDT 03/15/2025 5:56 AM CDT Shae Robertson MD LAB BLOOD ORDER SYLWIA Final Result RYAN 9630 [facility] [place] [address] * (ABNORMAL) Lipid panel (03/15/2025 5:32 AM CDT) Cholesterol 221(H) 30 - 199 mg/dL Comment: Interpretive Data [...] Interpretive Data was last revised on 2018. Testing performed by: [address] [address] Triglycerides 193(H) <=149 mg/dL RYAN BOWLING Comment: Interpretive Data Ages < or = [...] Interpretive Data was last revised on 2018. Testing performed by: [address], [place]., [address] HDL 61 >=40 mg/dL RYAN Comment: Interpretive Data Ages < or = [...] Interpretive Data was last revised on 2018. Testing performed by: [address] [address] LDL, calculated 126 <=129 mg/dL RYAN Comment: Interpretive Data Ages < or = [...] NCEP Expert Panel. Circulation 2004;110:227 3. Glenroy Vázquez et al. ANIBAL Cardiol. 2019September 24;5(5):540-548. doi: 10.1001/jamacardio.2020.0013 Current Interpretive Data was last revised on 2024. Testing performed by: [address] [address] Non-HDL Cholesterol 160 mg/dL RYAN Comment: Interpretive Data Ages < or = [...] Interpretive Data was last revised on 2018. Testing performed by: [address] [address] Chol/HDL ratio 4 RYAN Comment:Testing performed by : [address] [address] Blood 03/15/2025 5:32 AM CDT 03/15/2025 5:57 AM CDT Shae Robertson MD LAB BLOOD ORDER SYLWIA Final Result RYAN 4505 [facility] Department [place] [address] * (ABNORMAL) Basic metabolic panel (03/15/2025 5:32 AM CDT) Sodium 135 135 - 145 mmol/L Comment:Testing performed by : [address] [address] Potassium, pl 4.6 3.3 - 4.9 mmol/L RYAN Comment:Testing performed by : [address] [address] Chloride 99 97 - 110 mmol/L RYAN Comment:Testing performed by : [address] [address] CO2 21(L) 22 - 32 mmol/L RYAN Comment:Testing performed by : [address] [address] Anion gap 15 2 - 15 mmol/L RYAN Comment:Testing performed by : [address] [address] BUN 24 6 - 25 mg/dL RYAN Comment:Testing performed by : [address] [address] Creatinine 1.12(H) 0.60 - 1.10 mg/dL RYAN Comment:Testing performed by : [address] [place] [address] Glucose 246(H) 70 - 199 mg/dL RYAN Comment: Interpretive Data Fasting glucose >/= 126 [...] Current interpretive data was last revised 2022. Testing performed by: [address] [address] Calcium 9.1 8.5 - 10.3 mg/dL RYAN Comment:Testing performed by : [address] [address] Blood 03/15/2025 5:32 AM CDT 03/15/2025 5:57 AM CDT Shae Robertson MD LAB BLOOD ORDER SYLWIA Final Result Performing Organization Address City/[facility]/ZIP Co de Phone Number [place] [address] [facility] [place] [address] * (ABNORMAL) POCT glucose (03/15/2025 5:23 AM CDT) [facility] Signature Glucose, POC 224(H) 70 - 199 mg/dL Comment:Testing performed by : [address] [address] Blood 03/15/2025 5:23 AM CDT 03/15/2025 5:23 AM CDT Shae Robertson MD LAB POCT ORDERA BLES - DEVICE Final Result Performing Organization Address City/[facility]/ZIP Co de Phone Number [place] [phone] [facility] [place] [address] * (ABNORMAL) Troponin T high-sensitivity 4-hour (03/15/2025 3:09 AM CDT) Trop T hs 28(H) <=14 ng/L Comment: Interpretive Data For further hscTnT resources including the diagnostic algorithm and an aid in interpretation, copy and paste this link: https://nrl.testcatalog.org/show/hsTrop Current Interpretive Data last revised 2020. Testing performed by: [address] [address] Trop T hs delta 0 ng/L RYAN [place]OW[place] Comment:Testing performed by : [address] [address] Trop T hs interp Insignificant RYAN [place] Comment:Testing performed by : [address] [address] Blood 03/15/2025 3:09 AM CDT 03/15/2025 3:12 AM CDT Josh Zamarripa Jr., MD LAB BLOOD ORDERABLES nal Result [facility] [address] [facility] Department [place] [address] * (ABNORMAL) Levetiracetam level (03/15/2025 3:09 AM CDT) Levetiracetam (Keppra) 72.7(H) 10.0 - 40.0 mcg/mL [facility] Comment: ADDITIONAL INFORMATION This test was developed and its performance characteristics determined by [facility] in a manner consistent with CLIA requirements. This test has not been cleared or approved by the U.S. Food and Drug Administration. Test Performed by: [facility] [address] [place] [address] Batch Weigher: Anthony Pires Ph.D.; CLIA# [id number] Testing performed by: [address] [address] Blood 03/15/2025 3:09 AM CDT 03/15/2025 3:12 AM CDT us Josh Zamarripa Jr., MD LAB BLOOD ORDERABLES Fi nal Result RYAN 4500 [facility] Department [place] [address] [facility] * (ABNORMAL) Urinalysis reflex to microscopic and culture Urine (03/14/2025 11:46 PM CDT) Color, ur Yellow Yellow Comment:Testing performed by : [address] [address] Clarity, ur Cloudy(A) Clear RYAN Comment:Testing performed by : [address] [address] Specific gravity, ur 1.018 1.003 - 1.030 RYAN Comment:Testing performed by : [address] [address] pH, urine 5.0 RYAN Comment: Interpretive Data U rine pH is affected by diet, medications, systemic acid-base disturbances, and renal tubular function. pH may affect urinary stone formation. For example, urine pH below 6.0 may help reduce the tendency for calcium phosphate stones and pH greater than 6.0 may reduce the tendency for uric acid stone formation. Source: [facility] [place] Current Interpretive Data was last revised on 2017 Testing performed by: [address] [address] Protein, ur ql Trace(A) Negative RYAN Comment:Testing performed by : [address] [address] Glucose, ur ql Trace(A) Negative RYAN Comment:Testing performed by : [address] [address] Ketones, ur 1+(A) Negative RYAN Comment:Testing performed by : [address] [address] Bilirubin, ur Negative Negative RYAN Comment:Testing performed by : [facility], [address] [place] [address], [place]., [address] Blood, ur 1+(A) Negative RYAN [place] Comment:Testing performed by : [address], [place]., [address] Urobilinogen, ur <2.0 <2.0 mg/dL RYAN [place] Comment:Testing performed by : [address] [address] Nitrite, ur Positive(A) Negative RYAN Comment:Testing performed by : [address], [place]., [address] Leukocyte esterase, ur 4+(A) Negative RYAN [place] Comment:Testing performed by : [address] [address] UA reflex comment Reflex to microscopic UA will be performed. RYAN Comment:Testing performed by : [address] [address] Urine 03/14/2025 11:4 6 PM CDT 03/14/2025 11:53 PM CDT us Josh Zamarripa Jr., MD LAB MICROBIOLOGY - [facility] ORDERABLES Final Result RYAN 4061 [facility] Department of Laboratories [place], [place] [id number] * (ABNORMAL) Urinalysis, microscopic only (03/14/2025 11:46 PM CDT) WBC, ur >50(A) 0 - 5 /HPF Comment:Testing performed by : [address] [address] RBC, ur 6-10(A) 0 - 2 /HPF RYAN [place] Comment:Testing performed by : [address] [address] Epithelial cells, squamous, ur 11-20(A) 0 - 5 /HPF RYAN [place] Comment:Testing performed by : [address] [address] Bacteria, ur 4+(A) RYAN Comment:Testing performed by : [facility], [address] [place] [address]., [address] Mucous, ur Present(A) RYAN Comment:Testing performed by : [address] [address] Culture Reflex Comment Reflex to urine culture will be performed. RYAN Comment:Testing performed by : [address] [address] Urine 03/14/2025 11:4 6 PM CDT 03/14/2025 11:53 PM CDT us Josh Zamarripa Jr., MD LAB URINE ORDERABLES Fi nal Result RYAN [place] 45[address] [facility] Department [place] [address] * (ABNORMAL) Urine culture Urine (03/14/2025 11:46 PM CDT) Report Final Report: Greater than or equal to 100,000 colonies/mL of Klebsiella pneumoniae Plus growth of clinically insignificant bacterial mary. (.) Comment:Testing performed by : [facility], [address] [place]., [address] Organism KLEBSIELLA PNEUMONIAE RYAN Organism PLUS GROWTH OF CLINICALLY INSIGNIFICANT MARY. RYAN Urine 03/14/2025 11:4 6 PM CDT 03/15/2025 1:34 AM CDT Narrative RYAN - 03/16/2025 3:00 PM CDT Urine culture reflexed based upon urinalysis results. Testing performed by [facility] Microbiology Laboratory ([phone]) Organism Antibiotic Method Susceptibility Klebsiella pneumoniae Ampicillin INTERPRETATION Resistant Klebsiella pneumoniae Cefazolin INTERPRETATION Susceptible Klebsiella pneumoniae Nitrofurantoin INTERPRETATION Resistant Klebsiella pneumoniae Gentamicin INTERPRETATION Susceptible Klebsiella pneumoniae Trimethoprim with Sulfamethoxazole INTERPRETATION Susceptible Klebsiella pneumoniae Meropenem INTERPRETATION Susceptible Klebsiella pneumoniae Cefepime INTERPRETATION Susceptible Klebsiella pneumoniae Ciprofloxacin INTERPRETATION Susceptible Klebsiella pneumoniae Ceftazidime INTERPRETATION Susceptible Klebsiella pneumoniae Ceftriaxone INTERPRETATION Susceptible Klebsiella pneumoniae Piperacillin/Tazobactam INTERPRE TATION Susceptible Klebsiella pneumoniae Cephalexin INTERPRETATION Susceptible Klebsiella pneumoniae Cefuroxime-axetil INTERPRETATION Susceptible Klebsiella pneumoniae Cefdinir INTERPRETATION Susceptible Josh Zamarripa Jr., MD LAB MICROBIOLOGY - GENE RAL ORDERABLES Final Result Performing Organization Address City/[facility] Co de Phone Number RYAN [address] [facility] [address] [place] [employer] [place] [address] * Influenza A/B, RSV, and COVID-19 PCR Nasopharyngeal (03/14/2025 11:21 PM CDT) COVID-19 RNA Negative Negative Comment:Testing performed by : [address] [address] Influenza A RNA Negative Negative [facility] Comment:Testing performed by : [address] [address] Influenza B RNA Negative Negative [facility] Comment:Testing performed by : [address], [address] RSV RNA Negative Negative [facility] Comment: Interpretive data: Testing performed by [facility]. This test is performed using the Minimally invasive devices Xpert Xpress CoV-2/Flu/RSV plus assay. This is a multiplex, real-time reverse transcriptase PCR assay intended for the qualitative detection of nucleic acid from SARS-CoV-2, influenza A, influenza B, and respiratory syncytial virus. This assay has been cleared by the [place] Food and Drug administration. The performance characteristics have been verified by the [facility]. Results must be considered in the clinical context, and a negative result does not rule out infection. Interpretive Data last revised 2023 Testing performed by: [address] [address] Nasopharyngeal 03/14/2025 11 :21 PM CDT 03/14/2025 11:26 PM CDT Narrative RYAN - 03/15/2025 12:05 AM CDT Is the Patient experiencing symptoms consistent with COVID?->Yes Josh Zamarripa Jr., MD LAB MICROBIOLOGY - GENE RAL ORDERABLES Final Result Performing Organization Address City/[facility] Co de Phone Number RYAN [address] [place] [employer] [place] [address] * (ABNORMAL) Troponin T high-sensitivity series (baseline, 2hr, 4hr, 6hr) (03/14/2025 11:07 PM CDT) [facility] Trop T hs 28(H) <=14 ng/L Comment: Interpretive Data For further hscTnT resources including the diagnostic algorithm and an aid in interpretation, copy and paste this link: https://nrl.testcatalog.org/show/hsTrop Current Interpretive Data last revised 2020. Testing performed by: [address] [address] Blood 03/14/2025 11:0 7 PM CDT 03/14/2025 11:19 PM CDT us Josh Zamarripa Jr., MD LAB BLOOD ORDERABLES Fi nal Result RYAN [address] [address] * Sepsis Lactate w/ Reflex (03/14/2025 11:07 PM CDT) [facility] Sepsis Lactate 1.7 0.7 - 2.0 mmol/L Comment:Testing performed by : [address] [address] Blood 03/14/2025 11:0 7 PM CDT 03/14/2025 11:19 PM CDT us Josh Zamarripa Jr., MD LAB BLOOD ORDERABLES Fi nal Result RYAN [address] [address] * (ABNORMAL) eGFR (03/14/2025 11:07 PM CDT) [facility] eGFR 57(L) >=60 mL/min/1. 73 m2 Comment: Interpretive Data [...] Current interpretive data was last reviewed 2021. Testing performed by: [address] [address] Blood 03/14/2025 11:0 7 PM CDT 03/14/2025 11:19 PM CDT us Josh Zamarripa Jr., MD LAB BLOOD ORDERABLES nal Result [facility] 2334 [facility] Department [place] [address] * (ABNORMAL) CBC with auto differential (03/14/2025 11:07 PM CDT) WBC 23.63(H) 3.80 - 9.90 K/cumm Comment:Testing performed by : [address] [address] Hgb 12.8 11.9 - 15.5 g/dL RYAN [place] Comment:Testing performed by : [address] [address] Hct 38.1 35.6 - 45.5 % RYAN [place] Comment:Testing performed by : [address] [address] Plt 185 150 - 400 K/cumm RYAN [place] Comment:Testing performed by : [address] [address] MPV 10.8 9.1 - 12.3 fL RYAN Comment:Testing performed by : [address] [address] RBC 4.52 3.90 - 5.20 M/cumm RYAN [place] Comment:Testing performed by : [address] [address] MCV 84.3 81.3 - 96.4 fL RYAN Comment:Testing performed by : [address] [address] MCH 28.3 27.1 - 33.3 pg RYAN Comment:Testing performed by : [address], [address] MCHC 33.6 32.3 - 35.7 g/dL RYAN Comment:Testing performed by : [address], [address] RDW CV 14.1 11.1 - 14.9 % RYAN Comment:Testing performed by : [address], [address] RDW SD 43.4 35.7 - 48.1 fL RYAN Comment:Testing performed by : [address], [address] NRBC abs 0.00 0.00 - 0.01 K/cumm RYAN Comment:Testing performed by : [address], [address] Blood Venous blood specimen / Unknown 03/14/2025 11:07 PM CDT 03/14/2025 11:19 PM CDT Narrative RYAN - 03/15/2025 1:28 PM CDT Potential Stroke Patient us Josh Zamarripa Jr., MD LAB BLOOD ORDERABLES Ed ited Result - Final RYAN 17[address] [facility] Department of Laboratories [place], [place] [id number] * (ABNORMAL) Manual Differential (03/14/2025 11:07 PM CDT) Differential Manual Comment:Testing performed by : [address], [place]., [address] Cells Counted 100 RYAN Comment:Testing performed by : [address], [place]., [address] Neutrophil abs 21.03(H) 1.50 - 6.50 K/cumm RYAN Comment:Testing performed by : [address], [place]., [address] Lymphocyte abs 0.95 0.80 - 3.30 K/cumm RYAN Comment:Testing performed by : [address], [place]., [address] Monocyte abs 1.65(H) 0.20 - 0.80 K/cumm RYAN Comment:Testing performed by : [address], [place]., [address] Neutrophil pct 89.0 % RYAN Comment: Interpretive Data Percent cell count reference ranges are not reported, since discordance with absolute values may lead to misinterpretation of CBC data. Current Interpretive Data was last revised on 2017. Testing performed by: [address] [address] Lymphocyte pct 4.0 % RYAN Comment: Interpretive Data Percent cell count reference ranges are not reported, since discordance with absolute values may lead to misinterpretation of CBC data. Current Interpretive Data was last revised on 2017. Testing performed by: [address] [address] Monocyte pct 7.0 % RYAN Comment: Interpretive Data Percent cell count reference ranges are not reported, since discordance with absolute values may lead to misinterpretation of CBC data. Current Interpretive Data was last revised on 2017. Testing performed by: [address], [place]., [address] RBC morphology Consistent with RBC Indicies RYAN Comment:Testing performed by : [address], [place]., [address] Platelet morphology Normal RYAN Comment:Testing performed by : [address], [place]., [address] Platelet estimate Adequate RYAN Comment:Testing performed by : [address], [place]., [address] Blood 03/14/2025 11:0 7 PM CDT 03/14/2025 11:19 PM CDT us Josh Zamarripa Jr., MD LAB BLOOD ORDERABLES Fi nal Result RYAN 45[address] [facility] [place] [address] * (ABNORMAL) Blood culture Blood (03/14/2025 11:07 PM CDT) Direct Specimen Exam Stain: Gram Negative Bacilli Time to culture positivity (aerobic media): 10.6 hours Time to culture positivity (anaerobic media): 11.3 hours Comment:Testing performed by : [facility], [address] [place]., [address] Report Final Report: Klebsiella pneumoniae For susceptibility results, refer to accession number [id number] on the blood culture from 03/14/2025 (.) RYAN Comment:Testing performed by : [facility], [address] [place]., [address] Organism KLEBSIELLA PNEUMONIAE RYAN Blood 03/14/2025 11:0 7 PM CDT 03/15/2025 1:41 AM CDT Narrative RYAN - 03/18/2025 12:21 PM CDT Collection->Peripheral 1. Blood cultures are incubated for 4 days on a continuously monitored blood culture system. The first report of a negative culture is issued within 24 hours of receipt of the specimen in the laboratory. 2. Positive culture results are reported as soon as they are detected. 3. The most important factor for detection of microbes in the setting of bloodstream infection is the volume of blood submitted for culture. Failure to collect an optimal blood volume can result in false negative blood cultures. 4. For pediatric patients, the recommended blood volume to collect follows a weight based strategy. See the electronic test catalog for collection instructions. 5. For positive blood cultures, a rapid molecular test may be performed for organism identification using the macho ePlex blood culture identification panel for gram positive (BCID-GP) and gram negative (BCID-GN) organisms. This nucleic acid amplification test detects microbial DNA in positive blood culture broth. This assay has been cleared by the [place] Food and Drug Administration and its performance characteristics have been verified by the [facility] Microbiology Laboratory. For questions about this culture, contact the Microbiology Laboratory at [phone]. Interpretive data was last revised on 24. us Josh Zamarripa Jr., MD LAB MICROBIOLOGY - GENE RAL ORDERABLES Final Result RYAN [place] [address] [facility] [place] [address] * (ABNORMAL) Blood culture Blood (03/14/2025 11:07 PM CDT) Direct Specimen Exam Molecular Analysis: Klebsiella pneumoniae group detected by mach[employer] ePlex BCID-GN panel. This test does not exclude the possibility of a mixed bacterial infection. Notification of: Klebsiella pneumoniae called to and read back by: Huber Lorenzo MT on 03/15/2025 13:57:00 by: Gilberto Wayne MT Notification of: Klebsiella pneumoniae called to and read back by: [email or web address] on 03/15/2025 14:03:57 by [id number]. Comment:Testing performed by : [facility], [address] [place] [address], [address] Direct Specimen Exam Stain: Gram Negative Bacilli Time to culture positivity (anaerobic media): 10.0 hours Time to culture positivity (aerobic media): 10.4 hours Notification of: Gram Negative Bacilli called to and read back by: [phone] Elisabethcinda LYONSS on 03/15/2025 12:14:07 by: Gilberto Wayne MT Test result called to and read back by [id number] on 03/15/2025 1220H by [id number] RYAN [place] Comment:Testing performed by : [facility], [address] [place] [address], [address] Report Final Report: Klebsiella pneumoniae (.) RYAN [place]OW[place] Comment:Testing performed by : [facility], [address] [place]., [address] Organism KLEBSIELLA PNEUMONIAE RYAN [place] Blood 03/14/2025 11:0 7 PM CDT 03/15/2025 1:41 AM CDT Narrative RYAN BOWLING - 03/18/2025 12:21 PM CDT Collection->Peripheral 1. Blood cultures are incubated for 4 days on a continuously monitored blood culture system. The first report of a negative culture is issued within 24 hours of receipt of the specimen in the laboratory. 2. Positive culture results are reported as soon as they are detected. 3. The most important factor for detection of microbes in the setting of bloodstream infection is the volume of blood submitted for culture. Failure to collect an optimal blood volume can result in false negative blood cultures. 4. For pediatric patients, the recommended blood volume to collect follows a weight based strategy. See the electronic test catalog for collection instructions. 5. For positive blood cultures, a rapid molecular test may be performed for organism identification using the mach[employer] ePlex blood culture identification panel for gram positive (BCID-GP) and gram negative (BCID-GN) organisms. This nucleic acid amplification test detects microbial DNA in positive blood culture broth. This assay has been cleared by the [place] Food and Drug Administration and its performance characteristics have been verified by the [facility] Microbiology Laboratory. For questions about this culture, contact the Microbiology Laboratory at [phone]. Interpretive data was last revised on 24. Organism Antibiotic Method Susceptibility Klebsiella pneumoniae Ampicillin INTERPRETATION Resistant Klebsiella pneumoniae Cefazolin INTERPRETATION Susceptible Klebsiella pneumoniae Gentamicin INTERPRETATION Susceptible Klebsiella pneumoniae Ampicillin with Sulbactam INTERP RETATION Susceptible Klebsiella pneumoniae Trimethoprim with Sulfamethoxazole INTERPRETATION Susceptible Klebsiella pneumoniae Meropenem INTERPRETATION Susceptible Klebsiella pneumoniae Cefepime INTERPRETATION Susceptible Klebsiella pneumoniae Ciprofloxacin INTERPRETATION Susceptible Klebsiella pneumoniae Ceftazidime INTERPRETATION Susceptible Klebsiella pneumoniae Ceftriaxone INTERPRETATION Susceptible Klebsiella pneumoniae Piperacillin/Tazobactam INTERPRE TATION Susceptible us Josh Zamarripa Jr., MD LAB MICROBIOLOGY - GENE [facility] ORDERABLES Final Result RYAN BOWLING [address] [facility] Department [place] [address] * aPTT (03/14/2025 11:07 PM CDT) aPTT 35 22 - 37 sec Comment: Interpretive data aPTT test has not been evaluated for monitoring heparin therapy. The anti-Xa is the preferred test. Current interpretive data was last revised on 2019. Testing performed by: [address] [address] Blood Venous blood specimen / Unknown 03/14/2025 11:07 PM CDT 03/14/2025 11:19 PM CDT Narrative RYAN - 03/14/2025 11:31 PM CDT Potential stroke patient. Josh Zamarripa Jr., MD LAB BLOOD ORDERABLES Fi nal Result Performing Organization Address City/[facility] Co de Phone Number [address] [place] [address] * Protime-INR (03/14/2025 11:07 PM CDT) Pathologist [facility] PT 13.7 12.0 - 14.6 sec Comment:Testing performed by : [address] [address] INR 1.1 0.9 - 1.2 [facility] Comment: Interpretive data Oral anticoagulant therapeutic ranges: Venous thromboembolism prophylaxis or treatment: 2.0-3.0 CARDIOLOGY Standard range: 2.0-3.0 High-intensity range: 2.5-3.5 Refer to indication-specific guidelines for appropriate target ranges for prosthetic heart valve replacement. Current interpretive data was last revised on 2019. Testing performed by: [address] [address] Blood 03/14/2025 11:0 7 PM CDT 03/14/2025 11:19 PM CDT Josh Zamarripa Jr., MD LAB BLOOD ORDERABLES Fi nal Result Performing Organization Address City/[facility] Co de Phone Number [place] [address] [facility] CNS Response [place], [place] [id number] * (ABNORMAL) Comprehensive metabolic panel (03/14/2025 11:07 PM CDT) Sodium 137 135 - 145 mmol/L Comment:Testing performed by : [address] [address] Potassium, pl 4.4 3.3 - 4.9 mmol/L RYAN Comment:Testing performed by : [address], [place]., [address] Chloride 99 97 - 110 mmol/L RYAN Comment:Testing performed by : [address], [place]., [address] CO2 23 22 - 32 mmol/L RYAN Comment:Testing performed by : [address], [place]., [address] Anion gap 15 2 - 15 mmol/L RYAN Comment:Testing performed by : [address], [place]., [address] BUN 22 6 - 25 mg/dL RYAN Comment:Testing performed by : [address], [place]., [address] Creatinine 1.05 0.60 - 1.10 mg/dL RYAN Comment:Testing performed by : [address], [place]., [address] Glucose 248(H) 70 - 199 mg/dL [facility] Comment: Interpretive Data Fasting glucose >/= 126 [...] Current interpretive data was last revised 2022. Testing performed by: [address], [place]., [address] Calcium 9.5 8.5 - 10.3 mg/dL RYAN Comment:Testing performed by : [address], [place]., [address] Bilirubin, total 1.2 0.1 - 1.2 mg/dL RYAN Comment:Testing performed by : [facility], [address] [place] [address]., [address] Protein, pl 7.0 6.5 - 8.5 g/dL RYAN Comment:Testing performed by : [facility], [address] [place] [address]., [address] Albumin 4.1 3.5 - 5.0 g/dL RYAN Comment:Testing performed by : [address] [address] Alk phos 178(H) 40 - 130 Units/L RYAN Comment:Testing performed by : [address] [address] ALT 26 7 - 45 Units/L RYAN Comment:Testing performed by : [address] [address] AST 51(H) 10 - 45 Units/L RYAN Comment:Testing performed by : [address], [address] Blood Venous blood specimen / Unknown 03/14/2025 11:07 PM CDT 03/14/2025 11:19 PM CDT Narrative RYAN - 03/14/2025 11:44 PM CDT Potential Stroke Patient Josh Zamarripa Jr., MD LAB BLOOD ORDERABLES Fi nal Result Performing Organization Address City/State/[facility] Co de Phone Number [facility] [address] [facility] [place] [address] * ECG 12 lead (03/14/2025 10:51 PM CDT) Ventricular Rate EKG/Min 110 BPM [facility] Atrial Rate 110 BPM [facility] TN-Interval (MSEC) 154 ms [facility] QRS-Interval (MSEC) 90 ms [facility] QT-Interval (MSEC) 322 ms [facility] QTc 435 ms [facility] P [place] 60 degrees [facility] R [place] -5 degrees [facility] T [place] -3 degrees [facility] Diagnosis Sinus tachycardia 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 rate has increased BY 40 BPM Criteria for Anterior infarct are no longer Present Criteria for Anterolateral infarct are no longer Present ST no longer depressed in Anterior leads T wave inversion now evident in Inferior leads T wave inversion no longer evident in Anterior leads Confirmed by RAEANN QUINONES M.D. ([id number]) on 03/15/2025 8:05:53 AM [facility] [employer] 03/14/2025 10:5 1 PM CDT 03/15/2025 8:05 AM CDT us Josh Zamarripa Jr., MD ECG ORDERABLES Final R esult [facility] * CT Stroke Head WO Contrast (03/14/2025 10:36 PM CDT) Anatomical Region Laterality Modality Head N/A Computed Tomogra phy 03/14/2025 10:4 1 PM CDT Narrative 03/14/2025 10:52 PM CDT EXAM DESCRIPTION: CT STROKE HEAD WO CONTRAST REASON FOR STUDY: Stroke, follow up, Stroke Slurred speech Hx of cva TECHNIQUE: Axial images acquired through the brain without intravenous contrast. Images stored on PACS. Automated exposure control was used as a dose optimization technique for this examination. COMPARISON: CT 02/27/2025, MRI 03/01/2020 FINDINGS: BRAIN: Diffuse atrophy is evident similar to previous. There are 2 new areas hypodensity seen in the right primarily within subcortical white matter within the right parietal and right occipital lobes. These areas were not evident on the prior CT or MRI suggesting these may represent recent areas of infarction. No associated mass effect or hemorrhage is seen. MRI is suggested for further evaluation. EXTRA-AXIAL SPACES: No fluid collections. No masses. CALVARIUM: No fracture. SINUSES/MASTOIDS: No fluid or mucosal thickening. ORBITS: No significant abnormality. OTHER: No other significant abnormality. IMPRESSION: New areas of hypodensity in the right parietal and right occipital lobes are concerning for recent areas of infarction. MRI is suggested for further evaluation. I discussed this via telephone at this time with Dr Zamarripa THIS IS AN ELECTRONICALLY VERIFIED FINAL REPORT 03/14/2025 10:52 PM - Electronically signed by Jimbo RENDON: JULIETA Report ID: [id number] Reading Location: [id number] Procedure Note Jimbo Vásquez MD - 03/14/2025 EXAM DESCRIPTION: CT STROKE HEAD WO CONTRAST REASON FOR STUDY: Stroke, follow up, Stroke Slurred speech Hx of cva TECHNIQUE: Axial images acquired through the brain without intravenous contrast. Images stored on PACS. Automated exposure control was used asa dose optimization technique for this examination. COMPARISON: CT 02/27/2025, MRI 03/01/2020 FINDINGS: BRAIN: Diffuse atrophy is evident similar to previous. Thereare 2 new areas hypodensity seen in the right primarily within subcorticalwhite matter within the right parietal and right occipital lobes. These areaswere not evident on the prior CT or MRI suggesting these may represent recentareas of infarction. No associated mass effect or hemorrhage is seen. MRI is suggested for further evaluation. EXTRA-AXIAL SPACES: No fluid collections. No masses. CALVARIUM: No fracture. SINUSES/MASTOIDS: No fluid or mucosal thickening. ORBITS: No significant abnormality. OTHER: No other significant abnormality. IMPRESSION: New areas of hypodensity in the right parietal and rightoccipital lobes are concerning for recent areas of infarction. MRI is suggested for further evaluation. I discussed this via telephone at this time with Julio Cesar THIS IS AN ELECTRONICALLY VERIFIED FINAL REPORT 03/14/2025 10:52 PM - Electronically signed by Jimbo RENDON: JULIETA Report ID: [id number] Reading Location: [id number] Josh Zamarripa Jr., MD [facility] PROCEDURES Final Result * (ABNORMAL) POCT glucose (03/14/2025 10:32 PM CDT) Glucose, POC 222(H) 70 - 199 mg/dL Comment:Testing performed by : [facility] [address] [address] Blood 03/14/2025 10:3 2 PM CDT 03/14/2025 10:32 PM CDT us Notinfile Unknown LAB POCT ORDERABLES - DEVICE F inal Result RYAN [facility] Department [place] [address] * (ABNORMAL) CBC without differential (03/14/2025 5:20 AM CDT) WBC 12.47(H) 3.80 - 9.90 K/cumm RYAN BOWLING Comment:Testing performed by : [address] [address] Hgb 12.6 11.9 - 15.5 g/dL RYAN [place]OWLING Comment:Testing performed by : [address] [address] Hct 37.8 35.6 - 45.5 % RYAN [place]OWLING Comment:Testing performed by : [address] [address] Plt 236 150 - 400 K/cumm RYAN [place]OWLING Comment: This result has been called to Radha Arias by [email or web address] on 03/14/2025 08:51:51. Testing performed by: [address] [address] MPV 11.1 9.1 - 12.3 fL RYAN [place]ING Comment:Testing performed by : [address] [address] RBC 4.34 3.90 - 5.20 M/cumm RYAN BOWLING Comment:Testing performed by : [address] [address] MCV 87.1 81.3 - 96.4 fL RYAN [place]OWLING Comment:Testing performed by : [address] [address] MCH 29.0 27.1 - 33.3 pg RYAN BOWLING Comment:Testing performed by : [address] [address] MCHC 33.3 32.3 - 35.7 g/dL RYAN BOWLING Comment:Testing performed by : [facility] [address] [place] [address]., [address] RDW CV 14.2 11.1 - 14.9 % RYAN BOWLING Comment:Testing performed by : [facility] [address] [place] [address]., [address] RDW SD 44.5 35.7 - 48.1 fL RYAN BOWLING Comment:Testing performed by : [facility] [address] [place] [address]., [address] NRBC abs 0.00 0.00 - 0.01 K/cumm RYAN BOWLING Comment:Testing performed by : [address] [address] Blood 03/14/2025 5:20 AM CDT 03/14/2025 8:17 AM CDT us Notinfile Unknown LAB BLOOD ORDERABLES Final Res ult RYAN [address] [facility] Department of Laboratories [place], [place] [id number] * (ABNORMAL) Hepatic function panel (03/14/2025 5:20 AM CDT) Bilirubin, total 0.3 0.1 - 1.2 mg/dL RYAN BOWLING Comment:Testing performed by : [address] [address] Bilirubin, direct 0.1 0.1 - 0.3 mg/dL RYAN BOWLING Comment:Testing performed by : [address] [address] Protein, pl 6.8 6.5 - 8.5 g/dL RYAN [place]OWLING Comment:Testing performed by : [address] [address] Albumin 4.0 3.5 - 5.0 g/dL RYAN [place]OWLING Comment:Testing performed by : [address] [address] Alk phos 166(H) 40 - 130 Units/L RYAN BOWLING Comment:Testing performed by : [facility], [address] [place] [address]., [address] ALT 24 7 - 45 Units/L RYAN BOWLING Comment:Testing performed by : [address] [address] AST 39 10 - 45 Units/L RYAN BOWLING Comment:Testing performed by : [address] [address] Blood 03/14/2025 5:20 AM CDT 03/14/2025 8:17 AM CDT us Notinfile Unknown LAB BLOOD ORDERABLES Final Res ult RYAN BOWLING [address] [facility] Department [place] [address] * eGFR (03/13/2025 4:45 AM CDT) eGFR 83 >=60 mL/min/1. 73 m2 RYAN BOWLING Comment: Interpretive Data Reference Interval Normal >/= [...] Current interpretive data was last reviewed 2021. Testing performed by: [address] [address] Blood 03/13/2025 4:45 AM CDT 03/13/2025 7:27 AM CDT us Notinfile Unknown LAB BLOOD ORDERABLES Final Res ult RYAN [address] [facility] Department [place] [address] * (ABNORMAL) Differential, auto (03/13/2025 4:45 AM CDT) Neutrophil abs 4.42 1.50 - 6.50 K/cumm RYAN Comment:Testing performed by : [address] [address] Imm gran abs 0.05 0.00 - 0.10 K/cumm RYAN Comment:Testing performed by : [address] [address] Lymphocyte abs 4.36(H) 0.80 - 3.30 K/cumm RYAN Comment:Testing performed by : [address] [address] Monocyte abs 0.71 0.20 - 0.80 K/cumm RYAN Comment:Testing performed by : [address] [address] Eosinophil abs 0.16 0.00 - 0.50 K/cumm RYAN Comment:Testing performed by : [address] [address] Basophil abs 0.10 0.00 - 0.10 K/cumm RYAN Comment:Testing performed by : [address] [address] Neutrophil pct 45.2 % RYAN Comment: Interpretive Data Percent cell count reference ranges are not reported, since discordance with absolute values may lead to misinterpretation of CBC data. Current Interpretive Data was last revised on 2017. Testing performed by: [address] [address] Imm gran pct 0.5 % RYAN Comment: Interpretive Data Percent cell count reference ranges are not reported, since discordance with absolute values may lead to misinterpretation of CBC data. Current Interpretive Data was last revised on 2017. Testing performed by: [address] [address] Lymphocyte pct 44.5 % RYAN Comment: Interpretive Data Percent cell count reference ranges are not reported, since discordance with absolute values may lead to misinterpretation of CBC data. Current Interpretive Data was last revised on 2017. Testing performed by: [address] [address] Monocyte pct 7.2 % RYAN Comment: Interpretive Data Percent cell count reference ranges are not reported, since discordance with absolute values may lead to misinterpretation of CBC data. Current Interpretive Data was last revised on 2017. Testing performed by: [address] [address] Eosinophil pct 1.6 % RYAN Comment: Interpretive Data Percent cell count reference ranges are not reported, since discordance with absolute values may lead to misinterpretation of CBC data. Current Interpretive Data was last revised on 2017. Testing performed by: [address] [address] Basophil pct 1.0 % RYAN Comment: Interpretive Data Percent cell count reference ranges are not reported, since discordance with absolute values may lead to misinterpretation of CBC data. Current Interpretive Data was last revised on 2017. Testing performed by: [address] [address] Blood 03/13/2025 4:45 AM CDT 03/13/2025 7:27 AM CDT us Notinfile Unknown LAB BLOOD ORDERABLES Final Res ult RYAN [address] [facility] Department of Laboratories [place], [place] [id number] * (ABNORMAL) CBC with auto differential (03/13/2025 4:45 AM CDT) WBC 9.80 3.80 - 9.90 K/cumm RYAN BOWLING Comment:Testing performed by : [address] [address] Hgb 13.3 11.9 - 15.5 g/dL RYAN BOWLING Comment:Testing performed by : [address], [address] Hct 41.1 35.6 - 45.5 % RYAN Comment:Testing performed by : [address] [address] Plt 114(L) 150 - 400 K/cumm RYAN Comment:Testing performed by : [address], [address] MPV 11.4 9.1 - 12.3 fL RYAN Comment:Testing performed by : [address], [address] RBC 4.62 3.90 - 5.20 M/cumm RYAN Comment:Testing performed by : [address], [address] MCV 89.0 81.3 - 96.4 fL RYAN Comment:Testing performed by : [address], [address] MCH 28.8 27.1 - 33.3 pg RYAN Comment:Testing performed by : [address], [address] MCHC 32.4 32.3 - 35.7 g/dL RYAN Comment:Testing performed by : [address], [address] RDW CV 14.2 11.1 - 14.9 % RYAN Comment:Testing performed by : [address], [address] RDW SD 45.3 35.7 - 48.1 fL RYAN Comment:Testing performed by : [address], [address] NRBC abs 0.00 0.00 - 0.01 K/cumm RYAN Comment:Testing performed by : [address], [address] Blood 03/13/2025 4:45 AM CDT 03/13/2025 7:27 AM CDT us Notinfile Unknown LAB BLOOD ORDERABLES Final Res ult RYAN [address] [facility] Department [place] [address] * (ABNORMAL) Comprehensive metabolic panel (03/13/2025 4:45 AM CDT) Sodium 138 135 - 145 mmol/L RYAN Comment:Testing performed by : [address] [address] Potassium, pl 4.3 3.3 - 4.9 mmol/L RYAN Comment:Testing performed by : [address] [address] Chloride 104 97 - 110 mmol/L RYAN Comment:Testing performed by : [address] [address] CO2 21(L) 22 - 32 mmol/L RYAN Comment:Testing performed by : [address] [address] Anion gap 13 2 - 15 mmol/L RYAN Comment:Testing performed by : [address] [address] BUN 21 6 - 25 mg/dL RYAN Comment:Testing performed by : [address] [address] Creatinine 0.77 0.60 - 1.10 mg/dL RYAN Comment:Testing performed by : [address] [address] Glucose 144 70 - 199 mg/dL RYAN Comment: Interpretive Data Fasting glucose >/= 126 [...] Current interpretive data was last revised 2022. Testing performed by: [address] [address] Calcium 9.4 8.5 - 10.3 mg/dL RYAN Comment:Testing performed by : [address] [address] Bilirubin, total 0.3 0.1 - 1.2 mg/dL RYAN Comment:Testing performed by : [address] [address] Protein, pl 6.6 6.5 - 8.5 g/dL RYAN Comment:Testing performed by : [address] [address] Albumin 3.9 3.5 - 5.0 g/dL RYAN Comment:Testing performed by : [address] [address] Alk phos 176(H) 40 - 130 Units/L RYAN Comment:Testing performed by : [address] [address] ALT 30 7 - 45 Units/L RYAN Comment:Testing performed by : [address] [address] AST 139(H) 10 - 45 Units/L RYAN Comment:Testing performed by : [address] [address] Blood 03/13/2025 4:45 AM CDT 03/13/2025 7:27 AM CDT us Notinfile Unknown LAB BLOOD ORDERABLES Final Res ult RYAN [address] [facility] Department of Laboratories [place], [place] [id number] * eGFR (03/09/2025 6:00 AM CDT) eGFR 67 >=60 mL/min/1. 73 m2 Comment: Interpretive Data [...] interpretive data was last reviewed 2021. Blood 03/09/2025 6:00 AM CDT 03/09/2025 6:52 AM CDT us Samir Dockery MD PhD LAB BLOOD ORDE MIRTHA Final Result [facility] Department [place] [address] * Basic metabolic panel (03/09/2025 6:00 AM CDT) Sodium 140 135 - 145 mmol/L Potassium, pl 4.3 3.3 - 4.9 mmol/L [facility] Chloride 105 97 - 110 mmol/L [facility] CO2 24 22 - 32 mmol/L [facility] Anion gap 11 2 - 15 mmol/L [facility] BUN 16 6 - 25 mg/dL [facility] Creatinine 0.92 0.60 - 1.10 mg/dL [facility] Glucose 161 70 - 199 mg/dL [facility] Comment: Interpretive Data Fasting [...] interpretive data was last revised 2022. Calcium 8.9 8.5 - 10.3 mg/dL [facility] Blood 03/09/2025 6:00 AM CDT 03/09/2025 6:52 AM CDT Samir Dockery MD PhD LAB BLOOD ORDManny SHANNON Final Result Performing Organization Address [facility] Co de Phone Number [facility] [place] [address] * Blood smear review (03/09/2025 5:37 AM CDT) Pathologist [facility] RBC morphology Consistent with RBC Indicies Platelet estimate Adequate [facility] Morphology scrn See Comment [facility] Comment:PLT: Although platet s are clumped on smear estimate appears adequate to increased in number. Blood 03/09/2025 5:37 AM CDT 03/09/2025 6:57 AM CDT us Samir Dockery MD PhD LAB BLOOD ORDManny SHANNON Edited Result - Final Performing Organization Address [facility] Co de Phone Number [facility] [place] [address] * CBC without differential (03/09/2025 5:37 AM CDT) WBC 8.12 3.80 - 9.90 K/cumm Hgb 12.0 11.9 - 15.5 g/dL [facility] Hct 35.9 35.6 - 45.5 % [facility] Plt 174 150 - 400 K/cumm [facility] MPV 11.5 9.1 - 12.3 fL [facility] RBC 4.25 3.90 - 5.20 M/cumm [facility] MCV 84.5 81.3 - 96.4 fL [facility] MCH 28.2 27.1 - 33.3 pg [facility] MCHC 33.4 32.3 - 35.7 g/dL [facility] RDW CV 13.8 11.1 - 14.9 % [facility] RDW SD 42.4 35.7 - 48.1 fL [facility] NRBC abs 0.00 0.00 - 0.01 K/cumm [facility] Blood 03/09/2025 5:37 AM CDT 03/09/2025 6:52 AM CDT us Samir Dockery MD PhD LAB BLOOD ORDManny SHANNON Edited Result - Final Performing Organization Address City/[facility]/ZIP Co de Phone Number [facility] [place] [address] * POCT glucose (03/08/2025 10:42 PM CDT) [facility] Glucose, POC 183 70 - 199 mg/dL Blood 03/08/2025 10:4 2 PM CDT 03/08/2025 10:42 PM CDT us Samir Dockery MD PhD LAB POCT ORDER SYLWIA - DEVICE Final Result Performing Organization Address [facility] Co de Phone Number [facility] [place] [address] * (ABNORMAL) POCT glucose (03/08/2025 7:50 PM CDT) [facility] Glucose, POC 203(H) 70 - 199 mg/dL Blood 03/08/2025 7:50 PM CDT 03/08/2025 7:50 PM CDT us Samir Dockery MD PhD LAB POCT ORDER SYLWIA - DEVICE Final Result Performing Organization Address [facility] Co de Phone Number [facility] [place] [address] * POCT glucose (03/08/2025 4:38 PM CDT) Glucose, POC 178 70 - 199 mg/dL Blood 03/08/2025 4:38 PM CDT 03/08/2025 4:38 PM CDT us Samir Dockery MD PhD LAB POCT ORDER SYLWIA - DEVICE Final Result Performing Organization Address [facility] de Phone Number [facility] [place] [address] * (ABNORMAL) POCT glucose (03/08/2025 11:43 AM CDT) Glucose, POC 206(H) 70 - 199 mg/dL Blood 03/08/2025 11:4 3 AM CDT 03/08/2025 11:43 AM CDT us Samir Dcokery MD PhD LAB POCT ORDER SYLWIA - DEVICE Final Result Performing Organization Address [facility] de Phone Number [facility] [place] [address] * (ABNORMAL) POCT glucose (03/08/2025 8:28 AM CDT) Glucose, POC 202(H) 70 - 199 mg/dL Blood 03/08/2025 8:28 AM CDT 03/08/2025 8:28 AM CDT us Samir Dockery MD PhD LAB POCT ORDER SYLWIA - DEVICE Final Result Performing Organization Address [facility] de Phone Number [facility] [place] [address] * (ABNORMAL) CBC without differential (03/07/2025 8:36 PM CDT) WBC 10.12(H) 3.80 - 9.90 K/cumm Hgb 11.6(L) 11.9 - 15.5 g/dL [facility] Hct 33.9(L) 35.6 - 45.5 % [facility] Plt 229 150 - 400 K/cumm [facility] MPV 10.8 9.1 - 12.3 fL [facility] RBC 4.03 3.90 - 5.20 M/cumm [facility] MCV 84.1 81.3 - 96.4 fL [facility] MCH 28.8 27.1 - 33.3 pg [facility] MCHC 34.2 32.3 - 35.7 g/dL [facility] RDW CV 13.5 11.1 - 14.9 % [facility] RDW SD 42.0 35.7 - 48.1 fL [facility] NRBC abs 0.00 0.00 - 0.01 K/cumm [facility] Blood 03/07/2025 8:36 PM CDT 03/07/2025 8:57 PM CDT us Samir Dockery MD PhD LAB BLOOD ANURADHA SHANNON Final Result [facility] [place] [address] * eGFR (03/07/2025 8:30 PM CDT) eGFR 60 >=60 mL/min/1. 73 m2 Comment: Interpretive Data [...] of Race in Diagnosing Kidney Disease, JASN 2021). The CKD-EPI equation should not be used for patients with unstable renal function and has not been validated in children and those over 70. Current interpretive data was last reviewed 2021. Blood 03/07/2025 8:30 PM CDT 03/07/2025 8:57 PM CDT Samir Dockery MD PhD LAB BLOOD ORDE MIRTHA Final Result Performing Organization Address City/[facility]/ZIP Co de Phone Number [facility] [place] [address] * Magnesium (03/07/2025 8:30 PM CDT) [facility] Magnesium 1.8 1.4 - 2.5 mg/dL Blood 03/07/2025 8:30 PM CDT 03/07/2025 8:53 PM CDT Samir Dockery MD PhD LAB BLOOD ORDManny LADONNAJASON Final Result Performing Organization Address City/[facility] de Phone Number [facility] [place] [address] * (ABNORMAL) Basic metabolic panel (03/07/2025 8:30 PM CDT) Pathologist [facility] Sodium 139 135 - 145 mmol/L Potassium, pl 4.3 3.3 - 4.9 mmol/L [facility] Comment:Repeated and Verifie d Chloride 100 97 - 110 mmol/L [facility] CO2 27 22 - 32 mmol/L [facility] Anion gap 12 2 - 15 mmol/L [facility] BUN 16 6 - 25 mg/dL [facility] Creatinine 1.01 0.60 - 1.10 mg/dL [facility] Glucose 245(H) 70 - 199 mg/dL [facility] Comment: Interpretive Data Fasting [...] interpretive data was last revised 2022. Calcium 8.9 8.5 - 10.3 mg/dL [facility] Blood 03/07/2025 8:30 PM CDT 03/07/2025 8:53 PM CDT Samir Dockery MD PhD LAB BLOOD ORDE RABLES Final Result [facility] [place] [address] * (ABNORMAL) POCT glucose (03/07/2025 8:29 PM CDT) Glucose, POC 232(H) 70 - 199 mg/dL Blood 03/07/2025 8:29 PM CDT 03/07/2025 8:29 PM CDT Samir Dockery MD PhD LAB POCT ORDER SYLWIA - DEVICE Final Result [facility] [place] [address] * (ABNORMAL) Troponin I high-sensitivity 2-hour (03/07/2025 6:23 PM CDT) Trop I hs 43(H) <=17 ng/L Comment: Interpretive Data For further hscTnI resources including the diagnostic algorithm and an aid in interpretation, copy and paste this link: https://bjhlab.testcatalog.org/show/[email or web address] Current Interpretive Data last revised 2019. Trop I hs delta 2 ng/L [facility] Trop I hs interp Insignificant [facility] Blood 03/07/2025 6:23 PM CDT 03/07/2025 6:42 PM CDT us Samir Dockery MD PhD LAB BLOOD ORDE RABJASON Final Result Performing Organization Address [facility] Co de Phone Number [facility] [place] [address] * (ABNORMAL) POCT glucose (03/07/2025 4:48 PM CDT) Glucose, POC 256(H) 70 - 199 mg/dL Blood 03/07/2025 4:48 PM CDT 03/07/2025 4:48 PM CDT us Samir Dockery MD PhD LAB POCT ORDER SYLWIA - DEVICE Final Result Performing Organization Address [facility] de Phone Number [facility] [place] [address] * (ABNORMAL) Troponin I high-sensitivity series (baseline, 2hr, 4hr, 6hr) (03/07/2025 4:17 PM CDT) Pathologist [facility] Trop I hs 41(H) <=17 ng/L Comment: Interpretive Data For further hscTnI resources including the diagnostic algorithm and an aid in interpretation, copy and paste this link: [email or web address].testcatalog.org/show/[email or web address] Current Interpretive Data last revised 2019. Blood 03/07/2025 4:17 PM CDT 03/07/2025 4:31 PM CDT us Samir Dockery MD PhD LAB BLOOD ORDE RABJASON Final Result Performing Organization Address [facility] Co de Phone Number [facility] [place] [address] * eGFR (03/07/2025 4:17 PM CDT) [facility] eGFR 67 >=60 mL/min/1. 73 m2 Comment: Interpretive Data [...] interpretive data was last reviewed 2021. Blood 03/07/2025 4:17 PM CDT 03/07/2025 4:30 PM CDT us Samir Dockery MD PhD LAB BLOOD ANURADHA SHANNON Final Result [facility] [place] [address] * CBC without differential (03/07/2025 4:17 PM CDT) [facility] WBC 9.05 3.80 - 9.90 K/cumm Hgb 12.8 11.9 - 15.5 g/dL [facility] Hct 37.8 35.6 - 45.5 % [facility] Plt 271 150 - 400 K/cumm [facility] MPV 11.2 9.1 - 12.3 fL [facility] RBC 4.50 3.90 - 5.20 M/cumm [facility] MCV 84.0 81.3 - 96.4 fL [facility] MCH 28.4 27.1 - 33.3 pg [facility] MCHC 33.9 32.3 - 35.7 g/dL [facility] RDW CV 14.1 11.1 - 14.9 % [facility] RDW SD 43.0 35.7 - 48.1 fL [facility] NRBC abs 0.00 0.00 - 0.01 K/cumm [facility] Blood 03/07/2025 4:17 PM CDT 03/07/2025 4:31 PM CDT us Samir Dockery MD PhD LAB BLOOD ORDManny SHANNON Final Result [facility] Department [place] [address] * (ABNORMAL) Basic metabolic panel (03/07/2025 4:17 PM CDT) Sodium 137 135 - 145 mmol/L Potassium, pl See Comment 3.3 - 4.9 mmol/L [facility] Comment:Credited; Hemolyzed Specimen Chloride 100 97 - 110 mmol/L [facility] CO2 30 22 - 32 mmol/L [facility] Comment:Hemolyzed; result ma y be falsely decreased Anion gap 7 2 - 15 mmol/L [facility] BUN 17 6 - 25 mg/dL [facility] Creatinine 0.92 0.60 - 1.10 mg/dL [facility] Glucose 258(H) 70 - 199 mg/dL [facility] Comment: Interpretive Data Fasting [...] interpretive data was last revised 2022. Calcium 9.3 8.5 - 10.3 mg/dL [facility] Blood 03/07/2025 4:17 PM CDT 03/07/2025 4:30 PM CDT us Samir Dockery MD PhD LAB BLOOD ORDE RABLES Final Result Performing Organization Address [facility] Co de Phone Number [facility] [place] [address] * (ABNORMAL) POCT glucose (03/07/2025 12:05 PM CDT) Glucose, POC 261(H) 70 - 199 mg/dL Blood 03/07/2025 12:0 5 PM CDT 03/07/2025 12:05 PM CDT us Samir Dockery MD PhD LAB POCT ORDER SYLWIA - DEVICE Final Result Performing Organization Address [facility] de Phone Number [facility] [place] [address] * POCT glucose (03/07/2025 7:52 AM CDT) [facility] Glucose, POC 139 70 - 199 mg/dL Blood 03/07/2025 7:52 AM CDT 03/07/2025 7:52 AM CDT us Samir Dockery MD PhD LAB POCT ORDER SYLWIA - DEVICE Final Result Performing Organization Address City/[facility] de Phone Number [facility] [place] [address] * eGFR (03/06/2025 10:23 PM CDT) Pathologist [facility] eGFR 61 >=60 mL/min/1. 73 m2 Comment: Interpretive Data [...] interpretive data was last reviewed 2021. Blood 03/06/2025 10:2 3 PM CDT 03/06/2025 11:26 PM CDT us Samir Dockery MD PhD LAB BLOOD ANURADHA SHANNON Final Result [facility] [place] [address] * CBC without differential (03/06/2025 10:23 PM CDT) WBC 9.68 3.80 - 9.90 K/cumm Hgb 12.1 11.9 - 15.5 g/dL [facility] Hct 36.5 35.6 - 45.5 % [facility] Plt 242 150 - 400 K/cumm [facility] MPV 10.7 9.1 - 12.3 fL [facility] RBC 4.26 3.90 - 5.20 M/cumm [facility] MCV 85.7 81.3 - 96.4 fL [facility] MCH 28.4 27.1 - 33.3 pg [facility] MCHC 33.2 32.3 - 35.7 g/dL [facility] RDW CV 13.8 11.1 - 14.9 % [facility] RDW SD 42.9 35.7 - 48.1 fL [facility] NRBC abs 0.00 0.00 - 0.01 K/cumm [facility] Blood 03/06/2025 10:2 3 PM CDT 03/06/2025 11:30 PM CDT us Samir Dockery MD PhD LAB BLOOD ORDE RABJASON Final Result [facility] [place] [address] * (ABNORMAL) Basic metabolic panel (03/06/2025 10:23 PM CDT) Pathologist [facility] Sodium 139 135 - 145 mmol/L Potassium, pl 4.1 3.3 - 4.9 mmol/L [facility] Chloride 102 97 - 110 mmol/L [facility] CO2 28 22 - 32 mmol/L [facility] Anion gap 9 2 - 15 mmol/L [facility] BUN 16 6 - 25 mg/dL [facility] Creatinine 0.99 0.60 - 1.10 mg/dL [facility] Glucose 262(H) 70 - 199 mg/dL [facility] Comment: Interpretive Data Fasting [...] interpretive data was last revised 2022. Calcium 9.2 8.5 - 10.3 mg/dL [facility] Blood 03/06/2025 10:2 3 PM CDT 03/06/2025 11:26 PM CDT us Samir Dockery MD PhD LAB BLOOD ORDE MIRTHA Final Result Performing Organization Address City/[facility]/ZIP Co de Phone Number [facility] [place] [address] * eGFR (03/06/2025 10:12 PM CDT) eGFR 61 >=60 mL/min/1. 73 m2 Comment: Interpretive Data [...] interpretive data was last reviewed 2021. Blood 03/06/2025 10:1 2 PM CDT 03/06/2025 11:25 PM CDT us Lilliana Acosta MD LAB BLOOD [place] [address] * Phosphorus (03/06/2025 10:12 PM CDT) Pathologist [facility] Phosphorus, pl 3.1 2.3 - 4.5 mg/dL Blood 03/06/2025 10:1 2 PM CDT 03/06/2025 11:25 PM CDT us Lilliana Acosta MD LAB BLOOD [place] [address] * Magnesium (03/06/2025 10:12 PM CDT) Magnesium 1.4 1.4 - 2.5 mg/dL Blood 03/06/2025 10:1 2 PM CDT 03/06/2025 11:25 PM CDT us Lilliana Acosta MD LAB BLOOD ORDERABLES Final Resul t [facility] [place] [address] * (ABNORMAL) Comprehensive metabolic panel (03/06/2025 10:12 PM CDT) Pathologist [facility] Sodium 139 135 - 145 mmol/L Potassium, pl 4.0 3.3 - 4.9 mmol/L [facility] Chloride 102 97 - 110 mmol/L [facility] CO2 28 22 - 32 mmol/L [facility] Anion gap 9 2 - 15 mmol/L [facility] BUN 16 6 - 25 mg/dL [facility] Creatinine 1.00 0.60 - 1.10 mg/dL [facility] Glucose 260(H) 70 - 199 mg/dL [facility] Comment: Interpretive Data Fasting [...] interpretive data was last revised 2022. Calcium 9.2 8.5 - 10.3 mg/dL [facility] Bilirubin, total 0.2 0.1 - 1.2 mg/dL [facility] Protein, pl 7.1 6.5 - 8.5 g/dL [facility] Albumin 3.9 3.5 - 5.0 g/dL [facility] Alk phos 139(H) 40 - 130 Units/L [facility] ALT 15 7 - 45 Units/L [facility] AST 22 10 - 45 Units/L [facility] Blood 03/06/2025 10:1 2 PM CDT 03/06/2025 11:25 PM CDT Lilliana Acosta MD LAB BLOOD ORDERABLES Final Resul t Performing Organization Address [facility] Co de Phone Number [facility] [place] [address] * (ABNORMAL) POCT glucose (03/06/2025 7:54 PM CDT) Glucose, POC 239(H) 70 - 199 mg/dL Blood 03/06/2025 7:54 PM CDT 03/06/2025 7:54 PM CDT Terry Amaro MD PhD LAB POCT O RDERABLES - DEVICE Final Result Performing Organization Address City/[facility] Co de Phone Number [facility] [place] [address] * POCT glucose (03/06/2025 3:47 PM CDT) Glucose, POC 163 70 - 199 mg/dL Blood 03/06/2025 3:47 PM CDT 03/06/2025 3:47 PM CDT Terry Amaro MD PhD LAB POCT O RDERABLES - DEVICE Final Result Performing Organization Address City/[facility] Co de Phone Number [facility] [place] [address] * (ABNORMAL) POCT glucose (03/06/2025 11:35 AM CDT) Glucose, POC 257(H) 70 - 199 mg/dL Blood 03/06/2025 11:3 5 AM CDT 03/06/2025 11:35 AM CDT Terry Amaro MD PhD LAB POCT O RDERABLES - DEVICE Final Result Performing Organization Address [facility] Co de Phone Number [facility] [place] [address] * (ABNORMAL) POCT glucose (03/06/2025 8:20 AM CDT) Glucose, POC 261(H) 70 - 199 mg/dL Blood 03/06/2025 8:20 AM CDT 03/06/2025 8:20 AM CDT Terry Amaro MD PhD LAB POCT O RDERABLES - DEVICE Final Result Performing Organization Address [facility] de Phone Number [facility] [place] [address] * (ABNORMAL) POCT glucose (03/06/2025 7:50 AM CDT) Glucose, POC 213(H) 70 - 199 mg/dL Blood 03/06/2025 7:50 AM CDT 03/06/2025 7:50 AM CDT Terry Amaro MD PhD LAB POCT O RDERABLES - DEVICE Final Result Performing Organization Address [facility] de Phone Number [facility] [place] [address] * eGFR (03/06/2025 6:01 AM CDT) eGFR 66 >=60 mL/min/1. 73 m2 Comment: Interpretive Data [...] interpretive data was last reviewed 2021. Blood 03/06/2025 6:01 AM CDT 03/06/2025 6:40 AM CDT us Lilliana Acosta MD LAB BLOOD ORDERABLES Final Resul t [facility] [place] [address] * (ABNORMAL) CBC without differential (03/06/2025 6:01 AM CDT) WBC 8.94 3.80 - 9.90 K/cumm Hgb 11.7(L) 11.9 - 15.5 g/dL [facility] Hct 36.1 35.6 - 45.5 % [facility] Plt 251 150 - 400 K/cumm [facility] MPV 10.6 9.1 - 12.3 fL [facility] RBC 4.16 3.90 - 5.20 M/cumm [facility] MCV 86.8 81.3 - 96.4 fL [facility] MCH 28.1 27.1 - 33.3 pg [facility] MCHC 32.4 32.3 - 35.7 g/dL [facility] RDW CV 13.9 11.1 - 14.9 % [facility] RDW SD 42.7 35.7 - 48.1 fL [facility] NRBC abs 0.00 0.00 - 0.01 K/cumm [facility] Blood 03/06/2025 6:01 AM CDT 03/06/2025 6:40 AM CDT Lilliana Acosta MD LAB BLOOD ORDERABLES Final Resul t Performing Organization Address City/[facility] Co de Phone Number [facility] Department [place] [address] * Basic metabolic panel (03/06/2025 6:01 AM CDT) Pathologist [facility] Sodium 141 135 - 145 mmol/L Potassium, pl 4.3 3.3 - 4.9 mmol/L [facility] Chloride 104 97 - 110 mmol/L [facility] CO2 29 22 - 32 mmol/L [facility] Anion gap 8 2 - 15 mmol/L [facility] BUN 18 6 - 25 mg/dL [facility] Creatinine 0.93 0.60 - 1.10 mg/dL [facility] Glucose 183 70 - 199 mg/dL [facility] Comment: Interpretive Data Fasting [...] interpretive data was last revised 2022. Calcium 9.1 8.5 - 10.3 mg/dL [facility] Blood 03/06/2025 6:01 AM CDT 03/06/2025 6:40 AM CDT Lilliana Acosta MD LAB BLOOD ORDERABLES Final Resul t Performing Organization Address City/[facility]/ZIP Co de Phone Number [facility] Department [place] [address] * (ABNORMAL) POCT glucose (03/05/2025 7:33 PM CDT) Glucose, POC 233(H) 70 - 199 mg/dL Blood 03/05/2025 7:33 PM CDT 03/05/2025 7:33 PM CDT Terry Amaro MD PhD LAB POCT O RDERABLES - DEVICE Final Result Performing Organization Address City/[facility] Co de Phone Number [facility] [place] [address] * POCT glucose (03/05/2025 4:56 PM CDT) Glucose, POC 154 70 - 199 mg/dL Blood 03/05/2025 4:56 PM CDT 03/05/2025 4:56 PM CDT Terry Amaro MD PhD LAB POCT O RDERABLES - DEVICE Final Result Performing Organization Address [facility] de Phone Number [facility] [place] [address] * (ABNORMAL) POCT glucose (03/05/2025 11:49 AM CDT) Glucose, POC 250(H) 70 - 199 mg/dL Blood 03/05/2025 11:4 9 AM CDT 03/05/2025 11:49 AM CDT Terry Amaro MD PhD LAB POCT O RDERABLES - DEVICE Final Result Performing Organization Address [facility] Co de Phone Number [facility] [place] [address] * (ABNORMAL) Troponin I high-sensitivity (03/05/2025 7:48 AM CDT) Pathologist [facility] Trop I hs 59(H) <=17 ng/L Comment: Interpretive Data For further hscTnI resources including the diagnostic algorithm and an aid in interpretation, copy and paste this link: https://bjhlab.testcatalog.org/show/[email or web address] Current Interpretive Data last revised 2019. Blood 03/05/2025 7:48 AM CDT 03/05/2025 8:33 AM CDT Terry Amaro MD PhD LAB BLOOD ORDERABLES Final Result [facility] [place] [address] * POCT glucose (03/05/2025 7:47 AM CDT) [facility] Glucose, POC 170 70 - 199 mg/dL Blood 03/05/2025 7:47 AM CDT 03/05/2025 7:47 AM CDT Terry Amaro MD PhD LAB POCT O RDERABLES - DEVICE Final Result [facility] [place] [address] * eGFR (03/05/2025 4:42 AM CDT) [facility] eGFR 67 >=60 mL/min/1. 73 m2 Comment: Interpretive Data [...] interpretive data was last reviewed 2021. Blood 03/05/2025 4:42 AM CDT 03/05/2025 5:38 AM CDT Lilliana Acosta MD LAB BLOOD ORDERABLES Final Resul t [facility] [place] [address] * (ABNORMAL) CBC without differential (03/05/2025 4:42 AM CDT) WBC 10.03(H) 3.80 - 9.90 K/cumm Hgb 12.2 11.9 - 15.5 g/dL [facility] Hct 36.4 35.6 - 45.5 % [facility] Plt 251 150 - 400 K/cumm [facility] MPV 10.3 9.1 - 12.3 fL [facility] RBC 4.31 3.90 - 5.20 M/cumm [facility] MCV 84.5 81.3 - 96.4 fL [facility] MCH 28.3 27.1 - 33.3 pg [facility] MCHC 33.5 32.3 - 35.7 g/dL [facility] RDW CV 13.8 11.1 - 14.9 % [facility] RDW SD 42.7 35.7 - 48.1 fL [facility] NRBC abs 0.00 0.00 - 0.01 K/cumm [facility] Blood 03/05/2025 4:42 AM CDT 03/05/2025 5:40 AM CDT Lilliana Acosta MD LAB BLOOD ORDERABLES Final Resul t [facility] [place] [address] * (ABNORMAL) Basic metabolic panel (03/05/2025 4:42 AM CDT) Sodium 137 135 - 145 mmol/L Potassium, pl 4.4 3.3 - 4.9 mmol/L [facility] Chloride 100 97 - 110 mmol/L [facility] CO2 28 22 - 32 mmol/L [facility] Anion gap 9 2 - 15 mmol/L [facility] BUN 22 6 - 25 mg/dL [facility] Creatinine 0.92 0.60 - 1.10 mg/dL [facility] Glucose 202(H) 70 - 199 mg/dL [facility] Comment: Interpretive Data Fasting [...] interpretive data was last revised 2022. Calcium 9.3 8.5 - 10.3 mg/dL [facility] Blood 03/05/2025 4:42 AM CDT 03/05/2025 5:38 AM CDT us Lilliana Acosta MD LAB BLOOD ORDERABLES Final Resul t [facility] Department [place] [address] * POCT glucose (03/04/2025 7:54 PM CDT) Glucose, POC 197 70 - 199 mg/dL Blood 03/04/2025 7:54 PM CDT 03/04/2025 7:54 PM CDT Terry Amaro MD PhD LAB POCT O RDERABLES - DEVICE Final Result Performing Organization Address [facility] Co de Phone Number [facility] [place] [address] * POCT glucose (03/04/2025 4:38 PM CDT) Pathologist [facility] Glucose, POC 199 70 - 199 mg/dL Blood 03/04/2025 4:38 PM CDT 03/04/2025 4:38 PM CDT Terry Amaro MD PhD LAB POCT O RDERABLES - DEVICE Final Result Performing Organization Address [facility] de Phone Number [facility] [place] [address] * ECG 12 lead (03/04/2025 3:25 PM CDT) [facility] Ventricular Rate EKG/Min 70 BPM [facility] Atrial Rate 70 BPM [facility] TN-Interval (MSEC) 146 ms [facility] QRS-Interval (MSEC) 72 ms [facility] QT-Interval (MSEC) 390 ms [facility] QTc 421 ms [facility] P [place] 22 degrees [facility] R [place] -15 degrees [facility] T [place] 40 degrees [facility] Diagnosis Normal sinus rhythm Minimal voltage criteria for LVH, may be normal variant ( R in aVL ) 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) Anterolatera l infarct (cited on or before 11-FEB-2025) Abnormal ECG Confirmed by Mary Ann BLOOM, Bella ([id number]) on 03/05/2025 9:04:21 AM [facility] 03/04/2025 3:25 PM CDT 03/05/2025 9:04 AM CDT Terry Amaro MD PhD ECG ORDERA BLES Final Result Performing Organization Address [facility] Co de Phone Number [facility] * (ABNORMAL) Troponin I high-sensitivity (03/04/2025 2:46 PM CDT) Trop I hs 68(H) <=17 ng/L Comment: Interpretive Data For further hscTnI resources including the diagnostic algorithm and an aid in interpretation, copy and paste this link: https://bjhlab.testcatalog.org/show/[email or web address] Current Interpretive Data last revised 2019. Blood 03/04/2025 2:46 PM CDT 03/04/2025 3:30 PM CDT Terry Amaro MD PhD LAB BLOOD ORDERABLES Final Result Performing Organization Address [facility] Co de Phone Number [facility] [place] [address] * (ABNORMAL) POCT glucose (03/04/2025 10:55 AM CDT) Glucose, POC 235(H) 70 - 199 mg/dL Blood 03/04/2025 10:5 5 AM CDT 03/04/2025 10:55 AM CDT Terry Amaro MD PhD LAB POCT O RDERABLES - DEVICE Final Result Performing Organization Address [facility] de Phone Number [facility] [place] [address] * POCT glucose (03/04/2025 7:21 AM CDT) Glucose, POC 179 70 - 199 mg/dL Blood 03/04/2025 7:21 AM CDT 03/04/2025 7:21 AM CDT Terry Amaro MD PhD LAB POCT O RDERABLES - DEVICE Final Result Performing Organization Address [facility] Co de Phone Number [facility] Department [place] [address] * eGFR (03/04/2025 6:43 AM CDT) Pathologist [facility] eGFR 70 >=60 mL/min/1. 73 m2 Comment: Interpretive Data [...] interpretive data was last reviewed 2021. Blood 03/04/2025 6:43 AM CDT 03/04/2025 7:35 AM CDT us Lilliana Acosta MD LAB BLOOD ORDERABLES Final Resul t Performing Organization Address [facility] Co de Phone Number RYAN [facility] [place] [address] * (ABNORMAL) CBC without differential (03/04/2025 6:43 AM CDT) Pathologist [facility] WBC 10.94(H) 3.80 - 9.90 K/cumm Hgb 12.8 11.9 - 15.5 g/dL [facility] Hct 38.2 35.6 - 45.5 % [facility] Plt 254 150 - 400 K/cumm [facility] MPV 10.2 9.1 - 12.3 fL [facility] RBC 4.47 3.90 - 5.20 M/cumm [facility] MCV 85.5 81.3 - 96.4 fL [facility] MCH 28.6 27.1 - 33.3 pg [facility] MCHC 33.5 32.3 - 35.7 g/dL [facility] RDW CV 13.6 11.1 - 14.9 % [facility] RDW SD 42.3 35.7 - 48.1 fL [facility] NRBC abs 0.00 0.00 - 0.01 K/cumm [facility] Blood 03/04/2025 6:43 AM CDT 03/04/2025 7:35 AM CDT us Lilliana Acosta MD LAB BLOOD ORDERABLES Final Resul t [facility] [place] [address] * Basic metabolic panel (03/04/2025 6:43 AM CDT) Sodium 142 135 - 145 mmol/L Potassium, pl 4.5 3.3 - 4.9 mmol/L [facility] Chloride 104 97 - 110 mmol/L [facility] CO2 28 22 - 32 mmol/L [facility] Anion gap 10 2 - 15 mmol/L [facility] BUN 17 6 - 25 mg/dL [facility] Creatinine 0.89 0.60 - 1.10 mg/dL [facility] Glucose 161 70 - 199 mg/dL [facility] Comment: Interpretive Data Fasting [...] interpretive data was last revised 2022. Calcium 9.1 8.5 - 10.3 mg/dL [facility] Blood 03/04/2025 6:43 AM CDT 03/04/2025 7:35 AM CDT Lilliana Acosta MD LAB BLOOD ORDERABLES Final Resul t [facility] [place] [address] * XR Abdomen 1 View AP (03/04/2025 5:40 AM CDT) Anatomical Region Laterality Modality Body, Abdomen N/A Digital Radiogra phy 03/04/2025 9:57 AM CDT Impressions 03/04/2025 12:30 PM CDT Bowel gas pattern is within normal limits. Both hemidiaphragms are excluded from the [id number]. Cholecystectomy clips. Dictated by: Nito Rendon MD The radiology attending physician has personally reviewed this study, and had reviewed and/or edited this written report and agrees with it. Electronically signed by: Miriam Adair M.D. Narrative 03/04/2025 12:30 PM CDT EXAMINATION: Abdomen, one view. HISTORY: Abdominal pain and nausea COMPARISON: Abdominal radiograph 02/27/2025 Procedure Note Miriam Adair MD - 03/04/2025 EXAMINATION: Abdomen, one view. HISTORY: Abdominal pain and nausea COMPARISON: Abdominal radiograph 02/27/2025 IMPRESSION: Bowel gas pattern is within normal limits. Both hemidiaphragms are excluded from the [id number]. Cholecystectomy clips. Dictated by: Nito Rendon MD The radiology attending physician has personally reviewed this study, and had reviewed and/or edited this written report and agrees with it. Electronically signed by: Miriam Adair M.D. Terry Amaro MD PhD IMG XR PRO CEDURES Final Result * (ABNORMAL) POCT glucose (03/03/2025 8:01 PM CDT) Glucose, POC 220(H) 70 - 199 mg/dL Blood 03/03/2025 8:01 PM CDT 03/03/2025 8:01 PM CDT Terry Amaro MD PhD LAB POCT O RDERABLES - DEVICE Final Result Performing Organization Address City/[facility] Co de Phone Number [facility] [place] [address] * POCT glucose (03/03/2025 4:43 PM CDT) [facility] Glucose, POC 182 70 - 199 mg/dL Blood 03/03/2025 4:43 PM CDT 03/03/2025 4:43 PM CDT Terry Amaro MD PhD LAB POCT O RDERABLES - DEVICE Final Result Performing Organization Address [facility] de Phone Number [facility] [place] [address] * (ABNORMAL) POCT glucose (03/03/2025 11:12 AM CDT) Glucose, POC 242(H) 70 - 199 mg/dL Blood 03/03/2025 11:1 2 AM CDT 03/03/2025 11:12 AM CDT Terry Amaro MD PhD LAB POCT O RDERABLES - DEVICE Final Result Performing Organization Address [facility] Co de Phone Number [facility] [place] [address] * eGFR (03/03/2025 7:52 AM CDT) Pathologist [facility] eGFR 74 >=60 mL/min/1. 73 m2 Comment: Interpretive Data [...] interpretive data was last reviewed 2021. Blood 03/03/2025 7:52 AM CDT 03/03/2025 8:48 AM CDT Mariam Strange NP LAB BLOOD ORDERABLES nal Result [facility] Department of Laboratories [place], [place] [id number] * (ABNORMAL) CBC without differential (03/03/2025 7:52 AM CDT) [facility] WBC 10.28(H) 3.80 - 9.90 K/cumm Hgb 13.2 11.9 - 15.5 g/dL [facility] Hct 39.1 35.6 - 45.5 % [facility] Plt 275 150 - 400 K/cumm [facility] MPV 10.5 9.1 - 12.3 fL [facility] RBC 4.58 3.90 - 5.20 M/cumm [facility] MCV 85.4 81.3 - 96.4 fL [facility] MCH 28.8 27.1 - 33.3 pg [facility] MCHC 33.8 32.3 - 35.7 g/dL [facility] RDW CV 13.6 11.1 - 14.9 % [facility] RDW SD 42.2 35.7 - 48.1 fL [facility] NRBC abs 0.00 0.00 - 0.01 K/cumm [facility] Blood 03/03/2025 7:52 AM CDT 03/03/2025 8:48 AM CDT Lilliana Acosta MD LAB BLOOD ORDERABLES Final Resul t [facility] [place] [address] * Basic metabolic panel (03/03/2025 7:52 AM CDT) Sodium 140 135 - 145 mmol/L Potassium, pl 4.4 3.3 - 4.9 mmol/L [facility] Chloride 102 97 - 110 mmol/L [facility] CO2 27 22 - 32 mmol/L [facility] Anion gap 11 2 - 15 mmol/L [facility] BUN 17 6 - 25 mg/dL [facility] Creatinine 0.85 0.60 - 1.10 mg/dL [facility] Glucose 195 70 - 199 mg/dL [facility] Comment: Interpretive Data Fasting [...] interpretive data was last revised 2022. Calcium 9.1 8.5 - 10.3 mg/dL [facility] Blood 03/03/2025 7:5 2 AM CDT 03/03/2025 8:48 AM CDT Lilliana Acosta MD LAB BLOOD ORDERABLES Final Resul t Performing Organization Address [facility] de Phone Number [facility] [place] [address] * (ABNORMAL) POCT glucose (03/03/2025 7:32 AM CDT) Glucose, POC 200(H) 70 - 199 mg/dL Blood 03/03/2025 7:32 AM CDT 03/03/2025 7:32 AM CDT Lilliana Acosta MD LAB POCT ORDERABLES - DEVICE Fin al Result Performing Organization Address [facility] de Phone Number [facility] [place] [address] * (ABNORMAL) POCT glucose (03/02/2025 8:00 PM CDT) Glucose, POC 219(H) 70 - 199 mg/dL Blood 03/02/2025 8:00 PM CDT 03/02/2025 8:00 PM CDT Lilliana Acosta MD LAB POCT ORDERABLES - DEVICE Fin al Result Performing Organization Address [facility] de Phone Number [facility] [place] [address] * (ABNORMAL) POCT glucose (03/02/2025 4:11 PM CDT) Glucose, POC 207(H) 70 - 199 mg/dL Blood 03/02/2025 4:11 PM CDT 03/02/2025 4:11 PM CDT Lilliana Acosta MD LAB POCT ORDERABLES - DEVICE Fin al Result Performing Organization Address [facility] Co de Phone Number [facility] [place] [address] * (ABNORMAL) POCT glucose (03/02/2025 11:45 AM CDT) Glucose, POC 241(H) 70 - 199 mg/dL Blood 03/02/2025 11:4 5 AM CDT 03/02/2025 11:45 AM CDT Lilliana Acosta MD LAB POCT ORDERABLES - DEVICE Fin al Result Performing Organization Address [facility] de Phone Number [facility] [place] [address] * POCT glucose (03/02/2025 8:28 AM CDT) Glucose, POC 179 70 - 199 mg/dL Blood 03/02/2025 8:28 AM CDT 03/02/2025 8:28 AM CDT Lilliana Acosta MD LAB POCT ORDERABLES - DEVICE Fin al Result Performing Organization Address [facility] Phone Number [facility] [place] [address] * MRI Brain W WO Contrast (03/01/2025 11:31 PM CDT) Anatomical Region Laterality Modality Head and Neck N/A Magnetic Resonan ce 03/02/2025 9:19 AM CDT Impressions 03/02/2025 9:19 AM CDT No acute findings. Age-related the white matter signal change right greater than left. Electronically signed by: Lokesh Lowery M.D. Narrative 03/02/2025 9:19 AM CDT EXAMINATION: Magnetic resonance imaging (MRI) of the brain and brainstem without and with contrast HISTORY: New onset seizures left upper extremity weakness. TECHNIQUE: Multiplanar multi-weighted MRI of the brain and brainstem was performed without and with intravenous contrast using the general brain protocol. Contrast information: 14 mL Gadoterate Meglumine IV COMPARISON: None Available. FINDINGS: No acute findings. No intracranial blood. Mild elevated signal on FLAIR weighted image right greater than left consistent with the small vessel disease and aging changes. The scalp and calvarium are normal. The superior sagittal sinus demonstrates normal venous flow. The corpus callosum is normal in shape and signal intensity. The posterior fossa is unremarkable. The pituitary and sella are normal. The brainstem and craniocervical junction are unremarkable. Diffusion weighted images reveal no hyperintensities to suggest acute cerebral infarction. The susceptibility weighted sequences reveal no evidence of acute or chronic hemorrhage. The ventricles are normal in size and position without evidence of hydrocephalus. The paranasal sinuses are normal. The visualized portions of the mastoids are unremarkable. The orbits appear normal. Normal flow voids are demonstrated in the carotid arteries and basilar artery. There is no abnormal contrast enhancement. Artifactual signal is noted along the right parafalcine area. Procedure Note Lokesh Lowery MD PhD - 03/02/2025 EXAMINATION: Magnetic resonance imaging (MRI) of the brain and brainstem without and with contrast HISTORY: New onset seizures left upper extremity weakness. TECHNIQUE: Multiplanar multi-weighted MRI of the brain and brainstem was performed without and with intravenous contrast using the general brain protocol. Contrast information: 14 mL Gadoterate Meglumine IV COMPARISON: None Available. FINDINGS: No acute findings. No intracranial blood. Mild elevated signal on FLAIR weighted image right greater than left consistent with the small vessel disease and aging changes. The scalp and calvarium are normal. The superior sagittal sinus demonstrates normal venous flow. The corpus callosum is normal in shape and signal intensity. The posterior fossa is unremarkable. The pituitary and sella are normal. The brainstem and craniocervical junction are unremarkable. Diffusion weighted images reveal no hyperintensities to suggest acute cerebral infarction. The susceptibility weighted sequences reveal no evidence of acute or chronic hemorrhage. The ventricles are normal in size and position without evidence of hydrocephalus. The paranasal sinuses are normal. The visualized portions of the mastoids are unremarkable. The orbits appear normal. Normal flow voids are demonstrated in the carotid arteries and basilar artery. There is no abnormal contrast enhancement. Artifactual signal is noted along the right parafalcine area. IMPRESSION: No acute findings. Age-related the white matter signal change right greater than left. Electronically signed by: Lokesh Lowery M.D. Lilliana Acosta MD IMG MRI PROCEDURES Final Result * POCT glucose (03/01/2025 8:40 PM CDT) Glucose, POC 139 70 - 199 mg/dL Blood 03/01/2025 8:4 0 PM CDT 03/01/2025 8:40 PM CDT Lilliana Acosta MD LAB POCT ORDERABLES - DEVICE Fin al Result Performing Organization Address [facility]/ZIP Co de Phone Number RYAN [facility] [place] [address] * eGFR (03/01/2025 8:24 PM CDT) Pathologist [facility] eGFR 66 >=60 mL/min/1. 73 m2 Comment: Interpretive Data [...] interpretive data was last reviewed 2021. Blood 03/01/2025 8:24 PM CDT 03/01/2025 8:43 PM CDT us Mariam Strange NP LAB BLOOD ORDERABLES Fi nal Result [facility] [place] [address] * (ABNORMAL) CBC without differential (03/01/2025 8:24 PM CDT) [facility] WBC 9.92(H) 3.80 - 9.90 K/cumm Hgb 11.3(L) 11.9 - 15.5 g/dL [facility] Hct 34.5(L) 35.6 - 45.5 % [facility] Plt 242 150 - 400 K/cumm [facility] MPV 10.1 9.1 - 12.3 fL [facility] RBC 4.01 3.90 - 5.20 M/cumm [facility] MCV 86.0 81.3 - 96.4 fL [facility] MCH 28.2 27.1 - 33.3 pg [facility] MCHC 32.8 32.3 - 35.7 g/dL [facility] RDW CV 13.9 11.1 - 14.9 % [facility] RDW SD 43.8 35.7 - 48.1 fL [facility] NRBC abs 0.00 0.00 - 0.01 K/cumm [facility] Blood 03/01/2025 8:24 PM CDT 03/01/2025 8:43 PM CDT us Lilliana Acosta MD LAB BLOOD ORDERABLES Final Resul t [facility] [place] [address] * Basic metabolic panel (03/01/2025 8:24 PM CDT) [facility] Sodium 142 135 - 145 mmol/L Potassium, pl 4.3 3.3 - 4.9 mmol/L [facility] Chloride 108 97 - 110 mmol/L [facility] CO2 26 22 - 32 mmol/L [facility] Anion gap 8 2 - 15 mmol/L [facility] BUN 18 6 - 25 mg/dL [facility] Creatinine 0.93 0.60 - 1.10 mg/dL [facility] Glucose 144 70 - 199 mg/dL [facility] Comment: Interpretive Data Fasting [...] interpretive data was last revised 2022. Calcium 8.9 8.5 - 10.3 mg/dL [facility] Blood 03/01/2025 8:24 PM CDT 03/01/2025 8:43 PM CDT Lilliana Acosta MD LAB BLOOD ORDERABLES Final Resul t Performing Organization Address [facility] Co de Phone Number [facility] [place] [address] * POCT glucose (03/01/2025 6:48 PM CDT) Glucose, POC 181 70 - 199 mg/dL Blood 03/01/2025 6:48 PM CDT 03/01/2025 6:48 PM CDT Lilliana Acosta MD LAB POCT ORDERABLES - DEVICE Fin al Result Performing Organization Address [facility] Co de Phone Number [facility] [place] [address] * (ABNORMAL) POCT glucose (03/01/2025 11:38 AM CDT) Glucose, POC 234(H) 70 - 199 mg/dL Blood 03/01/2025 11:3 8 AM CDT 03/01/2025 11:38 AM CDT us Lilliana Acosta MD LAB POCT ORDERABLES - DEVICE Fin al Result Performing Organization Address [facility]/ZIP Co de Phone Number [facility] [place] [address] * POCT glucose (03/01/2025 7:42 AM CDT) Glucose, POC 147 70 - 199 mg/dL Blood 03/01/2025 7:42 AM CDT 03/01/2025 7:42 AM CDT us Lilliana Acosta MD LAB POCT ORDERABLES - DEVICE Fin al Result Performing Organization Address [facility] Phone Number [facility] [place] [address] * ECG 12 lead (03/01/2025 3:50 AM CDT) [facility] Ventricular Rate EKG/Min 66 BPM [facility] Atrial Rate 66 BPM [facility] TN-Interval (MSEC) 166 ms [facility] QRS-Interval (MSEC) 88 ms [facility] QT-Interval (MSEC) 458 ms [facility] QTc 480 ms [facility] P [place] 117 degrees [facility] R [place] 187 degrees [facility] T [place] 127 degrees [facility] Diagnosis Suspect arm lead reversal, interpretation assumes no reversal Normal sinus rhythm 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) Anterolateral infarct (cited on or before 11-FEB-2025) Abnormal ECG Confirmed by Bella Reese MD ([id number]) on 03/01/2025 4:26:53 PM [facility] 03/01/2025 3:50 AM CDT 03/01/2025 4:26 PM CDT us Mariam Strange [employer] ECG ORDERABLES Final R esult Performing Organization Address [facility]/ZIP Co de Phone Number [facility] * POCT glucose (03/01/2025 3:37 AM CDT) Glucose, POC 148 70 - 199 mg/dL Blood 03/01/2025 3:37 AM CDT 03/01/2025 3:37 AM CDT Lilliana Acosta MD LAB POCT ORDERABLES - DEVICE Fin al Result Performing Organization Address [facility] Co de Phone Number [facility] [place] [address] * eGFR (02/28/2025 8:51 PM CDT) eGFR 64 >=60 mL/min/1. 73 m2 Comment: Interpretive Data [...] interpretive data was last reviewed 2021. Blood 02/28/2025 8:51 PM CDT 02/28/2025 9:07 PM CDT us Mariam Strange [employer] LAB BLOOD ORDERABLES Fi nal Result Performing Organization Address [facility] Co de Phone Number [facility] Department [place] [address] * (ABNORMAL) CBC without differential (02/28/2025 8:51 PM CDT) WBC 14.65(H) 3.80 - 9.90 K/cumm Hgb 11.1(L) 11.9 - 15.5 g/dL [facility] Hct 34.4(L) 35.6 - 45.5 % [facility] Plt 230 150 - 400 K/cumm [facility] MPV 10.4 9.1 - 12.3 fL [facility] RBC 3.97 3.90 - 5.20 M/cumm [facility] MCV 86.6 81.3 - 96.4 fL [facility] MCH 28.0 27.1 - 33.3 pg [facility] MCHC 32.3 32.3 - 35.7 g/dL [facility] RDW CV 14.0 11.1 - 14.9 % [facility] RDW SD 43.8 35.7 - 48.1 fL [facility] NRBC abs 0.00 0.00 - 0.01 K/cumm [facility] Blood 02/28/2025 8:51 PM CDT 02/28/2025 9:07 PM CDT us Lilliana Acosta MD LAB BLOOD ORDERABLES Final Resul t [facility] [place] [address] * (ABNORMAL) Basic metabolic panel (02/28/2025 8:51 PM CDT) Sodium 143 135 - 145 mmol/L Potassium, pl 3.9 3.3 - 4.9 mmol/L [facility] Chloride 109 97 - 110 mmol/L [facility] CO2 22 22 - 32 mmol/L [facility] Anion gap 12 2 - 15 mmol/L [facility] BUN 17 6 - 25 mg/dL [facility] Creatinine 0.96 0.60 - 1.10 mg/dL [facility] Glucose 166 70 - 199 mg/dL [facility] Comment: Interpretive Data Fasting [...] interpretive data was last revised 2022. Calcium 8.2(L) 8.5 - 10.3 mg/dL [facility] Blood 02/28/2025 8:51 PM CDT 02/28/2025 9:07 PM CDT Lilliana Acosta MD LAB BLOOD ORDERABLES Final Resul t Performing Organization Address [facility] Co de Phone Number [facility] [place] [address] * POCT glucose (02/28/2025 8:35 PM CDT) Glucose, POC 154 70 - 199 mg/dL Blood 02/28/2025 8:35 PM CDT 02/28/2025 8:35 PM CDT Lilliana Acosta MD LAB POCT ORDERABLES - DEVICE Fin al Result Performing Organization Address [facility] de Phone Number [facility] [place] [address] * POCT glucose (02/28/2025 6:12 PM CDT) Glucose, POC 109 70 - 199 mg/dL Blood 02/28/2025 6:12 PM CDT 02/28/2025 6:12 PM CDT Lilliana Acosta MD LAB POCT ORDERABLES - DEVICE Fin al Result Performing Organization Address [facility] Co de Phone Number [facility] [place] [address] * Stop Continuous EEG - Inform EEG department (02/28/2025 4:34 PM CDT) Anatomical Region Laterality Modality EEG Narrative 03/01/2025 9:19 AM CDT Video-EEG Report Patient Name: Gricel Melissa [facility] Medical Record Number (MRN): [id number] [facility] Record: [id number] Date of (): 1955 Ordering Provider: Mariam Strange NP CC: Conor Bautista Start Time: 02/27/2025 4:43:16 PM End Time: 02/28/2025 4:35:21 PM Introduction: Ms. Melissa is a 69 y.o. 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 The EEG was performed to evaluate for seizures. This is a report of continuous video-EEG monitoring. High definition digital video and digital EEG were recorded continuously with a [employer] EEG acquisition system. This was a 32 channel EEG with additional anterior temporal electrodes. Electrodes were placed with collodion following the 10/20 International System. The patient was monitored and observed continuously by technical personnel. Digital seizure and spike detection were utilized during the recording. EEG description: Epoch 1 : 02/27/2025 4:43:16 PM to 02/28/2025 8:00:00 AM BACKGROUND: The background was continuous, disorganized and there was an 8 Hz posterior dominant rhythm, better-formed in the left hemisphere. The background also included diffuse irregular theta and polymorphic delta activity, rarely more attenuated over the right hemisphere. Sleep structures were not seen. The record showed variability. Hyperventilation and photic strobe stimulation were not performed. SPORADIC DISCHARGES: None. PERIODIC OR RHYTHMIC PATTERNS: None. SEIZURES: None. EVENTS: None reported. EKG: No significant dysrhythmia. From 7:45 PM to 8:32 PM on 02/27, the patient was off EEG monitoring. Epoch 2 : 02/28/2025 8:00:00 AM to 02/28/2025 4:35:21 PM BACKGROUND: The background was continuous, disorganized and there was an 8 Hz posterior dominant rhythm, better-formed in the left hemisphere. The background also included diffuse irregular theta and polymorphic delta activity, rarely more attenuated over the right hemisphere. Sleep structures were not seen. The record showed variability. Hyperventilation and photic strobe stimulation were not performed. SPORADIC DISCHARGES: None. PERIODIC OR RHYTHMIC PATTERNS: None. SEIZURES: None. EVENTS: None reported. EKG: No significant dysrhythmia. Interpretation: No clinical or electrographic seizures were recorded during this study. The interictal EEG was abnormal due to 1) rare right hemisphere slowing and 2) mild to moderate generalized slowing. Focal slowing indicates focal cerebral dysfunction. A focal structural or physiologic abnormality should be considered. Generalized slowing indicates diffuse cerebral dysfunction as seen in metabolic, toxic, or diffuse or multifocal structural abnormalities. These findings were discussed with the treating physicians on an at least twice daily basis. By signing this report, the attending Electroencephalographer certifies that he/she personally reviewed the electrodiagnostics study and has edited this report to fully conform with his/her intent. Signing Attending: Celestine Ritter MD PhD Katie Castro NP NEUROLOGY ORDERABLES Fin al Result * POCT glucose (02/28/2025 11:57 AM CDT) [facility] Glucose, POC 113 70 - 199 mg/dL Blood 02/28/2025 11:5 7 AM CDT 02/28/2025 11:57 AM CDT Lilliana Acosta MD LAB POCT ORDERABLES - DEVICE Fin al Result [facility] Department [place] [address] * (ABNORMAL) Troponin I high-sensitivity (02/28/2025 9:22 AM CDT) Pathologist [facility] Trop I hs 575(C) <=17 ng/L Comment: Previous critical value noted within 48 hours ago. Interpretive Data For further [facility] resources including the diagnostic algorithm and an aid in interpretation, copy and paste this link: https://bjhlab.testcatalog.org/show/hsTrop-1 Current Interpretive Data last revised 2019. Blood 02/28/2025 9:22 AM CDT 02/28/2025 9:45 AM CDT Lilliana Acosta MD LAB BLOOD ORDERABLES Final Resul t Performing Organization Address [facility] de Phone Number [facility] [place] [address] * POCT glucose (02/28/2025 7:56 AM CDT) Glucose, POC 113 70 - 199 mg/dL Blood 02/28/2025 7:56 AM CDT 02/28/2025 7:56 AM CDT Lilliana Acosta MD LAB POCT ORDERABLES - DEVICE Fin al Result Performing Organization Address [facility] de Phone Number [facility] [place] [address] * POCT glucose (02/28/2025 3:50 AM CDT) Glucose, POC 136 70 - 199 mg/dL Blood 02/28/2025 3:50 AM CDT 02/28/2025 3:50 AM CDT Lilliana Acosta MD LAB POCT ORDERABLES - DEVICE Fin al Result Performing Organization Address [facility] de Phone Number [facility] [place] [address] * (ABNORMAL) Troponin I high-sensitivity (02/28/2025 3:38 AM CDT) Trop I hs 686(C) <=17 ng/L Comment: Previous critical value noted within 48 hours ago. Interpretive Data For further [facility] resources including the diagnostic algorithm and an aid in interpretation, copy and paste this link: https://bjhlab.testcatalog.org/show/hsTrop-1 Current Interpretive Data last revised 2019. Blood 02/28/2025 3:38 AM CDT 02/28/2025 3:47 AM CDT Lilliana Acosta MD LAB BLOOD ORDERABLES Final Resul t Performing Organization Address [facility] de Phone Number [facility] [place] [address] * POCT glucose (02/28/2025 12:04 AM CDT) Glucose, POC 161 70 - 199 mg/dL Blood 02/28/2025 12:0 4 AM CDT 02/28/2025 12:04 AM CDT Result [facility] Lilliana Acosta MD LAB POCT ORDERABLES - DEVICE Fin al Result Performing Organization Address [facility] Phone Number [facility] Department [place] [address] * (ABNORMAL) Blood gas, arterial (02/27/2025 10:00 PM CDT) pH, Art 7.43 7.35 - 7.45 PCO2, Arterial 40 35 - 45 mmHg [facility] PO2, Arterial 145(H) 83 - 108 mmHg [facility] HCO3 Art (Calculated) 26 20 - 30 mmol/L [facility] BE, art 2 mmol/L [facility] Comment: Interpretive Data No Reference Range Established Current Interpretive Data was last revised on 2017 O2 Sat Art (Measured) 99(H) 90 - 95 % [facility] Blood 02/27/2025 10:0 0 PM CDT 02/27/2025 10:05 PM CDT Katie Castro NP LAB BLOOD ORDERABLES Fin al Result Performing Organization Address [facility] de Phone Number [facility] Department [place] [address] * (ABNORMAL) Troponin I high-sensitivity 6-hour (02/27/2025 9:35 PM CDT) Trop I hs 515(C) <=17 ng/L Comment: Previous critical value noted within 48 hours ago. Interpretive Data For further [facility] resources including the diagnostic algorithm and an aid in interpretation, copy and paste this link: https://bjhlab.testcatalog.org/show/hsTrop-1 Current Interpretive Data last revised 2019. Trop I hs pct delta 230(C) % [facility] Trop I hs interp Significa nt(C) [facility] Blood 02/27/2025 9:35 PM CDT 02/27/2025 10:04 PM CDT Mariam Strange NP LAB BLOOD ORDERABLES nal Result [facility] [place] [address] * eGFR (02/27/2025 9:35 PM CDT) [facility] eGFR 84 >=60 mL/min/1. 73 m2 Comment: Interpretive Data [...] interpretive data was last reviewed 2021. Blood 02/27/2025 9:35 PM CDT 02/27/2025 10:03 PM CDT us Mariam Strange NP LAB BLOOD ORDERABLES Fi nal Result Performing Organization Address City/[facility] Co de Phone Number [facility] [place] [address] * (ABNORMAL) CBC without differential (02/27/2025 9:35 PM CDT) Pathologist [facility] WBC 16.06(H) 3.80 - 9.90 K/cumm Hgb 13.0 11.9 - 15.5 g/dL [facility] Hct 37.9 35.6 - 45.5 % [facility] Plt 289 150 - 400 K/cumm [facility] MPV 10.5 9.1 - 12.3 fL [facility] RBC 4.58 3.90 - 5.20 M/cumm [facility] MCV 82.8 81.3 - 96.4 fL [facility] MCH 28.4 27.1 - 33.3 pg [facility] MCHC 34.3 32.3 - 35.7 g/dL [facility] RDW CV 13.6 11.1 - 14.9 % [facility] RDW SD 40.4 35.7 - 48.1 fL [facility] NRBC abs 0.00 0.00 - 0.01 K/cumm [facility] Blood 02/27/2025 9:35 PM CDT 02/27/2025 10:02 PM CDT Lilliana Acosta MD LAB BLOOD ORDERABLES Final Resul t Performing Organization Address City/[facility]/ZIP Co de Phone Number [facility] Department [place] [address] * Phosphorus (02/27/2025 9:35 PM CDT) Pathologist [facility] Phosphorus, pl 3.6 2.3 - 4.5 mg/dL Blood 02/27/2025 9:35 PM CDT 02/27/2025 10:03 PM CDT Katie Castro [employer] LAB BLOOD ORDERABLES Fin al Result Performing Organization Address [facility] Co de Phone Number [facility] [place] [address] * Magnesium (02/27/2025 9:35 PM CDT) Pathologist [facility] Magnesium 2.3 1.4 - 2.5 mg/dL Blood 02/27/2025 9:35 PM CDT 02/27/2025 10:03 PM CDT Katie Castro [employer] LAB BLOOD ORDERABLES Fin al Result Performing Organization Address [facility] de Phone Number [facility] [place] [place] [address] * (ABNORMAL) Comprehensive metabolic panel (02/27/2025 9:35 PM CDT) [facility] Sodium 141 135 - 145 mmol/L Potassium, pl 3.8 3.3 - 4.9 mmol/L [facility] Chloride 106 97 - 110 mmol/L [facility] CO2 25 22 - 32 mmol/L [facility] Anion gap 10 2 - 15 mmol/L [facility] BUN 14 6 - 25 mg/dL [facility] Creatinine 0.76 0.60 - 1.10 mg/dL [facility] Glucose 176 70 - 199 mg/dL [facility] Comment: Interpretive Data Fasting [...] interpretive data was last revised 2022. Calcium 8.9 8.5 - 10.3 mg/dL [facility] Bilirubin, total 0.3 0.1 - 1.2 mg/dL [facility] Protein, pl 7.1 6.5 - 8.5 g/dL [facility] Albumin 3.7 3.5 - 5.0 g/dL [facility] Alk phos 135(H) 40 - 130 Units/L [facility] ALT 20 7 - 45 Units/L [facility] AST 39 10 - 45 Units/L [facility] Blood 02/27/2025 9:35 PM CDT 02/27/2025 10:03 PM CDT us Lilliana Acosta MD LAB BLOOD ORDERABLES Final Resul t [facility] Department [place] [address] * XR Chest 1 View (02/27/2025 8:28 PM CDT) Anatomical Region Laterality Modality Body, Chest N/A Digital Radiogra phy 02/28/2025 7:00 AM CDT Impressions 02/28/2025 7:00 AM CDT Comparison made to 02/27/2025 3:39 PM Endotracheal tube tip 4.4 cm above the jesse. Median sternotomy wires are aligned. Gastric tube projects over the stomach. Similar cardiomediastinal silhouette. Similar left greater than right bibasilar opacities, possibly atelectasis. No pleural effusion or pneumothorax. Electronically signed by: Gilberto Davison M.D. Narrative 02/28/2025 7:00 AM CDT EXAMINATION: 1 view chest radiograph Procedure Note Gilberto Davison MD - 02/28/2025 EXAMINATION: 1 view chest radiograph IMPRESSION: Comparison made to 02/27/2025 3:39 PM Endotracheal tube tip 4.4 cm above the jesse. Median sternotomy wires are aligned. Gastric tube projects over the stomach. Similar cardiomediastinal silhouette. Similar left greater than right bibasilar opacities, possibly atelectasis. No pleural effusion or pneumothorax. Electronically signed by: Gilberto Davison M.D. us Mariam Strange [employer] IMG XR PROCEDURES Final Result * POCT glucose (02/27/2025 8:24 PM CDT) Glucose, POC 170 70 - 199 mg/dL Blood 02/27/2025 8:24 PM CDT 02/27/2025 8:24 PM CDT Lilliana Acosta MD LAB POCT ORDERABLES - DEVICE Fin al Result [facility] [place] [address] * CT Head WO Contrast (02/27/2025 8:18 PM CDT) Anatomical Region Laterality Modality Head and Neck N/A Computed Tomogra phy 02/28/2025 12:5 4 AM CDT Impressions 02/28/2025 10:33 AM CDT No acute intracranial process. Dictated by: Sorin Gray MD The radiology attending physician has personally reviewed this study, and had reviewed and/or edited this written report and agrees with it. Electronically signed by: Rogelio Trevino M.D. Narrative 02/28/2025 10:33 AM CDT EXAMINATION: CT head without contrast HISTORY: 69-year-old female with seizures TECHNIQUE: CT of the head was performed with images acquired from skull base to vertex without intravenous contrast. COMPARISON: CT 02/27/2025 FINDINGS: Scattered ill-defined hypodensities in the periventricular and subcortical white matter are nonspecific, likely on the basis of chronic small vessel ischemic change. There is parenchymal volume loss. There are atherosclerotic calcifications of the intracranial vessels. There is no acute intracranial hemorrhage. Ventricles are of normal size and morphology. No mass effect or midline shift is present. The read-white matter differentiation is normal. The visualized portions of the orbits are normal. The visualized portions of the mastoids are normal. The visualized portions of the paranasal sinuses are normal. No fractures are identified. Endotracheal tube. Procedure Note Rogelio Trevino MD - 02/28/2025 EXAMINATION: CT head without contrast HISTORY: 69-year-old female with seizures TECHNIQUE: CT of the head was performed with images acquired from skull base to vertex without intravenous contrast. COMPARISON: CT 02/27/2025 FINDINGS: Scattered ill-defined hypodensities in the periventricular and subcortical white matter are nonspecific, likely on the basis of chronic small vessel ischemic change. There is parenchymal volume loss. There are atherosclerotic calcifications of the intracranial vessels. There is no acute intracranial hemorrhage. Ventricles are of normal size and morphology. No mass effect or midline shift is present. The read-white matter differentiation is normal. The visualized portions of the orbits are normal. The visualized portions of the mastoids are normal. The visualized portions of the paranasal sinuses are normal. No fractures are identified. Endotracheal tube. IMPRESSION: No acute intracranial process. Dictated by: Sorin Gray MD The radiology attending physician has personally reviewed this study, and had reviewed and/or edited this written report and agrees with it. Electronically signed by: Rogelio Trevino M.D. Katie Castro NP IMG CT PROCEDURES Final Result * (ABNORMAL) Troponin I high-sensitivity 4-hour (02/27/2025 7:23 PM CDT) Trop I hs 452(C) <=17 ng/L Comment: Previous critical value noted within 48 hours ago. Interpretive Data For further hscTnI resources including the diagnostic algorithm and an aid in interpretation, copy and paste this link: https://bjhlab.testcatalog.org/show/hsTrop-1 Current Interpretive Data last revised 2019. Trop I hs pct delta 190(C) % [facility] Trop I hs interp Significa nt(C) [facility] Blood 02/27/2025 7:23 PM CDT 02/27/2025 7:31 PM CDT us Mariam Strange NP LAB BLOOD ORDERABLES Fi nal Result [facility] [place] [address] * (ABNORMAL) Urinalysis reflex to microscopic and culture Urine (02/27/2025 6:37 PM CDT) Color, ur Straw Yellow Clarity, ur Clear Clear [facility] Specific gravity, ur >1.042(H) 1.003 - 1.030 [facility] pH, urine 5.5 [facility] Comment: Interpretive Data U rine pH is affected by diet, medications, systemic acid-base disturbances, and renal tubular function. pH may affect urinary stone formation. For example, urine pH below 6.0 may help reduce the tendency for calcium phosphate stones and pH greater than 6.0 may reduce the tendency for uric acid stone formation. Source: [facility] Current Interpretive Data was last revised on 2017 Protein, ur ql 1+(A) Negative [facility] Glucose, ur ql 4+(A) Negative [facility] Ketones, ur 1+(A) Negative [facility] Bilirubin, ur Negative Negative [facility] Blood, ur 1+(A) Negative [facility] Urobilinogen, ur <2.0 <2.0 mg/dL [facility] Nitrite, ur Negative Negative [facility] Leukocyte esterase, ur Negative Negative [facility] UA reflex comment Reflex to microscopic UA will be performed. [facility] Urine 02/27/2025 6:37 PM CDT 02/27/2025 6:44 PM CDT us Mariam Strange NP LAB MICROBIOLOGY - GENE RAL ORDERABLES Final Result [facility] [place] [address] * (ABNORMAL) Urinalysis, microscopic only (02/27/2025 6:37 PM CDT) WBC, ur 0-5 0 - 5 /HPF RBC, ur 3-5(A) 0 - 2 /HPF [facility] Epithelial cells, squamous, ur 1-5 0 - 5 /HPF [facility] Mucous, ur Present(A) [facility] Uric acid crystals, ur Trace(A) [facility] Culture Reflex Comment Reflex conditions for urine culture (WBC >10) not met. [facility] Urine 02/27/2025 6:37 PM CDT 02/27/2025 6:44 PM CDT Mariam Strange [employer] [facility] LAB URINE ORDERABLES Fi nal Result Performing Organization Address [facility] de Phone Number [facility] [place] [address] * (ABNORMAL) Troponin I high-sensitivity 2-hour (02/27/2025 5:33 PM CDT) Pathologist [facility] Trop I hs 279(C) <=17 ng/L Comment: Interpretive Data For further hscTnI resources including the diagnostic algorithm and an aid in interpretation, copy and paste this link: https://bjhlab.testcatalog.org/show/hsTrop-1 Current Interpretive Data last revised 2019. Trop I hs pct delta 79(C) % [facility] Trop I hs interp Significa nt(C) [facility] Blood 02/27/2025 5:33 PM CDT 02/27/2025 5:55 PM CDT Mariam Strange NP LAB BLOOD ORDERABLES Fi nal Result Performing Organization Address [facility] Co de Phone Number [facility] [place] [address] * Critical result callback Cardio chemistry (02/27/2025 5:33 PM CDT) Pathologist [facility] Date Notified [id number] Time Notified 1901 [facility] Test name Trop I hs 2hr i RYAN LEVIN Called/Read Back Yana LEVIN Credentials MD RYAN LEVIN Called By WANDA LEVIN Blood 02/27/2025 5:33 PM CDT 02/27/2025 5:55 PM CDT us Mariam Strange [employer] LAB BLOOD ORDERABLES Fi nal Result Performing Organization Address [facility] Co de Phone Number [facility] [place] [address] * Critical result callback Cardio chemistry (02/27/2025 5:33 PM CDT) Date Notified [id number] Time Notified [facility] Test name Trop I hs 2hr p [facility] Called/Read Back Yana LEVIN Credentials MD RYAN LEVIN Called By WANDA DAVIS [facility] Blood 02/27/2025 5:33 PM CDT 02/27/2025 5:55 PM CDT us Mariam Strange [employer] LAB BLOOD ORDERABLES Fi nal Result Performing Organization Address [facility] de Phone Number [facility] [place] [address] * Critical result callback Cardio chemistry (02/27/2025 5:33 PM CDT) Date Notified [id number] Time Notified [facility] Test name Trop I hs 2hr RYAN LEVIN Called/Read Back Yana SWARTZ Credentials MD RYAN LEVIN Called By WANDA LEVIN Blood 02/27/2025 5:33 PM CDT 02/27/2025 5:55 PM CDT us Mariam Strange NP LAB BLOOD ORDERABLES Fi nal Result Performing Organization Address City/[facility] Co de Phone Number [facility] [place] [address] * Continuous Video EEG (02/27/2025 4:50 PM CDT) Anatomical Region Laterality Modality EEG Narrative 03/01/2025 9:19 AM CDT Video-EEG Report Patient Name: Gricel Melissa [facility] Medical Record Number (MRN): [id number] [facility] Record: [id number] Date of (): 1955 Ordering Provider: Mariam Strange NP CC: Conor Bautista Start Time: 02/27/2025 4:43:16 PM End Time: 02/28/2025 4:35:21 PM Introduction: Ms. Melissa is a 69 y.o. 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 The EEG was performed to evaluate for seizures. This is a report of continuous video-EEG monitoring. High definition digital video and digital EEG were recorded continuously with a [employer] EEG acquisition system. This was a 32 channel EEG with additional anterior temporal electrodes. Electrodes were placed with collodion following the 10/20 International System. The patient was monitored and observed continuously by technical personnel. Digital seizure and spike detection were utilized during the recording. EEG description: Epoch 1 : 02/27/2025 4:43:16 PM to 02/28/2025 8:00:00 AM BACKGROUND: The background was continuous, disorganized and there was an 8 Hz posterior dominant rhythm, better-formed in the left hemisphere. The background also included diffuse irregular theta and polymorphic delta activity, rarely more attenuated over the right hemisphere. Sleep structures were not seen. The record showed variability. Hyperventilation and photic strobe stimulation were not performed. SPORADIC DISCHARGES: None. PERIODIC OR RHYTHMIC PATTERNS: None. SEIZURES: None. EVENTS: None reported. EKG: No significant dysrhythmia. From 7:45 PM to 8:32 PM on 02/27, the patient was off EEG monitoring. Epoch 2 : 02/28/2025 8:00:00 AM to 02/28/2025 4:35:21 PM BACKGROUND: The background was continuous, disorganized and there was an 8 Hz posterior dominant rhythm, better-formed in the left hemisphere. The background also included diffuse irregular theta and polymorphic delta activity, rarely more attenuated over the right hemisphere. Sleep structures were not seen. The record showed variability. Hyperventilation and photic strobe stimulation were not performed. SPORADIC DISCHARGES: None. PERIODIC OR RHYTHMIC PATTERNS: None. SEIZURES: None. EVENTS: None reported. EKG: No significant dysrhythmia. Interpretation: No clinical or electrographic seizures were recorded during this study. The interictal EEG was abnormal due to 1) rare right hemisphere slowing and 2) mild to moderate generalized slowing. Focal slowing indicates focal cerebral dysfunction. A focal structural or physiologic abnormality should be considered. Generalized slowing indicates diffuse cerebral dysfunction as seen in metabolic, toxic, or diffuse or multifocal structural abnormalities. These findings were discussed with the treating physicians on an at least twice daily basis. By signing this report, the attending Electroencephalographer certifies that he/she personally reviewed the electrodiagnostics study and has edited this report to fully conform with his/her intent. Signing Attending: Celestine Ritter MD PhD Mariam Strange NP NEUROLOGY ORDERABLES Fi nal Result * XR Abdomen 1 View AP (02/27/2025 4:04 PM CDT) Anatomical Region Laterality Modality Body, Abdomen N/A Digital Radiogra phy 02/27/2025 5:44 PM CDT Impressions 02/27/2025 5:44 PM CDT Gastric tube projects over the stomach. Nonobstructive bowel gas pattern. Excreted contrast in the right renal collecting system. Moderate volume of stool in the colon. Electronically signed by: Gilberto Davison M.D. Narrative 02/27/2025 5:44 PM CDT EXAMINATION: Abdomen, one view. HISTORY: Check tube placement. COMPARISON: 07/05/2024 Procedure Note Gilberto Davison MD - 02/27/2025 EXAMINATION: Abdomen, one view. HISTORY: Check tube placement. COMPARISON: 07/05/2024 IMPRESSION: Gastric tube projects over the stomach. Nonobstructive bowel gas pattern. Excreted contrast in the right renal collecting system. Moderate volume of stool in the colon. Electronically signed by: Gilberto Davison M.D. Katieedgardo Najera Castro [employer] IMG XR PROCEDURES Final Result * XR chest 1 view (Portable) (02/27/2025 4:04 PM CDT) Anatomical Region Laterality Modality Body, Chest N/A Digital Radiogra phy 02/27/2025 4:32 PM CDT Impressions 02/27/2025 4:32 PM CDT Comparison made to 07/05/2024 Gastric tube side port projects over the stomach. Median sternotomy wires are aligned. Endotracheal tube tip 2.3 cm above the jesse. Hypoinflated lungs. Left greater than right bibasilar opacities, possibly atelectasis. No pleural effusion or pneumothorax. Electronically signed by: Gilberto Davison M.D. Narrative 02/27/2025 4:32 PM CDT EXAMINATION: 1 view chest radiograph Procedure Note Gilberto Davison MD - 02/27/2025 EXAMINATION: 1 view chest radiograph IMPRESSION: Comparison made to 07/05/2024 Gastric tube side port projects over the stomach. Median sternotomy wires are aligned. Endotracheal tube tip 2.3 cm above the jesse. Hypoinflated lungs. Left greater than right bibasilar opacities, possibly atelectasis. No pleural effusion or pneumothorax. Electronically signed by: Gilberto Davison M.D. Mariam Strange [employer] IMG XR PROCEDURES Final Result * Neuro CT Outside Consult (02/27/2025 3:47 PM CDT) Anatomical Region Laterality Modality N/A Computed Tomogra phy 02/28/2025 9:02 AM CDT Impressions 02/28/2025 9:[address] study was initially nominated as a consult on outside images via [employer]. However, a consult was not performed because subsequent CT head performed at [facility] at 8:07 PM. Accordingly, there will be no separate report of this study generated by a [facility] Radiologist. Electronically signed by: Conor Lloyd MD Narrative 02/28/2025 9:02 AM CDT EXAMINATION: CHANGE CONSULT ON OUTSIDE IMAGES TO REFERENCE IMAGES Procedure Note Conor Lloyd MD PhD - 02/28/2025 EXAMINATION: CHANGE CONSULT ON OUTSIDE IMAGES TO REFERENCE IMAGES IMPRESSION: This CT study was initially nominated as a consult on outside images via [employer]. However, a consult was not performed because subsequent CT head performed at [facility] at 8:07 PM. Accordingly, there will be no separate report of this study generated by a [facility] Radiologist. Electronically signed by: Conor Lloyd MD Lilliana Acosta MD IMG CT PROCEDURES Final Result * ECG 12 lead (02/27/2025 3:40 PM CDT) Ventricular Rate EKG/Min 111 BPM [facility] Atrial Rate 111 BPM [facility] TN-Interval (MSEC) 158 ms [facility] QRS-Interval (MSEC) 92 ms [facility] QT-Interval (MSEC) 346 ms [facility] QTc 470 ms [facility] P [place] 22 degrees [facility] R [place] 24 degrees [facility] T [place] 13 degrees [facility] Diagnosis Sinus tachycardia Minimal voltage criteria for LVH, may be normal variant ( Radhames product ) 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) Cannot rule out Anterior infarct (cited on or before 29-OCT-2010) Abnormal ECG When compared with ECG of 11-FEB-2025 14:25, Vent. rate has increased BY 55 BPM Confirmed by RADHA SMALLWOOD M.D ([id number]) on 03/02/2025 1:16:59 PM [facility] 02/27/2025 3:40 PM CDT 03/02/2025 1:16 PM CDT Lilliana Acosta MD ECG ORDERABLES Final Result Performing Organization Address [facility] Co de Phone Number [facility] * (ABNORMAL) Troponin I high-sensitivity series (baseline, 2hr, 4hr, 6hr) (02/27/2025 3:23 PM CDT) Pathologist [facility] Trop I hs 156(H) <=17 ng/L Comment: Interpretive Data For further hscTnI resources including the diagnostic algorithm and an aid in interpretation, copy and paste this link: [email or web address] Current Interpretive Data last revised 2019. Blood 02/27/2025 3:23 PM CDT 02/27/2025 3:51 PM CDT us Mariam Strange [facility] BLOOD ORDERABLES Fi nal Result Performing Organization Address [facility] de Phone Number [facility] Department [place] [address] * (ABNORMAL) Lactate (02/27/2025 3:23 PM CDT) [facility] Lactate 3.0(H) 0.7 - 2.0 mmol/L Blood 02/27/2025 3:23 PM CDT 02/27/2025 3:50 PM CDT Mariam Strange [facility] LAB BLOOD ORDERABLES Fi nal Result Performing Organization Address [facility] de Phone Number [facility] [place] [address] * eGFR (02/27/2025 3:23 PM CDT) [facility] eGFR 83 >=60 mL/min/1. 73 m2 Comment: Interpretive Data [...] interpretive data was last reviewed 2021. Blood 02/27/2025 3:23 PM CDT 02/27/2025 3:51 PM CDT Mariam Strange [facility] BLOOD ORDERABLES Fi nal Result Performing Organization Address [facility] Co de Phone Number [facility] [place] [address] * (ABNORMAL) Beta-hydroxybutyrate (02/27/2025 3:23 PM CDT) Beta-Hydroxybut yrate 0.8(H) 0.0 - 0.5 mmol/L Blood 02/27/2025 3:23 PM CDT 02/27/2025 3:39 PM CDT Katie Castro [facility] BLOOD ORDERABLES Fin al Result Performing Organization Address [facility] Co de Phone Number [facility] [place] [address] * aPTT (02/27/2025 3:23 PM CDT) aPTT 26 26 - 38 sec Comment: Interpretive Data Heparin therapeutic range: 66.0 - 100.0 seconds. Range based on correlation with therapeutic heparin activity range of 0.3 - 0.7 Units/mL. Current interpretive data was last revised on 2023. Blood 02/27/2025 3:23 PM CDT 02/27/2025 3:50 PM CDT Mariam Strange [employer] LAB BLOOD ORDERABLES Fi nal Result Performing Organization Address [facility] de Phone Number [facility] [place] [address] * Protime-INR (02/27/2025 3:23 PM CDT) [facility] PT 11.2 10.2 - 13.5 sec INR 0.99 0.90 - 1.20 [facility] Comment: Interpretive data Oral anticoagulant therapeutic ranges: Venous thromboembolism prophylaxis or treatment: 2.0-3.0 CARDIOLOGY Standard range: 2.0-3.0 High-intensity range: 2.5-3.5 Refer to indication-specific guidelines for appropriate target ranges for prosthetic heart valve replacement. Current interpretive data was last revised on 2019. Blood 02/27/2025 3:23 PM CDT 02/27/2025 3:50 PM CDT Mariam Strange [facility] LAB BLOOD ORDERABLES Fi nal Result Performing Organization Address [facility] de Phone Number [facility] [place] [address] * (ABNORMAL) CBC without differential (02/27/2025 3:23 PM CDT) [facility] WBC 17.19(H) 3.80 - 9.90 K/cumm Hgb 14.5 11.9 - 15.5 g/dL [facility] Hct 41.0 35.6 - 45.5 % [facility] Plt 273 150 - 400 K/cumm [facility] MPV 10.3 9.1 - 12.3 fL [facility] RBC 5.04 3.90 - 5.20 M/cumm [facility] MCV 81.3 81.3 - 96.4 fL [facility] MCH 28.8 27.1 - 33.3 pg [facility] MCHC 35.4 32.3 - 35.7 g/dL [facility] RDW CV 13.4 11.1 - 14.9 % [facility] RDW SD 39.5 35.7 - 48.1 fL [facility] NRBC abs 0.00 0.00 - 0.01 K/cumm [facility] Blood 02/27/2025 3:23 PM CDT 02/27/2025 3:51 PM CDT us Mariam Strange [employer] [facility] BLOOD ORDERABLES Fi nal Result Performing Organization Address [facility] [place] [address] * Type and screen (02/27/2025 3:23 PM CDT) Gary, indirect Negative ABO Rh AB Positive [facility] Blood 02/27/2025 3:23 PM CDT 02/27/2025 3:37 PM CDT Narrative [facility] - 02/27/2025 4:38 PM CDT Has the patient had Daratumumab or Isatuximab in the past 6 months?->Unknown us Mariam Strange NP LAB BLOOD BANK TEST ORD ERABLES Final Result Performing Organization Address [facility] Co de Phone Number [facility] [place] [address] * Phosphorus (02/27/2025 3:23 PM CDT) Phosphorus, pl 2.4 2.3 - 4.5 mg/dL Blood 02/27/2025 3:23 PM CDT 02/27/2025 3:51 PM CDT Mariam Strange [employer] LAB BLOOD ORDERABLES Fi nal Result Performing Organization Address [facility] Co de Phone Number [facility] [place] [address] * Magnesium (02/27/2025 3:23 PM CDT) Magnesium 1.7 1.4 - 2.5 mg/dL Blood 02/27/2025 3:23 PM CDT 02/27/2025 3:51 PM CDT Mariam Strange [employer] [facility] LAB BLOOD ORDERABLES Fi nal Result [facility] One [facility] [place] [address] * (ABNORMAL) Blood gas, arterial (02/27/2025 3:23 PM CDT) pH, Art 7.51(H) 7.35 - 7.45 PCO2, Arterial 29(L) 35 - 45 mmHg [facility] PO2, Arterial 154(H) 83 - 108 mmHg [facility] HCO3 Art (Calculated) 23 20 - 30 mmol/L [facility] BE, art 1 mmol/L [facility] Comment: Interpretive Data No Reference Range Established Current Interpretive Data was last revised on 2017 O2 Sat Art (Measured) 99(H) 90 - 95 % [facility] Blood 02/27/2025 3:23 PM CDT 02/27/2025 3:34 PM CDT Mariam Strange [employer] [facility] LAB BLOOD ORDERABLES Fi nal Result [facility] One [facility] [place] [address] * (ABNORMAL) Creatine kinase (CK), total (02/27/2025 3:23 PM CDT) CK 230(H) 30 - 200 Units/L Blood 02/27/2025 3:23 PM CDT 02/27/2025 3:51 PM CDT us Mariam Strange [employer] LAB BLOOD ORDERABLES Fi nal Result [facility] One [facility] Department [place] [address] * (ABNORMAL) Comprehensive metabolic panel (02/27/2025 3:23 PM CDT) Sodium 139 135 - 145 mmol/L Potassium, pl 3.5 3.3 - 4.9 mmol/L [facility] Chloride 98 97 - 110 mmol/L [facility] CO2 24 22 - 32 mmol/L [facility] Anion gap 17(H) 2 - 15 mmol/L [facility] BUN 14 6 - 25 mg/dL [facility] Creatinine 0.77 0.60 - 1.10 mg/dL [facility] Glucose 292(H) 70 - 199 mg/dL [facility] Comment: Interpretive Data Fasting [...] interpretive data was last revised 2022. Calcium 9.7 8.5 - 10.3 mg/dL [facility] Bilirubin, total 0.5 0.1 - 1.2 mg/dL [facility] Protein, pl 8.1 6.5 - 8.5 g/dL [facility] Albumin 4.1 3.5 - 5.0 g/dL [facility] Alk phos 156(H) 40 - 130 Units/L [facility] ALT 23 7 - 45 Units/L [facility] AST 45 10 - 45 Units/L [facility] Blood 02/27/2025 3:23 PM CDT 02/27/2025 3:51 PM CDT us Mariam Strange [employer] LAB BLOOD ORDERABLES Fi nal Result Performing Organization Address [facility] Co de Phone Number [facility] [place] [address] * (ABNORMAL) POCT glucose (02/27/2025 3:15 PM CDT) Glucose, POC 281(H) 70 - 199 mg/dL Blood 02/27/2025 3:15 PM CDT 02/27/2025 3:15 PM CDT us Lilliana Acosta MD LAB POCT ORDERABLES - DEVICE Fin al Result Performing Organization Address [facility] Co de Phone Number [facility] [place] [address] * (ABNORMAL) POCT glucose (02/19/2025 11:51 AM CDT) Glucose, POC 254(H) 70 - 199 mg/dL Comment:Glu2: RN/MD Notified Glucose comment 1 Glu2: RN/MD Notified [facility] Blood 02/19/2025 11:5 1 AM CDT 02/19/2025 11:51 AM CDT us Madina Smith MD LAB POCT ORDERABLES - DEV ICE Final Result Performing Organization Address [facility] Co de Phone Number [facility] [place] [address] * eGFR (02/18/2025 6:21 PM CDT) eGFR [...] MD LAB BLOOD ORDERABLES Kayleen miner Result [facility] One [facility] [place] [address] * (ABNORMAL) Differential, auto (02/18/2025 6:21 PM CDT) Neutrophil abs 19.57(H) 1.50 - 6.50 K/cumm Imm gran abs 0.44(H) 0.00 - 0.10 K/cumm [facility] Lymphocyte abs 2.26 0.80 - 3.30 K/cumm [facility] Monocyte abs 1.42(H) 0.20 - 0.80 K/cumm [facility] Eosinophil abs 0.00 0.00 - 0.50 K/cumm [facility] Basophil abs 0.04 0.00 - 0.10 K/cumm [facility] Neutrophil pct 82.4 % [facility] Comment: Interpretive Data Percent cell count reference ranges are not reported, since discordance with absolute values may lead to misinterpretation of CBC data. Current Interpretive Data was last revised on 2017. Imm gran pct 1.9 % [facility] Comment: Interpretive Data Percent cell count reference ranges are not reported, since discordance with absolute values may lead to misinterpretation of CBC data. Current Interpretive Data was last revised on 2017. Lymphocyte pct 9.5 % [facility] Comment: Interpretive Data Percent cell count reference ranges are not reported, since discordance with absolute values may lead to misinterpretation of CBC data. Current Interpretive Data was last revised on 2017. Monocyte pct 6.0 % [facility] Comment: Interpretive Data Percent cell count reference ranges are not reported, since discordance with absolute values may lead to misinterpretation of CBC data. Current Interpretive Data was last revised on 2017. Eosinophil pct 0.0 % [facility] Comment: Interpretive Data Percent cell count reference ranges are not reported, since discordance with absolute values may lead to misinterpretation of CBC data. Current Interpretive Data was last revised on 2017. Basophil pct 0.2 % [facility] Comment: Interpretive Data Percent cell count reference ranges are not reported, since discordance with absolute values may lead to misinterpretation of CBC data. Current Interpretive Data was last revised on 2017. Blood 02/18/2025 6:21 PM CDT 02/18/2025 6:34 PM CDT Madina Smith MD LAB BLOOD ORDERABLES Kayleen l Result [facility] [place] [address] * POCT glucose (02/18/2025 6:21 PM CDT) Glucose, POC 159 70 - 199 mg/dL Blood 02/18/2025 6:21 PM CDT 02/18/2025 6:21 PM CDT Madina Smith MD LAB POCT ORDERABLES - DEV ICE Final Result Performing Organization Address City/[facility]/ZIP Co de Phone Number [facility] [place] [address] * (ABNORMAL) CBC with auto differential (02/18/2025 6:21 PM CDT) Pathologist [facility] WBC 23.73(H) 3.80 - 9.90 K/cumm Hgb 13.4 11.9 - 15.5 g/dL [facility] Hct 38.9 35.6 - 45.5 % [facility] Plt 212 150 - 400 K/cumm [facility] MPV 10.5 9.1 - 12.3 fL [facility] RBC 4.71 3.90 - 5.20 M/cumm [facility] MCV 82.6 81.3 - 96.4 fL [facility] MCH 28.5 27.1 - 33.3 pg [facility] MCHC 34.4 32.3 - 35.7 g/dL [facility] RDW CV 13.3 11.1 - 14.9 % [facility] RDW SD 39.8 35.7 - 48.1 fL [facility] NRBC abs 0.00 0.00 - 0.01 K/cumm [facility] Blood 02/18/2025 6:21 PM CDT 02/18/2025 6:34 PM CDT us Madina Smith MD LAB BLOOD ORDERABLES Kayleen miner Result [facility] One [facility] Department [place] [address] * (ABNORMAL) Lipid panel (02/18/2025 6:21 PM CDT) Pathologist [facility] Cholesterol 249(H) 30 - 199 mg/dL Comment: [...] revised on 2018. Triglycerides 131 <=149 mg/dL [facility] Comment: Interpretive Data Ages [...] revised on 2018. HDL 65 >=40 mg/dL [facility] Comment: Interpretive Data Ages [...] on 2018. LDL, calculated 161(H) <=129 mg/dL [facility] Comment: Interpretive Data Ages [...] NCEP Expert Panel. Circulation 2004;110:227 3. Glenroy Vázquez et al. ANIBAL Cardiol. 2020 September 24;5(5):540-548. doi: 10.1001/[email or web address].2020.0013 Current Interpretive Data was last revised on 2024. Non-HDL Cholesterol 184 mg/dL [facility] Comment: Interpretive Data Ages [...] last revised on 2018. Chol/HDL ratio 4 [facility] Blood 02/18/2025 6:21 PM CDT 02/18/2025 6:34 PM CDT Narrative [facility] - 02/19/2025 9:05 AM CDT REFLEX us Madina Smith MD LAB BLOOD ORDERABLES Kayleen l Result [facility] One [facility] Department [place] [address] * Basic metabolic panel (02/18/2025 6:21 PM CDT) Sodium 141 135 - 145 mmol/L Potassium, pl 4.4 3.3 - 4.9 mmol/L [facility] Chloride 103 97 - 110 mmol/L [facility] CO2 24 22 - 32 mmol/L [facility] Anion gap 14 2 - 15 mmol/L [facility] BUN 21 6 - 25 mg/dL [facility] Creatinine 0.97 0.60 - 1.10 mg/dL [facility] Glucose 169 70 - 199 mg/dL [facility] Comment: Interpretive Data Fasting [...] 2022. Calcium 9.9 8.5 - 10.3 mg/dL [facility] Blood 02/18/2025 6:21 PM CDT 02/18/2025 6:34 PM CDT us Madina Smith MD LAB BLOOD ORDERABLES Kayleen isidra Result [facility] One [facility] [place] [address] * ENDARTERECTOMY - CAROTID (02/18/2025 6:03 PM CDT) Anatomical Region Laterality Modality X-Ray Angiograph y Narrative 02/19/2025 5:41 AM CDT Please see OpNote for result. Madina Smith MD CV CARDIAC CATH PROCEDURE S Final Result * (ABNORMAL) POC Blood Gas and Chemistries, Arterial - (02/18/2025 5:14 PM CDT) pH, Art POC 7.36 7.35 - 7.45 pCO2, Art POC 38 35 - 45 mmHg [facility] pO2, Art POC 190(H) 83 - 108 mmHg [facility] Na, POC 141 135 - 145 mmol/L [facility] K POC 3.8 3.3 - 4.9 mmol/L [facility] Comment: Interpretive Data Not all point of care methods assess for hemolysis. Confirm with instrument and retest K+ if not consistent with clinical signs and symptoms. Current Interpretive Data was last revised on 2023. Cl, POC 109 97 - 110 mmol/L [facility] Ionized Ca, POC 5.05 4.50 - 5.10 mg/dL [facility] Glucose, POC 157 70 - 199 mg/dL [facility] Lactate POC 3.3(H) 0.7 - 2.0 mmol/L [facility] SO2 (gloria) arterial 100(H) 90 - 95 % [facility] Base excess, POC -3.6 mmol/L [facility] HCO3, Art POC 22 20 - 30 mmol/L [facility] Hct, POC 38.0 36.3 - 45.3 % [facility] Total Hb, POC 12.5 11.9 - 15.5 g/dL [facility] Blood 02/18/2025 5:14 PM CDT 02/18/2025 5:14 PM CDT Madina Smith MD LAB POCT ORDERABLES - DEV ICE Final Result Performing Organization Address [facility]/ZIP Co de Phone Number [facility] [place] [address] * (ABNORMAL) POCT Activated clotting time, low range (02/18/2025 5:07 PM CDT) ACT 116(L) 123 - 168 sec POC Device Number [id number] [facility] Blood 02/18/2025 5:07 PM CDT 02/18/2025 5:07 PM CDT Madina Smith MD LAB POCT ORDERABLES - DEV ICE Final Result Performing Organization Address [facility]/ZIP Co de Phone Number [facility] [place] [address] * (ABNORMAL) POCT Activated clotting time, low range (02/18/2025 4:36 PM CDT) ACT 276(H) 123 - 168 sec POC Device Number [id number] [facility] Blood 02/18/2025 4:36 PM CDT 02/18/2025 4:36 PM CDT Madina Smith MD LAB POCT ORDERABLES - DEV ICE Final Result [facility] One [facility] Department [place] [address] * (ABNORMAL) POC Blood Gas and Chemistries, Arterial - (02/18/2025 4:20 PM CDT) pH, Art POC 7.34(L) 7.35 - 7.45 pCO2, Art POC 36 35 - 45 mmHg [facility] pO2, Art POC 171(H) 83 - 108 mmHg [facility] Na, POC 141 135 - 145 mmol/L [facility] K POC 3.2(L) 3.3 - 4.9 mmol/L [facility] Comment: Interpretive Data Not all point of care methods assess for hemolysis. Confirm with instrument and retest K+ if not consistent with clinical signs and symptoms. Current Interpretive Data was last revised on 2023. Cl, POC 110 97 - 110 mmol/L [facility] Ionized Ca, POC 5.32(H) 4.50 - 5.10 mg/dL [facility] Glucose, POC 170 70 - 199 mg/dL [facility] Lactate POC 2.8(H) 0.7 - 2.0 mmol/L [facility] SO2 (gloria) arterial 99(H) 90 - 95 % [facility] Base excess, POC -5.7 mmol/L [facility] HCO3, Art POC 20 20 - 30 mmol/L [facility] Hct, POC 39.0 36.3 - 45.3 % [facility] Total Hb, POC 12.9 11.9 - 15.5 g/dL [facility] Blood 02/18/2025 4:20 PM CDT 02/18/2025 4:20 PM CDT us Madina Smith MD LAB POCT ORDERABLES - DEV ICE Final Result [facility] One [facility] [place] [address] * Surgical pathology (02/18/2025 4:15 PM CDT) Tissue (Artery, plaque Atherosclerotic) 02/18/2025 4:15 PM CDT Narrative PATHOLOGY [facility] - 02/24/2025 10:32 AM CDT EPIC results best viewed via link to PDF [facility] Stephanie Choudh[facility] [place] [address] Note to Patients: This report may contain [...] Gender: F : 1955 (Age: 69) Address: [address] [place], [place] [id number] Hospital #: [id number] Taken:02/18/2025 Received:02/18/2025 Reported: 02/24/2025 Patient Type: [facility] Inpatient Service: Surgery Location: [place] [address] Physician(s): Henny Anderson M.D. Brittany Kay Harper, [...] Surgical Pathology and Flow Cytometry Departments at [facility] as part of an ongoing quality assurance specialist program and in compliance with federally mandated [...] Surgical Pathology and Flow Cytometry Departments of [facility]. It has not been cleared or approved by the U. S. Food and Drug Administration. IMAGES AND SCANNED DOCUMENTS, IF INCLUDED, ONLY VIEWABLE IN PDF VERSION OF REPORT us Madina Smith MD LAB PATHOLOGY ORDERABLES Final Result PATHOLOGY [facility] 3rd Floor [place], [place] [phone] * (ABNORMAL) POCT Activated clotting time, low range (02/18/2025 4:01 PM CDT) ACT 298(H) 123 - 168 sec POC Device Number [id number] [facility] Blood 02/18/2025 4:01 PM CDT 02/18/2025 4:01 PM CDT Madina Smith MD LAB POCT ORDERABLES - DEV ICE Final Result Performing Organization Address [facility] Co de Phone Number [facility] [place] [address] * (ABNORMAL) POCT Activated clotting time, low range (02/18/2025 3:27 PM CDT) [facility] ACT 281(H) 123 - 168 sec POC Device Number [id number] [facility] Blood 02/18/2025 3:27 PM CDT 02/18/2025 3:27 PM CDT Madina Smith MD LAB POCT ORDERABLES - DEV ICE Final Result Performing Organization Address [facility] de Phone Number [facility] [place] [address] * (ABNORMAL) POC Blood Gas and Chemistries, Arterial - (02/18/2025 3:08 PM CDT) [facility] pH, Art POC 7.35 7.35 - 7.45 pCO2, Art POC 38 35 - 45 mmHg [facility] pO2, Art POC 185(H) 83 - 108 mmHg [facility] Na, POC 135 135 - 145 mmol/L [facility] K POC 3.9 3.3 - 4.9 mmol/L [facility] Comment: Interpretive Data Not all point of care methods assess for hemolysis. Confirm with instrument and retest K+ if not consistent with clinical signs and symptoms. Current Interpretive Data was last revised on 2023. Cl, POC 104 97 - 110 mmol/L [facility] Ionized Ca, POC 4.39(L) 4.50 - 5.10 mg/dL [facility] Glucose, POC 245(H) 70 - 199 mg/dL [facility] Lactate POC 4.0(C) 0.7 - 2.0 mmol/L [facility] SO2 (gloria) arterial 100(H) 90 - 95 % [facility] Base excess, POC -4.2 mmol/L [facility] HCO3, Art POC 22 20 - 30 mmol/L [facility] Hct, POC 42.0 36.3 - 45.3 % [facility] Total Hb, POC 14.0 11.9 - 15.5 g/dL [facility] Blood 02/18/2025 3:08 PM CDT 02/18/2025 3:08 PM CDT us Madina Smith MD LAB POCT ORDERABLES - DEV ICE Final Result Performing Organization Address City/[facility]/ZIP Co de Phone Number [facility] [place] [address] * (ABNORMAL) POCT Activated clotting time, low range (02/18/2025 2:57 PM CDT) ACT 314(H) 123 - 168 sec POC Device Number [id number] [facility] Blood 02/18/2025 2:57 PM CDT 02/18/2025 2:57 PM CDT Madina Smith MD LAB POCT ORDERABLES - DEV ICE Final Result Performing Organization Address City/[facility] Co de Phone Number [facility] [place] [address] * Arterial Line (02/18/2025 2:43 PM CDT) [...] tolerated procedure well with no complications Result [facility] Jj Stanley MD PhD [...] tolerated procedure well with no complications Result [facility] Jj Stanley MD PhD [...] of attempts: 1 Planned trial extubation: yes Jj Stanley MD PhD ANESTHESIA ORDERABLES Kayleen l Result * (ABNORMAL) POCT glucose (02/18/2025 1:29 PM CDT) Glucose, POC 249(H) 70 - 199 mg/dL Blood 02/18/2025 1:29 PM CDT 02/18/2025 1:29 PM CDT Madina Smith MD LAB POCT ORDERABLES - DEV ICE Final Result Performing Organization Address [facility] Co de Phone Number [facility] [place] [address] * Check Sample (02/18/2025 1:26 PM CDT) ABO Rh AB Positive [facility] HCLL OTHER 02/18/2025 1:26 PM CDT 02/18/2025 1:40 PM CDT Madina Smith MD LAB BLOOD ORDERABLES Kayleen l Result Performing Organization Address City/[facility]/ZIP Co de Phone Number [facility] [place] [address] [facility] * POCT glucose (02/12/2025 1:26 PM CDT) Glucose Blood, POC 171 Normal Fasting 70 - 100, Random <200 mg/dL Blood 02/12/2025 1:26 PM CDT us Carmen Caraballo MD POINT OF CARE TEST [...] MD LAB BLOOD ORDERABLES Final Re sult [facility] Department [place] [address] * (ABNORMAL) Hemoglobin A1c (02/12/2025 12:13 PM CDT) Hgb A1C 9.2(H) 4.0 - 5.6 % Estimated Average Glucose 217 mg/dL RYAN [facility] Comment: The ADA recommends reporting [...] MD LAB BLOOD ORDERABLES Final Re sult [facility] Department [place] [address] * (ABNORMAL) Comprehensive metabolic panel (02/12/2025 12:13 PM CDT) Sodium 142 135 - 145 mmol/L Potassium, pl 3.9 3.3 - 4.9 mmol/L [facility] Chloride 104 97 - 110 mmol/L [facility] CO2 29 22 - 32 mmol/L [facility] Anion gap 9 2 - 15 mmol/L [facility] BUN 26(H) 6 - 25 mg/dL [facility] Creatinine 1.08 0.60 - 1.10 mg/dL [facility] Glucose 99 70 - 199 mg/dL [facility] Comment: Interpretive Data Fasting [...] Calcium 9.8 8.5 - 10.3 mg/dL CERNER [facility] Bilirubin, total 0.4 0.1 - 1.2 mg/dL [facility] Protein, pl 7.2 6.5 - 8.5 g/dL [facility] Albumin 4.0 3.5 - 5.0 g/dL [facility] Alk phos 91 40 - 130 Units/L [facility] ALT 12 7 - 45 Units/L [facility] AST 24 10 - 45 Units/L [facility] Blood 02/12/2025 12:1 3 PM CDT 02/12/2025 1:17 PM CDT us Conor Bautista MD LAB BLOOD ORDERABLES Final Re sult Performing Organization Address City/[facility]/ZIP Co de Phone Number RYAN [facility] Department [place] [address] * (ABNORMAL) Urinalysis reflex to microscopic and culture Urine, clean voided (02/11/2025 3:54 PM CDT) Color, ur Straw Yellow Clarity, ur Clear Clear [facility] Specific gravity, ur 1.022 1.003 - 1.030 [facility] pH, urine 6.0 [facility] Comment: Interpretive Data U rine pH is affected by diet, medications, systemic acid-base disturbances, and renal tubular function. pH may affect urinary stone formation. For example, urine pH below 6.0 may help reduce the tendency for calcium phosphate stones and pH greater than 6.0 may reduce the tendency for uric acid stone formation. Source: [facility] Current Interpretive Data was last revised on 2017 Protein, ur ql Trace Negative [facility] Glucose, ur ql Trace(A) Negative [facility] Ketones, ur Negative Negative [facility] Bilirubin, ur Negative Negative [facility] Blood, ur Negative Negative [facility] Urobilinogen, ur <2.0 <2.0 mg/dL [facility] Nitrite, ur Negative Negative [facility] Leukocyte esterase, ur 1+(A) Negative [facility] UA reflex comment Reflex to microscopic UA will be performed. [facility] Urine, clean voided 02/11/2025 3:54 PM CDT 02/11/2025 4:27 PM CDT us Enedina Cuevas NP LAB MICROBIOLOGY - GENER AL ORDERABLES Final Result Performing Organization Address [facility]/ZIP Co de Phone Number [facility] [place] [address] * (ABNORMAL) Urinalysis, microscopic only (02/11/2025 3:54 PM CDT) WBC, ur 11-20(A) 0 - 5 /HPF RBC, ur 0-2 0 - 2 /HPF [facility] Epithelial cells, squamous, ur 1-5 0 - 5 /HPF [facility] Epithelial cells, renal, ur 1-5(A) 0 - 0 /HPF [facility] Bacteria, ur 3+(A) [facility] Mucous, ur Present(A) [facility] Culture Reflex Comment Reflex to urine culture will be performed. [facility] Urine, clean voided 02/11/2025 3:54 PM CDT 02/11/2025 4:27 PM CDT Enedina Cuevas NP LAB URINE ORDERABLES Fin al Result [facility] [place] [address] * (ABNORMAL) Urine culture Urine, clean voided (02/11/2025 3:54 PM CDT) Report Final Report: Greater than or equal to 100,000 colonies/mL of Klebsiella pneumoniae (.) Organism KLEBSIELLA PNEUMONIAE [facility] Urine, clean voided 02/11/2025 3:54 PM CDT 02/11/2025 8:20 PM CDT Narrative [facility] - 02/13/2025 3:05 PM CDT Urine culture reflexed based upon urinalysis results. Testing performed by [facility] Microbiology Laboratory ([phone]) Organism Antibiotic Method Susceptibility Klebsiella pneumoniae Ampicillin [...] AL ORDERABLES Final Result Performing Organization Address City/[facility]/ZIP Co de Phone Number [facility] [place] [address] * TYPE AND SCREEN 14 DAY (02/11/2025 3:37 PM CDT) ABO Rh AB Positive Gary, indirect Negative [facility] Blood 02/11/2025 3:37 PM CDT 02/11/2025 4:36 PM CDT Narrative [facility] - 02/11/2025 5:39 PM CDT Is this test being ordered in advance for a procedure?->Yes Expected date of procedure:->02/18/25 Has the patient been transfused in the past 3 months?->No Has the patient been in the past 3 months?->No Enedina Cuevas NP LAB BLOOD BANK TEST ORDE RABLES Final Result Performing Organization Address [facility] Co de Phone Number [facility] [place] [address] * eGFR (02/11/2025 3:37 PM CDT) eGFR [...] ORDERABLES Fin al Result Performing Organization Address [facility] de Phone Number [facility] [place] [place] [address] * (ABNORMAL) CPAP aPTT algorithm (02/11/2025 3:37 [...] ORDERABLES Fin al Result Performing Organization Address [facility] de Phone Number [facility] [place] [address] * Protime-INR (02/11/2025 3:37 PM CDT) PT 10.8 10.2 - 13.5 sec INR 0.95 0.90 - 1.20 [facility] Comment: Interpretive data Oral [...] ORDERABLES Fin al Result Performing Organization Address [facility] Co de Phone Number [facility] [place] [address] * (ABNORMAL) CBC without differential (02/11/2025 3:37 PM CDT) WBC 21.35(H) 3.80 - 9.90 K/cumm Hgb 14.0 11.9 - 15.5 g/dL [facility] Hct 42.0 35.6 - 45.5 % [facility] Plt 226 150 - 400 K/cumm [facility] MPV 10.8 9.1 - 12.3 fL [facility] RBC 5.01 3.90 - 5.20 M/cumm [facility] MCV 83.8 81.3 - 96.4 fL [facility] MCH 27.9 27.1 - 33.3 pg [facility] MCHC 33.3 32.3 - 35.7 g/dL [facility] RDW CV 13.3 11.1 - 14.9 % [facility] RDW SD 40.3 35.7 - 48.1 fL [facility] NRBC abs 0.00 0.00 - 0.01 K/cumm [facility] Blood 02/11/2025 3:37 PM CDT 02/11/2025 4:43 PM CDT Enedina Cuevas NP LAB BLOOD ORDERABLES Fin al Result Performing Organization Address City/[facility]/ZIP Co de Phone Number [facility] Department [place] [address] * (ABNORMAL) Comprehensive metabolic panel (02/11/2025 3:37 PM CDT) Sodium 141 135 - 145 mmol/L Potassium, pl 3.5 3.3 - 4.9 mmol/L [facility] Chloride 102 97 - 110 mmol/L [facility] CO2 30 22 - 32 mmol/L [facility] Anion gap 9 2 - 15 mmol/L [facility] BUN 27(H) 6 - 25 mg/dL [facility] Creatinine 0.90 0.60 - 1.10 mg/dL [facility] Glucose 150 70 - 199 mg/dL [facility] Comment: Interpretive Data Fasting [...] 2022. Calcium 10.3 8.5 - 10.3 mg/dL [facility] Bilirubin, total 0.5 0.1 - 1.2 mg/dL [facility] Protein, pl 8.2 6.5 - 8.5 g/dL [facility] Albumin 4.5 3.5 - 5.0 g/dL [facility] Alk phos 102 40 - 130 Units/L [facility] ALT 11 7 - 45 Units/L [facility] AST 20 10 - 45 Units/L [facility] Blood 02/11/2025 3:37 PM CDT 02/11/2025 4:43 PM CDT us Enedina Cuevas NP LAB BLOOD ORDERABLES Fin al Result [facility] [place] [address] * (ABNORMAL) POCT hemoglobin A1c (02/11/2025 2:35 PM CDT) Hgb A1C, POC 8.9(H) 4.0 - 5.6 % Est Average Gluc POC 209 mg/dL [facility] Comment: The ADA recommends reporting an estimated Average Glucose (eAG) with all Hemoglobin A1c results using the equation derived from a study of 507 normal and diabetic adults. Minority populations were underrepresented and children were not included. (Diabetes Care 31:1324-0358, 2008). The eAG is not equivalent to a fasting glucose. Blood 02/11/2025 2:35 PM CDT 02/11/2025 2:35 PM CDT us Madina Smith MD POINT OF CARE TEST ORDERA BLES Final Result Performing Organization Address [facility]/ZIP Co de Phone Number [facility] [place] [address] * ECG 12 lead (02/11/2025 2:25 PM CDT) Ventricular Rate EKG/Min 56 BPM [facility] Atrial Rate 56 BPM [facility] TN-Interval (MSEC) 156 ms [facility] QRS-Interval (MSEC) 94 ms [facility] QT-Interval (MSEC) 410 ms [facility] QTc 395 ms [facility] P Chester 3 degrees [facility] R [place] -24 degrees [facility] T Chester 23 degrees [facility] Diagnosis Sinus bradycardia Minimal voltage criteria for LVH, may be normal variant ( R in aVL ) Inferior infarct , age undetermined Poor r wave progression associated with abnormal lead placement, obesity, pulmonary disease, anterior infarction. Abnormal ECG When compared with ECG of 29-OCT-2010 04:32, QS present in V3 which could represent lead placement Confirmed by STEVE ALBARRAN M.D ([id number]) on 02/12/2025 10:02:10 AM [facility] 02/11/2025 2:25 PM CDT 02/12/2025 10:02 AM CDT us Enedina Cuevas NP ECG ORDERABLES Final Re sult Performing Organization Address City/[facility]/ZIP Co de Phone Number [facility] * CTA Head Neck W WO Contrast [...] the CTA were generated on a dedicated workstation/in room dining server. Contrast information: 69 mL Optiray-350 IV [...] cavernous carotid arteries without significant stenosis.. The fxkpfc-xv-Hkalne is complete. The anterior and middle cerebral [...] the CTA were generated on a dedicated workstation/in room dining server. Contrast information: 69 mL Optiray-350 IV [...] cavernous carotid arteries without significant stenosis.. The qckztc-xe-Bnxhng is complete. The anterior and middle cerebral [...] PM CDT Narrative 02/09/2025 9:41 AM CDT [facility] - Department of Vascular Surgery, Vascular Laboratory [address] [place] [id number] Carotid Duplex Ultrasound Report Patient Name: GRICEL MELISSA : 1955 (69y 4m) Study Date: 02/08/2025 2:36:30 PM Sex: F Tech: Location: [facility] Provider: MAIDNA SMITH Quality: Adequate Order Provider: MADINA SMITH [...] LT VERT PSV 75 cm/sec FINDINGS: Performing Senior Engineering Tech: Estrella Combs RVT. Rt Common Carotid Artery: [...] above. Electronically Signed By: Jin Bruno MD [facility] [phone] 02/09/2025 8:36:02 AM CDT Procedure Note Jin Bruno MD - 02/09/2025 [facility] - Department of Vascular Surgery,Vascular Laboratory [address] [place] [id number] Carotid Duplex Ultrasound Report Patient Name: GRICEL MELISSA : 1955 (69y 4m) Study Date: 02/08/2025 2:36:30 PM Sex: F Tech: Location: [facility] Ref Provider: MADINA SMITH Quality: Adequate Order Provider: [...] LT VERT PSV 75 cm/sec FINDINGS: Performing Senior Engineering Tech: Estrella Combs RVT. Rt Common Carotid Artery: [...] above. Electronically Signed By: Jin Bruno MD [facility] [phone] 02/09/2025 8:36:02 AM CDT us Madina Smith MD IM US PROCEDURES Final R esult * Screening Mammogram Bilateral W Geo (11/02/2024 [...] calcification, or architectural distortion in either breast. us Self Screening Mammogram IMG MAMMO PROCEDURES Fi nal Result * Albumin Creatinine Ratio, Urine (05/05/2024 12:43 PM PRELIMINARY SCHOOL PSYCHOLOGIST) Albumin Ur 122.5 mg/L Comment: Interpretive Data No reference range established. Current interpretive data was last revised 2018. Creatinine Ur 453.1 mg/dL [facility] Comment: Interpretive Data No reference range established. Current interpretive data was last revised 2018. Albumin Creatinine Ratio, Ur 27 1 - 29 mg/g [facility] Urine 05/05/2024 12:4 3 PM [employer]ARY SCHOOL PSYCHOLOGIST 05/06/2024 9:19 AM PRE[employer] SCHOOL PSYCHOLOGIST Conor Bautista MD LAB URINE ORDERABLES Final Re sult [facility] [address] [address] Department [place] [address] * Dexa Axial Skeleton Bone Density 1 or 2 Site (11/11/2023 3:39 PM CDT) Anatomical Region Laterality Modality Body N/A Mammography 11/11/2023 9:46 PM CDT Narrative 11/11/2023 9:47 PM CDT EXAM DESCRIPTION: DEXA AXIAL SKELETON BONE DENSITY 1 OR MORE SITES REASON FOR STUDY: 68 y/o year old F with given history of: osteoporosis screen Public Records Officer/Model: [employer] A (S/N [id number]) CLINICAL INFORMATION: Current height: 64 inches Maximum [...] Lars Maria M.D. MF: DORA Report ID: [id number] Reading Location: [place] [address] Procedure Note Lars Maria MD - 11/11/2023 EXAM DESCRIPTION: DEXA AXIAL SKELETON BONE DENSITY 1 OR MORE SITES REASON FOR STUDY: 68 y/o year old F with given history of:osteoporosis screen Public Records Officer/Model: [employer] A (S/N [id number]) CLINICAL INFORMATION: Current height: 64 inches Maximum [...] see below follow up recommendations. Medical evaluation forsecondary causes of low bone mineral density may [...] Lars Maria M.D. MF: DORA Report ID: [id number] Reading Location: [place] [address] us Conor Bautista MD IMG DXA PROCEDURES Final Resu lt * Diabetic Eye Exam (10/10/2022) 10/10/2022 us Historical Provider HEALTH MAINTENANCE Final Result * COLONOSCOPY (09/12/2021 12:02 PM CDT) Anatomical Region Laterality Modality Other Narrative Procedure Note Chula Downs MD - 09/12/2021 12:02 PM CDT [facility] Endoscopy Lab Patient Name: Gricel Melissa Procedure Date: 09/12/2021 12:02 PM Date of : 1955 Admit Type: Outpatient Age: 65 Gender: Female Note Status: Finalized Attending MD: Chula Downs M.D. Procedure Date: 09/12/2021 Procedure: Colonoscopy [...] by the physician, the nurse and the medical office professional instructor in the procedure room. Mental Status Examination: [...] pathology results. 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 All rights reserved. The codes documented in this report are preliminary and upon school crossing guard supervisor reviewmay be revised to meet current compliance requirements. Electronically signed by Chula Downs M.D. Chula Downs M.D. 09/12/2021 12:51:50 PM Number of Addenda: 0 Note Initiated On: 09/12/2021 12:02 PM us Chula Downs MD ENDOSCOPY PROCEDURES Fi nal Result from Last 3 Months or Most Recently Relevant to Health Maintenance Insurance [facility] HMO [facility] ADVANTRA [facility] ADVANTRA [employer] HMO/POS [facility] [employer] MEDICARE [place] ADVANTRA Advance Directives For more information, please contact: [phone] Documents on File Type Date Recorded Patient Bit Sharpener Expl anation ADVANCE DIRECTIVE 03/11/2025 10:03 PM POW ER OF LOCATION MAN-MEDICAL ADVANCE DIRECTIVE 03/02/2025 4:32 PM POWER OF LOCATION MAN-MEDICAL ADVANCE DIRECTIVE 03/02/2025 4:25 PM POWER OF LOCATION MAN-MEDICAL ADVANCE DIRECTIVE 02/19/2025 10:28 AM CATHY R OF LOCATION MAN-FINANCIAL * Full Code (Latest Code Status on File) Date Activated Date Inactivated Comments 03/15/2025 3:56 AM 03/25/2025 5:24 PM * Full Code Date Activated Date Inactivated Comments 02/27/2025 3:02 PM 03/09/2025 6:05 PM * Full Code Date Activated Date Inactivated Comments 02/18/2025 7:51 PM 02/19/2025 7:59 PM * Full Code Date Activated Date Inactivated Comments 06/30/2024 10:04 PM 07/06/2024 8:12 PM * Full Code Date Activated Date Inactivated Comments 03/03/2021 10:46 PM 03/08/2021 8:10 PM Healthcare Agents on File Name Relationship Healthcare Agent Relationship Communication Sr Raeann Melissa Spouse Health Care Agent [email or web address] Raeann Whitten API Healthcare Care Agent [email or web address] Care Teams Jump Iron Machine Presser Relationship Specialty Start Date End Date Conor Bautista MD [address] [address] PCP - General Family Medicine 04/12/25 Aubrie Sellers MD Referring Physician 06/09/18 Clare Jeter MD [address] [place] [address] Consulting Physician Cardiology 06/09/18 Prem Rojas DO [address] [place] [address] Consulting Physician Gastroenterology 06/09/18 Dannielle Romo PA [address] [place] [address] Physician Customer Service Assistant Orthopedic Surgery 06/09/18 Prem Chauhan MD [address] [place] [address] Surgeon Orthopedic Surgery 06/09/18 Yuridia Davidson MD [address] [place] [address] Surgeon Orthopedic Surgery 06/09/18 Channing Sam MD [address] [place] [address] Surgeon Ophthalmology 06/09/18 Raeann Pagan PA [address] [facility] [address] [place] [address] Physician Customer Service Assistant Physician Customer Service Assistant 06/09/18 Telma Monreal MD [address] [facility] [address] [place] [address] Referring Physician Dermatology 06/09/18 Gricel Rodas MD [address] [place] [address] [facility] [address] [place] [address] Consulting Physician Rheumatology 06/09/18 Racheal Bauer MD [address] [facility] [address] [phone] [place] [address] Referring Physician Obstetrics and Gynecology 06/09/18
--- OUTSIDE RECORDS SUMMARY | 2025-04-23 14:19 | XMS_ITS | Clinical Summary ---
Author Organization [facility] Address [address], [address] [address] Phone Care Team Providers Care Propulsion Machinery Service Engineer Name Role Phone Provider, Unknown Primary Care Provider Unavaila Telma Mayers MD Unavailable [phone] Rogelio Lee MD Unavailable [phone] Allergies Active Allergy Reactions Criticality Noted Date [...] Delayed Response every morning. Active Probiotic Product (Wenwo) Capsule Take 1 Tab by mouth 2 [...] 01/25/202502/25, 03/04/2017, 07/17/2015 SARS-COV-2 Immunization ( - 2024- season) 2025 Colonoscopy 02/12/2026 02/13/2016, 03/08/2014 Colorectal [...] Recently Relevant to Health Maintenance Insurance MEDICARE [place] [address] Care Teams Propulsion Machinery Service Engineer Relationship Specialty Start Date End Date Provider, Unknown UNKNOWN PCP - General 09/16/15 Telma Monreal MD [address] DIV IM DERMATOLOGY, [facility] [address] [place] [address] Dermatology 09/16/15 Rogelio Lee MD [facility] [facility] [address] [facility] [address] [place] [address] Internal Medicine 09/16/15
--- OUTSIDE RECORDS SUMMARY | 2025-04-23 14:19 | XMS_ITS | Clinical Summary ---
Author Organization [facility] Address [address] [place] [address] Care Team Providers Care Gas Meter Mechanic Name Role Phone Rogelio Lee MD Primary Care Provider Source Comments [facility],non-owned Affiliates and Associated Physician Practices is amultiple site organization consisting of ambulatory clinics and hospital sitesin [place], [place], [place] and [place]. This disclosure is being madepursuant to the Care Everywhere program and may not contain all information available regarding this patient. Last updated 18.[facility] Allergies Active Allergy Reactions Criticality Noted Date [...] on file Legal Sex Female 5:23 PM RECREATION ATTENDANT Gender Identity Not on file Sexual Orientation Not on file Last Filed Vital Signs Vital Sign Reading Time Taken Comments Blood Pressure 115/67 04/30/2016 1:20 PM RECREATION ATTENDANT Pulse 79 04/30/2016 1:20 PM RECREATION ATTENDANT Temperature 36.9 C (98.4 F) 04/30/2016 1:20 PM RECREATION ATTENDANT Respiratory Rate 17 04/04/2015 12:18 PM RECREATION ATTENDANT Oxygen Saturation 96% 10/25/2012 8:44 AM CDT Inhaled Oxygen Concentration - - Weight 84.4 kg (186 lb) 04/30/2016 1:20 PM RECREATION ATTENDANT Height 165.1 cm (5' 5) 04/30/2016 1:20 PM RECREATION ATTENDANT Body Mass Index 30.95 04/30/2016 1:20 PM RECREATION ATTENDANT Plan of Treatment Health Maintenance Due Date Last Done Comments BONE DENSITY TESTING 1954 COLOGUARD (AGES 45-75) - COLON CA SCREENING 1954 CT COLONOGRAPHY - COLON CA SCREENING 1954 FIT - COLON CA SCREENING 1954 FLEX SIG - COLON CA SCREENING 1954 HEPATITIS C SCREENING 09/22/1972 DTAP/TDAP/TD VACCINES (1 - Tdap) 1973 PNEUMOCOCCAL VACCINE 50+ (1 of 1 - PCV) 2004 Respiratory Syncytial Virus (RSV) Vaccine Pt: or over 60 yrs (1 - Risk 50-74 years 1-dose series) 2004 ZOSTER VACCINE (1 of 2) 2004 LIPID TESTING 04/19/2019 04/19/2014, 10/24/2012 MAMMOGRAM 08/04/2023 08/03/2021 DEPRESSION SCREENING 05/27/2024 COVID-19 VACCINE (1 - season) 2025 INFLUENZA VACCINE (#1) 2025 0, [...] Comments LIPID PROFILE Routine 04/19/2014 1:34 PM RECREATION ATTENDANT from Last 3 Months or Most Recently Relevant to Health Maintenance Results * (ABNORMAL) LIPID PROFILE (04/19/2014 1:34 PM RECREATION ATTENDANT) Cholesterol Total 272(H) <200 mg/dL [facility] HDL 52 >40 mg/dL [facility] Comment: ATP III Classification of HDL [...] BLOOD SPECIMEN / Unknown 04/19/2014 1:34 PM RECREATION ATTENDANT 04/19/2014 2:10 PM RECREATION ATTENDANT Jimbo Contreras MD LAB - CHEMISTRY ORDERABLES Fin al Result [address] [phone] from Last 3 Months or Most Recently Relevant to Health Maintenance Insurance MEDICARE [employer] Care Teams Gas Meter Mechanic Relationship Specialty Start Date End Date Rogelio Lee MD PCP - General 04/04/15
[2025-04-23 15:05] LABS: Add Urine Microscopic? YES; Appearance Urine Clear (Clear); Glucose Urine UA Negative (Negative); Leukocyte Esterase Ur Trace LEU/UL (Negative); Nitrate Urine Negative (Negative); Non Pathogenic Casts 0-2; Specific Grav Ur 1.016 (1.001-1.035)
== END 2025-04-23 14:14 | disposition home or self-care (01) ==
LOC: ANHLAB 14:16
PROVIDERS: PCP Family Medicine; Visit Provider Family Medicine
DX: Z87.440 Personal history of urinary (tract) infections (principal)
CPT/HCPCS: 81001